=== PATIENT | male | born 1960 | race African-American/Black ===

== ENCOUNTER 2017-04-08 22:20 | Inpatient (IN) | payer OTHER ==
[~2017-04-08] VITALS: Ht 180.3 cm; Wt 100.0 kg
[~2017-04-08 22:20] MED LIST: ASPI325T PO; CAPT25TA2 PO; METO50TA PO; RANI150 PO
[2017-04-08 22:25] VITALS: BP 195/91; PULSE 90; RESP 16; TEMP 98.7; O2SAT 99
[2017-04-09] VITALS (10 sets, daily range): BP systolic 158–188; BP diastolic 78–86; PULSE 66–89; RESP 15–24; TEMP 97.4–97.9; O2SAT 80–99
[2017-04-09] MEDS ORDERED: ASPIRIN 81 MG CHEW TAB CHEW ONE (00:45)
[2017-04-09 01:04] LABS: AUTOMATED NEUTROPHIL # 3.7 TH/MM3 (1.8-7.7); BASOPHIL % 0.3 % (0.0-2.0); EOSINOPHIL # 0.1 TH/MM3 (0-0.4); EOSINOPHIL % 1.8 % (0.0-4.0); HEMATOCRIT 28.1 % (39.0-51.0); HEMO FLAGS DIFF FINAL; LYMPH % 29.6 % (9.0-44.0); LYMPHOCYTE # 1.8 TH/MM3 (1.0-4.8); MEAN CELL VOLUME 86.2 FL (80.0-100.0); MEAN CORPUSCULAR HEMOGLOBIN 28.7 PG (27.0-34.0); MEAN CORPUSCULAR HGB CONC 33.3 % (32.0-36.0); MONO % 8.8 % (0.0-8.0); NEUT % 59.5 % (16.0-70.0); PLATELET COUNT 285 TH/MM3 (150-450); RED BLOOD COUNT 3.25 MIL/MM3 (4.50-5.90); RED CELL DISTRIBUTION WIDTH 13.6 % (11.6-17.2); WHITE BLOOD COUNT 6.2 TH/MM3 (4.0-11.0)
[2017-04-09 01:16] LABS: APTT (PATIENT) 27.3 SEC (24.3-30.1); PROTHROMBIN TIME - PATIENT 10.7 SEC (9.8-11.6)
--- NOTE | 2017-04-09 01:18 | PD ---
HPI Chief Complaint: Chest Pain Time Seen by Provider: 00:11 Travel History International Travel<30 days: No Contact w/Intl Traveler<30days: No Traveled to known affect area: No History of Present Illness HPI The patient is a 56 year old male who presents to the [facility] emergency department with a history of back pain along the mid back worse on the right side that radiates down his back intermittently that began one month ago. He reports that the pain is constant and a dull aching sensation. He denies having any lower extremity edema associated with this. He denies having any numbness or tingling to his legs at this time, however he reports that intermittently he does have tingling in one leg alternating with the other. He denies having any urinary incontinence, however he has had difficulty urinating for the last 6 months with some dysuria. He went to see his primary care physician, Dr. Montero regarding this and had a urinalysis done that was reportedly unremarkable. He was told that he probably had prostate enlargement and difficulty urinating related to his high blood pressure. The patient reports that he had a new blood pressure medication added to his regimen was given something to help with prostate enlargement. The patient reports that 2 days ago he began to have left anterior upper chest wall pain. He reports that this is been coming and going. He reports the pain is sharp in character and worse with touching that area. He denies having any pain with taking a deep breath. He denies having any prior history of cardiac disease. The patient reports that he had an evaluation done yesterday for his back pain at [facility]. He did not mention the chest wall pain at that time. The patient was told that he had multiple areas of metastasis in his back and that he would need to follow-up with his primary care physician as soon as possible for referral to an oncologist. The patient reports that the pain medicine, Percocet has not been helping with the pain. Thus, he came to this emergency department for evaluation and treatment. He denies having any bowel incontinence. The patient denies any recent fevers, cough, congestion, neck pain, shortness of breath, abdominal pain, vomiting, diarrhea, or other neurologic symptoms. 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 Blood Disorders: No Heart Rhythm Problems: Yes (NEW ONSET AFIB WITH RVR) Cancer: No Cardiovascular Problems: Yes Diminished Hearing: Yes (DECREASE RIGHT EAR SINCE THIS AM) Endocrine: No GERD: Yes Genitourinary: No Hypertension: Yes Immune Disorder: No Musculoskeletal: Yes Neurologic: No Psychiatric: No Reproductive: No Respiratory: Yes Past Surgical History Narrative Surgical The patient's past surgical history is significant for none. Social History Alcohol Use: Yes (one beer occasionally) Tobacco Use: No Substance Use: No Allergies-Medications (Allergen,Severity, Reaction): Coded Allergies: Codeine (Verified Allergy, Severe, ITCHING, 04/09/17) Reported Meds & Prescriptions Reported Meds & Active Scripts Active Reported Aspirin 325 Mg Tab 325 Mg PO DAILY Captopril 25 Mg Tab 25 Mg PO TIDAC Take 1 hr before meals. Review of Systems Except as stated in HPI: all other systems reviewed are Neg General / Constitutional: No: Fever Eyes: No: Visual changes HENT: No: Headaches Cardiovascular: Positive: Chest Pain or Discomfort, No: Dyspnea on exertion Respiratory: No: Cough, Shortness of Breath Gastrointestinal: No: Nausea, Vomiting, Diarrhea, Abdominal Pain, Changes in Bowel Habits Genitourinary: Positive: Frequency, Dysuria, No: Urgency Musculoskeletal: Positive: Myalgias, Arthralgias, Pain Skin: No Rash Neurologic: No: Weakness, Focal Abnormalities, Change in Mentation, Slurred Speech, Sensory Disturbance Psychiatric: No: Depression Endocrine: No: Polydipsia Hematologic/Lymphatic: No: Easy Bruising Physical Exam Narrative General: The patient is a well-developed well-nourished male in no acute distress. Head and Neck exam: Head is normocephalic atraumatic. Eyes: EOMI, pupils are equal round and reactive to light. Nose: Midline septum with pink mucous membranes Mouth: Dentition unremarkable. Moist mucus membranes. Posterior oropharynx is not erythematous. No tonsillar hypertrophy. Uvula midline. Airway patent. Neck: No palpable lymphadenopathy. No nuchal rigidity. No thyromegaly. Cardiovascular: Regular rate and rhythm without murmurs, gallops, or rubs. Lungs: Clear to auscultation bilaterally. No wheezes, rhonchi, or rales. Abdomen: Soft, without tenderness to palpation in all 4 quadrants of the abdomen. No guarding, rebound, or rigidity. Normal bowel sounds are audible. No tenderness on palpation of McBurney's point. Negative Titus's sign. Extremities: No clubbing, cyanosis, or edema. 2+ pulses in all 4 extremities. No calf tenderness on palpation. Back: The patient reports having paraspinal muscle tenderness on palpation along the mid to lower thoracic spine. No costovertebral angle tenderness to palpation. Neurologic Exam: Cranial nerves 2-12 were intact on exam. Strength is 5/5 in all 4 extremities. No sensory deficits noted. Negative straight leg raise bilaterally. Skin Exam: No rash noted. Intact skin that is warm and dry. Data Data Last Documented VS Vital Signs Date Time Temp Pulse Resp B/P Pulse Ox O2 Delivery O2 Flow Rate FiO2 04/09/17 02:00 80 16 182/86 98 Room Air 04/08/17 22:25 98.7 Orders Complete Blood Count With Diff (04/09/17 00:32) Comprehensive Metabolic Panel (04/09/17 00:32) Creatine Kinase (Cpk) (04/09/17 00:32) Ckmb (Isoenzyme) Profile (04/09/17 00:32) Troponin I (04/09/17 00:32) B-Type Natriuretic Peptide (04/09/17 00:32) Prothrombin Time / Inr (Pt) (04/09/17 00:32) Act Partial Throm Time (Ptt) (04/09/17 00:32) Lipase (04/09/17 00:32) Urinalysis - C+S If Indicated (04/09/17 00:32) D-Dimer (04/09/17:32) Magnesium (Mg) (04/09/17 00:32) Chest, Single Ap (04/09/17 00:32) Iv Access Insert/Monitor (04/09/17 00:32) Ecg Monitoring (04/09/17 00:32) Oximetry (04/09/17 00:32) Aspirin Chew (Aspirin Chew) (04/09/17 00:45) CKMB (04/09/17 00:50) CKMB% (04/09/17 00:50) Ct Abd/Pel W/O Iv Contrast (04/09/17 01:45) Sodium Chlor 0.9% 1000 Ml Inj (Ns 1000 M (04/09/17 02:00) Morphine Inj (Morphine Inj) (04/09/17 02:00) Ondansetron Inj (Zofran Inj) (04/09/17 02:00) Ventilation & Perfusion Scan (04/09/17 02:05) Admit Order (Ed Use Only) (04/09/17 02:18) Labs Laboratory Tests Test 04/09/17 00:50 White Blood Count 6.2 TH/MM3 Red Blood Count 3.25 MIL/MM3 Hemoglobin 9.4 GM/DL Hematocrit 28.1 % Mean Corpuscular Volume 86.2 FL Mean Corpuscular Hemoglobin 28.7 PG Mean Corpuscular Hemoglobin 33.3 % Concent Red Cell Distribution Width 13.6 % Platelet Count 285 TH/MM3 Mean Platelet Volume 7.2 FL Neutrophils (%) (Auto) 59.5 % Lymphocytes (%) (Auto) 29.6 % Monocytes (%) (Auto) 8.8 % Eosinophils (%) (Auto) 1.8 % Basophils (%) (Auto) 0.3 % Neutrophils # (Auto) 3.7 TH/MM3 Lymphocytes # (Auto) 1.8 TH/MM3 Monocytes # (Auto) 0.5 TH/MM3 Eosinophils # (Auto) 0.1 TH/MM3 Basophils # (Auto) 0.0 TH/MM3 CBC Comment DIFF FINAL Differential Comment Prothrombin Time 10.7 SEC Prothromb Time International 1.0 RATIO Ratio Activated Partial 27.3 SEC Thromboplast Time D-Dimer Quantitative (PE/DVT) 4.06 MG/L FEU Urine Color LIGHT-YELLOW Urine Turbidity CLEAR Urine pH 5.0 Urine Specific Thornton 1.011 Urine Protein NEG mg/dL Urine Glucose (UA) NEG mg/dL Urine Ketones NEG mg/dL Urine Occult Blood MOD Urine Nitrite NEG Urine Bilirubin NEG Urine Urobilinogen LESS THAN 2.0 MG/DL Urine Leukocyte Esterase NEG Urine RBC 61 /hpf Urine WBC 3 /hpf Urine Squamous Epithelial <1 /hpf Cells Urine Mucus FEW /lpf Microscopic Urinalysis Comment CULT NOT INDICATED Sodium Level 140 MEQ/L Potassium Level 4.2 MEQ/L Chloride Level 106 MEQ/L Carbon Dioxide Level 22.6 MEQ/L Anion Gap 11 MEQ/L Blood Urea Nitrogen 50 MG/DL Creatinine 3.60 MG/DL Estimat Glomerular Filtration 21 ML/MIN Rate Random Glucose 110 MG/DL Calcium Level 9.4 MG/DL Magnesium Level 2.6 MG/DL Total Bilirubin 0.2 MG/DL Aspartate Amino Transf 16 U/L (AST/SGOT) Alanine Aminotransferase 19 U/L (ALT/SGPT) Alkaline Phosphatase 462 U/L Total Creatine Kinase 160 U/L Creatine Kinase MB 1.4 NG/ML Troponin I LESS THAN 0.02 NG/ML B-Type Natriuretic Peptide 28 PG/ML Total Protein 8.2 GM/DL Albumin 3.2 GM/DL Lipase 129 U/L [facility] Medical Decision Making Medical Screen Exam Complete: Yes Emergency Medical Condition: Yes Medical Record Reviewed: Yes Interpretation(s) Last Impressions Lung Scan-VQ Nuclear Medicine 04/09/17 0205 Signed Impressions: Service Date/Time: Sunday, April 09, 2017 09:21 - CONCLUSION: Normal examination with no ventilation/perfusion mismatch. Examination is low probability for PE. Agustín Augustin MD Abdomen/Pelvis CT 04/09/17 0145 Signed Impressions: Service Date/Time: Sunday, April 09, 2017 02:07 - CONCLUSION: Bilateral hydronephrosis which is felt likely related to neoplasm involving the distal ureters. Retroperitoneal adenopathy. Widespread bony metastatic disease. Agustín Boykin MD Chest X-Ray 04/09/17 0032 Signed Impressions: Service Date/Time: Sunday, April 09, 2017 01:09 - CONCLUSION: No acute disease. Agustín Boykin MD Differential Diagnosis Multiple myeloma, versus metastatic cancer from other source, versus Paget's disease, versus acute coronary syndrome, versus pulmonary embolism, versus musculoskeletal strain Narrative Course During the course of the patients emergency department visit, the patients history, examination, and differential diagnosis were reviewed with the patient. The patient had IV access obtained and blood work sent for analysis. The patient was placed on a pvc monitor with oximetry and blood pressure monitoring. An EKG was done on arrival. The EKG showed no acute ST segment changes. The patient was initially provided aspirin 162 mg by mouth 1 due to his reports of chest pain. The patient was given morphine for formal grams IV for pain, Zofran 4 mg IV for nausea, normal saline 1 L IV fluid bolus. The patients laboratory studies were reviewed and remarkable for a 6.2, hemoglobin 9.4, platelets 285 with 8.8 monocytes, CMP is remarkable for BUN of 50, creatinine 3.60, glucose 110, magnesium 2.6, alkaline phosphatase 462, CPK and troponin I within normal limits, BNP is 28, lipase 129, d-dimer is 4.06, given the patient's elevated BUN and creatinine of VQ scan will be ordered to be done as an inpatient, PT 10.7, PTT 27.3. Urinalysis shows moderate occult blood [address] scan of the abdomen and pelvis to evaluate for possible kidney stones versus urologic mass was ordered. Radiology studies were reviewed and remarkable for a chest x-ray that showed no acute abnormality. A CT scan showed bilateral hydronephrosis which is felt likely to be related to neoplasm involving the distal ureters, retroperitoneal adenopathy, widespread bony metastatic disease is noted. The patient's results were discussed with the patient, including the plan of care. I explained that further testing and/ or monitoring is indicated based on the patients history, examination, and/ or laboratory findings. Therefore, I recommended admission for additional evaluation. The patient expressed understanding and was agreeable with this plan. The patient was admitted to the hospital in stable condition and [facility]. Physician Communication Physician Communication The patient's case was discussed with Dr. Mishra who did agree to admit the patient for further evaluation and treatment at this time. Diagnosis Primary Impression: Metastatic disease Additional Impressions: Elevated d-dimer Chest pain Qualified Code: R07.9 - Chest pain, unspecified type Admitting Information Admitting Physician Requests: Admit Marlyn Alvarez MD April 09, 2017 01:18
--- NOTE | 2017-04-09 01:23 | RADRPT ---
EXAM DATE/TIME: 04/09/2017 01:09 [facility] COMPARISON: No previous studies available for comparison. INDICATIONS : Chest pain. MEDICAL HISTORY : None. SURGICAL HISTORY : None. ENCOUNTER: Initial ACUITY: 1 day PAIN SCORE: 7/10 LOCATION: Bilateral chest FINDINGS: A single view of the chest demonstrates the lungs to be symmetrically aerated without evidence of mas s, infiltrate or effusion. The cardiomediastinal contours are unremarkable. Osseous structures are intact. CONCLUSION: No acute disease. Agustín Boykin MD on April 09, 2017 at 1:20 Board Certified Radiologist. This report was verified electronically.
[2017-04-09 01:28] LABS: ALT (GPT) 19 U/L (12-78); ANION GAP 11 MEQ/L (5-15); AST (GOT) 16 U/L (15-37); BICARBONATE 22.6 MEQ/L (21.0-32.0); BLOOD UREA NITROGEN 50 MG/DL (7-18); CHLORIDE 106 MEQ/L (98-107); GLOMERULAR FILTRATION RATE 21 ML/MIN (>89); MAGNESIUM 2.6 MG/DL (1.5-2.5); POTASSIUM 4.2 MEQ/L (3.5-5.1); SODIUM (NA) 140 MEQ/L (136-145)
[2017-04-09 01:32] LABS: ALKALINE PHOSPHATASE 462 U/L (45-117); CREATINE KINASE 160 U/L (39-308); TOTAL BILIRUBIN ADULT 0.2 MG/DL (0.2-1.0)
[2017-04-09 01:35] LABS: BLOOD, URINE MOD (NEG); GLUCOSE,URINE NEG (NEG); KETONE, URINE NEG (NEG); MUCUS URINE FEW /lpf (OCC); NITRITE,URINE NEG (NEG); SQUAMOUS EPITHELIAL CELL URINE <1 /hpf (0-5); URINE COLOR LIGHT-YELLOW (YELLW/STRAW)
[2017-04-09 01:36] LABS: COMMENT (UR) CULT NOT INDICATED; CULTURE IF INDICATED CULT NOT INDICATED
[2017-04-09 01:44] LABS: CKMB 1.4 NG/ML (0.5-3.6)
[2017-04-09] MEDS ORDERED: ONDANSETRON HCL 4 MG/2 ML VIAL IV PUSH ONE (02:00)
[2017-04-09] MEDS ORDERED: MORPHINE SULFATE 4 MG/ML INJ IV PUSH ONE (02:00)
[2017-04-09] MEDS ORDERED: SODIUM CHLOR 0.9% 1000 ML INJ 1,000 ML IV ONE (02:00)
[2017-04-09] MEDS ORDERED: LACTULOSE SYRUP 20 GM/30 ML CUP PO PRN (02:45)
[2017-04-09] MEDS ORDERED: MAGNESIUM HYDROXIDE SUSP 30 ML CUP PO PRN (02:45)
[2017-04-09] MEDS ORDERED: ONDANSETRON HCL 4 MG/2 ML VIAL IVP PRN (02:45)
[2017-04-09] MEDS ORDERED: SENNOSIDES 8.6 MG TAB PO PRN (02:45)
[2017-04-09] MEDS ORDERED: DIAZEPAM 5 MG TAB PO PRN (02:45)
[2017-04-09] MEDS ORDERED: ACETAMINOPHEN 325 MG TAB PO PRN (02:45)
[2017-04-09] MEDS ORDERED: SODIUM CHLORIDE 0.9% FLUSH 10 ML FLUSH IV FLUSH PRN (02:45)
[2017-04-09] MEDS ORDERED: BISACODYL 10 MG SUPP RECTAL PRN (02:45)
--- NOTE | 2017-04-09 02:58 | RADRPT ---
EXAM DATE/TIME: 04/09/2017 02:07 [facility] COMPARISON: No previous studies available for comparison. INDICATIONS : Back pain; rule out renal calculi. ORAL CONTRAST: No oral contrast ingested. RADIATION DOSE: 8.51 CTDIvol (mGy) MEDICAL HISTORY : Hypertension. SURGICAL HISTORY : None. ENCOUNTER: Initial ACUITY: 1 day PAIN SCALE: 8/10 LOCATION: abdomen/pelvis TECHNIQUE: Volumetric scanning of the abdomen and pelvis was performed. Using automated exposure control and ad justment of the mA and/or kV according to patient size, radiation dose was kept as low as reasonably achievable to obtain optimal diagnostic quality images. FINDINGS: LOWER LUNGS: There are small bilateral pleural effusions and minimal adjacent parenchymal lung atelectasis LIVER: Homogeneous density without lesion. There is no dilation of the biliary tree. No calcified gallston es. SPLEEN: Normal size without lesion. PANCREAS: Within normal limits. KIDNEYS: Bilateral moderate hydronephrosis and hydroureter with the ureter is dilated throughout. There is inc reased density and wall thickening involving the distal right ureter in particular which is worrisome for neoplastic involvement. No stones are seen. ADRENAL GLANDS: Within normal limits. VASCULAR: There is no aortic aneurysm. BOWEL/MESENTERY: The stomach, small bowel, and colon demonstrate no acute abnormality. There is no free intraperitone al air or fluid. ABDOMINAL WALL: Within normal limits. RETROPERITONEUM: There are enlarged para-aortic lymph nodes, particularly in the lower abdomen and are enlarged retrop eritoneal pelvic lymph nodes, largest on the right measuring about 2.6 cm. BLADDER: Mild posterior bladder base wall thickening adjacent to prostatic impression. REPRODUCTIVE: Prostate is enlarged impressing the bladder base. Prominence of the incompletely visualized right scr otal soft tissues which may reflect mass or hydrocele. INGUINAL: There is no lymphadenopathy or hernia. MUSCULOSKELETAL: Innumerable heterogeneous mixed lytic and sclerotic bone lesions consistent with widespread metastati c disease CONCLUSION: Bilateral hydronephrosis which is felt likely related to neoplasm involving the distal ureters. Retroperitoneal adenopathy. Widespread bony metastatic disease. Agustín Boykin MD on April 09, 2017 at 2:46 Board Certified Radiologist. This report was verified electronically.
[2017-04-09] MEDS ORDERED: ASPI325T PO (03:16)
[2017-04-09] MEDS ORDERED: CAPT25TA2 PO (03:16)
[2017-04-09] MEDS: HEPARIN SODIUM - SQ 10,000 UNITS/ML VIAL SQ SCH ×2 (03:22→13:48)
[2017-04-09] MEDS ORDERED: HYDROmorphone HCL PF 1 MG/ML VIAL IV PUSH PRN (03:30)
[2017-04-09] MEDS: SODIUM CHLOR 0.9% 1000 ML INJ 1,000 ML IV SCH ×3 (03:42→21:52)
--- NOTE | 2017-04-09 03:47 | HHI.HP ---
HPI Service [facility] Hospitalists Primary Care Physician Agustín Montero MD Admission Diagnosis Renal failure, micro hematuria, back pain with metastasis Diagnoses: (1) Intractable back pain Diagnosis: Principal (2) Metastatic disease Diagnosis: Principal (3) Chest pain Diagnosis: Principal (4) Elevated d-dimer Diagnosis: Principal (5) JENELLE (acute kidney injury) Diagnosis: Principal (6) Hydronephrosis Diagnosis: Principal (7) Anemia Diagnosis: Principal (8) HTN (hypertension) Diagnosis: Principal Travel History International Travel<30 Days: No Contact w/Intl Traveler <30 Da: No Traveled to Known Affected Are: No History of Present Illness This is a 56-year-old male with a PMH of HTN and h/o A-fib on ASA who presented to the ER w/ complaints of severe back pain x1 month. Was seen at [facility] for similar symptoms yesterday. records in chart. CT T-Spine w/o contrast w/ mild bilateral hydronephrosis and proximal hydroureter, very extensive diffuse metastatic disease involving the entire visualized vertebral column, possible paraspinal extraosseous spread of neoplasm at T9. Pt was informed of results and discharged from w/ prescription for Percocet and instructions to follow up w/ PCP for Oncology referral. Today, pt w/ ongoing severe back pain and acute onset of chest pain at which time he presented to [place]. Also reports difficulty urinating for approx 6 months, seen by PCP Dr. Montero, outpatint U/a normal per patient and started on "medication for prostate", notes some improvement in symptoms. Denies fever, chills, nausea, vomiting or diarrhea. On arrival, BP 195/91, HR 90, O2 sat 99% on RA, Afebrile. WBC normal. Hgb 9.4, previously 13.9 on 12/12/09. Creatinine 3.60, previously 1.35 on 12/12/09. GFR 21. ALP 462. Troponin negative. INR 1.0. D-dimer 4.06. V/ Q pending. UA with hematuria. CXR with no acute findings. CT Abdomen/Pelvis w / bilateral hydronephrosis likely related to neoplasm involving the distal ureters, retroperitoneal adenopathy, widespread bony metastatic disease. Review of Systems Except as stated in HPI: all other systems reviewed are Neg ROS: 14 point review of systems otherwise negative. Past Family Social History Past Medical History PMH: HTN and h/o A-fib on ASA Past Surgical History PAST SURGICAL HISTORY: None Allergies: Coded Allergies: Codeine (Verified Allergy, Severe, ITCHING, 04/09/17) Family History PAST FAMILY HISTORY: Reviewed. No h/o DM or CAD Social History PAST SOCIAL HISTORY: Occasional alcohol. Negative for tobacco or drugs. Physical Exam Vital Signs Vital Signs Date Time Temp Pulse Resp B/P Pulse Ox O2 Delivery O2 Flow Rate FiO2 04/08/17 22:25 98.7 90 16 195/91 99 Room Air Physical Exam PE: GENERAL: Very pleasant middle-aged black male in no acute distress. HEENT: PERRLA, EOMI. No scleral icterus or conjunctival pallor. No lid lag or facial droop. CARDIOVASCULAR: Regular rate and rhythm. No obvious murmurs to auscultation. No chest tenderness to palpation. RESPIRATORY: No obvious rhonchi or wheezing. Clear to auscultation. Breath sounds equal bilaterally. GASTROINTESTINAL: Abdomen soft, non-tender, nondistended. BS normal. MUSCULOSKELETAL: Extremities without clubbing, cyanosis, or edema. No obvious deformities. NEUROLOGICAL: Awake, alert and oriented x4. No focal neurologic deficits. Moving both upper and lower extremities spontaneously. Laboratory Laboratory Tests Test 04/09/17 00:50 White Blood Count 6.2 Red Blood Count 3.25 Hemoglobin 9.4 Hematocrit 28.1 Mean Corpuscular Volume 86.2 Mean Corpuscular Hemoglobin 28.7 Mean Corpuscular Hemoglobin 33.3 Concent Red Cell Distribution Width 13.6 Platelet Count 285 Mean Platelet Volume 7.2 Neutrophils (%) (Auto) 59.5 Lymphocytes (%) (Auto) 29.6 Monocytes (%) (Auto) 8.8 Eosinophils (%) (Auto) 1.8 Basophils (%) (Auto) 0.3 Neutrophils # (Auto) 3.7 Lymphocytes # (Auto) 1.8 Monocytes # (Auto) 0.5 Eosinophils # (Auto) 0.1 Basophils # (Auto) 0.0 CBC Comment DIFF FINAL Differential Comment Prothrombin Time 10.7 Prothromb Time International 1.0 Ratio Activated Partial 27.3 Thromboplast Time D-Dimer Quantitative (PE/DVT) 4.06 Urine Color LIGHT-YELLOW Urine Turbidity CLEAR Urine pH 5.0 Urine Specific Mccoll 1.011 Urine Protein NEG Urine Glucose (UA) NEG Urine Ketones NEG Urine Occult Blood MOD Urine Nitrite NEG Urine Bilirubin NEG Urine Urobilinogen LESS THAN 2.0 Urine Leukocyte Esterase NEG Urine RBC 61 Urine WBC 3 Urine Squamous Epithelial <1 Cells Urine Mucus FEW Microscopic Urinalysis Comment CULT NOT INDICATED Sodium Level 140 Potassium Level 4.2 Chloride Level 106 Carbon Dioxide Level 22.6 Anion Gap 11 Blood Urea Nitrogen 50 Creatinine 3.60 Estimat Glomerular Filtration 21 Rate Random Glucose 110 Calcium Level 9.4 Magnesium Level 2.6 Total Bilirubin 0.2 Aspartate Amino Transf 16 (AST/SGOT) Alanine Aminotransferase 19 (ALT/SGPT) Alkaline Phosphatase 462 Total Creatine Kinase 160 Creatine Kinase MB 1.4 Troponin I LESS THAN 0.02 B-Type Natriuretic Peptide 28 Total Protein 8.2 Albumin 3.2 Lipase 129 Result Diagram: 04/09/174904/09/1749 Assessment and Plan Problem List: (1) Intractable back pain ICD Code: M54.9 Status: Acute (2) Metastatic disease ICD Code: C79.9 Status: Acute (3) Chest pain ICD Code: R07.9 Status: Acute (4) Elevated d-dimer ICD Code: R79.89 Status: Acute (5) Hydronephrosis ICD Code: N13.30 Status: Acute (6) JENELLE (acute kidney injury) ICD Code: N17.9 Status: Acute (7) Anemia ICD Code: D64.9 Status: Acute (8) HTN (hypertension) ICD Code: I10 Status: Acute Assessment and Plan A/P: 1. Intractable Back Pain: secondary to findings of extensive metastatic disease on imaging. Analgesics as needed for pain control. 2. Metastatic Disease: Unknown Primary. Presented to [facility] 04/08/17 w/ c /o severe back pain, CT T-Spine from w/ mild bilateral hydronephrosis and extensive metastatic disease (copy in chart), was d/c'd w/ Percocet and instructed to follow up w/ PCP for referral to Oncology. CT Abd/Pelvis today w / moderate bilateral hydronephrosis related to neoplasm involving distal ureters widespread bony metastatic disease, images reviewed by me. Will consult Urology and Oncology for further evaluation. ALP elevated as expected with these findings. Will check PSA. 3. Chest Pain: acute onset of chest pain w/ episode of back pain. Initial trop negative, EKG w/ no acute changes. Unlikely cardiac in origin. Check serial cardiac enzymes. Resume home ASA, start B-negin, Statin. 4. Elevated D-dimer: D-dimer 4.06, unable to undergo CTA Pulm in light of JENELLE. V/Q ordered, currently pending. 5. JENELLE: secondary to Obstructive Uropathy. Creatinine 3.60, previously 1.35 on 12/12/09. U/a +hematuria. CT Abd/Pelvis w/ neoplasm thought to be causing hydronephrosis. Monitor I/O. Consult Urology as above. IVF for hydration. 6. Hydronephrosis: CT from [facility] 04/08/17 w/ mild bilateral hydronephrosis, CT Abd/Pelvis now w/ worsening hydronephrosis likely from underlying neoplasm. +urinary output. Will monitor, treatment/plan as above. 7. Anemia: Hgb 9.4, previously 13.9 on 12/12/09. No active bleeding. Will monitor. 8. HTN: Uncontrolled. BP 190's on arrival. Hold Captopril in light of JENELLE. Start Metoprolol. Monitor BP. 9. DVT Prophylaxis: Heparin sq 10. Social work for d/c planning as needed. 11. Case discussed w/ ER physician at length. Physician Certification 2 Midnight Certification Type: Admission for Inpatient Services Order for Inpatient Services The services are ordered in accordance with Medicare regulations or non- Medicare payer requirements, as applicable. In the case of services not specified as inpatient-only, they are appropriately provided as inpatient services in accordance with the 2-midnight benchmark. Estimated LOS (days): 2 days is the estimated time the patient will need to remain in the hospital, assuming treatment plan goals are met and no additional complications. Post-Hospital Plan: Not yet determined Anel Mishra MD April 09, 2017 03:47
--- NOTE | 2017-04-09 08:16 | EKG ---
Date Performed: 04/09/2017 Time Performed: 00:01:44 PTAGE: 56 years EKG: Baseline artifact is present. Probable Sinus rhythm WITH SHORT NM INTERVAL NONSPECIFIC T-WAVE ABNORMALITY ABNORMAL ECG Compared to prior electrocardiogr am,Both EKGs have artifact but it appears that nonspecific T-wave changes are present. PREVIOUS TRACING : 12/12/2009 19.28 DOCTOR: Harsh Perez Interpretating Date/Time 04/09/2017 08:15:46
[2017-04-09] MEDS ORDERED: METOPROLOL TARTRATE 25 MG TAB PO SCH (09:00)
[2017-04-09] MEDS ORDERED: METOPROLOL TARTRATE 50 MG TAB PO SCH (09:00)
[2017-04-09] MEDS: ASPIRIN 325 MG TAB PO SCH (09:11)
[2017-04-09] MEDS: DOCUSATE SODIUM 50 MG/SENNA 8.6 MG TAB PO SCH ×2 (09:11→20:02)
[2017-04-09] MEDS: FAMOTIDINE 20 MG TAB PO SCH (09:11)
[2017-04-09] MEDS: PRAVASTATIN SOD 40 MG TAB PO SCH (09:11)
[2017-04-09] MEDS: SODIUM CHLORIDE 0.9% FLUSH 10 ML FLUSH IV FLUSH SCH ×2 (09:12→20:00)
--- NOTE | 2017-04-09 10:13 | RADRPT ---
EXAM DATE/TIME: 04/09/2017 09:21 [place] COMPARISON: CHEST SINGLE AP, April 09, 2017, 1:09. INDICATIONS : Short of breath and right sided chest pain. DOSE: 8.1 mCi Tc99m MAA IV 1.1 mCi Tc99m DTPA aerosol MEDICAL HISTORY : Hypertension. Carcinoma, prostate. Smoker and atrial fibrillation. SURGICAL HISTORY : None. ENCOUNTER: Initial ACUITY: 1 day PAIN SCALE: 3/10 LOCATION: Right chest TECHNIQUE: Following five minutes of tidal breathing of DTPA aerosol, planar images of the lungs were performed in eight projections. The patient was then injected with MAA, and eight-view perfusion scan was perf ormed. FINDINGS: There is a homogeneous pattern of aerosol delivery to the periphery of both lungs. No focal ventilat ory defects are seen. The perfusion lung scan demonstrates a homogenous pattern of uptake in both lungs. No segmental or s ubsegmental defects are seen. CONCLUSION: Normal examination with no ventilation/perfusion mismatch. Examination is low probability for PE. Agustín Augustin MD on April 09, 2017 at 10:09 Board Certified Radiologist. This report was verified electronically.
[2017-04-09] MEDS: HYDROmorphone HCL PF 1 MG/ML VIAL IV PRN ×2 (10:52→15:27)
--- NOTE | 2017-04-09 11:08 | HHI.PR ---
Subjective Remarks Patient seen in follow up for widespread bony metastasis, hydronephrosis, renal failure, and intractable back pain. He reports the pain medication is helping. No shortness of breath. Tolerating food. Objective Vitals Vital Signs Date Time Temp Pulse Resp B/P Pulse Ox O2 Delivery O2 Flow Rate FiO2 04/09/17 09:19 77 04/09/17 08:00 97.9 89 22 174/81 99 04/09/17 04:17 80 04/09/17 04:05 97.7 84 18 186/84 98 04/09/17 03:31 16 04/09/17 03:00 80 16 183/85 80 Room Air 04/09/17 02:00 80 16 182/86 98 Room Air 04/08/17 22:25 98.7 90 16 195/91 99 Room Air I/O 04/08/17 04/08/17 04/08/17 04/09/17 04/09/17 04/09/17 07:00 15:00 23:00 07:00 15:00 23:00 Intake Total 1540 ml Balance 1540 ml Intake Oral 240 ml IV Total 1300 ml # Voids 1 Result Diagram: 04/09/17 0050 04/09/17 0050 Imaging Last Impressions Lung Scan-VQ Nuclear Medicine 04/09/17 0205 Signed Impressions: Service Date/Time: Sunday, April 09, 2017 09:21 - CONCLUSION: Normal examination with no ventilation/perfusion mismatch. Examination is low probability for PE. Agustín Augustin MD Abdomen/Pelvis CT 04/09/17 0145 Signed Impressions: Service Date/Time: Sunday, April 09, 2017 02:07 - CONCLUSION: Bilateral hydronephrosis which is felt likely related to neoplasm involving the distal ureters. Retroperitoneal adenopathy. Widespread bony metastatic disease. Agustín Boykin MD Chest X-Ray 04/09/17 0032 Signed Impressions: Service Date/Time: Sunday, April 09, 2017 01:09 - CONCLUSION: No acute disease. Agustín Boykin MD Objective Remarks GENERAL: This is a well-nourished, well-developed patient, in no apparent distress. CARDIOVASCULAR: Normal rate and regular rhythm without murmurs, gallops, or rubs. RESPIRATORY: Good respiratory efforts. Breath sounds equal and clear to auscultation bilaterally. GASTROINTESTINAL: Abdomen soft, non-tender, non-distended. Normal active bowel sounds MUSCULOSKELETAL: Tender to palpation in the mid thoracic spine. Extremities without edema or cyanosis. NEURO: Alert & Oriented x4 to person, place, time, situation. Moves all ext x4 PSYCH: Appropriate mood and affect. A/P Problem List: (1) Intractable back pain ICD Code: M54.9 Status: Acute (2) Metastatic disease ICD Code: C79.9 Status: Acute (3) Chest pain ICD Code: R07.9 Status: Acute (4) Elevated d-dimer ICD Code: R79.89 Status: Acute (5) Hydronephrosis ICD Code: N13.30 Status: Acute (6) JENELLE (acute kidney injury) ICD Code: N17.9 Status: Acute (7) Anemia ICD Code: D64.9 Status: Acute (8) HTN (hypertension) ICD Code: I10 Status: Acute Assessment and Plan 56-year-old male admitted with widespread bony metastatic disease, unknown primary. Patient also presented with acute renal failure secondary to bilateral hydronephrosis related to neoplasm. He presented with intractable back pain: Widespread bony metastatic disease to the spine and intractable back pain: Pain control Oncology consulted. CT T-Spine from w/ mild bilateral hydronephrosis and extensive metastatic disease (copy in chart), CT Abd/Pelvis today w/ moderate bilateral hydronephrosis related to neoplasm involving distal ureters widespread bony metastatic disease. Acute renal failure, likely secondary to obstructive uropathy: CT of the abdomen and pelvis showed hydronephrosis start to be due to neoplasm. Urology consulted Follow renal indices. Hydronephrosis: CT from [facility] 04/08/17 w/ mild bilateral hydronephrosis, CT Abd/Pelvis now w/ worsening hydronephrosis likely from underlying neoplasm. +urinary output. Will monitor, treatment/plan as above. Anemia: Hgb 9.4, previously 13.9 on 12/12/09. No active bleeding. Will monitor. HTN: Uncontrolled. BP 190's on arrival. Hold Captopril in light of JENELLE. Change metoprolol to Amlodipine for better pressure control. Monitor BP. Clonidine as needed DVT Prophylaxis: Heparin sq Natalie Burt MD April 09, 2017 11:08 Natalie Burt MD April 09, 2017 11:08
[2017-04-09 12:59] LABS: AUTOMATED NEUTROPHIL # 2.6 TH/MM3 (1.8-7.7); BASOPHIL % 0.5 % (0.0-2.0); EOSINOPHIL # 0.1 TH/MM3 (0-0.4); HEMO FLAGS DIFF FINAL; LYMPH % 30.5 % (9.0-44.0); LYMPHOCYTE # 1.4 TH/MM3 (1.0-4.8); MEAN CELL VOLUME 87.6 FL (80.0-100.0); MEAN CORPUSCULAR HEMOGLOBIN 29.1 PG (27.0-34.0); MEAN CORPUSCULAR HGB CONC 33.2 % (32.0-36.0); MONO % 8.7 % (0.0-8.0); NEUT % 58.3 % (16.0-70.0); PLATELET COUNT 296 TH/MM3 (150-450); RED BLOOD COUNT 2.85 MIL/MM3 (4.50-5.90); RED CELL DISTRIBUTION WIDTH 13.7 % (11.6-17.2); WHITE BLOOD COUNT 4.4 TH/MM3 (4.0-11.0)
[2017-04-09 13:19] LABS: ALT (GPT) 16 U/L (12-78); ANION GAP 12 MEQ/L (5-15); AST (GOT) 16 U/L (15-37); BICARBONATE 21.4 MEQ/L (21.0-32.0); BLOOD UREA NITROGEN 43 MG/DL (7-18); CHLORIDE 111 MEQ/L (98-107); GLOMERULAR FILTRATION RATE 24 ML/MIN (>89); POTASSIUM 4.2 MEQ/L (3.5-5.1); SODIUM (NA) 144 MEQ/L (136-145)
[2017-04-09 13:23] LABS: ALKALINE PHOSPHATASE 405 U/L (45-117); TOTAL BILIRUBIN ADULT 0.2 MG/DL (0.2-1.0)
[2017-04-09] MEDS: amLODIPine BESYLATE 5 MG TAB PO SCH (13:47)
--- NOTE | 2017-04-09 14:29 | PD.CONS ---
HPI Service Urology Consult Requested By Reason for Consult Bilateral hydroureteronephrosis Primary Care Physician Agustín Montero MD Diagnosis: (1) Intractable back pain ICD Code: M54.9 (2) Metastatic disease ICD Code: C79.9 (3) Chest pain ICD Code: R07.9 (4) Elevated d-dimer ICD Code: R79.89 (5) Hydronephrosis ICD Code: N13.30 (6) JENELLE (acute kidney injury) ICD Code: N17.9 (7) Anemia ICD Code: D64.9 (8) HTN (hypertension) ICD Code: I10 History of Present Illness 56-year-old gentleman with symptoms of back pain for approximately one month who presented to [facility] yesterday with worsening symptoms. Imaging studies demonstrated mild bilateral hydronephrosis, changes consistent with diffuse metastatic disease involving the vertebral column with possible paraspinal extraosseous spread at T9. Patient was informed of these findings, discharged and advised to follow up with his primary care physician. Patient we presented to [place] with worsening back pain as well as acute onset of chest pain. Present workup included a CT scan of the abdomen and pelvis that once again demonstrated bilateral hydroureteronephrosis which appeared related to involvement of both distal ureters with neoplasia. It was markedly retroperitoneal adenopathy and changes consistent with widespread bony metastatic disease. Serum PSA level was markedly elevated at 937.83. At the time of consultation the patient reports that he has been having some difficulty voiding for quite some time with a slow sluggish urinary stream. He also reports weight loss. Review of Systems Constitutional: COMPLAINS OF: Weight loss, DENIES: Fever, Night Sweats Cardiovascular: COMPLAINS OF: Chest pain Genitourinary: DENIES: Hematuria Musculoskeletal: COMPLAINS OF: Back pain Except as stated in HPI: all other systems reviewed are Neg Past Family Social History Past Medical History Hypertension Atrial fibrillation Past Surgical History Denies Reported Medications Refer to EMR Allergies: Coded Allergies: Codeine (Verified Allergy, Severe, ITCHING, 04/09/17) Active Ordered Medications Refer to EMR Family History Reviewed and noncontributory Social History Occasional alcohol use, denies tobacco or intravenous drug abuse history Physical Exam Vital Signs Date Time Temp Pulse Resp B/P Pulse Ox O2 Delivery O2 Flow Rate FiO2 04/09/17 12:00 97.6 66 15 188/83 98 158/78 04/09/17 09:19 77 04/09/17 08:00 97.9 89 22 174/81 99 04/09/17 04:17 80 04/09/17 04:05 97.7 84 18 186/84 98 04/09/17 03:31 16 04/09/17 03:00 80 16 183/85 80 Room Air 04/09/17 02:00 80 16 182/86 98 Room Air 04/08/17 22:25 98.7 90 16 195/91 99 Room Air Physical Exam GENERAL: This is a well-nourished, well-developed patient, in no apparent distress. SKIN: No rashes, ecchymoses or lesions. Cool and dry. HEAD: Atraumatic. Normocephalic. No temporal or scalp tenderness. EYES: Pupils equal round and reactive. Extraocular motions intact. No scleral icterus. No injection or drainage. ENT: Nose without bleeding, purulent drainage or septal hematoma. Throat without erythema, tonsillar hypertrophy or exudate. Uvula midline. Airway patent. NECK: Trachea midline. No JVD or lymphadenopathy. Supple, nontender, no meningeal signs. CARDIOVASCULAR: Regular rate and rhythm without murmurs, gallops, or rubs. RESPIRATORY: Clear to auscultation. Breath sounds equal bilaterally. No wheezes , rales, or rhonchi. GASTROINTESTINAL: Abdomen soft, non-tender, nondistended. No hepato-splenomegaly , or palpable masses. No guarding. GENITOURINARY: Prostate irregular, greater than 50 g and indurated. MUSCULOSKELETAL: Extremities without clubbing, cyanosis, or edema. No joint tenderness, effusion, or edema noted. No calf tenderness. Negative Homans sign bilaterally. NEUROLOGICAL: Awake and alert. Cranial nerves II through XII intact. Motor and sensory grossly within normal limits. Five out of 5 muscle strength in all muscle groups. Normal speech. Laboratory Tests Test 04/09/17 04/09/17 04/09/17 00:50 05:39 12:20 White Blood Count 6.2 4.4 Red Blood Count 3.25 2.85 Hemoglobin 9.4 8.3 Hematocrit 28.1 25.0 Mean Corpuscular Volume 86.2 87.6 Mean Corpuscular Hemoglobin 28.7 29.1 Mean Corpuscular Hemoglobin 33.3 33.2 Concent Red Cell Distribution Width 13.6 13.7 Platelet Count 285 296 Mean Platelet Volume 7.2 7.6 Neutrophils (%) (Auto) 59.5 58.3 Lymphocytes (%) (Auto) 29.6 30.5 Monocytes (%) (Auto) 8.8 8.7 Eosinophils (%) (Auto) 1.8 2.0 Basophils (%) (Auto) 0.3 0.5 Neutrophils # (Auto) 3.7 2.6 Lymphocytes # (Auto) 1.8 1.4 Monocytes # (Auto) 0.5 0.4 Eosinophils # (Auto) 0.1 0.1 Basophils # (Auto) 0.0 0.0 CBC Comment DIFF FINAL DIFF FINAL Differential Comment Prothrombin Time 10.7 Prothromb Time International 1.0 Ratio Activated Partial 27.3 Thromboplast Time D-Dimer Quantitative (PE/DVT) 4.06 Urine Color LIGHT-YELLOW Urine Turbidity CLEAR Urine pH 5.0 Urine Specific [place] 1.011 Urine Protein NEG Urine Glucose (UA) NEG Urine Ketones NEG Urine Occult Blood MOD Urine Nitrite NEG Urine Bilirubin NEG Urine Urobilinogen LESS THAN 2.0 Urine Leukocyte Esterase NEG Urine RBC 61 Urine WBC 3 Urine Squamous Epithelial <1 Cells Urine Mucus FEW Microscopic Urinalysis Comment CULT NOT INDICATED Sodium Level 140 144 Potassium Level 4.2 4.2 Chloride Level 106 111 Carbon Dioxide Level 22.6 21.4 Anion Gap 11 12 Blood Urea Nitrogen 50 43 Creatinine 3.60 3.29 Estimat Glomerular Filtration 21 24 Rate Random Glucose 110 112 Calcium Level 9.4 8.9 Magnesium Level 2.6 Total Bilirubin 0.2 0.2 Aspartate Amino Transf 16 16 (AST/SGOT) Alanine Aminotransferase 19 16 (ALT/SGPT) Alkaline Phosphatase 462 405 Total Creatine Kinase 160 Creatine Kinase MB 1.4 Troponin I LESS THAN 0.02 LESS THAN 0.02 LESS THAN 0.02 B-Type Natriuretic Peptide 28 Total Protein 8.2 7.0 Albumin 3.2 2.8 Lipase 129 Result Diagram: 04/09/17 1220 04/09/17 1220 Imaging Last Impressions Lung Scan-VQ Nuclear Medicine 04/09/17 1554 Signed Impressions: Service Date/Time: Sunday, April 09, 2017 09:21 - CONCLUSION: Normal examination with no ventilation/perfusion mismatch. Examination is low probability for PE. Agustín Augustin MD Abdomen/Pelvis CT 04/09/17 7873 Signed Impressions: Service Date/Time: Sunday, April 09, 2017 02:07 - CONCLUSION: Bilateral hydronephrosis which is felt likely related to neoplasm involving the distal ureters. Retroperitoneal adenopathy. Widespread bony metastatic disease. Agustín Boykin MD Chest X-Ray 04/09/17 0032 Signed Impressions: Service Date/Time: Sunday, April 09, 2017 01:09 - CONCLUSION: No acute disease. Agustín Boykin MD Assessment and Plan Assessment and Plan Urologic impression: Metastatic prostate cancer Recommendations: #1 agree with oncology consultation #2 we'll make arrangements for transrectal ultrasound-guided prostate biopsy sometime this week to confirm diagnosis and determine grade of disease Willie Garcia MD April 09, 2017 14:29
[2017-04-09] MEDS: MORPHINE SULFATE 15 MG CONTROLLED RELEASE TAB PO SCH ×2 (16:58→21:52)
[2017-04-09] MEDS: cloNIDine HCL 0.1 MG TAB PO PRN (22:04)
[2017-04-10] VITALS: BP 158/62; PULSE 76; RESP 17; TEMP 98; O2SAT 99
[2017-04-10] MEDS: HEPARIN SODIUM - SQ 10,000 UNITS/ML VIAL SQ SCH ×2 (02:46→14:06)
[2017-04-10 04:00] VITALS: BP 156/74; PULSE 73; RESP 17; TEMP 97.8; O2SAT 100
[2017-04-10] MEDS: MORPHINE SULFATE 15 MG CONTROLLED RELEASE TAB PO SCH ×3 (05:18→22:06)
[2017-04-10 05:50] LABS: HEMATOCRIT 23.9 % (39.0-51.0); MEAN CELL VOLUME 85.4 FL (80.0-100.0); MEAN CORPUSCULAR HEMOGLOBIN 29.6 PG (27.0-34.0); MEAN CORPUSCULAR HGB CONC 34.6 % (32.0-36.0); PLATELET COUNT 284 TH/MM3 (150-450); RED CELL DISTRIBUTION WIDTH 13.5 % (11.6-17.2); REVIEW FLAG FINAL; WHITE BLOOD COUNT 4.9 TH/MM3 (4.0-11.0)
[2017-04-10 05:52] LABS: BICARBONATE 21.4 MEQ/L (21.0-32.0); POTASSIUM 4.5 MEQ/L (3.5-5.1)
[2017-04-10] MEDS: PRAVASTATIN SOD 40 MG TAB PO SCH (07:59)
[2017-04-10] MEDS: DOCUSATE SODIUM 50 MG/SENNA 8.6 MG TAB PO SCH ×2 (07:59→20:03)
[2017-04-10] MEDS: ASPIRIN 325 MG TAB PO SCH (07:59)
[2017-04-10] MEDS: FAMOTIDINE 20 MG TAB PO SCH (07:59)
[2017-04-10 08:00] VITALS: BP 170/79; PULSE 79; RESP 18; TEMP 97.7; O2SAT 97
[2017-04-10] MEDS: amLODIPine BESYLATE 5 MG TAB PO SCH (08:00)
[2017-04-10] MEDS: SODIUM CHLOR 0.9% 1000 ML INJ 1,000 ML IV SCH ×2 (08:03→17:51)
[2017-04-10] MEDS: SODIUM CHLORIDE 0.9% FLUSH 10 ML FLUSH IV FLUSH SCH ×2 (08:03→20:03)
--- NOTE | 2017-04-10 10:01 | HHI.PR ---
Subjective Remarks Patient reports he is feeling better. Back pain is better controlled with scheduled Oramorph. Objective Vitals Vital Signs Date Time Temp Pulse Resp B/P Pulse Ox O2 Delivery O2 Flow Rate FiO2 04/10/17 08:00 97.7 79 18 170/79 97 04/10/17 06:18 18 04/10/17 04:00 97.8 73 17 156/74 100 04/10/17 00:00 98.0 76 17 158/62 99 04/09/17 20:02 72 04/09/17 20:00 97.7 76 17 182/82 99 04/09/17 16:00 97.4 75 24 99 170/78 04/09/17 12:00 97.6 66 15 188/83 98 158/78 I/O 04/09/17 04/09/17 04/09/17 04/10/17 04/10/17 04/10/17 07:00 15:00 23:00 07:00 15:00 23:00 Intake Total 1540 ml 1104 ml 863 ml 1072 ml 0 ml Output Total 300 ml Balance 1540 ml 1104 ml 863 ml 772 ml 0 ml Intake Oral 240 ml 200 ml 240 ml 240 ml 0 ml IV Total 1300 ml 904 ml 623 ml 832 ml Output Urine Total 300 ml # Voids 1 5 2 # Bowel Movements 0 Result Diagram: 04/10/17 0509 04/10/17 0509 Objective Remarks GENERAL: This is a well-nourished, well-developed patient, in no apparent distress. CARDIOVASCULAR: Normal rate and regular rhythm without murmurs, gallops, or rubs. RESPIRATORY: Good respiratory efforts. Breath sounds equal and clear to auscultation bilaterally. GASTROINTESTINAL: Abdomen soft, non-tender, non-distended. Normal active bowel sounds MUSCULOSKELETAL: Tender to palpation in the mid thoracic spine. Extremities without edema or cyanosis. NEURO: Alert & Oriented x4 to person, place, time, situation. Moves all ext x4 PSYCH: Appropriate mood and affect. A/P Problem List: (1) Intractable back pain ICD Code: M54.9 Status: Acute (2) Metastatic disease ICD Code: C79.9 Status: Acute (3) Chest pain ICD Code: R07.9 Status: Acute (4) Elevated d-dimer ICD Code: R79.89 Status: Acute (5) Hydronephrosis ICD Code: N13.30 Status: Acute (6) JENELLE (acute kidney injury) ICD Code: N17.9 Status: Acute (7) Anemia ICD Code: D64.9 Status: Acute (8) HTN (hypertension) ICD Code: I10 Status: Acute Assessment and Plan 56-year-old male admitted with widespread bony metastatic disease, unknown primary. Patient also presented with acute renal failure secondary to bilateral hydronephrosis related to neoplasm. He presented with intractable back pain: Widespread bony metastatic disease to the spine and intractable back pain: Pain control Oncology consulted. CT T-Spine from w/ mild bilateral hydronephrosis and extensive metastatic disease (copy in chart), CT Abd/Pelvis today w/ moderate bilateral hydronephrosis related to neoplasm involving distal ureters widespread bony metastatic disease. - PSA 937 Acute renal failure, likely secondary to obstructive uropathy: CT of the abdomen and pelvis showed hydronephrosis likely due to neoplasm. Urology following an planning to do ultrasound-guided prostate biopsy sometime this week Follow renal indices. Hydronephrosis: CT from [facility] [place] 04/08/17 w/ mild bilateral hydronephrosis, CT Abd/Pelvis now w/ worsening hydronephrosis likely from underlying neoplasm. +urinary output. Will monitor, treatment/plan as above. Urology following an planning to do ultrasound-guided prostate biopsy sometime this week Anemia: Stable. No active bleeding. Will monitor. HTN: Uncontrolled. BP 190's on arrival. Hold Captopril in light of JENELLE. Better controlled with amlodipine. Increased to 10 mg daily. Monitor BP. Clonidine as needed DVT Prophylaxis: Heparin sq Problem Qualifiers (1) Chest pain: Qualified Code: R07.9 - Chest pain, unspecified type Natalie Burt MD April 10, 2017 10:01
--- NOTE | 2017-04-10 10:51 | PD.ONC.PN ---
Objective Data Date Time Temp Pulse Resp B/P Pulse Ox O2 Delivery O2 Flow Rate FiO2 04/10/17 08:00 97.7 79 18 170/79 97 04/10/17 06:18 18 04/10/17 04:00 97.8 73 17 156/74 100 04/10/17 00:00 98.0 76 17 158/62 99 04/09/17 20:02 72 04/09/17 20:00 97.7 76 17 182/82 99 04/09/17 16:00 97.4 75 24 99 170/78 04/09/17 12:00 97.6 66 15 188/83 98 158/78 04/10/17 04/10/17 04/10/17 07:00 15:00 23:00 Intake Total 1072 ml 0 ml Output Total 300 ml Balance 772 ml 0 ml Result Diagram: 04/10/17 0509 04/10/17 0509 Laboratory Results Laboratory Tests Test 04/09/17 04/10/17 12:20 05:09 White Blood Count 4.4 TH/MM3 4.9 TH/MM3 Red Blood Count 2.85 MIL/MM3 2.80 MIL/MM3 Hemoglobin 8.3 GM/DL 8.3 GM/DL Hematocrit 25.0 % 23.9 % Mean Corpuscular Volume 87.6 FL 85.4 FL Mean Corpuscular Hemoglobin 29.1 PG 29.6 PG Mean Corpuscular Hemoglobin 33.2 % 34.6 % Concent Red Cell Distribution Width 13.7 % 13.5 % Platelet Count 296 TH/MM3 284 TH/MM3 Mean Platelet Volume 7.6 FL 7.5 FL Neutrophils (%) (Auto) 58.3 % Lymphocytes (%) (Auto) 30.5 % Monocytes (%) (Auto) 8.7 % Eosinophils (%) (Auto) 2.0 % Basophils (%) (Auto) 0.5 % Neutrophils # (Auto) 2.6 TH/MM3 Lymphocytes # (Auto) 1.4 TH/MM3 Monocytes # (Auto) 0.4 TH/MM3 Eosinophils # (Auto) 0.1 TH/MM3 Basophils # (Auto) 0.0 TH/MM3 CBC Comment DIFF FINAL Differential Comment Sodium Level 144 MEQ/L 143 MEQ/L Potassium Level 4.2 MEQ/L 4.5 MEQ/L Chloride Level 111 MEQ/L 113 MEQ/L Carbon Dioxide Level 21.4 MEQ/L 21.4 MEQ/L Anion Gap 12 MEQ/L 9 MEQ/L Blood Urea Nitrogen 43 MG/DL 44 MG/DL Creatinine 3.29 MG/DL 3.00 MG/DL Estimat Glomerular Filtration 24 ML/MIN 26 ML/MIN Rate Random Glucose 112 MG/DL 100 MG/DL Calcium Level 8.9 MG/DL 9.0 MG/DL Total Bilirubin 0.2 MG/DL Aspartate Amino Transf 16 U/L (AST/SGOT) Alanine Aminotransferase 16 U/L (ALT/SGPT) Alkaline Phosphatase 405 U/L Troponin I LESS THAN 0.02 NG/ML Total Protein 7.0 GM/DL Albumin 2.8 GM/DL Prostate Specific Antigen 937.83 NG/ML Administered Medications Medications (Trade) Dose Ordered Sig/Deepti Route PRN Reason Start Time Stop Time Status Last Admin Dose Admin Sodium Chloride (NS 1000 ml Inj) 1,000 ml @ 100 mls/hr Q10H IV 04/09/17 02:32 04/10/17 08:03 Sodium Chloride (NS Flush) 2 ml BID IV FLUSH 04/09/17 09:00 04/10/17 08:03 Heparin Sodium (Porcine) (Heparin Inj) 5,000 units Q12H SQ 04/09/17 02:45 04/10/17 02:46 Hydromorphone HCl (Dilaudid Pf Inj) 1 mg Q3H PRN IV Pain 6-10 04/09/17 02:45 04/09/17 15:27 Senna/Docusate Sodium (Kassidy-Colace) 1 tab BID PO 04/09/17 09:00 04/10/17 07:59 Aspirin (Aspirin) 325 mg DAILY PO 04/09/17 09:00 04/10/17 07:59 Famotidine (Pepcid) 20 mg DAILY PO 04/09/17 09:00 04/10/17 07:59 Pravastatin Sodium (Pravachol) 40 mg DAILY PO 04/09/17 09:00 04/10/17 07:59 Amlodipine Besylate (Norvasc) 5 mg DAILY PO 04/09/17 13:28 04/10/17 08:00 Clonidine (Catapres) 0.1 mg Q6H PRN PO SBP> OR = 180, DBP> OR = 100 04/09/17 13:30 04/09/17 22:04 Morphine Sulfate (Oramorph Sr) 15 mg Q8HR PO 04/09/17 16:00 04/10/17 05:18 Objective Remarks GENERAL: acutely ill, nAD SKIN: Warm and dry. HEAD: Normocephalic. EYES: No scleral icterus. No injection or drainage. NECK: Supple, trachea midline. No JVD or lymphadenopathy. LYMPHATIC: No adenopathy. CARDIOVASCULAR: Regular rate and rhythm without murmurs. RESPIRATORY: Breath sounds equal bilaterally. No accessory muscle use. GASTROINTESTINAL: Abdomen soft, non-tender, nondistended. EXTREMITIES: No cyanosis, or edema. Assessment/Plan Problem List: (1) Metastatic disease Status: Acute Plan: -s/p surgical decompression of cord compression at T3 , 04/13, pathology remains pending. 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 --PSA is elevated in the 900s. is highly suspicious for metastatic prostate cancer. We need to establish a tissue diagnosis. --MRI T/L spine: shows widespread osseous disease + cord compression at T3 (2) Elevated d-dimer Status: Acute (3) Normocytic anemia Status: Chronic (4) Cord compression Status: Resolved (5) Prostate cancer metastatic to bone Status: Acute (6) Hydronephrosis Status: Acute (7) Anemia Status: Acute (8) Chest pain Status: Resolved (9) JENELLE (acute kidney injury) Status: Resolved (10) Intractable back pain Status: Resolved Problem Qualifiers (1) Hydronephrosis: Qualified Code: N13.39 - Other hydronephrosis (2) Anemia: Qualified Code: D64.9 - Anemia, unspecified type (3) Chest pain: Qualified Code: R07.9 - Chest pain, unspecified type Tim Le MD April 10, 2017 10:51
[2017-04-10 12:00] VITALS: BP 159/77; PULSE 80; RESP 18; TEMP 98; O2SAT 96
[2017-04-10 16:00] VITALS: BP 173/77; PULSE 78; RESP 18; TEMP 97.7; O2SAT 96
[2017-04-10] MEDS: HYDROmorphone HCL PF 1 MG/ML VIAL IV PRN (20:04)
[2017-04-10 21:00] VITALS: BP 136/74; PULSE 79; RESP 17; TEMP 96.4; O2SAT 97
--- NOTE | 2017-04-10 21:46 | MB ---
cc: SULEMAN STANLEY DATE OF [birth year] DATE OF CONSULTATION REASON FOR CONSULTATION Patient with metastatic disease to the spine as well as widespread metastatic disease to the bones. HISTORY OF PRESENT ILLNESS This is a 56-year-old male who has a history of hypertension and atrial fibrillation who is on aspirin. He presented to the emergency department with complaints of worsening back pain. He was seen at [facility] initially and a CT scan of the T-spine without contrast was completed. It showed bilateral hydronephrosis and proximal hydroureter and excessive diffuse metastatic disease involving the entire visualized vertebral column. He also had paraspinal extraosseous spread of neoplasm at T9. The patient was discharged from the hospital with Percocet and was referred to oncology. He has now presented to [facility] with acute worsening of pain. In the emergency department, a CT of the abdomen and pelvis was performed which showed bilateral hydronephrosis which was felt secondary to a neoplasm involving the distal ureter. There was retroperitoneal adenopathy and widespread bony metastatic disease. His PSA was elevated to 937. The patient was found to be anemic on admission with a hemoglobin of 9.4. The patient was found to be in acute renal failure with a serum creatinine of three. Oncology has been consulted to make further recommendations in this patient who appears to have metastatic prostate cancer based on his elevated PSA levels and multiple bony metastatic lesions. REVIEW OF SYSTEMS A comprehensive 14-point review of systems was completed which was negative except as described in the HPI. PAST MEDICAL HISTORY 1. Hypertension 2. Atrial fibrillation PAST SURGICAL HISTORY Noncontributory to this admission FAMILY HISTORY Reviewed and is noncontributory to this admission. SOCIAL HISTORY He does not smoke cigarettes. He does not engage in illicit drugs. He drinks alcohol occasionally. MEDICATIONS 1. Norvasc 10 mg one tablet p.o. daily. 2. Morphine sulfate 15 mg p.o. q.8 h. 3. Catapres 0.1 mg p.o. q.6 h p.r.n. 4. Kassidy-Colace 1 tablet p.o. b.i.d. 5. Aspirin 325 mg p.o. daily. 6. 20 mg p.o. daily. 7. Pravastatin 40 mg p.o. daily. 8. Hydromorphone 0.5 mg IV q.4 h p.r.n. 9. Zofran 4 mg IV q.6 h p.r.n. 10. Heparin 4000 units subcu q.12 h. 11. Dilaudid 1 mg IV daily 3 h p.r.n. 12. Milk of magnesia 30 mL q.12 h p.r.n. 13. Senokot 17.2 mg p.o. q.12 h p.r.n. 14. Lactulose 30 mL 1 tablet p.o. p.r.n. 15. Valium 5 mg p.o. q.8 h p.r.n. ALLERGIES CODEINE PHYSICAL EXAMINATION VITAL SIGNS: Blood pressure is 159/77, pulse is in the 80s, temperature 98, O2 sats are 96% on room air. GENERAL: Well-developed, well-nourished male in no apparent distress. HEENT: Pupils are equal, round to light. Extraocular movements are intact. NECK: Supple with no bruits. No lymphadenopathy. CHEST: Clear to auscultation CARDIAC: Regular rate ABDOMEN: bowel sounds. EXTREMITIES: Edema SKIN: Without any petechiae, lesion or bruises. NEUROLOGIC: No focal deficits. PSYCHIATRIC: Appropriate. LABORATORY DATA WBCs 4.9, hemoglobin is 8.3, MCV is 85.4, platelet count is 284. Serum chemistries shows sodium of 143, potassium 4.5, chloride 113, CO2 21.4, BUN 44, creatinine three, GFR is 26, calcium is nine, total bilirubin is 0.2, AST 16, ALT 16, alk phos is 405, total protein 7, albumin is 2.8, PSA 937.83. IMAGING STUDIES CT of the abdomen and pelvis - There is bilateral moderate hydronephrosis and hydroureter with the ureter being dilated throughout. There is increased density and wall thickening involving the distal right ureter which is worrisome for neoplastic involvement. There are enlarged periaortic lymph nodes, particularly in the lower abdomen, which are enlarged and there are enlarged retroperitoneal pelvic lymph nodes. The largest one on the right measuring 2.6 cm. VQ scan showed a normal exam with no ventilation/perfusion mismatch, low probability of PE. ASSESSMENT/PLAN This is a 56-year-old male with a history of hypertension and atrial fibrillation who presents with acute back pain. 1. Metastatic disease involving the spine, retroperitoneum, also has bilateral hydronephrosis related to neoplasm involving the distal ureters. His PSA is elevated in the 900s. This is highly suspicious for metastatic prostate cancer. We need to establish a tissue diagnosis. The quickest way will be to biopsy one of the bone lesions. We will obtain an MRI of the spine without contrast. We will also obtain a CT of the chest to complete staging. This would also help us in establishing a site of biopsy. The patient has hydronephrosis with acute renal failure. We will discuss with IR versus urology for stent placement. 2. Normocytic anemia with a hemoglobin of 8.3, MCV 85.4. We will obtain anemia studies. Check stool hemoccult. His total bilirubin is normal at 0.2. It is less likely there is underlying hemolysis. Check LDH and haptoglobin. 3. Acute renal failure secondary to hydronephrosis and tumor compression. We will strongly consider placing urinary stents. We will discuss this case with urology as well as interventional radiology. Thank you for allowing me to participate in the care of this patient. I will continue to follow this patient along. MD ADAMA Felix/ /8:50 PM /9:25 PM ABBEY
[2017-04-10] MEDS: cloNIDine HCL 0.1 MG TAB PO PRN (22:06)
[2017-04-11] MEDS: HEPARIN SODIUM - SQ 10,000 UNITS/ML VIAL SQ SCH (02:35)
[2017-04-11] MEDS: SODIUM CHLOR 0.9% 1000 ML INJ 1,000 ML IV SCH ×3 (02:37→23:39)
[2017-04-11 04:00] VITALS: BP 167/78; PULSE 79; RESP 17; TEMP 98.7; O2SAT 96
[2017-04-11] MEDS: MORPHINE SULFATE 15 MG CONTROLLED RELEASE TAB PO SCH ×3 (05:09→21:03)
[2017-04-11 05:47] LABS: HEMATOCRIT 24.6 % (39.0-51.0); MEAN CELL VOLUME 85.6 FL (80.0-100.0); MEAN CORPUSCULAR HEMOGLOBIN 29.5 PG (27.0-34.0); MEAN CORPUSCULAR HGB CONC 34.5 % (32.0-36.0); PLATELET COUNT 318 TH/MM3 (150-450); RED BLOOD COUNT 2.87 MIL/MM3 (4.50-5.90); RED CELL DISTRIBUTION WIDTH 13.6 % (11.6-17.2); REVIEW FLAG FINAL; WHITE BLOOD COUNT 5.8 TH/MM3 (4.0-11.0)
[2017-04-11 06:23] LABS: ANION GAP 8 MEQ/L (5-15); BICARBONATE 22.3 MEQ/L (21.0-32.0); BLOOD UREA NITROGEN 37 MG/DL (7-18); CHLORIDE 113 MEQ/L (98-107); GLOMERULAR FILTRATION RATE 30 ML/MIN (>89); LDH SERUM 146 U/L (87-241); POTASSIUM 4.5 MEQ/L (3.5-5.1); SODIUM (NA) 143 MEQ/L (136-145)
[2017-04-11 06:48] LABS: TRANSFERRIN IRON PROFILE 185 MG/DL (200-360)
[2017-04-11 08:00] VITALS: BP 157/71; PULSE 76; RESP 18; TEMP 98.3; O2SAT 97
[2017-04-11] MEDS: SODIUM CHLORIDE 0.9% FLUSH 10 ML FLUSH IV FLUSH SCH ×2 (08:42→21:00)
[2017-04-11] MEDS: DOCUSATE SODIUM 50 MG/SENNA 8.6 MG TAB PO SCH ×2 (08:42→21:02)
[2017-04-11] MEDS: PRAVASTATIN SOD 40 MG TAB PO SCH (08:42)
[2017-04-11] MEDS: FAMOTIDINE 20 MG TAB PO SCH (08:42)
--- NOTE | 2017-04-11 09:58 | HHI.PR ---
Subjective Remarks Patient reports he is feeling okay today. Pain is mostly controlled with the controlled release morphine. He does need occasional breakthrough pain medications. Objective Vitals Vital Signs Date Time Temp Pulse Resp B/P Pulse Ox O2 Delivery O2 Flow Rate FiO2 04/11/17 08:00 98.3 76 18 157/71 97 04/11/17 08:00 98.3 76 18 157/71 97 04/11/17 04:00 98.7 79 17 167/78 96 04/10/17 21:00 96.4 79 17 136/74 97 04/10/17 16:00 97.7 78 18 173/77 96 04/10/17 12:00 98.0 80 18 159/77 96 I/O 04/10/17 04/10/17 04/10/17 04/11/17 04/11/17 04/11/17 07:00 15:00 23:00 07:00 15:00 23:00 Intake Total 1072 ml 0 ml 940 ml 913 ml 120 ml Output Total 300 ml 300 ml 300 ml Balance 772 ml 0 ml 640 ml 613 ml 120 ml Intake Oral 240 ml 0 ml 240 ml 240 ml 120 ml IV Total 832 ml 700 ml 673 ml Output Urine Total 300 ml 300 ml 300 ml Result Diagram: 04/11/1751904/11/17519 Objective Remarks GENERAL: This is a well-nourished, well-developed patient, in no apparent distress. CARDIOVASCULAR: Normal rate and regular rhythm without murmurs, gallops, or rubs. RESPIRATORY: Good respiratory efforts. Breath sounds equal and clear to auscultation bilaterally. GASTROINTESTINAL: Abdomen soft, non-tender, non-distended. Normal active bowel sounds MUSCULOSKELETAL: Tender to palpation in the mid thoracic spine. Extremities without edema or cyanosis. NEURO: Alert & Oriented x4 to person, place, time, situation. Moves all ext x4 PSYCH: Appropriate mood and affect. A/P Problem List: (1) Intractable back pain ICD Code: M54.9 Status: Acute (2) Metastatic disease ICD Code: C79.9 Status: Acute (3) Chest pain ICD Code: R07.9 Status: Acute (4) Elevated d-dimer ICD Code: R79.89 Status: Acute (5) Hydronephrosis ICD Code: N13.30 Status: Acute (6) JENELLE (acute kidney injury) ICD Code: N17.9 Status: Acute (7) Anemia ICD Code: D64.9 Status: Acute (8) HTN (hypertension) ICD Code: I10 Status: Acute Assessment and Plan 56-year-old male admitted with widespread bony metastatic disease, unknown primary. Patient also presented with acute renal failure secondary to bilateral hydronephrosis related to neoplasm. He presented with intractable back pain: Widespread bony metastatic disease to the spine and intractable back pain: Pain control Oncology consulted. CT T-Spine from w/ mild bilateral hydronephrosis and extensive metastatic disease (copy in chart), CT Abd/Pelvis today w/ moderate bilateral hydronephrosis related to neoplasm involving distal ureters widespread bony metastatic disease. - PSA 937 - IR for biopsy per Oncology. - MRI of lumbar and thoracic spine today. Acute renal failure, likely secondary to obstructive uropathy: CT of the abdomen and pelvis showed hydronephrosis likely due to neoplasm. Slight improvement Urology following. To decide on stent placement to help with hydronephrosis and renal failure. Follow renal indices. Hydronephrosis: CT from [facility] 04/08/17 w/ mild bilateral hydronephrosis, CT Abd/Pelvis now w/ worsening hydronephrosis likely from underlying neoplasm. +urinary output. Will monitor, treatment/plan as above. See above. Urology following. Anemia: Stable. No active bleeding. Will monitor. HTN: Uncontrolled. BP 190's on arrival. Hold Captopril in light of JENELLE. Better controlled with amlodipine. Monitor BP. Clonidine as needed DVT Prophylaxis: Heparin sq Discharge Planning Pending further tests and procedures per specialist recs. Problem Qualifiers (1) Chest pain: Qualified Code: R07.9 - Chest pain, unspecified type Natalie Burt MD April 11, 2017 09:58
[2017-04-11] MEDS: HYDROmorphone HCL PF 1 MG/ML VIAL IV PRN (10:42)
--- NOTE | 2017-04-11 11:42 | HHI.PR ---
Subjective Patient symptoms today Patient reports feeling better today Pain well managed Objective Vital Signs Vital Signs Date Time Temp Pulse Resp B/P Pulse Ox O2 Delivery O2 Flow Rate FiO2 04/11/17 08:00 98.3 76 18 157/71 97 04/11/17 08:00 98.3 76 18 157/71 97 04/11/17 04:00 98.7 79 17 167/78 96 04/10/17 21:00 96.4 79 17 136/74 97 04/10/17 16:00 97.7 78 18 173/77 96 04/10/17 12:00 98.0 80 18 159/77 96 Intake & Output 04/11/17 04/11/17 07:00 19:00 Intake Total 1853 ml 120 ml Output Total 600 ml Balance 1253 ml 120 ml Intake Oral 480 ml 120 ml IV Total 1373 ml Output Urine Total 600 ml Result Diagram: 04/11/1751904/11/17519 Other Results Abdomen soft, nondistended, nontender Extremities well-perfused Objective Remarks Adequate urine output with improving creatinine Medications and IVs Current Medications Medications (Trade) Dose Ordered Sig/Deepti Route Start Time Stop Time Status Last Admin (NS 1000 ml Inj) 1,000 ml @ 100 mls/hr Q10H IV 04/09/17 02:32 04/11/17 02:37 (NS Flush) 2 ml UNSCH PRN IV FLUSH 04/09/17 02:45 (NS Flush) 2 ml BID IV FLUSH 04/09/17 09:00 04/10/17 08:03 (Zofran Inj) 4 mg Q6H PRN IVP 04/09/17 02:45 (Heparin Inj) 5,000 units Q12H SQ 04/09/17 02:45 04/11/17 02:35 (Tylenol) 650 mg Q6H PRN PO 04/09/17 02:45 (Dilaudid Pf Inj) 1 mg Q3H PRN IV 04/09/17 02:45 04/11/17 10:42 (Kassidy-Colace) 1 tab BID PO 04/09/17 09:00 04/11/17 08:42 (Milk Of Magnesia Liq) 30 ml Q12H PRN PO 04/09/17 02:45 (Senokot) 17.2 mg Q12H PRN PO 04/09/17 02:45 (Dulcolax Supp) 10 mg DAILY PRN RECTAL 04/09/17 02:45 (Lactulose Liq) 30 ml DAILY PRN PO 04/09/17 02:45 (Valium) 5 mg Q8H PRN PO 04/09/17 02:45 (Pepcid) 20 mg DAILY PO 04/09/17 09:00 04/11/17 08:42 (Dilaudid Pf Inj) 0.5 mg Q4H PRN IV PUSH 04/09/17 03:30 (Pravachol) 40 mg DAILY PO 04/09/17 09:00 04/11/17 08:42 (Catapres) 0.1 mg Q6H PRN PO 04/09/17 13:30 04/10/17 22:06 (Oramorph Sr) 15 mg Q8HR PO 04/09/17 16:00 04/11/17 05:09 (Norvasc) 10 mg DAILY PO 04/11/17 09:00 04/11/17 08:42 Assessment and Plan Assessment and Plan Urologic impression: #1 metastatic prostate cancer #2 bilateral hydroureteronephrosis related to the prostate cancer Recommendations: #1 agree with oncology consultation to have a bone lesion biopsy #2 Will hold off on scheduling a prostate biopsy as this would be redundant #3 will hold off on cystoscopy with stent placement as urine output is adequate and serum creatinine is improving, hopefully this will continue to resolve completely once management for the metastatic prostate cancer is implemented. Willie Garcia MD April 11, 2017 11:42
[2017-04-11 12:00] VITALS: BP 173/81; PULSE 75; RESP 16; TEMP 97.4; O2SAT 96
--- NOTE | 2017-04-11 12:09 | RADRPT ---
EXAM DATE/TIME: 04/11/2017 09:58 [facility] COMPARISON: No previous studies available for comparison. INDICATIONS : Metastatic disease. MEDICAL HISTORY : Hypertension. Renal failure, acute. Metastatic, bone. SURGICAL HISTORY : None. ENCOUNTER: Subsequent ACUITY: 1 day PAIN SCORE: 5/10 LOCATION: Back. TECHNIQUE: Multiplanar multisequence MRI of the thoracic spine was performed. FINDINGS: Patient has a history of widespread bony metastatic disease. Moderate marrow alteration is present throughout the thoracic spine. There is extra osseous spread of tumor at the T3 level causing significant compression on the cord at this level. There is minimal extra osseous spread at T6 that is not as significant. Hydronephrosis is noted. Small bilateral pleural effusions are evident. CONCLUSION: Widespread metastatic disease with extra osseous spread of tumor at the T3 level causing significant cord compression. Charlie Juarez MD FACR on April 11, 2017 at 12:02 Board Certified Radiologist. This report was verified electronically.
--- NOTE | 2017-04-11 12:10 | PD.ONC.PN ---
Subjective Subjective Remarks Afebrile overnight. Patient resting in bed in nad with at bedside. He had MRI T and L spine earlier today and had some back pain shortly thereafter due to lying on the hard table. He feels better now after receiving IV dilaudid. He denies any difficulty with bowel or bladder function. No loss of feeling or weakness in the legs. Objective Data Date Time Temp Pulse Resp B/P Pulse Ox O2 Delivery O2 Flow Rate FiO2 04/11/17 08:00 98.3 76 18 157/71 97 04/11/17 08:00 98.3 76 18 157/71 97 04/11/17 04:00 98.7 79 17 167/78 96 04/10/17 21:00 96.4 79 17 136/74 97 04/10/17 16:00 97.7 78 18 173/77 96 04/10/17 12:00 98.0 80 18 159/77 96 04/11/17 04/11/17 04/11/17 07:00 15:00 23:00 Intake Total 913 ml 120 ml Output Total 300 ml Balance 613 ml 120 ml Result Diagram: 04/11/1720 04/11/17 0520 Laboratory Results Laboratory Tests Test 04/11/17 05:20 White Blood Count 5.8 TH/MM3 Red Blood Count 2.87 MIL/MM3 Hemoglobin 8.5 GM/DL Hematocrit 24.6 % Mean Corpuscular Volume 85.6 FL Mean Corpuscular Hemoglobin 29.5 PG Mean Corpuscular Hemoglobin 34.5 % Concent Red Cell Distribution Width 13.6 % Platelet Count 318 TH/MM3 Mean Platelet Volume 7.2 FL Haptoglobin 366 MG/DL Sodium Level 143 MEQ/L Potassium Level 4.5 MEQ/L Chloride Level 113 MEQ/L Carbon Dioxide Level 22.3 MEQ/L Anion Gap 8 MEQ/L Blood Urea Nitrogen 37 MG/DL Creatinine 2.69 MG/DL Estimat Glomerular Filtration 30 ML/MIN Rate Random Glucose 104 MG/DL Calcium Level 9.4 MG/DL Iron Level 57 MCG/DL Total Iron Binding Capacity 259 MCG/DL Percent Iron Saturation 22.0 % Transferrin 185 MG/DL Lactate Dehydrogenase 146 U/L Vitamin B12 Level 691 PG/ML Administered Medications Medications (Trade) Dose Ordered Sig/Deepti Route PRN Reason Start Time Stop Time Status Last Admin Dose Admin Sodium Chloride (NS 1000 ml Inj) 1,000 ml @ 100 mls/hr Q10H IV 04/09/17 02:32 04/11/17 02:37 Sodium Chloride (NS Flush) 2 ml BID IV FLUSH 04/09/17 09:00 04/10/17 08:03 Heparin Sodium (Porcine) (Heparin Inj) 5,000 units Q12H SQ 04/09/17 02:45 04/11/17 02:35 Hydromorphone HCl (Dilaudid Pf Inj) 1 mg Q3H PRN IV Pain 6-10 04/09/17 02:45 04/11/17 10:42 Senna/Docusate Sodium (Kassidy-Colace) 1 tab BID PO 04/09/17 09:00 04/11/17 08:42 Famotidine (Pepcid) 20 mg DAILY PO 04/09/17 09:00 04/11/17 08:42 Pravastatin Sodium (Pravachol) 40 mg DAILY PO 04/09/17 09:00 04/11/17 08:42 Clonidine (Catapres) 0.1 mg Q6H PRN PO SBP> OR = 180, DBP> OR = 100 04/09/17 13:30 04/10/17 22:06 Morphine Sulfate (Oramorph Sr) 15 mg Q8HR PO 04/09/17 16:00 04/11/17 05:09 Amlodipine Besylate (Norvasc) 10 mg DAILY PO 04/11/17 09:00 04/11/17 08:42 Objective Remarks GENERAL: Middle aged male, sitting up in bed in [facility]. SKIN: Warm and dry. HEAD: Normocephalic. EYES: No injection or drainage. NECK: Supple, trachea midline. CARDIOVASCULAR: Regular rate and rhythm RESPIRATORY: Breath sounds equal bilaterally. No accessory muscle use. GASTROINTESTINAL: Abdomen soft, non-tender, nondistended. EXTREMITIES: No cyanosis NEUROLOGICAL: No obvious focal deficit. Awake, alert, and oriented x3. Assessment/Plan Problem List: (1) Metastatic disease Status: Acute Plan: --Dr. Garcia (urology) ok with proceeding with Ct guided bone lesion biopsy for diagnosis instead of prostate biopsy. 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 --PSA is elevated in the 900s. is highly suspicious for metastatic prostate cancer. We need to establish a tissue diagnosis. --MRI T/L spine: shows widespread osseous disease + cord compression at T3 (2) Normocytic anemia Status: Acute Plan: --stool Hemoccult pending --iron studies show low-normal iron, may benefit from IV iron --B12 WNL (3) Hydronephrosis Status: Acute Plan: --d/w Dr. Burt who d/w Dr. Garcia--patient does not yet need stent placement as creatinine is improving. (4) Cord compression Status: Acute Plan: --Neurosurgery consulted --patient started on Decadron 4mg IV q6 Assessment 56y/o male with metastatic disease to the spine as well as widespread metastatic disease to the bones, prostate cancer suspected history of hypertension and atrial fibrillation, on ASA (last dose 04/10, on hold for biopsy) History from initial consult--presented to the emergency department with complaints of worsening back pain. He was seen at [facility] initially and a CT scan of the T-spine without contrast was completed. It showed bilateral hydronephrosis and proximal hydroureter and excessive diffuse metastatic disease involving the entire visualized vertebral column. He also had paraspinal extraosseous spread of neoplasm at T9. The patient was discharged from the hospital with Percocet and was referred to oncology. CT of the abdomen and pelvis was performed which showed bilateral hydronephrosis which was felt secondary to a neoplasm involving the distal ureter. There was retroperitoneal adenopathy and widespread bony metastatic disease. His PSA was elevated to 937. The patient was found to be anemic on admission with a hemoglobin of 9.4. The patient was found to be in acute renal failure with a serum creatinine of three. Oncology has been consulted to make further recommendations in this patient who appears to have metastatic prostate cancer based on his elevated PSA levels and multiple bony metastatic lesions. Plan 1. UPDATE: thoracic spine MRI shows significant cord compression at T3, will consult Neurosurgery and start Decadron. I asked the nurse to call the neurosurgeon so the patient would be seen today. Also updated Dr. Burt, the patient's hospitalist. 2. Dr. Burt d/w urology--as creatinine is improving ok to hold off on stent placement. Attending Statement The exam, history, and the medical decision-making described in the above note were completed with the assistance of the mid-level provider. I reviewed and agree with the findings presented. I attest that I had a [id number] encounter with the patient on the same day, and personally performed and documented my assessment and findings in the medical record Patient with T3 cord compression case discussed with Dr. Tovar Patient would like to think about whether to undergo spinal surgery Decadron started d/w patient d/w nursing Will need CT of the chest once stable hold of ureteral stents since Cr improving and has good urine flow. Problem Qualifiers (1) Hydronephrosis: Qualified Code: N13.39 - Other hydronephrosis Liliam French April 11, 2017 12:10 Tim Le MD April 11, 2017 23:17
--- NOTE | 2017-04-11 12:14 | RADRPT ---
EXAM DATE/TIME: 04/11/2017 09:58 [facility] COMPARISON: MRI THORACIC SPINE W/O CONTRAST, April 11, 2017, 9:58. INDICATIONS : Metastatic disease. MEDICAL HISTORY : Hypertension. Renal failure, acute. Metastatic, bone. SURGICAL HISTORY : None. ENCOUNTER: Subsequent ACUITY: 2 day PAIN SCORE: 5/10 LOCATION: Back. TECHNIQUE: Multiplanar multisequence MRI of the lumbar spine was performed without contrast. FINDINGS: There is widespread metastatic disease in the lumbar spine. There is no significant extra osseous sp read of tumor. L1-L2: The thecal sac has a normal diameter. No evidence of disc bulge or protrusion. The neural foramina are patent bilaterally. L2-L3: There is mild interspace ridging present without significant spinal stenosis. L3-L4: There is generalized disc bugling with moderate facet disease. There is no significant spinal stenos is. L4-L5: There is mild bulging at L4-5 with moderate facet disease. L5-S1: Moderate facet disease is present. Widespread metastatic disease is present in the ilium and sacrum and scattered to the lumbar spine. There is no evidence of cord compression. CONCLUSION: 1. There is no evidence for cord compression. 2. Widespread bony metastatic disease. Charlie Juarez MD FACR on April 11, 2017 at 12:05 Board Certified Radiologist. This report was verified electronically.
--- NOTE | 2017-04-11 13:02 | PD.CONS ---
(Manoj Tovar MD) HPI Consult Requested By Primary Care Physician Agustín Montero MD (Manoj Tovar MD) Service Neurosurgery Consult Requested By Dr. Le Reason for Consult Cord Compression T3 History of Present Illness Mr. Alford is a 56-year-old male who presented to the ER with complaints of severe back pain for a month. Apparently he was evaluated at [facility] for back pain recently. A CT Thoracic spine had showed diffuse metastatic disease of the spine. He was told the results and discharged with instructions to follow up with PCP for an Oncology referral. His back pain worsened with acute chest pain and thus presented to [facility]. He reports some numbness and tingling in his feet, he denies significant leg weakness, bowel or bladder incontinence, fevers or chills. An MRI of the thoracic spine showed widespread metastatic disease with cord compression at T3. His PSA is elevated. A neurosurgical evaluation was requested. (Linda Sampson) Review of Systems Constitutional: DENIES: Fever, Chills Respiratory: DENIES: Shortness of breath Cardiovascular: DENIES: Chest pain Genitourinary: DENIES: Urinary incontinence Musculoskeletal: COMPLAINS OF: Back pain Neurologic: COMPLAINS OF: Paresthesias Psychiatric: DENIES: Hallucinations (Linda Sampson) Past Family Social History Allergies: Coded Allergies: Codeine (Verified Allergy, Severe, ITCHING, 04/09/17) Past Medical History Hypertension Atrial Fibrillation on aspirin Past Surgical History None Reported Medications reviewed in EMR Active Ordered Medications Current Medications Medications (Trade) Dose Ordered Sig/Deepti Route PRN Reason Start Time Stop Time Status Last Admin Dose Admin Sodium Chloride (NS 1000 ml Inj) 1,000 ml @ 100 mls/hr Q10H IV 04/09/17 02:32 04/11/17 13:08 Sodium Chloride (NS Flush) 2 ml UNSCH PRN IV FLUSH FLUSH AFTER USING IV ACCESS 04/09/17 02:45 Sodium Chloride (NS Flush) 2 ml BID IV FLUSH 04/09/17 09:00 04/10/17 08:03 Ondansetron HCl (Zofran Inj) 4 mg Q6H PRN IVP NAUSEA OR VOMITING 04/09/17 02:45 Acetaminophen (Tylenol) 650 mg Q6H PRN PO FEVER/PAIN SCALE 1 TO 2 04/09/17 02:45 Hydromorphone HCl (Dilaudid Pf Inj) 1 mg Q3H PRN IV Pain 6-10 04/09/17 02:45 04/11/17 10:42 Senna/Docusate Sodium (Kassidy-Colace) 1 tab BID PO 04/09/17 09:00 04/11/17 08:42 Magnesium Hydroxide (Milk Of Magnesia Liq) 30 ml Q12H PRN PO MILD - MODERATE CONSTIPATION 04/09/17 02:45 Sennosides (Senokot) 17.2 mg Q12H PRN PO MODERATE - SEVERE CONSTIPATION 04/09/17 02:45 Bisacodyl (Dulcolax Supp) 10 mg DAILY PRN RECTAL SEVERE CONSITIPATION 04/09/17 02:45 Lactulose (Lactulose Liq) 30 ml DAILY PRN PO SEVERE CONSITIPATION 04/09/17 02:45 Diazepam (Valium) 5 mg Q8H PRN PO MUSCLE SPASM 04/09/17 02:45 Famotidine (Pepcid) 20 mg DAILY PO 04/09/17 09:00 04/11/17 08:42 Hydromorphone HCl (Dilaudid Pf Inj) 0.5 mg Q4H PRN IV PUSH PAIN 3-5 04/09/17 03:30 Pravastatin Sodium (Pravachol) 40 mg DAILY PO 04/09/17 09:00 04/11/17 08:42 Clonidine (Catapres) 0.1 mg Q6H PRN PO SBP> OR = 180, DBP> OR = 100 04/09/17 13:30 04/10/17 22:06 Morphine Sulfate (Oramorph Sr) 15 mg Q8HR PO 04/09/17 16:00 04/11/17 13:09 Amlodipine Besylate (Norvasc) 10 mg DAILY PO 04/11/17 09:00 04/11/17 08:42 Dexamethasone Sodium Phosphate (Decadron Inj) 4 mg Q6HR IV PUSH 04/11/17 12:30 04/11/17 13:08 Family History Noncontributory Social History Denies tobacco or illicit drug use, drinks etoh occasionally (Linda Sampson) Physical Exam Vital Signs Vital Signs Date Time Temp Pulse Resp B/P Pulse Ox O2 Delivery O2 Flow Rate FiO2 04/11/17 12:00 97.4 75 16 173/81 96 04/11/17 08:00 98.3 76 18 157/71 97 04/11/17 08:00 98.3 76 18 157/71 97 04/11/17 04:00 98.7 79 17 167/78 96 04/10/17 21:00 96.4 79 17 136/74 97 04/10/17 16:00 97.7 78 18 173/77 96 Physical Exam Mr. Alford is alert, awake and oriented to time, place and person. Speech is fluent. Higher cognitive functions are normal. Cranial nerve examination demonstrates the pupils to be equal, round, and reactive to light. Extra-ocular movements are intact. Facial motor and sensory function are normal and symmetrical. Gross hearing is intact, bilaterally. The uvula is midline and elevates symmetrically with the soft palate. Sternocleidomastoid and trapezius muscles have normal and symmetrical strength. Other cranial nerves are intact. Neck is soft and supple. Muscle strength is 5/5 in all muscle groups of both upper extremities including deltoid, biceps, triceps, brachioradialis, wrist extension and tree trimmer helper. In the lower extremities, strength is 5/5 in both iliopsoas, quadriceps, hamstrings, plantar flexion, dorsiflexion, and extensor hallicus longus. Sensory examination is intact to light touch in both the upper and lower extremities, symmetrically. Deep tendon reflexes are 2+ and symmetrical in the biceps, triceps, and brachioradialis, bilaterally, in the upper extremities. In the lower extremities , the patellar and Achilles are 2+, bilaterally. There is a bilateral plantar flexion response. Hoffmanns sign is negative. There is no clonus. Cerebellar examination is intact. Laboratory Laboratory Tests Test 04/11/17 05:20 White Blood Count 5.8 Red Blood Count 2.87 Hemoglobin 8.5 Hematocrit 24.6 Mean Corpuscular Volume 85.6 Mean Corpuscular Hemoglobin 29.5 Mean Corpuscular Hemoglobin 34.5 Concent Red Cell Distribution Width 13.6 Platelet Count 318 Mean Platelet Volume 7.2 Haptoglobin 366 Sodium Level 143 Potassium Level 4.5 Chloride Level 113 Carbon Dioxide Level 22.3 Anion Gap 8 Blood Urea Nitrogen 37 Creatinine 2.69 Estimat Glomerular Filtration 30 Rate Random Glucose 104 Calcium Level 9.4 Iron Level 57 Total Iron Binding Capacity 259 Percent Iron Saturation 22.0 Transferrin 185 Lactate Dehydrogenase 146 Vitamin B12 Level 691 (Manoj Tovar MD) Physical Exam Mr. Alford is alert, awake and oriented to time, place and person. Speech is fluent. Higher cognitive functions are normal. Cranial nerve examination demonstrates the pupils to be equal, round, and reactive to light. Extra-ocular movements are intact. Facial motor and sensory function are normal and symmetrical. Gross hearing is intact, bilaterally. The uvula is midline and elevates symmetrically with the soft palate. Sternocleidomastoid and trapezius muscles have normal and symmetrical strength. Other cranial nerves are intact. Neck is soft and supple. Muscle strength is 5/5 in all muscle groups of both upper extremities including deltoid, biceps, triceps, brachioradialis, wrist extension and tree trimmer helper. In the lower extremities, strength is 5/5 in both iliopsoas, quadriceps, hamstrings, plantar flexion, dorsiflexion, and extensor hallicus longus. Sensory examination is intact to light touch in both the upper and lower extremities, symmetrically. Deep tendon reflexes are 2+ and symmetrical in the biceps, triceps, and brachioradialis, bilaterally, in the upper extremities. In the lower extremities , the patellar and Achilles are 2+, bilaterally. There is a bilateral plantar flexion response. Hoffmanns sign is negative. There is no clonus. Cerebellar examination is intact to [id number] test. (Linda Sampson) Result Diagram: 04/11/1751904/11/17519 Imaging Last Impressions Lung Scan-VQ Nuclear Medicine 04/09/17 0205 Signed Impressions: Service Date/Time: Sunday, April 09, 2017 09:21 - CONCLUSION: Normal examination with no ventilation/perfusion mismatch. Examination is low probability for PE. Agustín Augustin MD Abdomen/Pelvis CT 04/09/17 0145 Signed Impressions: Service Date/Time: Sunday, April 09, 2017 02:07 - CONCLUSION: Bilateral hydronephrosis which is felt likely related to neoplasm involving the distal ureters. Retroperitoneal adenopathy. Widespread bony metastatic disease. Agustín Boykin MD Chest X-Ray 04/09/17 0032 Signed Impressions: Service Date/Time: Sunday, April 09, 2017 01:09 - CONCLUSION: No acute disease. Agustín Boykin MD (Linda Sampson) Attending Statement Neuro. I have reviewed his clinical and radiological findings. Start neuro checks in a serial fashion. Recommend CT of thoracic s[pine spine. There is retropulsion with compression of the spinal cord. Recommend a surgical decompression and internal fixation with . We have discussed the details including the [id number] details of the surgical procedure, its indications, alternatives, risks, and potential complications. Risks and potential complications include, but are not limited to, infection, blood loss, CSF leak, partial or complete loss of sight in one or both eyes, paresis, paralysis, permanent pain or difficulty swallowing, loss of bowel or bladder function, complications from anesthesia, blood clot, stroke, myocardial infarction, or even . Decadron 4mg q 6 hr PT and OT evaluation Nutrition. NPO Renal. monitor closely urine output, BUN and creatinine Endocrine. Monitor serial Acu checks and SSI as needed in detail ID monitor for signs of infection Protonix for stress ulcer prophylaxis Luis Miguel hose and SCD's for DVT prophylaxis The exam, history, and the medical decision-making described in the above note were completed with the assistance of the mid-level provider. I reviewed and agree with the findings presented. I attest that I had a [id number] encounter with the patient on the same day, and personally performed and documented my assessment and findings in the medical record. (Manoj Tovar MD) Manoj Tovar MD April 11, 2017 13:02 Linda Sampson April 11, 2017 14:59
[2017-04-11] MEDS: DEXAMETHASONE SOD PHOS 4 MG/ML VIAL IV PUSH SCH ×3 (13:08→23:39)
[2017-04-11 16:00] VITALS: BP 189/87; PULSE 82; RESP 20; TEMP 97.4; O2SAT 95
[2017-04-11 20:00] VITALS: BP_SYST 186; BP_SYST 190; BP_DIAS 86; BP_DIAS 88; PULSE 82; RESP 18; TEMP 96.7; O2SAT 98
[2017-04-11] MEDS: cloNIDine HCL 0.1 MG TAB PO PRN (21:03)
[2017-04-12] VITALS (9 sets, daily range): BP systolic 160–190; BP diastolic 75–84; PULSE 80–97; RESP 16–18; TEMP 96.4–97.8; O2SAT 96–100
[2017-04-12 04:56] LABS: HEMATOCRIT 24.2 % (39.0-51.0); MEAN CELL VOLUME 84.5 FL (80.0-100.0); MEAN CORPUSCULAR HEMOGLOBIN 29.5 PG (27.0-34.0); MEAN CORPUSCULAR HGB CONC 34.9 % (32.0-36.0); PLATELET COUNT 332 TH/MM3 (150-450); RED BLOOD COUNT 2.87 MIL/MM3 (4.50-5.90); RED CELL DISTRIBUTION WIDTH 13.7 % (11.6-17.2); REVIEW FLAG FINAL
[2017-04-12] MEDS: MORPHINE SULFATE 15 MG CONTROLLED RELEASE TAB PO SCH ×3 (05:03→21:49)
[2017-04-12] MEDS: DEXAMETHASONE SOD PHOS 4 MG/ML VIAL IV PUSH SCH ×4 (05:03→21:50)
[2017-04-12 05:26] LABS: BICARBONATE 22.5 MEQ/L (21.0-32.0); POTASSIUM 4.7 MEQ/L (3.5-5.1)
[2017-04-12] MEDS: FAMOTIDINE 20 MG TAB PO SCH (08:16)
[2017-04-12] MEDS: DOCUSATE SODIUM 50 MG/SENNA 8.6 MG TAB PO SCH ×2 (08:16→21:49)
[2017-04-12] MEDS: PRAVASTATIN SOD 40 MG TAB PO SCH (08:16)
[2017-04-12] MEDS: SODIUM CHLORIDE 0.9% FLUSH 10 ML FLUSH IV FLUSH SCH ×2 (08:16→21:00)
[2017-04-12] MEDS: SODIUM CHLOR 0.9% 1000 ML INJ 1,000 ML IV SCH ×3 (08:16→21:46)
--- NOTE | 2017-04-12 10:16 | HHI.PR ---
Subjective Remarks Follow-up for prostate cancer Pain is pretty much controlled, moderate, no nausea or vomiting. Denies any chest pain or shortness of breath. Afebrile. Good urine output. Discussed with patient, he has discussed with and they agreed to doing surgery tomorrow. Objective Vitals Vital Signs Date Time Temp Pulse Resp B/P Pulse Ox O2 Delivery O2 Flow Rate FiO2 04/12/17 08:00 97.5 87 17 162/78 100 04/12/17 04:05 97.2 87 17 161/79 98 04/12/17 00:07 97.2 84 18 162/75 96 04/11/17 20:00 96.7 82 18 186/86 98 190/88 04/11/17 16:00 97.4 82 20 189/87 95 04/11/17 12:00 97.4 75 16 173/81 96 I/O 04/11/17 04/11/17 04/11/17 04/12/17 04/12/17 04/12/17 07:00 15:00 23:00 07:00 15:00 23:00 Intake Total 913 ml 828 ml 1246 ml 773 ml Output Total 300 ml Balance 613 ml 828 ml 1246 ml 773 ml Intake Oral 240 ml 120 ml 480 ml IV Total 673 ml 708 ml 766 ml 773 ml Output Urine Total 300 ml # Voids 2 2 Result Diagram: 04/12/17 0428 04/12/17 0428 Objective Remarks GENERAL: Not in distress. CARDIOVASCULAR: Normal rate and regular rhythm without murmurs, gallops, or rubs. RESPIRATORY: Good respiratory efforts. Breath sounds equal and clear to auscultation bilaterally. GASTROINTESTINAL: Abdomen soft, non-tender, non-distended. Normal active bowel sounds MUSCULOSKELETAL: Tender to palpation in the mid thoracic spine. Extremities without edema or cyanosis. NEURO: Alert & Oriented x4 to person, place, time, situation. Moves all ext x4 PSYCH: Appropriate mood and affect. A/P Problem List: (1) Intractable back pain ICD Code: M54.9 Status: Acute (2) Metastatic disease ICD Code: C79.9 Status: Acute (3) Chest pain ICD Code: R07.9 Status: Acute (4) Elevated d-dimer ICD Code: R79.89 Status: Acute (5) Hydronephrosis ICD Code: N13.30 Status: Acute (6) JENELLE (acute kidney injury) ICD Code: N17.9 Status: Acute (7) Anemia ICD Code: D64.9 Status: Acute (8) HTN (hypertension) ICD Code: I10 Status: Acute Assessment and Plan 56-year-old male admitted with widespread bony metastatic disease, unknown primary. Patient also presented with acute renal failure secondary to bilateral hydronephrosis related to neoplasm. He presented with intractable back pain: Prostate cancer with Widespread bony metastatic disease to the spine and intractable back pain: Pain control with oral and intravenous , Dilaudid as needed. Oncology following..CT T-Spine from w/ mild bilateral hydronephrosis and extensive metastatic disease (copy in chart), CT Abd/Pelvis today w/ moderate bilateral hydronephrosis related to neoplasm involving distal ureters widespread bony metastatic disease. MRI of the spine showed spread of tumor the T3 level causing significant cord compression. Neurosurgery following. Discussed with oncology and neurosurgery, no need for IR guided biopsy of the spine or prostate biopsy, patient agreed for decompression surgery tomorrow. Acute renal failure, likely secondary to obstructive uropathy with hydronephrosis: CT of the abdomen and pelvis showed hydronephrosis likely due to neoplasm. Slight improvement, urology following, no need for stent placement with good urine output. Follow creatinine. Anemia: Stable. No active bleeding. Will monitor. HTN: Uncontrolled. BP 190's on arrival. Hold Captopril in light of JENELLE. Better controlled with amlodipine. Monitor BP. Clonidine as needed DVT Prophylaxis: Heparin sq-on hold Discharge Planning Discharged once cleared by oncology and neurosurgery. Problem Qualifiers (1) Chest pain: Qualified Code: R07.9 - Chest pain, unspecified type (2) Hydronephrosis: Qualified Code: N13.39 - Other hydronephrosis Kat Ureña MD Apr 12, 2017 10:16
--- NOTE | 2017-04-12 10:40 | PD.ONC.PN ---
Subjective Subjective Remarks Afebrile overnight. Patient resting comfortably in bed in nad. at bedside. He has decided to proceed with neurosurgery tomorrow. Objective Data Date Time Temp Pulse Resp B/P Pulse Ox O2 Delivery O2 Flow Rate FiO2 04/12/17 08:00 97.5 87 17 162/78 100 04/12/17 04:05 97.2 87 17 161/79 98 04/12/17 00:07 97.2 84 18 162/75 96 04/11/17 20:00 96.7 82 18 186/86 98 190/88 04/11/17 16:00 97.4 82 20 189/87 95 04/11/17 12:00 97.4 75 16 173/81 96 04/12/17 04/12/17 04/12/17 07:00 15:00 23:00 Intake Total 773 ml Balance 773 ml Result Diagram: 04/12/17 0428 04/12/17 0428 Laboratory Results Laboratory Tests Test 04/12/17 04:28 White Blood Count 5.0 TH/MM3 Red Blood Count 2.87 MIL/MM3 Hemoglobin 8.5 GM/DL Hematocrit 24.2 % Mean Corpuscular Volume 84.5 FL Mean Corpuscular Hemoglobin 29.5 PG Mean Corpuscular Hemoglobin 34.9 % Concent Red Cell Distribution Width 13.7 % Platelet Count 332 TH/MM3 Mean Platelet Volume 7.3 FL Sodium Level 144 MEQ/L Potassium Level 4.7 MEQ/L Chloride Level 113 MEQ/L Carbon Dioxide Level 22.5 MEQ/L Anion Gap 9 MEQ/L Blood Urea Nitrogen 38 MG/DL Creatinine 2.45 MG/DL Estimat Glomerular Filtration 33 ML/MIN Rate Random Glucose 141 MG/DL Calcium Level 9.1 MG/DL Administered Medications Medications (Trade) Dose Ordered Sig/Deepti Route PRN Reason Start Time Stop Time Status Last Admin Dose Admin Sodium Chloride (NS 1000 ml Inj) 1,000 ml @ 100 mls/hr Q10H IV 04/09/17 02:32 04/12/17 08:16 Sodium Chloride (NS Flush) 2 ml BID IV FLUSH 04/09/17 09:00 04/10/17 08:03 Hydromorphone HCl (Dilaudid Pf Inj) 1 mg Q3H PRN IV Pain 6-10 04/09/17 02:45 04/11/17 10:42 Senna/Docusate Sodium (Kassidy-Colace) 1 tab BID PO 04/09/17 09:00 04/12/17 08:16 Magnesium Hydroxide (Milk Of Tonya Mazariegos) 30 ml Q12H PRN PO MILD - MODERATE CONSTIPATION 04/09/17 02:45 04/11/17 23:40 Famotidine (Pepcid) 20 mg DAILY PO 04/09/17 09:00 04/12/17 08:16 Pravastatin Sodium (Pravachol) 40 mg DAILY PO 04/09/17 09:00 04/12/17 08:16 Clonidine (Catapres) 0.1 mg Q6H PRN PO SBP> OR = 180, DBP> OR = 100 04/09/17 13:30 04/11/17 21:03 Morphine Sulfate (Oramorph Sr) 15 mg Q8HR PO 04/09/17 16:00 04/12/17 05:03 Amlodipine Besylate (Norvasc) 10 mg DAILY PO 04/11/17 09:00 04/12/17 08:16 Dexamethasone Sodium Phosphate (Decadron Inj) 4 mg Q6HR IV PUSH 04/11/17 12:30 04/12/17 05:03 Objective Remarks GENERAL: Middle aged male, sitting up in bed in [facility]. SKIN: Warm and dry. HEAD: Normocephalic. EYES: No injection or drainage. NECK: Supple, trachea midline. CARDIOVASCULAR: Regular rate and rhythm RESPIRATORY: Breath sounds equal bilaterally. No accessory muscle use. GASTROINTESTINAL: Abdomen soft, non-tender, nondistended. EXTREMITIES: No cyanosis NEUROLOGICAL: awake and alert, normal speech. moving all extremities. facial movements symmetric. 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 --PSA is elevated in the 900s. is highly suspicious for metastatic prostate cancer. We need to establish a tissue diagnosis. --MRI T/L spine: shows widespread osseous disease + cord compression at T3 (2) Hydronephrosis Status: Acute Plan: --d/w Dr. Burt who d/w Dr. Garcia--patient does not yet need stent placement as creatinine is improving. (3) Cord compression Status: Acute Plan: --Neurosurgery consulted --patient started on Decadron 4mg IV q6 (4) Normocytic anemia Status: Acute Plan: --iron studies show low-normal iron, may benefit from IV iron --B12 WNL Assessment 56y/o male with metastatic disease to the spine as well as widespread metastatic disease to the bones, prostate cancer suspected history of hypertension and atrial fibrillation, on ASA (last dose 04/10, on hold for biopsy) History from initial consult--presented to the emergency department with complaints of worsening back pain. He was seen at [facility] initially and a CT scan of the T-spine without contrast was completed. It showed bilateral hydronephrosis and proximal hydroureter and excessive diffuse metastatic disease involving the entire visualized vertebral column. He also had paraspinal extraosseous spread of neoplasm at T9. The patient was discharged from the hospital with Percocet and was referred to oncology. CT of the abdomen and pelvis was performed which showed bilateral hydronephrosis which was felt secondary to a neoplasm involving the distal ureter. There was retroperitoneal adenopathy and widespread bony metastatic disease. His PSA was elevated to 937. The patient was found to be anemic on admission with a hemoglobin of 9.4. The patient was found to be in acute renal failure with a serum creatinine of three. Oncology has been consulted to make further recommendations in this patient who appears to have metastatic prostate cancer based on his elevated PSA levels and multiple bony metastatic lesions. Plan 1. proceed with surgical decompression with Dr. Tovar tomorrow. await pathology from biopsy 2. continue decadron, supportive care. Attending Statement The exam, history, and the medical decision-making described in the above note were completed with the assistance of the mid-level provider. I reviewed and agree with the findings presented. I attest that I had a [id number] encounter with the patient on the same day, and personally performed and documented my assessment and findings in the medical record Problem Qualifiers (1) Hydronephrosis: Qualified Code: N13.39 - Other hydronephrosis Liliam French Apr 12, 2017 10:40 Tim Le MD Apr 12, 2017 22:36
[2017-04-12] MEDS: CAPTOPRIL 25 MG TAB PO SCH ×2 (11:42→17:34)
[2017-04-12] MEDS: cloNIDine HCL 0.1 MG TAB PO PRN (15:48)
--- NOTE | 2017-04-12 16:11 | HHI.NSPN ---
(Linda Sampson) Note Status Status: Progress Note (Linda Sampson) Interval History Interval History Mr. Alford is a 56-year-old male who presented to the ER with complaints of severe back pain for a month. Apparently he was evaluated at [facility] ([place], [place]) for back pain recently. A CT Thoracic spine had showed diffuse metastatic disease of the spine. He was told the results and discharged with instructions to follow up with PCP for an Oncology referral. His back pain worsened with acute chest pain and thus presented to [place]. He reports some numbness and tingling in his feet, he denies significant leg weakness, bowel or bladder incontinence, fevers or chills. An MRI of the thoracic spine showed widespread metastatic disease with cord compression at T3. His PSA is elevated. A neurosurgical evaluation was requested. 04/12: no back pain during rest, increases with movement, would like to proceed with spinal decompression tomorrow (Linda Sampson) Labs, Micro, & Vital Signs Results Date Time Temp Pulse Resp B/P Pulse Ox O2 Delivery O2 Flow Rate FiO2 04/12/17 12:00 97.4 95 16 175/81 99 04/12/17 08:00 97.5 87 17 162/78 100 04/12/17 04:05 97.2 87 17 161/79 98 04/12/17 00:07 97.2 84 18 162/75 96 04/11/17 20:00 96.7 82 18 186/86 98 190/88 04/12/17 07:00 Intake Total 2847 ml Balance 2847 ml Constitutional Vital Signs Date Time Temp Pulse Resp B/P Pulse Ox O2 Delivery O2 Flow Rate FiO2 04/12/17 12:00 97.4 95 16 175/81 99 04/12/17 08:00 97.5 87 17 162/78 100 04/12/17 04:05 97.2 87 17 161/79 98 04/12/17 00:07 97.2 84 18 162/75 96 04/11/17 20:00 96.7 82 18 186/86 98 190/88 04/12/17 07:00 Intake Total 2847 ml Balance 2847 ml (Linda Sampson) Review of Systems/Exam Exam Mr. Alford is alert, awake and oriented to time, place and person. Speech is fluent. Higher cognitive functions are normal. Cranial nerve examination demonstrates the pupils to be equal, round, and reactive to light. Extra-ocular movements are intact. Facial motor and sensory function are normal and symmetrical. Gross hearing is intact, bilaterally. The uvula is midline and elevates symmetrically with the soft palate. Sternocleidomastoid and trapezius muscles have normal and symmetrical strength. Other cranial nerves are intact. Neck is soft and supple. Muscle strength is 5/5 in all muscle groups of both upper extremities including deltoid, biceps, triceps, brachioradialis, wrist extension and computer technical specialist. In the lower extremities, strength is 5/5 in both iliopsoas, quadriceps, hamstrings, plantar flexion, dorsiflexion, and extensor hallicus longus. Sensory examination is intact to light touch in both the upper and lower extremities, symmetrically. Deep tendon reflexes are 2+ and symmetrical in the biceps, triceps, and brachioradialis, bilaterally, in the upper extremities. In the lower extremities , the patellar and Achilles are 2+, bilaterally. There is a bilateral plantar flexion response. Hoffmanns sign is negative. There is no clonus. Cerebellar examination is intact to [id number] test. (Linda Sampson) Medications Current Medications Current Medications Medications (Trade) Dose Ordered Sig/Deepti Route PRN Reason Start Time Stop Time Status Last Admin Dose Admin Sodium Chloride (NS 1000 ml Inj) 1,000 ml @ 100 mls/hr Q10H IV 04/09/17 02:32 04/12/17 08:16 Sodium Chloride (NS Flush) 2 ml UNSCH PRN IV FLUSH FLUSH AFTER USING IV ACCESS 04/09/17 02:45 Sodium Chloride (NS Flush) 2 ml BID IV FLUSH 04/09/17 09:00 04/10/17 08:03 Ondansetron HCl (Zofran Inj) 4 mg Q6H PRN IVP NAUSEA OR VOMITING 04/09/17 02:45 Acetaminophen (Tylenol) 650 mg Q6H PRN PO FEVER/PAIN SCALE 1 TO 2 04/09/17 02:45 Hydromorphone HCl (Dilaudid Pf Inj) 1 mg Q3H PRN IV Pain 6-10 04/09/17 02:45 04/11/17 10:42 Senna/Docusate Sodium (Kassidy-Colace) 1 tab BID PO 04/09/17 09:00 04/12/17 08:16 Magnesium Hydroxide (Milk Of Magnesia Liq) 30 ml Q12H PRN PO MILD - MODERATE CONSTIPATION 04/09/17 02:45 04/11/17 23:40 Sennosides (Senokot) 17.2 mg Q12H PRN PO MODERATE - SEVERE CONSTIPATION 04/09/17 02:45 Bisacodyl (Dulcolax Supp) 10 mg DAILY PRN RECTAL SEVERE CONSITIPATION 04/09/17 02:45 Lactulose (Lactulose Liq) 30 ml DAILY PRN PO SEVERE CONSITIPATION 04/09/17 02:45 Diazepam (Valium) 5 mg Q8H PRN PO MUSCLE SPASM 04/09/17 02:45 Famotidine (Pepcid) 20 mg DAILY PO 04/09/17 09:00 04/12/17 08:16 Hydromorphone HCl (Dilaudid Pf Inj) 0.5 mg Q4H PRN IV PUSH PAIN 3-5 04/09/17 03:30 Pravastatin Sodium (Pravachol) 40 mg DAILY PO 04/09/17 09:00 04/12/17 08:16 Clonidine (Catapres) 0.1 mg Q6H PRN PO SBP> OR = 180, DBP> OR = 100 04/09/17 13:30 04/12/17 15:48 Morphine Sulfate (Oramorph Sr) 15 mg Q8HR PO 04/09/17 16:00 04/12/17 13:41 Amlodipine Besylate (Norvasc) 10 mg DAILY PO 04/11/17 09:00 04/12/17 08:16 Dexamethasone Sodium Phosphate (Decadron Inj) 4 mg Q6HR IV PUSH 04/11/17 12:30 04/12/17 11:42 Captopril (Capoten) 25 mg TIDAC PO 04/12/17 12:00 04/12/17 11:42 (Linda Sampson) Medical Decision Making MDM Remarks 56 y/o male with spine metastases with cord compression at T3 (Linda Sampson) Plan Plan Remarks recommend surgical decompression and resection of spine mass OR tomorrow NPO tonight consents in chart Dr. Tovar have discussed in detail including the [id number] details of the surgical procedure, its indications, alternatives, risks, and potential complications. Risks and potential complications include, but are not limited to, infection, blood loss, CSF leak, partial or complete loss of sight in one or both eyes, paresis, paralysis, permanent pain or difficulty swallowing, loss of bowel or bladder function, complications from anesthesia, blood clot, stroke , myocardial infarction, or even . (Linda Sampson) Attending Statement The exam, history, and the medical decision-making described in the above note were completed with the assistance of the mid-level provider. I reviewed and agree with the findings presented. I attest that I had a [id number] encounter with the patient on the same day, and personally performed and documented my assessment and findings in the medical record. (Manoj Tovar MD) Linda Sampson Apr 12, 2017 16:11 Manoj Tovar MD Apr 14, 2017 20:15
[2017-04-12] MEDS ORDERED: METOPROLOL TARTRATE 25 MG TAB PO PRN (19:15)
[2017-04-12] MEDS ORDERED: POVIDONE IODINE 5% (ANTISEPSIS KIT) 4 APPLICATIONS EACH NARE PRN (19:15)
[2017-04-12] MEDS ORDERED: CHLORHEXIDINE GLUCONATE 2 % 1 PACK (2 CLOTHS) TOPICAL PRN (19:15)
[2017-04-12] MEDS ORDERED: INSULIN HUMAN REGULAR 1,000 UNITS/10 ML VIAL SQ PRN (19:15)
[2017-04-12] MEDS ORDERED: SODIUM CHLORID 0.9% 500 ML IV PRN (19:15)
[2017-04-12] MEDS ORDERED: LACTATED RINGER'S 1000 ML IV PRN (19:15)
[2017-04-12] MEDS ORDERED: CHLORHEXIDINE GLUCONATE 4% SOLN 120 ML BTL TOP SCH (21:00)
[2017-04-13] VITALS (9 sets, daily range): BP systolic 160–194; BP diastolic 75–114; PULSE 85–163; RESP 15–24; TEMP 96.8–99.1; O2SAT 95–100
[2017-04-13] MEDS: SODIUM CHLOR 0.9% 1000 ML INJ 1,000 ML IV SCH ×3 (02:04→20:40)
[2017-04-13] MEDS ORDERED: CHLORHEXIDINE GLUCONATE 2 % 1 PACK (2 CLOTHS) TOPICAL PRN (03:15)
[2017-04-13] MEDS ORDERED: LACTATED RINGER'S 1000 ML IV PRN (03:15)
--- NOTE | 2017-04-13 06:00 | RADRPT ---
EXAM DATE/TIME: 04/13/2017 05:42 [facility] COMPARISON: No previous studies available for comparison. INDICATIONS : Stroke alert. Left sided weakness. RADIATION DOSE: 56.35 CTDIvol (mGy) This report was called by Dr. Anabelle Carcamo. Dr. Haque at 0555 hours MEDICAL HISTORY : Non-responsive. SURGICAL HISTORY : Non-responsive. ENCOUNTER: Initial ACUITY: 1 day PAIN SCALE: Non-responsive LOCATION: cranial TECHNIQUE: Multiple contiguous axial images were obtained of the head. Using automated exposure control and adj ustment of the mA and/or kV according to patient size, radiation dose was kept as low as reasonably a chievable to obtain optimal diagnostic quality images. FINDINGS: CEREBRUM: The ventricles are normal for age. No evidence of midline shift, mass lesion, hemorrhage or acute in farction. No extra-axial fluid collections are seen. POSTERIOR FOSSA: The cerebellum and brainstem are intact. The 4th ventricle is midline. The cerebellopontine angle i s unremarkable. EXTRACRANIAL: The visualized portion of the orbits is intact. SKULL: The calvaria is intact. No evidence of skull fracture. CONCLUSION: 1. No evidence of acute intracranial pathology. No masses are identified. Dony Ahn MD on April 13, 2017 at 5:50 Board Certified Radiologist. This report was verified electronically.
[2017-04-13] MEDS ORDERED: LORazepam 2 MG/ML VIAL IV STA (06:09)
[2017-04-13] MEDS ORDERED: levETIRAcetam 500 MG/NS 100 ML IV STA ×2 (06:10)
[2017-04-13 06:14] LABS: AUTOMATED NEUTROPHIL # 5.6 TH/MM3 (1.8-7.7); BASOPHIL % 0.3 % (0.0-2.0); HEMATOCRIT 28.4 % (39.0-51.0); HEMO FLAGS DIFF FINAL; LYMPH % 18.7 % (9.0-44.0); LYMPHOCYTE # 1.4 TH/MM3 (1.0-4.8); MEAN CELL VOLUME 87.5 FL (80.0-100.0); MEAN CORPUSCULAR HEMOGLOBIN 29.6 PG (27.0-34.0); MEAN CORPUSCULAR HGB CONC 33.9 % (32.0-36.0); MONO % 5.7 % (0.0-8.0); NEUT % 75.3 % (16.0-70.0); PLATELET COUNT 304 TH/MM3 (150-450); RED BLOOD COUNT 3.25 MIL/MM3 (4.50-5.90); RED CELL DISTRIBUTION WIDTH 13.6 % (11.6-17.2); WHITE BLOOD COUNT 7.4 TH/MM3 (4.0-11.0)
[2017-04-13 06:16] LABS: I-STAT POTASSIUM 4.6 MMOL/L (3.5-4.9); I-STAT SODIUM 143 MMOL/L (138-146)
[2017-04-13 06:34] LABS: APTT (PATIENT) 22.7 SEC (24.3-30.1); PROTHROMBIN TIME - PATIENT 10.8 SEC (9.8-11.6)
[2017-04-13 06:54] LABS: CREATINE KINASE 76 U/L (39-308)
[2017-04-13] MEDS ORDERED: DILTIAZEM HCL 25 MG/5 ML VIAL IV ONE (07:00)
[2017-04-13] MEDS: DEXAMETHASONE SOD PHOS 4 MG/ML VIAL IV PUSH SCH ×3 (07:04→18:45)
[2017-04-13] MEDS: MORPHINE SULFATE 15 MG CONTROLLED RELEASE TAB PO SCH ×3 (07:05→22:00)
[2017-04-13] MEDS ORDERED: THROMBIN (TOPICAL) 5,000 UNIT VIAL ONE (08:00)
[2017-04-13] MEDS: CAPTOPRIL 25 MG TAB PO SCH ×3 (08:00→17:00)
[2017-04-13] MEDS ORDERED: ceFAZolin 2 GM PREMIX 50 ML ONE ×2 (08:00→12:50)
[2017-04-13] MEDS ORDERED: GENTAMICIN SULFATE 80 MG/2 ML VIAL ONE (08:01)
[2017-04-13] MEDS ORDERED: GELFOAM SIZE 100 ONE (08:01)
[2017-04-13] MEDS ORDERED: GELATIN POWDER 1 GM PACKET ONE (08:01)
[2017-04-13] MEDS ORDERED: GADOBENATE DIM PF 529 MG/ML 20ML VIAL (for RAD MRI) IV ONE (08:33)
[2017-04-13] MEDS: HYDROmorphone HCL PF 1 MG/ML VIAL IV PRN (08:48)
--- NOTE | 2017-04-13 08:57 | RADRPT ---
EXAM DATE/TIME: 04/13/2017 07:51 [facility] COMPARISON: No previous studies available for comparison. INDICATIONS : Stroke alert. MEDICAL HISTORY : Hypertension. Carcinoma, prostate. Metastatic, bone. SURGICAL HISTORY : None. ENCOUNTER: Initial ACUITY: 1 day PAIN SCORE: 0/10 LOCATION: cranial Please note a normal MRA of the brain does not entirely exclude the possibility of a small aneurysm, nor the possibility of distal intracranial vessel disease. TECHNIQUE: 3D time of flight MRA was performed. Source images, multiplanar STS MIP, and 3D volume MIP reconstru ctions were reviewed. FINDINGS: There is excellent visualization of the major intracranial arteries out to the second-order branch ve ssels. There is an incomplete capitan grande of [place]. Both posterior cerebral arteries arise from the basi lar artery and no posterior communicating arteries are demonstrated. The left A1 segment is minimally hypoplastic and better visualized on the axial source images. Flow extends into the middle and anter ior cerebral arteries through patent intracranial internal carotid arteries. Flow extends through the genu of the middle cerebral arteries with symmetrical opacification of M2 branches. No definite vess el truncation or stenosis. There are codominant vertebral arteries with flow extending to a patent ba silar artery and bilateral patent posterior cerebral arteries. There is no evidence for aneurysm and no evidence for vascular malformation. CONCLUSION: 1. Mildly hypoplastic left A1 segment, likely congenital. 2. Unremarkable MRA examination without evidence for significant stenosis, occlusion, or aneurysm. Stef Patel MD on April 13, 2017 at 8:43 Board Certified Radiologist. This report was verified electronically.
[2017-04-13] MEDS: DOCUSATE SODIUM 50 MG/SENNA 8.6 MG TAB PO SCH ×2 (09:00→21:00)
[2017-04-13] MEDS: SODIUM CHLORIDE 0.9% FLUSH 10 ML FLUSH IV FLUSH SCH (09:00)
[2017-04-13] MEDS: PRAVASTATIN SOD 40 MG TAB PO SCH (09:00)
[2017-04-13] MEDS: FAMOTIDINE 20 MG TAB PO SCH (09:00)
--- NOTE | 2017-04-13 09:24 | RADRPT ---
EXAM DATE/TIME: 04/13/2017 07:51 [facility] COMPARISON: No previous studies available for comparison. INDICATIONS : Stroke Alert. CONTRAST: 20 cc Multihance (gadobenate) IV MEDICAL HISTORY : Hypertension. Carcinoma, prostate. Metastatic, bone. SURGICAL HISTORY : None. ENCOUNTER: Initial ACUITY: 1 day PAIN SCORE: 0/10 LOCATION: Cranial TECHNIQUE: Multiplanar, multisequence MRI of the brain was performed both prior to and following the administrat ion of paramagnetic contrast. FINDINGS: There is no restricted diffusion. There are no extraaxial fluid collections appreciated. Ventricular size is appropriate. Minimal nonspecific white matter changes are noted. On the post contrast study there is no abnormal contrast enhancement to suggest metastatic disease. CONCLUSION: 1. There is no restricted diffusion evident. 2. There is no abnormal contrast enhancement to suggest metastatic disease. Charlie Juarez MD FACR on April 13, 2017 at 8:54 Board Certified Radiologist. This report was verified electronically.
--- NOTE | 2017-04-13 09:34 | RADRPT ---
EXAM DATE/TIME: 04/13/2017 07:51 [facility] COMPARISON: No previous studies available for comparison. INDICATIONS : Stroke alert. CONTRAST: 20 cc Multihance (gadobenate) IV MEDICAL HISTORY : Hypertension. Carcinoma, prostate. Metastatic, bone. SURGICAL HISTORY : None. ENCOUNTER: Initial ACUITY: 1 day PAIN SCORE: 0/10 LOCATION: cranial Percent stenosis is calculated using the diameter of the stenotic region over the diameter of the nor mal distal internal carotid artery. TECHNIQUE: Bolus infused MRA of the extracranial circulation was performed using a neurovascular coil. Post pro cessing was performed including rotating subvolume maximum intensity projections of each carotid swati ry, rotating full volume maximum intensity projections of both carotid arteries, sagittal and coronal sliding thin slab reformations of each carotid artery, and left oblique sliding thin slab reformatio n through the aortic arch to include the origin of the arch branch vessels. FINDINGS: AORTIC ARCH: There is variant arch anatomy. There is an aberrant right subclavian artery. Origin of the left verte bral artery is tortuous but appears grossly patent. Arch vessels are patent at their origin. RIGHT CAROTID: The common carotid artery is intact. The carotid bulb has a normal configuration without ulceration or narrowing. The internal carotid artery lumen is smooth without stenosis. The external carotid ar emanuel is intact. LEFT CAROTID: The common carotid artery is intact. The carotid bulb has a normal configuration without ulceration or narrowing. The internal carotid artery lumen is smooth without stenosis. The external carotid ar emanuel is intact. VERTEBRALS: The vertebral arteries have a symmetric diameter. No stenotic lesions are seen. CONCLUSION: 1. 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 2. Otherwise, unremarkable MRA examination. Specifically, no significant carotid artery stenosis. Stef Patel MD on April 13, 2017 at 8:56 Board Certified Radiologist. This report was verified electronically.
[2017-04-13] MEDS ORDERED: FAMOTIDINE 20 MG/2 ML VIAL ONE (11:34)
[2017-04-13] MEDS ORDERED: SODIUM CHLOR 0.9% 250 ML INJ 250 ML ONE (11:35)
[2017-04-13] MEDS ORDERED: VANCOMYCIN HCL 1000 MG VIAL ONE (11:35)
--- NOTE | 2017-04-13 12:21 | EKG ---
Date Performed: 04/12/2017 Time Performed: 19:38:45 PTAGE: 56 years EKG: Sinus rhythm NONSPECIFIC T-WAVE ABNORMALITY BORDERLINE ECG Compared to prior tracing no significant change PREVIOUS TRACING : 04/09/2017 00.01 DOCTOR: Erik Nation Interpretating Date/Time 04/13/2017 12:19:20
[2017-04-13] MEDS ORDERED: MIDAZOLAM HCL 2 MG/2 ML VIAL ONE ×3 (12:22→16:44)
[2017-04-13] MEDS ORDERED: fentaNYL CITRATE 250 MCG/5 ML AMP ONE ×3 (12:34→12:37)
[2017-04-13] MEDS ORDERED: ACETAMINOPHEN 1000 MG/100 ML VIAL IV ONE (12:38)
[2017-04-13] MEDS ORDERED: ONDANSETRON HCL 4 MG/2 ML VIAL IV PUSH ONE (14:47)
[2017-04-13] MEDS ORDERED: NORMOSOL R INJ 1,000 ML IV ONE (14:47)
[2017-04-13] MEDS ORDERED: LACTATED RINGER'S 1000 ML INJ 3,000 ML IV ONE (14:47)
[2017-04-13] MEDS ORDERED: PHENYLEPH/NS 1000 MCG/10 ML SYR IV ONE (14:47)
[2017-04-13] MEDS ORDERED: PROPOFOL 200 MG/20 ML AMP IV ONE (14:47)
[2017-04-13] MEDS ORDERED: SODIUM CHLORID 0.9% 500 ML INJ 500 ML IV ONE (14:47)
[2017-04-13] MEDS ORDERED: PHENYLEPHRINE HCL 10 MG/ML VIAL IV ONE (14:47)
--- NOTE | 2017-04-13 15:03 | MG ---
cc: LORENA TEMPLETON MD Lab No: Date: 04/13/17 Age: 56 Sex: M Race: DATE OF 1960 REFERRING PHYSICIAN DAYSI Sampson READING PHYSICIAN Dr. Templeton MEDICAL HISTORY Episodes of unresponsiveness, diffuse metastatic disease of the spine, chest pain and tingling in the feet. MEDICATIONS 1. Cardizem. 2. Levetiracetam. 3. Ativan. 4. Decadron. 5. Dilaudid. 6. Pravachol. 7. Pepcid. 8. Norvasc. At the beginning of the EEG recording the background activity was 8-9 Hz alpha located posteriorly, bilateral and symmetrical. Superimposed by excess beta activity. During the recording the patient transitioned to stage II sleep with slowing and drop out of the posterior background rhythm an appearance of vertex wave K-complexes and sleep spindles. There was an electrode pop artifact at S7 during the entire recording. The recording was contaminated by excessive movement artifact. Photic stimulation did not elicit driving response. Hyperventilation was not done. There were no electrographic seizures or epileptiform discharges noted during the recording. INTERPRETATION This is a normal awake and asleep EEG recording. Excess beta activity is not a specific finding and this may be related to medication adverse effects such as benzos and barbiturates. The absence of electrographic seizures or epileptiform discharges does not exclude diagnosis of epilepsy. Clinical correlation is recommended. Lorena Templeton MD RGO/NATHALY /2:03 PM /2:48 PM MTDKelsey
[2017-04-13] MEDS ORDERED: VANCOMYCIN INJ 1,000 MG in SODIUM CHLOR 0.9% 250 ML INJ 250 ML IV SCH (16:09)
[2017-04-13 16:34] LABS: BLOOD GAS BASE EXCESS -6.3 mmol/L (-2-2); BLOOD GAS CARBOXYHEMOGLOBIN 0.9 % (0-4); BLOOD GAS HCO3 19 mmol/L (22-26); BLOOD GAS METHEMOGLOBIN 1.8 % (0-2); BLOOD GAS O2 HGB SATURATION 96 % (90-100); BLOOD GAS PCO2 37 mmHg (38-42); BLOOD GAS PO2 221 mmHg (61-120); TEMP CORR TO 98.6
[2017-04-13 16:35] LABS: CRITICAL VALUE YES; FIO2 50 %; STAT NO
--- NOTE | 2017-04-13 16:39 | HHI.PR ---
Subjective Remarks Patient not seen, patient was in the OR the whole afternoon. Objective Vitals Vital Signs Date Time Temp Pulse Resp B/P Pulse Ox O2 Delivery O2 Flow Rate FiO2 04/13/17 08:44 96 21 04/13/17 08:00 98.5 116 24 172/99 95 04/13/17 06:00 99.1 163 18 160/75 97 Manual Cuff/Auscultation 04/13/17 05:25 100 Nasal Cannula 3.00 04/13/17 05:25 100 3.00 04/13/17 05:25 100 3.00 04/13/17 04:04 97.4 85 18 162/80 95 04/12/17 23:59 97.8 88 18 168/84 98 04/12/17 21:50 85 04/12/17 20:16 96.4 80 18 160/80 96 04/12/17 17:32 178/81 I/O 04/12/17 04/12/17 04/12/17 04/13/17 04/13/17 04/13/17 07:00 15:00 23:00 07:00 15:00 23:00 Intake Total 773 ml 1475 ml 1127 ml Output Total 200 ml Balance 773 ml 1475 ml 1127 ml -200 ml Intake Oral 680 ml 480 ml IV Total 773 ml 795 ml 647 ml Output Urine Total 200 ml # Voids 2 7 2 2 # Bowel Movements 1 Result Diagram: 04/13/17 0553 04/12/17 0428 A/P Problem List: (1) Intractable back pain ICD Code: M54.9 Status: Acute (2) Metastatic disease ICD Code: C79.9 Status: Acute (3) Chest pain ICD Code: R07.9 Status: Acute (4) Elevated d-dimer ICD Code: R79.89 Status: Acute (5) Hydronephrosis ICD Code: N13.30 Status: Acute (6) JENELLE (acute kidney injury) ICD Code: N17.9 Status: Acute (7) Anemia ICD Code: D64.9 Status: Acute (8) HTN (hypertension) ICD Code: I10 Status: Acute Assessment and Plan 56-year-old male admitted with widespread bony metastatic disease, unknown primary. Patient also presented with acute renal failure secondary to bilateral hydronephrosis related to neoplasm. He presented with intractable back pain: Prostate cancer with Widespread bony metastatic disease to the spine and intractable back pain: Pain control with oral and intravenous , Dilaudid as needed. Oncology following..CT T-Spine from w/ mild bilateral hydronephrosis and extensive metastatic disease (copy in chart), CT Abd/Pelvis today w/ moderate bilateral hydronephrosis related to neoplasm involving distal ureters widespread bony metastatic disease. MRI of the spine showed spread of tumor the T3 level causing significant cord compression. Neurosurgery following. Discussed with oncology and neurosurgery, no need for IR guided biopsy of the spine or prostate biopsy, for decompressive surgery today. Acute renal failure, likely secondary to obstructive uropathy with hydronephrosis: CT of the abdomen and pelvis showed hydronephrosis likely due to neoplasm. Slight improvement, urology following, no need for stent placement with good urine output. Creatinine continues to improve. Anemia: Stable. No active bleeding. Will monitor. HTN: Uncontrolled. BP 190's on arrival. Hold Captopril in light of JENELLE. Better controlled with amlodipine. Monitor BP. Clonidine as needed DVT Prophylaxis: Heparin sq-on hold Discharge Planning Discharged once cleared by oncology and neurosurgery. Problem Qualifiers (1) Chest pain: Qualified Code: R07.9 - Chest pain, unspecified type (2) Hydronephrosis: Qualified Code: N13.39 - Other hydronephrosis Kat Ureña MD Apr 13, 2017 16:39 Problem Qualifiers (1) Chest pain: Qualified Code: R07.9 - Chest pain, unspecified type (2) Hydronephrosis: Qualified Code: N13.39 - Other hydronephrosis Kat Ureña MD Apr 13, 2017 16:39
[2017-04-13 16:58] LABS: REVIEW FLAG FINAL
[2017-04-13 16:59] LABS: HEMATOCRIT 20.3 % (39.0-51.0)
--- NOTE | 2017-04-13 17:48 | PD.OP ---
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 Alford 56 year-old male with history of a thoracolumbar fusion who presented with severe mechanical back pain and myelopathy. He was found to have a large epidural mass with spinal cord compression at T3. A surgical decompression with arthrodhesis were indicated as the most appropriate treatment. The [id number] details of the procedure, indications, alternatives , risks and potential complications were fully discussed with the patient and his . The patient fully understood. All questions were answered. No guarantees were given. The patient voiced requesting the procedure and provided informed consents. The patient had been offered the alternative of delaying the procedure and continuing with nonsurgical management. DETAILS OF THE SURGICAL PROCEDURE Prior to the procedure,the surgical incision was marked in the preoperative surgical holding room, and the procedure, risks, and potential complications revisited with the patient. Placement of electrodes for intraoperative neurophysiological monitoring was completed. The patient was taken to the operative room, and following induction of general anesthesia, endotracheal intubation was performed. A Browning catheter bilateral Luis Miguel and sequential compression devices were placed and kept throughout the procedure. The patient was carefully rolled into the prone position over a Omar table with a gell rolls. All pressure points were carefully padded with eggcrate mattress. The eyes were tapped shut after ointment was applied by the anesthesiologist to prevent corneal abrasion. A Padmaja hugger was placed over the expossed lower body to maintain control of the core body temperature. The electrophysiological team placed the needles and electrodes in their proper location and baseline SSEP's and motor evoked potentials were registered. The thoracic lumbar region was prepped and draped in the usual sterile fashion. A localizing X-ray was performed with the C-arm and the fracture was localized. A midline incision outlined from T2 down to T4. Surgical Approach The skin incisions were made with a #10 blade. Dissection was carried out through the thoracolumbar fascia with a Bovie. The facets of T2 down to T4 were exposed and a subperiosteal dissection was performed decorticating the facets and lateral gutters of the spine. Instrumental fixation At this point in the procedure, placement of bilateral transpedicular screws was necessary for stabilization of the spine. The levels were carefully marked with a TPS and bilateral transpedicular screws were placed using a standard fashion. Initially, the entry point for the screw was selected anatomically at the junction of the facet, with the transverse process, and the pars interarticularis using symultaneous AP and lateral xrays. This was started with a Giamshetti needle followed by the use of akey wire. A tap was used to create the threads for the screws. Finally bilateral transpedicular screws were carefully placed bilaterally at T2, T3, and T4. The position of each screw was assessed anatomically with an AP, lateral, oblique Xrays. An intraoperative scan view of the spine was then performed using the iso-centric c-arm. Surgical decompression Once all screws were in position, the operative microscope was draped in the usual sterile fashion and brought to the field. The rest of the surgical procedure was performed using microdissection technique with the exception of the closure. Under the operative microscope, a laminectomy was performed at T3. It was necessary to drill the facet and entrance to the left pedicle in order to allow access to the anterior surface of the thecal sac without retraction on the spinal cord. E pidural veins were coagulated with the bipolar and incised with the microscissors. A transpedicular decompression was carried out on the standard fashion. Tissue sample was sent for frozen section which was reported as consistent with a known small cell carcinoma. The transpedicular decompression was carried out. The retropulsed bones were assessed with an nerve hook. A shoe impactor was placed on the anterior epidural space and the bone fragments were impacted back into the vertebral body under fluoroscopic guidance. An excellent decompression was achieved using this technique. Posterolateral fusion Then, the lateral gutters of the spine, facets and transverse processes were carefully decorticated with a TPS drill in preparation for the posterior lateral fusion. The incision was thoroughly irrigated with antibiotic solution. The posterolateral fusion was performed by carefully packing the gutters of the spine at T2 to T4 with a autologous bone graft combined with demineralized bone matrix. Completion of the Procedure The rods were brought to the field. Sequential application of the cap was achieved. Final tightening of all screws was achieved with a torque wrench. The incision was thoroughly irrigated with several liters of antibiotic solution. The decompression was reassessed with an nerve hook and found to be appropriate. Seven mm Omar-Heart drain was left on the epidural space and was then externalized through a separate stab incision. The incision was then closed in layers. 0 Vicryl with interrupted sutures were used to close the thoracolumbar fascia. The superficial fascia was closed with 0 Vicryl sutures. Three-0 Vicryl was used to close the subcutaneous tissue. The skin was closed with melida. At the end of the procedure the sponges, needles, and instrument counts were all correct. Estimated blood loss was 600 cc's. No complications occurred. The patient received prophylactic antibiotics. The patient was then extubated and transferred to the recovery room in stable condition. The entire procedure was performed using electrophysiological monitor of the electromyogram, evoked potential and sphincters. Manoj Tovar MD Apr 13, 2017 17:48
[2017-04-13] MEDS ORDERED: DO NOT ADM ANY ANTICOAGULANT DRUGS PRN (17:52)
[2017-04-13] MEDS ORDERED: diphenhydrAMINE HCL 50 MG/ML VIAL IV PRN (18:00)
[2017-04-13] MEDS ORDERED: MORPHINE SULFATE 4 MG/ML INJ IV PUSH PRN ×2 (18:00)
[2017-04-13] MEDS ORDERED: NALOXONE HCL 0.4 MG/ML AMP IV PRN (18:00)
[2017-04-13] MEDS ORDERED: ACETAMINOPHEN 325 MG TAB PO PRN (18:00)
[2017-04-13] MEDS ORDERED: SODIUM CHLORIDE 0.9% FLUSH 5 ML FLUSH IVF PRN (18:00)
[2017-04-13] MEDS: NS + KCL 20 MEQ INJ 1,000 ML IV SCH (18:21)
[2017-04-13] MEDS: HYDROmorphone HCL PCA 6 MG/30 ML IV SCH (18:40)
--- NOTE | 2017-04-13 18:46 | RADRPT ---
EXAM DATE/TIME: 04/13/2017 18:19 [facility] COMPARISON: CHEST SINGLE AP, April 09, 2017, 1:09. INDICATIONS : Central line placement MEDICAL HISTORY : Hypertension. Carcinoma, prostate. Metastatic, bone SURGICAL HISTORY : Harware placement T-spine ENCOUNTER: Initial ACUITY: 3 days PAIN SCORE: Non-responsive. LOCATION: Bilateral chest FINDINGS: A single portable frontal view of the chest shows interval placement of a right-sided central line. T he tip is at the mid right atrial level. No pneumothorax. Bilateral pulmonary infiltrates. Heart is m ildly enlarged. Orthopedic hardware involving the upper thoracic spine. CONCLUSION: 1. No pneumothorax following central line placement. 2. Bilateral pulmonary infiltrates and cardiomegaly. This would suggest pulmonary edema. Pilo Garber Jr., MD on April 13, 2017 at 18:43 Board Certified Radiologist. This report was verified electronically.
--- NOTE | 2017-04-13 19:51 | RADRPT ---
EXAM DATE/TIME: 04/13/2017 13:54 [facility] COMPARISON: No previous studies available for comparison. INDICATIONS : T3 laminectomy screw and jodi placement T2 and T4., MEDICAL HISTORY : Hypertension. Renal failure, acute. Metastatic, bone.Spread of tumor at the T3 level SURGICAL HISTORY : None. ENCOUNTER: Initial ACUITY: 4 - 6 days PAIN SCORE: Non-responsive. LOCATION: Thoracic spine. FINDINGS: 3 magnified C-arm spot views are centered over the thoracic spine. Numbering of the levels cannot be performed. Bilateral transpedicular posterior fixation with vertical stabilizing bars and surgical dr alba. CONCLUSION: Limited images as detailed above. Pilo Garber Jr., MD on April 13, 2017 at 19:49 Board Certified Radiologist. This report was verified electronically.
--- NOTE | 2017-04-13 20:00 | PD.ONC.PN ---
Subjective Subjective Remarks ongoing supportive care answered patient's and his 's questions regarding diagnosis/prognosis and future treatment options d/w rn Objective Data Date Time Temp Pulse Resp B/P Pulse Ox O2 Delivery O2 Flow Rate FiO2 04/13/17 19:00 97.3 118 19 99 Nasal Cannula 3 177/90 04/13/17 18:45 113 21 99 Nasal Cannula 3 175/87 04/13/17 18:40 22 04/13/17 18:30 118 22 96 Nasal Cannula 3 175/86 04/13/17 18:29 97.3 118 22 175/86 99 04/13/17 18:15 116 22 98 Nasal Cannula 3 167/85 04/13/17 18:00 106 17 148/82 99 Nasal Cannula 3 159/82 04/13/17 17:54 97.4 108 13 137/93 97 Nasal Cannula 3 147/73 04/13/17 08:44 96 21 04/13/17 08:00 98.5 116 24 172/99 95 04/13/17 06:00 99.1 163 18 160/75 97 Manual Cuff/Auscultation 04/13/17 05:25 100 Nasal Cannula 3.00 04/13/17 05:25 100 3.00 04/13/17 05:25 100 3.00 04/13/17 04:04 97.4 85 18 162/80 95 04/12/17 23:59 97.8 88 18 168/84 98 04/12/17 21:50 85 04/12/17 20:16 96.4 80 18 160/80 96 04/13/17 04/13/17 04/13/17 07:00 15:00 23:00 Intake Total 3150 ml Output Total 200 ml 1675 ml Balance -200 ml 1475 ml Result Diagram: 04/13/17 1606 04/12/17 0428 Laboratory Results Laboratory Tests Test 04/12/17 04/13/17 04/13/17 04/13/17 20:07 05:53 13:21 16:06 Blood Type O POSITIVE O POSITIVE Antibody Screen NEGATIVE White Blood Count 7.4 TH/MM3 Red Blood Count 3.25 MIL/MM3 Hemoglobin 9.6 GM/DL 7.2 GM/DL Bedside Hemoglobin 8.2 G/DL Hematocrit 28.4 % 20.3 % Bedside Hematocrit 24.0 % Mean Corpuscular Volume 87.5 FL Mean Corpuscular Hemoglobin 29.6 PG Mean Corpuscular Hemoglobin 33.9 % Concent Red Cell Distribution Width 13.6 % Platelet Count 304 TH/MM3 Mean Platelet Volume 7.6 FL Neutrophils (%) (Auto) 75.3 % Lymphocytes (%) (Auto) 18.7 % Monocytes (%) (Auto) 5.7 % Eosinophils (%) (Auto) 0.0 % Basophils (%) (Auto) 0.3 % Neutrophils # (Auto) 5.6 TH/MM3 Lymphocytes # (Auto) 1.4 TH/MM3 Monocytes # (Auto) 0.4 TH/MM3 Eosinophils # (Auto) 0.0 TH/MM3 Basophils # (Auto) 0.0 TH/MM3 CBC Comment DIFF FINAL Differential Comment Prothrombin Time 10.8 SEC Prothromb Time International 1.0 RATIO Ratio Activated Partial 22.7 SEC Thromboplast Time Fibrinogen 549 mg/dL Bedside Sodium 143 MMOL/L Bedside Potassium 4.6 MMOL/L Bedside Chloride 114 MMOL/L Bedside Blood Urea Nitrogen 39 MG/DL Bedside Creatinine 1.9 MG/DL Bedside Glucose 157 MG/DL Total Creatine Kinase 76 U/L Troponin I LESS THAN 0.02 NG/ML Crossmatch Leukocyte-Reduced Red Blood Cells Blood Bank Comment Blood Gas Puncture Site DRAWN IN OR Blood Gas Patient Temperature 98.6 Blood Gas HCO3 19 mmol/L Blood Gas Base Excess -6.3 mmol/L Blood Gas Oxygen Saturation 96 % Arterial Blood pH 7.32 Arterial Blood Partial 37 mmHg Pressure CO2 Arterial Blood Partial 221 mmHg Pressure O2 Arterial Blood Oxygen Content 18.0 Vol % Arterial Blood 0.9 % Carboxyhemoglobin Arterial Blood Methemoglobin 1.8 % Blood Gas Hemoglobin 13.0 G/DL Blood Gas Inspired Oxygen 50 % Imaging Studies Last 24 hours Impressions Neck Magnetic Resonance Angiography 04/13/17 0000 Signed Impressions: Service Date/Time: Thursday, April 13, 2017 07:51 - CONCLUSION: 1. 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 2. Otherwise, unremarkable MRA examination. Specifically, no significant carotid artery stenosis. Stef Patel MD Head Magnetic Resonance Angiography 04/13/17 0000 Signed Impressions: Service Date/Time: Thursday, April 13, 2017 07:51 - CONCLUSION: 1. Mildly hypoplastic left A1 segment, likely congenital. 2. Unremarkable MRA examination without evidence for significant stenosis, occlusion, or aneurysm. Stef Patel MD Head CT 04/13/17 0000 Signed Impressions: Service Date/Time: Thursday, April 13, 2017 05:42 - CONCLUSION: 1. No evidence of acute intracranial pathology. No masses are identified. Dony Ahn MD Chest X-Ray 04/13/17 0000 Signed Impressions: Service Date/Time: Thursday, April 13, 2017 18:19 - CONCLUSION: 1. No pneumothorax following central line placement. 2. Bilateral pulmonary infiltrates and cardiomegaly. This would suggest pulmonary edema. Pilo Garber Jr., MD Brain MRI 04/13/17 0000 Signed Impressions: Service Date/Time: Thursday, April 13, 2017 07:51 - CONCLUSION: 1. There is no restricted diffusion evident. 2. There is no abnormal contrast enhancement to suggest metastatic disease. Charlie Juarez MD FACR Administered Medications Medications (Trade) Dose Ordered Sig/Deepti Route PRN Reason Start Time Stop Time Status Last Admin Dose Admin Senna/Docusate Sodium (Kassidy-Colace) 1 tab BID PO 04/09/17 09:00 04/12/17 21:49 Magnesium Hydroxide (Milk Of Magnesia Liq) 30 ml Q12H PRN PO MILD - MODERATE CONSTIPATION 04/09/17 02:45 04/11/17 23:40 Pravastatin Sodium (Pravachol) 40 mg DAILY PO 04/09/17 09:00 04/12/17 08:16 Clonidine (Catapres) 0.1 mg Q6H PRN PO SBP> OR = 180, DBP> OR = 100 04/09/17 13:30 04/12/17 15:48 Morphine Sulfate (Oramorph Sr) 15 mg Q8HR PO 04/09/17 16:00 04/13/17 07:05 Amlodipine Besylate (Norvasc) 10 mg DAILY PO 04/11/17 09:00 04/12/17 08:16 Dexamethasone Sodium Phosphate (Decadron Inj) 4 mg Q6HR IV PUSH 04/11/17 12:30 04/13/17 18:45 Captopril 25 mg 25 mg TIDAC PO 04/12/17 12:00 04/12/17 17:34 Sodium Chloride 1,000 ml @ 70 mls/hr [id number] IV 04/12/17 16:04 04/13/17 06:46 Potassium Chloride/Sodium Chloride (NS + KCl 20 Meq Inj) 1,000 ml @ 100 mls/hr Q10H IV 04/13/17 18:00 04/13/17 18:21 Hydromorphone HCl (Dilaudid FINAL ASSEMBLER Inj) 6 mg UNSCH IV 04/13/17 18:00 04/13/17 18:40 Objective Remarks GENERAL: Well-nourished, well-developed patient. SKIN: Warm and dry. HEAD: Normocephalic. EYES: No scleral icterus. No injection or drainage. NECK: Supple, trachea midline. No JVD or lymphadenopathy. LYMPHATIC: No adenopathy. CARDIOVASCULAR: Regular rate and rhythm without murmurs. RESPIRATORY: Breath sounds equal bilaterally. No accessory muscle use. GASTROINTESTINAL: Abdomen soft, non-tender, nondistended. EXTREMITIES: No cyanosis, or edema. MUSCULOSKELETAL: Adequate muscle tone. NEUROLOGICAL: No obvious focal deficit. Awake, alert, and oriented x3. PSYCHIATRIC: Appropriate mood and affect; insight and judgment normal. 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 --PSA is elevated in the 900s. is highly suspicious for metastatic prostate cancer. We need to establish a tissue diagnosis. --MRI T/L spine: shows widespread osseous disease + cord compression at T3 (2) Hydronephrosis Status: Acute Plan: --d/w Dr. Burt who d/w Dr. Garcia--patient does not yet need stent placement as creatinine is improving. (3) Cord compression Status: Resolved Plan: --Neurosurgery consulted --patient started on Decadron 4mg IV q6 (4) Normocytic anemia Status: Chronic Plan: --iron studies show low-normal iron, may benefit from IV iron --B12 WNL Assessment 56y/o male with metastatic disease to the spine as well as widespread metastatic disease to the bones, prostate cancer suspected history of hypertension and atrial fibrillation, on ASA (last dose 04/10, on hold for biopsy) History from initial consult--presented to the emergency department with complaints of worsening back pain. He was seen at [facility] initially and a CT scan of the T-spine without contrast was completed. It showed bilateral hydronephrosis and proximal hydroureter and excessive diffuse metastatic disease involving the entire visualized vertebral column. He also had paraspinal extraosseous spread of neoplasm at T9. The patient was discharged from the hospital with Percocet and was referred to oncology. CT of the abdomen and pelvis was performed which showed bilateral hydronephrosis which was felt secondary to a neoplasm involving the distal ureter. There was retroperitoneal adenopathy and widespread bony metastatic disease. His PSA was elevated to 937. The patient was found to be anemic on admission with a hemoglobin of 9.4. The patient was found to be in acute renal failure with a serum creatinine of three. Oncology has been consulted to make further recommendations in this patient who appears to have metastatic prostate cancer based on his elevated PSA levels and multiple bony metastatic lesions. Plan 1. proceed with surgical decompression with Dr. Tovar tomorrow. await pathology from biopsy 2. continue decadron, supportive care. Problem Qualifiers (1) Hydronephrosis: Qualified Code: N13.39 - Other hydronephrosis Tim Le MD Apr 13, 2017 20:00
--- NOTE | 2017-04-13 20:34 | PD.CONS ---
[facility] Service Critical Care Medicine Consult Requested By Primary Care Physician Agustín Montero MD History of Present Illness 56-year-old male with a hypertension atrial fibrillation on aspirin presents to emergency department complaining of severe back pain lasting for about 1 months. He was seen for the similar problems at the [facility] the day prior to admission. CT T-Spine w/o contrast 04/08/17 w/ mild bilateral hydronephrosis and proximal hydroureter, very extensive diffuse metastatic disease involving the entire visualized vertebral column, possible paraspinal extraosseous spread of neoplasm at T9. Pt was informed of results and discharged from w/ prescription for Percocet and instructions to follow up w / PCP for Oncology referral. Here the patient presented with ongoing severe back pain and acute onset of chest pain at which time he presented to [place]. CT Abdomen/Pelvis finding of bilateral hydronephrosis likely related to neoplasm involving the distal ureters, retroperitoneal adenopathy, widespread bony metastatic disease. Patient underwent emergent decompression cough T3 epidural mass with spinal cord compression. Critical-care medicine was consulted for postoperative medical management patient is ICU. Review of Systems ROS Unable to obtain patient's to lethargic posteriorly anesthesia Past Family Social History Allergies: Coded Allergies: Codeine (Verified Allergy, Severe, ITCHING, 04/09/17) Past Medical History Hypertension Atrial fibrillation Past Surgical History None Reported Medications Reported Meds & Active Scripts Active Reported Aspirin 325 Mg Tab 325 Mg PO DAILY Captopril 25 Mg Tab 25 Mg PO TIDAC Take 1 hr before meals. Active Ordered Medications Current Medications Medications (Trade) Dose Ordered Sig/Deepti Route PRN Reason Start Time Stop Time Status Last Admin Dose Admin Ondansetron HCl (Zofran Inj) 4 mg Q6H PRN IVP NAUSEA OR VOMITING 04/09/17 02:45 Acetaminophen (Tylenol) 650 mg Q6H PRN PO PAIN SCALE 1 TO 2 04/09/17 02:45 Senna/Docusate Sodium (Kassidy-Colace) 1 tab BID PO 04/09/17 09:00 04/12/17 21:49 Magnesium Hydroxide (Milk Of Magnesia Liq) 30 ml Q12H PRN PO MILD - MODERATE CONSTIPATION 04/09/17 02:45 04/11/17 23:40 Sennosides (Senokot) 17.2 mg Q12H PRN PO MODERATE - SEVERE CONSTIPATION 04/09/17 02:45 Bisacodyl (Dulcolax Supp) 10 mg DAILY PRN RECTAL SEVERE CONSITIPATION 04/09/17 02:45 Lactulose (Lactulose Liq) 30 ml DAILY PRN PO SEVERE CONSITIPATION 04/09/17 02:45 Diazepam (Valium) 5 mg Q8H PRN PO MUSCLE SPASM 04/09/17 02:45 Pravastatin Sodium (Pravachol) 40 mg DAILY PO 04/09/17 09:00 04/12/17 08:16 Clonidine (Catapres) 0.1 mg Q6H PRN PO SBP> OR = 180, DBP> OR = 100 04/09/17 13:30 04/12/17 15:48 Morphine Sulfate (Oramorph Sr) 15 mg Q8HR PO 04/09/17 16:00 04/13/17 07:05 Amlodipine Besylate (Norvasc) 10 mg DAILY PO 04/11/17 09:00 04/12/17 08:16 Dexamethasone Sodium Phosphate (Decadron Inj) 4 mg Q6HR IV PUSH 04/11/17 12:30 04/13/17 18:45 Captopril 25 mg 25 mg TIDAC PO 04/12/17 12:00 04/12/17 17:34 Sodium Chloride (NS 1000 ml Inj) 1,000 ml @ 70 mls/hr [id number] IV 04/12/17 16:04 04/13/17 06:46 Chlorhexidine Gluconate 1 applic 1 applic HS TOP 04/12/17 21:00 04/13/17 21:01 Sodium Chloride 500 ml @ 30 mls/hr [id number] PRN IV SEE LABEL COMMENTS 04/12/17 19:15 04/15/17 19:14 Lactated Ringer's 1,000 ml @ 30 mls/hr Q24H PRN IV SEE LABEL COMMENTS 04/13/17 03:15 04/16/17 03:14 Potassium Chloride/Sodium Chloride (NS + KCl 20 Meq Inj) 1,000 ml @ 100 mls/hr Q10H IV 04/13/17 18:00 04/13/17 18:21 IV Flush (NS Flush) 2 ml UNSCH PRN IVF FLUSH AFTER USING IV ACCESS 04/13/17 18:00 IV Flush 2 ml 2 ml BID IVF 04/13/17 21:00 Cefazolin Sodium/ Dextrose (Ancef 2 Gm Premix) 50 ml @ 100 mls/hr Q8H IV 04/13/17 22:00 04/14/17 14:29 Pantoprazole Sodium (Protonix Inj) 40 mg DAILY IVP 04/14/17 09:00 Morphine Sulfate (Morphine Inj) 2 mg Q2H PRN IV PUSH PAIN SCALE 1 TO 6 04/13/17 18:00 Morphine Sulfate (Morphine Inj) 4 mg Q2H PRN IV PUSH PAIN SCALE 7 TO 10 04/13/17 18:00 Acetaminophen (Tylenol) 650 mg Q4H PRN PO TEMPERATURE > 101.5 F 04/13/17 18:00 Naloxone HCl (Narcan Inj) 0.4 mg UNSCH PRN IV RESPIRATORY RATE LESS THAN 10 04/13/17 18:00 Diphenhydramine HCl (Benadryl Inj) 25 mg Q6H PRN IV ITCHING 04/13/17 18:00 Hydromorphone HCl (Dilaudid CHILD STUDY TEAM DIRECTOR Inj) 6 mg UNSCH IV 04/13/17 18:00 04/13/17 18:40 CHILD STUDY TEAM DIRECTOR Dosage Infused (Pha) 1 Q8HR .XX 04/13/17 22:00 Miscellaneous Information ALL NURSING DEPARTME... UNSCH PRN .XX SEE LABEL COMMENTS 04/13/17 17:52 04/14/17 17:51 Family History Noncontributory Social History Negative for smoking, alcohol or illicit drug abuse Physical Exam Vital Signs Vital Signs Date Time Temp Pulse Resp B/P Pulse Ox O2 Delivery O2 Flow Rate FiO2 04/13/17 19:00 97.3 118 19 99 Nasal Cannula 3 177/90 04/13/17 18:45 113 21 99 Nasal Cannula 3 175/87 04/13/17 18:40 22 04/13/17 18:30 118 22 96 Nasal Cannula 3 175/86 04/13/17 18:29 97.3 118 22 175/86 99 04/13/17 18:15 116 22 98 Nasal Cannula 3 167/85 04/13/17 18:00 106 17 148/82 99 Nasal Cannula 3 159/82 04/13/17 17:54 97.4 108 13 137/93 97 Nasal Cannula 3 147/73 04/13/17 08:44 96 21 04/13/17 08:00 98.5 116 24 172/99 95 6/2/17 06:00 99.1 163 18 160/75 97 Manual Cuff/Auscultation 04/13/17 05:25 100 Nasal Cannula 3.00 04/13/17 05:25 100 3.00 04/13/17 05:25 100 3.00 04/13/17 04:04 97.4 85 18 162/80 95 04/12/17 23:59 97.8 88 18 168/84 98 04/12/17 21:50 85 Physical Exam GENERAL: Well-nourished, well-developed lethargic post general anesthesia patient. SKIN: Warm and dry. HEAD: Normocephalic. EYES: No scleral icterus. No injection or drainage. NECK: Supple, trachea midline. No JVD or lymphadenopathy. CARDIOVASCULAR: Regular rate and rhythm without murmurs, gallops, or rubs. RESPIRATORY: Breath sounds equal bilaterally. No accessory muscle use. GASTROINTESTINAL: Abdomen soft, non-tender, nondistended. MUSCULOSKELETAL: No cyanosis, or edema. BACK: Nontender without obvious deformity. No CVA tenderness. EXTREMITIES: Moves all 4 without a focal deficit Laboratory Laboratory Tests Test 04/13/17 04/13/17 04/13/17 05:53 13:21 16:06 White Blood Count 7.4 Red Blood Count 3.25 Hemoglobin 9.6 7.2 Bedside Hemoglobin 8.2 Hematocrit 28.4 20.3 Bedside Hematocrit 24.0 Mean Corpuscular Volume 87.5 Mean Corpuscular Hemoglobin 29.6 Mean Corpuscular Hemoglobin 33.9 Concent Red Cell Distribution Width 13.6 Platelet Count 304 Mean Platelet Volume 7.6 Neutrophils (%) (Auto) 75.3 Lymphocytes (%) (Auto) 18.7 Monocytes (%) (Auto) 5.7 Eosinophils (%) (Auto) 0.0 Basophils (%) (Auto) 0.3 Neutrophils # (Auto) 5.6 Lymphocytes # (Auto) 1.4 Monocytes # (Auto) 0.4 Eosinophils # (Auto) 0.0 Basophils # (Auto) 0.0 CBC Comment DIFF FINAL Differential Comment Prothrombin Time 10.8 Prothromb Time International 1.0 Ratio Activated Partial 22.7 Thromboplast Time Fibrinogen 549 Bedside Sodium 143 Bedside Potassium 4.6 Bedside Chloride 114 Bedside Blood Urea Nitrogen 39 Bedside Creatinine 1.9 Bedside Glucose 157 Total Creatine Kinase 76 Troponin I LESS THAN 0.02 Blood Type O POSITIVE Crossmatch Leukocyte-Reduced Red Blood Cells Blood Bank Comment Blood Gas Puncture Site DRAWN IN OR Blood Gas Patient Temperature 98.6 Blood Gas HCO3 19 Blood Gas Base Excess -6.3 Blood Gas Oxygen Saturation 96 Arterial Blood pH 7.32 Arterial Blood Partial 37 Pressure CO2 Arterial Blood Partial 221 Pressure O2 Arterial Blood Oxygen Content 18.0 Arterial Blood 0.9 Carboxyhemoglobin Arterial Blood Methemoglobin 1.8 Blood Gas Hemoglobin 13.0 Blood Gas Inspired Oxygen 50 Result Diagram: 04/13/17 1606 04/12/17 0428 Imaging Last 24 hours Impressions Thoracic Spine X-Ray 04/13/17 0000 Signed Impressions: Service Date/Time: Thursday, April 13, 2017 13:54 - CONCLUSION: Limited images as detailed above. Pilo Garber Jr., MD Neck Magnetic Resonance Angiography 04/13/17 0000 Signed Impressions: Service Date/Time: Thursday, April 13, 2017 07:51 - CONCLUSION: 1. 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 2. Otherwise, unremarkable MRA examination. Specifically, no significant carotid artery stenosis. Stef Patel MD Head Magnetic Resonance Angiography 04/13/17 0000 Signed Impressions: Service Date/Time: Thursday, April 13, 2017 07:51 - CONCLUSION: 1. Mildly hypoplastic left A1 segment, likely congenital. 2. Unremarkable MRA examination without evidence for significant stenosis, occlusion, or aneurysm. Stef Patel MD Head CT 04/13/17 0000 Signed Impressions: Service Date/Time: Thursday, April 13, 2017 05:42 - CONCLUSION: 1. No evidence of acute intracranial pathology. No masses are identified. Dony Ahn MD Chest X-Ray 04/13/17 0000 Signed Impressions: Service Date/Time: Thursday, April 13, 2017 18:19 - CONCLUSION: 1. No pneumothorax following central line placement. 2. Bilateral pulmonary infiltrates and cardiomegaly. This would suggest pulmonary edema. Pilo Garber Jr., MD Brain MRI 04/13/17 0000 Signed Impressions: Service Date/Time: Thursday, April 13, 2017 07:51 - CONCLUSION: 1. There is no restricted diffusion evident. 2. There is no abnormal contrast enhancement to suggest metastatic disease. Charlie Juarez MD FACR Assessment and Plan Assessment and Plan T3 epidural mass with spinal cord compression - Decompressive surgery - Dexamethasone every 6 hours - Management per neurosurgeon Hypertension - Norvasc - Lisinopril - Clonidine - Metoprolol Atrial fibrillation - Rate controlled with metoprolol Dyslipidemia - Atorvastatin Hyperglycemia - Insulin sliding scale DVT GI prophylaxis - Teds SCDs - Pharmacological DVT prophylaxis per neurosurgeon - Omeprazole Critical Care: The total critical care time was 35 minutes. Time to perform other separately billable procedures was not included in the critical care time. Cristobal Ha MD Apr 13, 2017 20:34
[2017-04-13 20:50] LABS: HEMATOCRIT 27.8 % (39.0-51.0); REVIEW FLAG FINAL
[2017-04-13] MEDS: SODIUM CHLORIDE 0.9% FLUSH 5 ML FLUSH IVF SCH (21:00)
[2017-04-13] MEDS: METOPROLOL TARTRATE 5 MG/5 ML VIAL IV PUSH SCH ×3 (21:25→22:13)
[2017-04-13] MEDS: PCA - TOTAL MG DILAUDID DELIVERED PER SHIFT SCH (21:26)
[2017-04-13] MEDS: ceFAZolin 2 GM PREMIX 50 ML IV SCH (21:26)
--- NOTE | 2017-04-13 23:28 | MB ---
cc: SHAGUFTA CARCAMO MD DATE OF CONSULTATION 04/12/17 REASON FOR CONSULTATION Seizures. HISTORY OF PRESENT ILLNESS Mr. Alford is a 56-year-old -[place] male with a past medical history of hypertension and atrial fibrillation on aspirin who presented to the emergency room of [facility] complaining of one-month duration of severe back pain. CT thoracic spine without contrast on 04/08/2017 revealed mild bilateral hydronephrosis of proximal ureters, extensive diffuse metastatic disease involving the entire visualized vertebral column possible paraspinal extraosseous spread of neoplasm at T9. This was done at [facility] and the patient was informed about the results at discharge with a prescription of Percocet and instruction to follow up with PCP for oncology referral. The patient was witnessed early this morning by his mother who was at the bedside to have convulsions. The mother describes these episodes as whole body jerking, foaming, tongue-biting followed by mild postictal state. No reported loss of sphincter control. There is no history of epilepsy or seizure and no family history of epilepsy or seizure. REVIEW OF SYSTEMS Next a 12-point review of systems is negative except for what is stated in HPI. PAST MEDICAL HISTORY 1. Hypertension, 2. Atrial fibrillation. PAST SURGICAL HISTORY Noncontributory ALLERGIES CODEINE MEDICATIONS 1. Aspirin 325 2. Captopril 25 mg FAMILY HISTORY Noncontributory SOCIAL HISTORY Negative for smoking, alcohol or illicit drug abuse. PHYSICAL EXAMINATION GENERAL: Patient was asleep, arousable, was given opiate medication for pain. HEENT: Atraumatic, normocephalic. Intact hearing. Intact vision. NECK: Supple. No signs of meningeal irritation. CARDIOVASCULAR: Regular rate and rhythm. RESPIRATORY: Clear to auscultation with, no wheezes GASTROINTESTINAL: Soft. Abdomen nontender. MUSCULOSKELETAL: No cyanosis, edema. Moves all extremities NEUROLOGIC: The patient is lethargic, sleepy, arousable, moves all extremities. No gaze deviation. Pupils 2 mm bilateral reacting to light. LABORATORY DATA White blood cells 7.4, hemoglobin 9.6, hematocrit 28.4, platelet count 304. INR 1, sodium 143, potassium 4.6, BUN 39, creatinine 1.9. IMAGING STUDIES Brain MRI - there is no restricted diffusion evident. There is no abnormal contrast enhancement to suggest metastatic disease. CT scan - no evidence of acute intracranial pathology and no masses are identified. Head MRA was reported with mildly hypoplastic left A1 segment, likely congenital. Unremarkable examination. No evidence of stenosis, effusion or aneurysm. Neck MRA revealed variant arch anatomy with aberrant right subclavian artery. Otherwise, unremarkable examination. No carotid artery stenosis. Thoracic spine x-ray limited images. Lumbar spine MRI revealed no evidence of cord compression, widespread bony metastatic disease. Thoracic spine MRI revealed widespread metastatic disease with extraosseous spread of tumor at the T3 level causing significant cord compression. DIAGNOSTIC IMPRESSION 1. New onset seizures. 2. Prostatic cancer status post metastatic spinal cord vertebral column disease 3. Hypertension. 4. Atrial fibrillation 5. Hyperlipidemia PLAN 1. Neuro checks q. four hourly. 2. Amiodarone 4 mg q. six hourly 3. Keppra 500 mg twice. 4. EEG 5. seizure precautions. 6. DVT prophylaxis. 7. Pain management as per attending team 8. Continue therapy and management per neurosurgery Thank you for the opportunity to participate in the care of your patient. MD TOM Harvey/ /10:52 PM /11:11 PM ABBEY
[2017-04-14] VITALS (13 sets, daily range): BP systolic 148–163; BP diastolic 74–88; PULSE 99–144; RESP 15–22; TEMP 97.2–99; O2SAT 94–99
[2017-04-14] MEDS: DEXAMETHASONE SOD PHOS 4 MG/ML VIAL IV PUSH SCH ×5 (00:07→23:23)
[2017-04-14] MEDS: ceFAZolin 2 GM PREMIX 50 ML IV SCH ×2 (05:05→13:35)
[2017-04-14] MEDS: PCA - TOTAL MG DILAUDID DELIVERED PER SHIFT SCH ×3 (05:06→21:34)
[2017-04-14] MEDS: NS + KCL 20 MEQ INJ 1,000 ML IV SCH ×2 (05:07→13:35)
[2017-04-14] MEDS: cloNIDine HCL 0.1 MG TAB PO PRN (05:12)
[2017-04-14 06:17] LABS: BASOPHIL % 0.3 % (0.0-2.0); HEMATOCRIT 28.6 % (39.0-51.0); HEMO FLAGS DIFF FINAL; LYMPH % 9.5 % (9.0-44.0); LYMPHOCYTE # 0.8 TH/MM3 (1.0-4.8); MEAN CELL VOLUME 84.1 FL (80.0-100.0); MEAN CORPUSCULAR HEMOGLOBIN 29.7 PG (27.0-34.0); MEAN CORPUSCULAR HGB CONC 35.4 % (32.0-36.0); MONO % 6.6 % (0.0-8.0); NEUT % 83.6 % (16.0-70.0); PLATELET COUNT 348 TH/MM3 (150-450); RED CELL DISTRIBUTION WIDTH 13.8 % (11.6-17.2); WHITE BLOOD COUNT 8.4 TH/MM3 (4.0-11.0)
[2017-04-14 06:38] LABS: BICARBONATE 21.8 MEQ/L (21.0-32.0)
[2017-04-14] MEDS: MORPHINE SULFATE 15 MG CONTROLLED RELEASE TAB PO SCH ×4 (06:38→23:39)
--- NOTE | 2017-04-14 07:56 | HHI.CCPN ---
Subjective Remarks/Hospital Course 56-year-old male with a hypertension atrial fibrillation on aspirin presents to emergency department complaining of severe back pain lasting for about 1 months. He was seen for the similar problems at the [facility] the day prior to admission. CT T-Spine w/o contrast 04/08/17 w/ mild bilateral hydronephrosis and proximal hydroureter, very extensive diffuse metastatic disease involving the entire visualized vertebral column, possible paraspinal extraosseous spread of neoplasm at T9. Pt was informed of results and discharged from w/ prescription for Percocet and instructions to follow up w / PCP for Oncology referral. Here the patient presented with ongoing severe back pain and acute onset of chest pain at which time he presented to [place]. CT Abdomen/Pelvis finding of bilateral hydronephrosis likely related to neoplasm involving the distal ureters, retroperitoneal adenopathy, widespread bony metastatic disease. Patient underwent emergent decompression cough T3 epidural mass with spinal cord compression. Critical-care medicine was consulted for postoperative medical management patient is ICU. 04/14: Awake, alert. Maintaining elevated BP for spinal cord perfusion. Adjust per Dr. Tovar. Objective Vital Signs Date Time Temp Pulse Resp B/P Pulse Ox O2 Delivery O2 Flow Rate FiO2 04/14/17 07:46 16 04/14/17 06:00 136 04/14/17 00:00 97.2 95 156/88 04/13/17 21:41 Nasal Cannula 3.00 04/13/17 08:44 21 Intake and Output 04/13/17 04/13/17 04/14/17 08:00 16:00 00:00 Intake Total 3421 ml Output Total 200 ml 2385 ml Balance -200 ml 1036 ml Result Diagram: 04/14/17 0555 04/14/17 0555 Other Results Laboratory Tests Test 04/13/17 16:06 Blood Gas Puncture Site DRAWN IN OR Blood Gas Patient Temperature 98.6 Blood Gas HCO3 19 mmol/L (22-26) Blood Gas Base Excess -6.3 mmol/L (-2-2) Blood Gas Oxygen Saturation 96 % (90-100) Arterial Blood pH 7.32 (7.380-7.420) Arterial Blood Partial 37 mmHg (38-42) Pressure CO2 Arterial Blood Partial 221 mmHg Pressure O2 (61-120) Arterial Blood Oxygen Content 18.0 Vol % (12.0-20.0) Arterial Blood 0.9 % (0-4) Carboxyhemoglobin Arterial Blood Methemoglobin 1.8 % (0-2) Blood Gas Hemoglobin 13.0 G/DL (12.0-16.0) Blood Gas Inspired Oxygen 50 % Imaging Last 24 hours Impressions Thoracic Spine X-Ray 04/13/17 Signed Impressions: Service Date/Time: Thursday, April 13, 2017 13:54 - CONCLUSION: Limited images as detailed above. Pilo Garber Jr., MD Neck Magnetic Resonance Angiography 04/13/17 Signed Impressions: Service Date/Time: Thursday, April 13, 2017 07:51 - CONCLUSION: 1. 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 2. Otherwise, unremarkable MRA examination. Specifically, no significant carotid artery stenosis. Stef Patel MD Head Magnetic Resonance Angiography 04/13/17 Signed Impressions: Service Date/Time: Thursday, April 13, 2017 07:51 - CONCLUSION: 1. Mildly hypoplastic left A1 segment, likely congenital. 2. Unremarkable MRA examination without evidence for significant stenosis, occlusion, or aneurysm. Stef Patel MD Head CT 04/13/17 Signed Impressions: Service Date/Time: Thursday, April 13, 2017 05:42 - CONCLUSION: 1. No evidence of acute intracranial pathology. No masses are identified. Dony Ahn MD Chest X-Ray 04/13/17 Signed Impressions: Service Date/Time: Thursday, April 13, 2017 18:19 - CONCLUSION: 1. No pneumothorax following central line placement. 2. Bilateral pulmonary infiltrates and cardiomegaly. This would suggest pulmonary edema. Pilo Garber Jr., MD Brain MRI 04/13/17 Signed Impressions: Service Date/Time: Thursday, April 13, 2017 07:51 - CONCLUSION: 1. There is no restricted diffusion evident. 2. There is no abnormal contrast enhancement to suggest metastatic disease. Charlie Juarez MD FACR Objective Remarks GENERAL: Well-nourished, well-developed lethargic post general anesthesia patient. SKIN: Warm and dry. HEAD: Normocephalic. EYES: No scleral icterus. No injection or drainage. NECK: Supple, trachea midline. No JVD or lymphadenopathy. CARDIOVASCULAR: Regular rate and rhythm without murmurs, gallops, or rubs. RESPIRATORY: Breath sounds equal bilaterally. No accessory muscle use. GASTROINTESTINAL: Abdomen soft, non-tender, nondistended. MUSCULOSKELETAL: No cyanosis, or edema. BACK: Nontender without obvious deformity. No CVA tenderness. EXTREMITIES: Moves all 4 without a focal deficit NEURO:O X 3, alert, cooperative. Good pain control. A/P Assessment and Plan T3 epidural mass with spinal cord compression - Decompressive surgery - Dexamethasone every 6 hours - Management per neurosurgeon - BP level per NS Hypertension - Norvasc - Lisinopril - Clonidine - Metoprolol Atrial fibrillation - Rate controlled with metoprolol Dyslipidemia - Atorvastatin Hyperglycemia - Insulin sliding scale DVT GI prophylaxis - Teds SCDs - Pharmacological DVT prophylaxis per neurosurgeon - Omeprazole Overall impression: S/P decompressive spine surgery. Stable hemodynamic and respiratory function. Mahamed Braden MD Apr 14, 2017 07:56
[2017-04-14] MEDS: PANTOPRAZOLE SODIUM 40 MG VIAL IVP SCH (08:23)
[2017-04-14] MEDS: SODIUM CHLORIDE 0.9% FLUSH 5 ML FLUSH IVF SCH ×2 (08:24→21:00)
[2017-04-14] MEDS: DOCUSATE SODIUM 50 MG/SENNA 8.6 MG TAB PO SCH ×2 (08:24→20:24)
[2017-04-14] MEDS: DILTIAZEM HCL 60 MG TAB PO SCH ×2 (08:24→12:01)
[2017-04-14] MEDS: PRAVASTATIN SOD 40 MG TAB PO SCH (09:00)
[2017-04-14] MEDS: CAPTOPRIL 25 MG TAB PO SCH ×3 (09:32→17:00)
[2017-04-14] MEDS ORDERED: TERBUTALINE INJ 1 MG/ML AMP SQ PRN (10:15)
[2017-04-14] MEDS ORDERED: SODIUM CHLORID 0.9% IV SCH ×2 (10:15→17:00)
[2017-04-14] MEDS ORDERED: PHENYLEPHRINE IV SCH ×2 (10:15→17:00)
[2017-04-14] MEDS: SODIUM CHLOR 0.9% 1000 ML INJ 1,000 ML IV SCH ×2 (10:58→17:15)
[2017-04-14] MEDS: HYDROmorphone HCL PCA 6 MG/30 ML IV SCH ×2 (10:58→23:25)
--- NOTE | 2017-04-14 11:53 | HHI.NSPN ---
(Linda Sampson) Note Status Status: Progress Note (Linda Sampson) Interval History Interval History Mr. Alford is a 56-year-old male who presented to the ER with complaints of severe back pain for a month. Apparently he was evaluated at [facility] for back pain recently. A CT Thoracic spine had showed diffuse metastatic disease of the spine. He was told the results and discharged with instructions to follow up with PCP for an Oncology referral. His back pain worsened with acute chest pain and thus presented to [place]. He reports some numbness and tingling in his feet, he denies significant leg weakness, bowel or bladder incontinence, fevers or chills. An MRI of the thoracic spine showed widespread metastatic disease with cord compression at T3. His PSA is elevated. A neurosurgical evaluation was requested. 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 denies paresthesias in LEs. Pain controlled if not moving. (Linda Sampson) Labs, Micro, & Vital Signs Results Date Time Temp Pulse Resp B/P Pulse Ox O2 Delivery O2 Flow Rate FiO2 04/14/17 10:58 18 04/14/17 10:00 121 04/14/17 08:35 99 Nasal Cannula 3.00 04/14/17 08:00 98.5 129 19 163/85 96 Automatic Cuff 04/14/17 08:00 129 04/14/17 08:00 96 Simple Mask 04/14/17 07:46 16 04/14/17 06:00 136 04/14/17 06:00 98 Nasal Cannula 3.00 04/14/17 05:06 19 04/14/17 04:00 117 04/14/17 04:00 97.2 124 15 99 152/88 04/14/17 02:00 99 04/14/17 00:00 97.2 120 15 95 156/88 04/14/17 00:00 117 04/13/17 22:00 114 04/13/17 21:41 99 Nasal Cannula 3.00 04/13/17 21:26 16 04/13/17 20:00 96.8 120 15 194/114 95 180/82 04/13/17 20:00 120 04/13/17 19:00 97.3 118 19 99 Nasal Cannula 3 177/90 04/13/17 18:45 113 21 99 Nasal Cannula 3 175/87 04/13/17 18:40 22 04/13/17 18:30 118 22 96 Nasal Cannula 3 175/86 04/13/17 18:29 97.3 118 22 175/86 99 04/13/17 18:15 116 22 98 Nasal Cannula 3 167/85 04/13/17 18:00 106 17 148/82 99 Nasal Cannula 3 159/82 04/13/17 17:54 97.4 108 13 137/93 97 Nasal Cannula 3 147/73 04/14/17 07:00 Intake Total 4263 ml Output Total 3965 ml Balance 298 ml Constitutional Vital Signs Date Time Temp Pulse Resp B/P Pulse Ox O2 Delivery O2 Flow Rate FiO2 04/14/17 10:58 18 04/14/17 10:00 121 04/14/17 08:35 99 Nasal Cannula 3.00 04/14/17 08:00 98.5 129 19 163/85 96 Automatic Cuff 04/14/17 08:00 129 04/14/17 08:00 96 Simple Mask 04/14/17 07:46 16 04/14/17 06:00 136 04/14/17 06:00 98 Nasal Cannula 3.00 04/14/17 05:06 19 04/14/17 04:00 117 04/14/17 04:00 97.2 124 15 99 152/88 04/14/17 02:00 99 04/14/17 00:00 97.2 120 15 95 156/88 04/14/17 00:00 117 04/13/17 22:00 114 04/13/17 21:41 99 Nasal Cannula 3.00 04/13/17 21:26 16 04/13/17 20:00 96.8 120 15 194/114 95 180/82 04/13/17 20:00 120 04/13/17 19:00 97.3 118 19 99 Nasal Cannula 3 177/90 04/13/17 18:45 113 21 99 Nasal Cannula 3 175/87 04/13/17 18:40 22 04/13/17 18:30 118 22 96 Nasal Cannula 3 175/86 04/13/17 18:29 97.3 118 22 175/86 99 04/13/17 18:15 116 22 98 Nasal Cannula 3 167/85 04/13/17 18:00 106 17 148/82 99 Nasal Cannula 3 159/82 04/13/17 17:54 97.4 108 13 137/93 97 Nasal Cannula 3 147/73 04/14/17 07:00 Intake Total 4263 ml Output Total 3965 ml Balance 298 ml (Linda Sampson) Review of Systems/Exam Exam Mr. Alford is alert, awake and oriented to time, place and person. Speech is fluent. Higher cognitive functions are normal. Sitting up in chair with TLSO. JOSE drain with moderate drainage. Cranial nerve examination demonstrates the pupils to be equal, round, and reactive to light. Extra-ocular movements are intact. Facial motor and sensory function are normal and symmetrical. Neck is soft and supple. Motor: exam limited with c/o surgical pain but moves lower extremities grossly 5 /5 Sensory examination is intact to light touch in in lower extremities bilateral plantar flexion response Cerebellar examination is intact to [id number] test. (Linda Sampson) Medications Current Medications Current Medications Medications (Trade) Dose Ordered Sig/Deepti Route PRN Reason Start Time Stop Time Status Last Admin Dose Admin Ondansetron HCl (Zofran Inj) 4 mg Q6H PRN IVP NAUSEA OR VOMITING 04/09/17 02:45 Acetaminophen (Tylenol) 650 mg Q6H PRN PO PAIN SCALE 1 TO 2 04/09/17 02:45 Senna/Docusate Sodium (Kassidy-Colace) 1 tab BID PO 04/09/17 09:00 04/14/17 08:24 Magnesium Hydroxide (Milk Of Magnesia Liq) 30 ml Q12H PRN PO MILD - MODERATE CONSTIPATION 04/09/17 02:45 04/11/17 23:40 Sennosides (Senokot) 17.2 mg Q12H PRN PO MODERATE - SEVERE CONSTIPATION 04/09/17 02:45 Bisacodyl (Dulcolax Supp) 10 mg DAILY PRN RECTAL SEVERE CONSITIPATION 04/09/17 02:45 Lactulose (Lactulose Liq) 30 ml DAILY PRN PO SEVERE CONSITIPATION 04/09/17 02:45 Diazepam (Valium) 5 mg Q8H PRN PO MUSCLE SPASM 04/09/17 02:45 Pravastatin Sodium (Pravachol) 40 mg DAILY PO 04/09/17 09:00 04/14/17 09:00 Clonidine (Catapres) 0.1 mg Q6H PRN PO SBP> OR = 180, DBP> OR = 100 04/09/17 13:30 04/14/17 05:12 Morphine Sulfate (Oramorph Sr) 15 mg Q8HR PO 04/09/17 16:00 04/14/17 06:38 Amlodipine Besylate (Norvasc) 10 mg DAILY PO 04/11/17 09:00 04/14/17 09:32 Dexamethasone Sodium Phosphate (Decadron Inj) 4 mg Q6HR IV PUSH 04/11/17 12:30 04/14/17 05:05 Captopril 25 mg 25 mg TIDAC PO 04/12/17 12:00 04/14/17 09:32 Sodium Chloride 1,000 ml @ 70 mls/hr [id number] IV 04/12/17 16:04 04/13/17 06:46 Sodium Chloride 500 ml @ 30 mls/hr [id number] PRN IV SEE LABEL COMMENTS 04/12/17 19:15 04/15/17 19:14 Lactated Ringer's 1,000 ml @ 30 mls/hr Q24H PRN IV SEE LABEL COMMENTS 04/13/17 03:15 04/16/17 03:14 Potassium Chloride/Sodium Chloride (NS + KCl 20 Meq Inj) 1,000 ml @ 100 mls/hr Q10H IV 04/13/17 18:00 04/14/17 05:07 IV Flush (NS Flush) 2 ml UNSCH PRN IVF FLUSH AFTER USING IV ACCESS 04/13/17 18:00 IV Flush 2 ml 2 ml BID IVF 04/13/17 21:00 04/14/17 08:24 Cefazolin Sodium/ Dextrose (Ancef 2 Gm Premix) 50 ml @ 100 mls/hr Q8H IV 04/13/17 22:00 04/14/17 14:29 04/14/17 05:05 Pantoprazole Sodium (Protonix Inj) 40 mg DAILY IVP 04/14/17 09:00 04/14/17 08:23 Morphine Sulfate (Morphine Inj) 2 mg Q2H PRN IV PUSH PAIN SCALE 1 TO 6 04/13/17 18:00 Morphine Sulfate (Morphine Inj) 4 mg Q2H PRN IV PUSH PAIN SCALE 7 TO 10 04/13/17 18:00 Acetaminophen (Tylenol) 650 mg Q4H PRN PO TEMPERATURE > 101.5 F 04/13/17 18:00 Naloxone HCl (Narcan Inj) 0.4 mg UNSCH PRN IV RESPIRATORY RATE LESS THAN 10 04/13/17 18:00 Diphenhydramine HCl (Benadryl Inj) 25 mg Q6H PRN IV ITCHING 04/13/17 18:00 Hydromorphone HCl (Dilaudid CROSS ROLLER Inj) 6 mg UNSCH IV 04/13/17 18:00 04/14/17 10:58 CROSS ROLLER Dosage Infused (Pha) 1 Q8HR .XX 04/13/17 22:00 04/14/17 05:06 Miscellaneous Information ALL NURSING DEPARTME... UNSCH PRN .XX SEE LABEL COMMENTS 04/13/17 17:52 04/14/17 17:51 Diltiazem HCl (Cardizem) 60 mg Q6HR PO 04/14/17 08:00 04/14/17 08:24 Terbutaline Sulfate 1 mg 1 mg UNSCH PRN SQ For Extravasation 04/14/17 10:15 Phenylephrine HCl/ Sodium Chloride (Neosynephrine Inj/NS 500 ml Inj) 508 ml @ 0 mls/hr TITRATE IV 04/14/17 10:15 04/14/17 10:41 (Linda Sampson) Medical Decision Making MDM Remarks 56 y/o male with spine metastases with cord compression at T3, s/p decompressive laminectomy with resection of spine mass and T1-T4 posterior fusion 04/13/17 (Linda Sampson) Plan Plan Remarks cont neuro checks in [facility] critical care - cont keep MAP elevated above 100 PT, OOB with TLSO SCDs and TEDs for dvt prophylaxis (Linda Sampson) Attending Statement The exam, history, and the medical decision-making described in the above note were completed with the assistance of the mid-level provider. I reviewed and agree with the findings presented. I attest that I had a [id number] encounter with the patient on the same day, and personally performed and documented my assessment and findings in the medical record. (Manoj Tovar MD) Linda Sampson Apr 14, 2017 11:53 Manoj Tovar MD Apr 14, 2017 20:21
--- NOTE | 2017-04-14 14:34 | EKG ---
Date Performed: 04/13/2017 Time Performed: 06:32:42 PTAGE: 56 years EKG: Atrial fibrillation with rapid ventricular response. Inferior/lateral ST-T changes are nons pecific Compared to previous tracing, there is a rhythm chaneg from Sinus rhythm to atrial fibrillation. The ST-T changes are more prominent Abnormal ECG PREVIOUS TRACING : 04/12/2017 19.38 DOCTOR: Tanmay Rangel Interpretating Date/Time 04/14/2017 14:33:34
--- NOTE | 2017-04-14 16:09 | MB ---
cc: RAUL CHANEY M.D., AWAIS VINAS, FEDERICO C. M.D. DATE OF CONSULTATION: 04/14/2017. REASON FOR CONSULTATION: 56-year-old gentleman who has had a recent T3 epidural mass with decompressive laminectomy, transpedicular approach with resection of the epidural tumor T2-T4 posterolateral fusion, T2-T4 segmental instrumentation, fixation using transpedicular screws and rods and microsurgical dissection; this was performed on April 13. BRIEF HISTORY: This gentleman came into the hospital through the emergency room complaining of significant pain. This had been progressive over several months. He was seen at an outside facility which had suggested that he had a malignancy and he needed an oncologic referral. Unfortunately he had progressive pain and before that could occur, was seen in the [place] [facility] where he was subsequently admitted to the hospital. He has had a series of diagnostic imaging procedures performed including CT scan of the abdomen and pelvis. This revealed bilateral hydronephrosis which was thought to be likely due to neoplasm involving the distal ureters, retroperitoneal adenopathy and widespread bony metastatic disease. He also underwent a thoracic and lumbar spine MRI. This showed diffuse metastatic disease with extraosseous spread of tumor at the T3 level causing a significant cord compression. There was minimal extraosseous spread at T6 but this was not thought to be significant. Additionally, the lumbar spine MRI revealed no cord compression at that level; however, again extensive bony metastatic disease. He went on to undergo the surgical procedure with decompression as noted above and we have been asked to see this gentleman in consultation. This morning. he appears to have had a witnessed seizure. He has gone on to have an MRI of his brain, which is considered negative. He has had blood work performed while in the hospital and it is noted that he has had a PSA that is elevated at over 900 very suggestive of prostate cancer. His final pathology from his resection however is pending. This gentleman has been otherwise healthy. He has a history of high blood pressure and atrial fibrillation. He has had no previous surgery. He denies diabetes or other cardiac-related symptoms. FAMILY HISTORY AND SOCIAL HISTORY: This gentleman is . He has had four daughters. He has ten grandchildren. He works locally at a local car dealership. There is no family history of malignancy. He denies tobacco use and only occasional alcohol use. REVIEW OF SYSTEMS: This is well-documented in his hospital chart. CONSTITUTIONAL: He denies constitutional complaints of fever, sweats or weight loss. HEAD, EYES, EARS, NOSE, THROAT: No visual complaints. No difficulty swallowing. No difficulty hearing. No tinnitus. NECK: No pain or masses. CARDIOVASCULAR: He has atrial fibrillation. There is no ankle swelling. RESPIRATORY: Denies cough, sputum or hemoptysis. GI: Denies diarrhea, melena or bloody stool. GENITOURINARY: Has urinary frequency with slow stream. MUSCULOSKELETAL: Bony pain with metastases as noted in the history. NEUROLOGIC: Prior to surgery, he had no neurologic decompensation no loss of bowel or bladder control no loss. No numbness in his lower limbs or weakness. Since surgery, he has had some difficulty with ambulation but this is only day one. DERMATOLOGIC: He denies skin complaints. ENDOCRINE: Denies endocrine complaints. PSYCHIATRIC: Denies psychiatric complaints. PHYSICAL EXAMINATION: GENERAL: Today on exam this gentleman is alert and oriented, resting comfortably in bed in no immediate distress. VITAL SIGNS: His vital signs as previously documented and include a pulse of 133, respiratory rate of 18, a blood pressure 158/88 and an O2 sat on room air of 96%. SKIN, HEAD, EYES, EARS, NOSE, THROAT: There was no jaundice. His conjunctive and eyelids are normal. He had full EOMs. Inspection of his oral cavity was normal without mucosal surface lesions. Palpation of his head and neck was also normal with no adenopathy in any region. LUNGS: His lung torres were clear without effusion. HEART: His heart sounds were normal without murmurs, rubs or bruits. ABDOMEN: There are no abdominal masses, tenderness or hepatomegaly. EXTREMITIES: There is no ankle edema. He was moving his lower limbs. DATA REVIEW: On review of data today, I have reviewed this gentleman's extensive notes including notes from Dr. Tim Le, from Dr. Garcia and from Dr. Tovar. I have also reviewed his radiology including his MR thoracic and lumbar spine, CT abdomen and pelvis and MRI of the brain. I have shared all of this information with this patient. DISCUSSION: It seems to be very clear that this gentleman will have a diagnosis of metastatic prostate cancer, although that final pathology, of course, is pending. I would anticipate that he will be started on hormonal therapy as soon as that diagnosis is confirmed. It will be a very important part of his overall treatment regimen. With respect to his bony metastatic disease, I believe he should undergo postoperative radiation treatment to the surgical bed and as well as T6 area as outlined on the MRI scan report. I believe this can be accomplished in a series of 10 fractions to help consolidate the surgical approach to, sterilize the bed and accelerate and prolong his recovery. His long-term response, however, will depend on how well he responds to hormonal therapy. It may be with the extensive disease in his bones that he will need areas of palliative radiation but we will approach that on a day-by-day basis as symptoms occur. At this point, he is only one day postop. I believe we should wait at least two weeks for reasonable healing, and then if okay with Dr. Tovar, we would proceed with simulation and treatment as outlined above. MD RUBEN Peraza/NANY /2:37 PM /3:51 PM
[2017-04-14] MEDS: DILTIAZEM HCL 90 MG TAB PO SCH (17:26)
--- NOTE | 2017-04-14 18:20 | HHI.PR ---
Review/Management Diagnosis 1. New onset seizures. 2. Prostatic cancer status post metastatic spinal cord vertebral column disease 3. Hypertension. 4. Atrial fibrillation 5. Hyperlipidemia Plan 1. Neuro checks q. four hourly. 2. Dexamethasone 4 mg q. six hourly 3. Keppra 500 mg twice. 4. seizure precautions. 5. DVT prophylaxis. 7. Pain management as per attending team 8. Continue therapy and management per neurosurgery Diagnosis/Plan: Subjective Subjective Comments No acute events reported awake, complains of less pain at bed side no reported seizures EEG encephalopathic pattern, no ictal activity MRI brain unremarkable Active Medications Current Medications Medications (Trade) Dose Ordered Sig/Deepti Route Start Time Stop Time Status Last Admin (Zofran Inj) 4 mg Q6H PRN IVP 04/09/17 02:45 (Tylenol) 650 mg Q6H PRN PO 04/09/17 02:45 (Kassidy-Colace) 1 tab BID PO 04/09/17 09:00 04/14/17 08:24 (Milk Of Magnesia Liq) 30 ml Q12H PRN PO 04/09/17 02:45 04/11/17 23:40 (Senokot) 17.2 mg Q12H PRN PO 04/09/17 02:45 (Dulcolax Supp) 10 mg DAILY PRN RECTAL 04/09/17 02:45 (Lactulose Liq) 30 ml DAILY PRN PO 04/09/17 02:45 (Valium) 5 mg Q8H PRN PO 04/09/17 02:45 (Pravachol) 40 mg DAILY PO 04/09/17 09:00 04/14/17 09:00 (Catapres) 0.1 mg Q6H PRN PO 04/09/17 13:30 04/14/17 05:12 (Oramorph Sr) 15 mg Q8HR PO 04/09/17 16:00 04/14/17 13:34 (Norvasc) 10 mg DAILY PO 04/11/17 09:00 04/14/17 09:32 (Decadron Inj) 4 mg Q6HR IV PUSH 04/11/17 12:30 04/14/17 17:17 Captopril 25 mg 25 mg TIDAC PO 04/12/17 12:00 04/14/17 09:32 Sodium Chloride 1,000 ml @ 70 mls/hr [id number] IV 04/12/17 16:04 04/13/17 06:46 Sodium Chloride 500 ml @ 30 mls/hr [id number] PRN IV 04/12/17 19:15 04/15/17 19:14 (Lr 1000 ml Inj) 1,000 ml @ 30 mls/hr Q24H PRN IV 04/13/17 03:15 04/16/17 03:14 (NS Flush) 2 ml UNSCH PRN IVF 04/13/17 18:00 (NS Flush) 2 ml BID IVF 04/13/17 21:00 04/14/17 08:24 (Protonix Inj) 40 mg DAILY IVP 04/14/17 09:00 04/14/17 08:23 (Morphine Inj) 2 mg Q2H PRN IV PUSH 04/13/17 18:00 (Morphine Inj) 4 mg Q2H PRN IV PUSH 04/13/17 18:00 (Tylenol) 650 mg Q4H PRN PO 04/13/17 18:00 (Narcan Inj) 0.4 mg UNSCH PRN IV 04/13/17 18:00 (Benadryl Inj) 25 mg Q6H PRN IV 04/13/17 18:00 (Dilaudid OPERATIONS ARCHITECT Inj) 6 mg UNSCH IV 04/13/17 18:00 04/14/17 10:58 OPERATIONS ARCHITECT Dosage Infused (Pha) 1 Q8HR .XX 04/13/17 22:00 04/14/17 13:38 Terbutaline Sulfate 1 mg 1 mg UNSCH PRN SQ 04/14/17 10:15 (Neosynephrine Inj/NS 500 ml Inj) 508 ml @ 0 mls/hr TITRATE IV 04/14/17 17:00 Diltiazem HCl 90 mg 90 mg Q6HR PO 04/14/17 18:00 04/14/17 17:26 (NS 1000 ml Inj) 1,000 ml @ 100 mls/hr Q10H IV 04/14/17 17:15 04/14/17 17:15 Allergies Allergies Coded Allergies Codeine (Verified Allergy, Severe, ITCHING, 04/09/17) Exam I&O / VS 04/13/17 04/13/17 04/14/17 15:00 23:00 07:00 Intake Total 3421 ml 842 ml Output Total 2385 ml 1580 ml Balance 1036 ml -738 ml Intake Oral 100 ml IV Total 421 ml 742 ml Packed Cells 500 ml Other 2500 ml Output Urine Total 1700 ml 1450 ml Drainage Total 85 ml 130 ml Estimated Blood Loss 600 ml # Bowel Movements 0 0 Vital Signs Date Time Temp Pulse Resp B/P Pulse Ox O2 Delivery O2 Flow Rate FiO2 04/14/17 16:00 98.5 133 22 157/86 95 04/14/17 16:00 133 04/14/17 14:43 18 04/14/17 13:38 20 04/14/17 12:00 133 04/14/17 12:00 98.5 134 18 158/88 96 04/14/17 11:50 19 04/14/17 10:58 18 04/14/17 10:00 121 04/14/17 08:35 99 Nasal Cannula 3.00 04/14/17 08:00 98.5 129 19 163/85 96 Automatic Cuff 04/14/17 08:00 129 04/14/17 08:00 96 Simple Mask 04/14/17 06:00 136 04/14/17 06:00 98 Nasal Cannula 3.00 04/14/17 05:06 19 04/14/17 04:00 117 04/14/17 04:00 97.2 124 15 99 152/88 04/14/17 02:00 99 04/14/17 00:00 97.2 120 15 95 156/88 04/14/17 00:00 117 04/13/17 22:00 114 04/13/17 21:41 99 Nasal Cannula 3.00 04/13/17 21:26 16 04/13/17 20:00 96.8 120 15 194/114 95 180/82 04/13/17 20:00 120 04/13/17 19:00 97.3 118 19 99 Nasal Cannula 3 177/90 04/13/17 18:45 113 21 99 Nasal Cannula 3 175/87 04/13/17 18:40 22 04/13/17 18:30 118 22 96 Nasal Cannula 3 175/86 04/13/17 18:29 97.3 118 22 175/86 99 Exam Comments GENERAL: Patient was awake, in mild distress due to pain HEENT: Atraumatic, normocephalic. Intact hearing. Intact vision. NECK: Supple. No signs of meningeal irritation. CARDIOVASCULAR: Regular rate and rhythm. RESPIRATORY: Clear to auscultation with, no wheezes GASTROINTESTINAL: Soft. Abdomen nontender. MUSCULOSKELETAL: No cyanosis, edema. Moves all extremities NEUROLOGIC: The patient is awake, alert, oriented x3, cranial nerve exam is grossly intact, b/l LE weakness 4+/5, reflexes 1+, Objective Radiology Results Last 72 hours Impressions Thoracic Spine X-Ray 04/13/17 0000 Signed Impressions: Service Date/Time: Thursday, April 13, 2017 13:54 - CONCLUSION: Limited images as detailed above. Pilo Garber Jr., MD Neck Magnetic Resonance Angiography 04/13/17 0000 Signed Impressions: Service Date/Time: Thursday, April 13, 2017 07:51 - CONCLUSION: 1. 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 2. Otherwise, unremarkable MRA examination. Specifically, no significant carotid artery stenosis. Stef Patel MD Head Magnetic Resonance Angiography 04/13/17 0000 Signed Impressions: Service Date/Time: Thursday, April 13, 2017 07:51 - CONCLUSION: 1. Mildly hypoplastic left A1 segment, likely congenital. 2. Unremarkable MRA examination without evidence for significant stenosis, occlusion, or aneurysm. Stef Patel MD Head CT 04/13/17 0000 Signed Impressions: Service Date/Time: Thursday, April 13, 2017 05:42 - CONCLUSION: 1. No evidence of acute intracranial pathology. No masses are identified. Dony Ahn MD Chest X-Ray 04/13/17 0000 Signed Impressions: Service Date/Time: Thursday, April 13, 2017 18:19 - CONCLUSION: 1. No pneumothorax following central line placement. 2. Bilateral pulmonary infiltrates and cardiomegaly. This would suggest pulmonary edema. Pilo Garber Jr., MD Brain MRI 04/13/17 0000 Signed Impressions: Service Date/Time: Thursday, April 13, 2017 07:51 - CONCLUSION: 1. There is no restricted diffusion evident. 2. There is no abnormal contrast enhancement to suggest metastatic disease. Charlie Juarez MD FACR Micro and Labs Laboratory Tests Test 04/13/17 04/14/17 04/14/17 20:24 05:55 14:00 Hemoglobin 9.9 10.1 Hematocrit 27.8 28.6 White Blood Count 8.4 Red Blood Count 3.40 Mean Corpuscular Volume 84.1 Mean Corpuscular Hemoglobin 29.7 Mean Corpuscular Hemoglobin 35.4 Concent Red Cell Distribution Width 13.8 Platelet Count 348 Mean Platelet Volume 7.9 Neutrophils (%) (Auto) 83.6 Lymphocytes (%) (Auto) 9.5 Monocytes (%) (Auto) 6.6 Eosinophils (%) (Auto) 0.0 Basophils (%) (Auto) 0.3 Neutrophils # (Auto) 7.0 Lymphocytes # (Auto) 0.8 Monocytes # (Auto) 0.6 Eosinophils # (Auto) 0.0 Basophils # (Auto) 0.0 CBC Comment DIFF FINAL Differential Comment Sodium Level 141 Potassium Level 5.0 5.0 Chloride Level 111 Carbon Dioxide Level 21.8 Anion Gap 8 Blood Urea Nitrogen 31 Creatinine 1.72 Estimat Glomerular Filtration 50 Rate Random Glucose 123 Calcium Level 8.4 Lorena Templeton MD Apr 14, 2017 18:20
[2017-04-14] MEDS ORDERED: AMIODARONE INJ 150 MG in DEXTROSE 5% IN WATER 100ML INJ 97 ML IV ONE ×2 (20:45)
[2017-04-14] MEDS: AMIODARONE INJ 450 MG in DEXTROSE 5% IN WATE(EXCEL) INJ 250 ML IV SCH ×2 (21:32)
[2017-04-15] VITALS (13 sets, daily range): BP systolic 150–179; BP diastolic 59–80; PULSE 55–101; RESP 17–21; TEMP 97.6–98.8; O2SAT 92–99
[2017-04-15] MEDS: SODIUM CHLOR 0.9% 1000 ML INJ 1,000 ML IV SCH ×4 (01:16→23:40)
[2017-04-15 05:14] LABS: BICARBONATE 24.8 MEQ/L (21.0-32.0)
[2017-04-15] MEDS: PCA - TOTAL MG DILAUDID DELIVERED PER SHIFT SCH ×3 (06:00→20:48)
[2017-04-15] MEDS: MORPHINE SULFATE 15 MG CONTROLLED RELEASE TAB PO SCH ×3 (06:51→20:48)
[2017-04-15] MEDS: DILTIAZEM HCL 90 MG TAB PO SCH ×2 (06:51)
[2017-04-15] MEDS: DEXAMETHASONE SOD PHOS 4 MG/ML VIAL IV PUSH SCH ×3 (06:52→18:00)
[2017-04-15] MEDS: CAPTOPRIL 25 MG TAB PO SCH (08:00)
[2017-04-15] MEDS: AMIODARONE INJ 450 MG in DEXTROSE 5% IN WATE(EXCEL) INJ 250 ML IV SCH ×4 (09:09→23:01)
[2017-04-15] MEDS: DOCUSATE SODIUM 50 MG/SENNA 8.6 MG TAB PO SCH ×2 (09:09→20:37)
[2017-04-15] MEDS: SODIUM CHLORIDE 0.9% FLUSH 5 ML FLUSH IVF SCH ×2 (09:10→20:48)
[2017-04-15] MEDS: PANTOPRAZOLE SODIUM 40 MG VIAL IVP SCH (09:10)
[2017-04-15] MEDS: PRAVASTATIN SOD 40 MG TAB PO SCH (09:10)
--- NOTE | 2017-04-15 09:53 | HHI.CCPN ---
Subjective Remarks/Hospital Course 56-year-old male with a hypertension atrial fibrillation on aspirin presents to emergency department complaining of severe back pain lasting for about 1 months. He was seen for the similar problems at the [facility] the day prior to admission. CT T-Spine w/o contrast 04/08/17 w/ mild bilateral hydronephrosis and proximal hydroureter, very extensive diffuse metastatic disease involving the entire visualized vertebral column, possible paraspinal extraosseous spread of neoplasm at T9. Pt was informed of results and discharged from w/ prescription for Percocet and instructions to follow up w / PCP for Oncology referral. Here the patient presented with ongoing severe back pain and acute onset of chest pain at which time he presented to [place]. CT Abdomen/Pelvis finding of bilateral hydronephrosis likely related to neoplasm involving the distal ureters, retroperitoneal adenopathy, widespread bony metastatic disease. Patient underwent emergent decompression cough T3 epidural mass with spinal cord compression. Critical-care medicine was consulted for postoperative medical management patient is ICU. 04/14: Awake, alert. Maintaining elevated BP for spinal cord perfusion. Adjust per Dr. Tovar. 04/15: MAP > 100 to augment spinal perfusion. Lower extremities mildly weak. Objective Vital Signs Date Time Temp Pulse Resp B/P Pulse Ox O2 Delivery O2 Flow Rate FiO2 04/15/17 07:38 99 21 04/15/17 06:00 75 04/15/17 06:00 18 04/15/17 04:00 98.1 169/79 04/14/17 20:10 Nasal Cannula 04/14/17 08:35 3.00 Intake and Output 04/14/17 04/14/17 04/15/17 08:00 16:00 00:00 Intake Total 842 ml 2144 ml 1302 ml Output Total 1580 ml 1080 ml 1560 ml Balance -738 ml 1064 ml -258 ml Result Diagram: 04/14/17 0555 04/15/17 0445 Imaging Last 24 hours Impressions Thoracic Spine X-Ray 04/13/17 0000 Signed Impressions: Service Date/Time: Thursday, April 13, 2017 13:54 - CONCLUSION: Limited images as detailed above. Pilo Garber Jr., MD Neck Magnetic Resonance Angiography 04/13/17 0000 Signed Impressions: Service Date/Time: Thursday, April 13, 2017 07:51 - CONCLUSION: 1. 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 2. Otherwise, unremarkable MRA examination. Specifically, no significant carotid artery stenosis. Stef Patel MD Head Magnetic Resonance Angiography 04/13/17 Signed Impressions: Service Date/Time: Thursday, April 13, 2017 07:51 - CONCLUSION: 1. Mildly hypoplastic left A1 segment, likely congenital. 2. Unremarkable MRA examination without evidence for significant stenosis, occlusion, or aneurysm. Stef Patel MD Head CT 04/13/17 Signed Impressions: Service Date/Time: Thursday, April 13, 2017 05:42 - CONCLUSION: 1. No evidence of acute intracranial pathology. No masses are identified. Dony Ahn MD Chest X-Ray 04/13/17 Signed Impressions: Service Date/Time: Thursday, April 13, 2017 18:19 - CONCLUSION: 1. No pneumothorax following central line placement. 2. Bilateral pulmonary infiltrates and cardiomegaly. This would suggest pulmonary edema. Pilo Garber Jr., MD Brain MRI 04/13/17 Signed Impressions: Service Date/Time: Thursday, April 13, 2017 07:51 - CONCLUSION: 1. There is no restricted diffusion evident. 2. There is no abnormal contrast enhancement to suggest metastatic disease. Charlie Juarez MD FACR Objective Remarks GENERAL: Well-nourished, well-developed lethargic post general anesthesia patient. SKIN: Warm and dry. HEAD: Normocephalic. EYES: No scleral icterus. No injection or drainage. NECK: Supple, trachea midline. No JVD or lymphadenopathy. CARDIOVASCULAR: Regular rate and rhythm without murmurs, gallops, or rubs. RESPIRATORY: Breath sounds equal bilaterally. No accessory muscle use. GASTROINTESTINAL: Abdomen soft, non-tender, nondistended. MUSCULOSKELETAL: No cyanosis, or edema. BACK: Nontender without obvious deformity. No CVA tenderness. EXTREMITIES: Moves all 4 without a focal deficit NEURO:O X 3, alert, cooperative. Good pain control. Legs 3-4/5 strength. A/P Assessment and Plan T3 epidural mass with spinal cord compression - Decompressive surgery - Dexamethasone every 6 hours - Management per neurosurgeon - BP level per NS Hypertension - Norvasc - Lisinopril - Clonidine - Metoprolol Atrial fibrillation - Rate controlled with metoprolol - Back in NSR 04/15. Stop cardizem. Continue amiodarone and convert to PO in a.m. Dyslipidemia - Atorvastatin Hyperglycemia - Insulin sliding scale DVT GI prophylaxis - Teds SCDs - Pharmacological DVT prophylaxis per neurosurgeon - Omeprazole Overall impression: S/P decompressive spine surgery. Stable hemodynamic and respiratory function. Allowing MAP to remain elevated > 100. Mahamed Braden MD Apr 15, 2017 09:53
--- NOTE | 2017-04-15 11:28 | HHI.NSPN ---
(Linda Sampson) Note Status Status: Progress Note (Linda Sampson) Interval History Interval History Mr. Alford is a 56-year-old male who presented to the ER with complaints of severe back pain for a month. Apparently he was evaluated at [facility] for back pain recently. A CT Thoracic spine had showed diffuse metastatic disease of the spine. He was told the results and discharged with instructions to follow up with PCP for an Oncology referral. His back pain worsened with acute chest pain and thus presented to [place]. He reports some numbness and tingling in his feet, he denies significant leg weakness, bowel or bladder incontinence, fevers or chills. An MRI of the thoracic spine showed widespread metastatic disease with cord compression at T3. His PSA is elevated. A neurosurgical evaluation was requested. 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 denies paresthesias in LEs. Pain controlled if not moving. 04/15: POD 2 feeling a bit better today, pain controlled, reports moving his legs well, denies paresthesias in LE's. (Linda Sampson) Labs, Micro, & Vital Signs Results Date Time Temp Pulse Resp B/P Pulse Ox O2 Delivery O2 Flow Rate FiO2 04/15/17 07:38 99 21 04/15/17 07:00 98 Room Air 04/15/17 06:00 75 04/15/17 06:00 18 04/15/17 04:00 55 04/15/17 04:00 98.1 55 20 169/79 95 04/15/17 02:00 60 04/15/17 00:00 97.6 101 20 151/80 94 04/14/17 23:25 18 04/14/17 22:00 137 04/14/17 21:34 18 04/14/17 20:10 94 Nasal Cannula 04/14/17 20:00 144 04/14/17 20:00 99.0 137 22 148/74 95 04/14/17 19:00 94 Room Air 04/14/17 18:00 133 04/14/17 16:00 98.5 133 22 157/86 95 04/14/17 16:00 133 04/14/17 14:43 18 04/14/17 13:38 20 04/14/17 12:00 133 04/14/17 12:00 98.5 134 18 158/88 96 04/14/17 11:50 19 04/15/17 07:00 Intake Total 4517 ml Output Total 4265 ml Balance 252 ml Constitutional Vital Signs Date Time Temp Pulse Resp B/P Pulse Ox O2 Delivery O2 Flow Rate FiO2 04/15/17 07:38 99 21 04/15/17 07:00 98 Room Air 04/15/17 06:00 75 04/15/17 06:00 18 04/15/17 04:00 55 04/15/17 04:00 98.1 55 20 169/79 95 04/15/17 02:00 60 04/15/17 00:00 97.6 101 20 151/80 94 04/14/17 23:25 18 04/14/17 22:00 137 04/14/17 21:34 18 04/14/17 20:10 94 Nasal Cannula 04/14/17 20:00 144 04/14/17 20:00 99.0 137 22 148/74 95 04/14/17 19:00 94 Room Air 04/14/17 18:00 133 04/14/17 16:00 98.5 133 22 157/86 95 04/14/17 16:00 133 04/14/17 14:43 18 04/14/17 13:38 20 04/14/17 12:00 133 04/14/17 12:00 98.5 134 18 158/88 96 04/14/17 11:50 19 04/15/17 07:00 Intake Total 4517 ml Output Total 4265 ml Balance 252 ml (Linda Sampson) Review of Systems/Exam Exam Mr. Alford is alert, awake and oriented to time, place and person. Speech is appropriate. Sitting up in chair with TLSO. JOSE drain with moderate drainage. Wound clean and dry, Prineo dressing in place. Cranial nerve examination: pupils equal, round, and reactive to light. EOMs are intact. Facial motor are normal and symmetrical. Motor: 5/5 bilateral iliopsoas, quads, hamstring, plantarflexion, dorsiflexion Sensory examination is intact to light touch in in lower extremities bilateral plantar flexion response, no ankle clonus (Linda Sampson) Medications Current Medications Current Medications Medications (Trade) Dose Ordered Sig/Deepti Route PRN Reason Start Time Stop Time Status Last Admin Dose Admin Ondansetron HCl (Zofran Inj) 4 mg Q6H PRN IVP NAUSEA OR VOMITING 04/09/17 02:45 Acetaminophen (Tylenol) 650 mg Q6H PRN PO PAIN SCALE 1 TO 2 04/09/17 02:45 Senna/Docusate Sodium (Kassidy-Colace) 1 tab BID PO 04/09/17 09:00 04/15/17 09:09 Magnesium Hydroxide (Milk Of Magnesia Liq) 30 ml Q12H PRN PO MILD - MODERATE CONSTIPATION 04/09/17 02:45 04/11/17 23:40 Sennosides (Senokot) 17.2 mg Q12H PRN PO MODERATE - SEVERE CONSTIPATION 04/09/17 02:45 Bisacodyl (Dulcolax Supp) 10 mg DAILY PRN RECTAL SEVERE CONSITIPATION 04/09/17 02:45 Lactulose (Lactulose Liq) 30 ml DAILY PRN PO SEVERE CONSITIPATION 04/09/17 02:45 Diazepam (Valium) 5 mg Q8H PRN PO MUSCLE SPASM 04/09/17 02:45 Pravastatin Sodium (Pravachol) 40 mg DAILY PO 04/09/17 09:00 04/15/17 09:10 Clonidine (Catapres) 0.1 mg Q6H PRN PO SBP> OR = 180, DBP> OR = 100 04/09/17 13:30 04/14/17 05:12 Morphine Sulfate (Oramorph Sr) 15 mg Q8HR PO 04/09/17 16:00 04/15/17 06:51 Amlodipine Besylate (Norvasc) 10 mg DAILY PO 04/11/17 09:00 04/14/17 09:32 Dexamethasone Sodium Phosphate 4 mg 4 mg Q6HR IV PUSH 04/11/17 12:30 04/15/17 06:52 Lactated Ringer's (Lr 1000 ml Inj) 1,000 ml @ 30 mls/hr Q24H PRN IV SEE LABEL COMMENTS 04/13/17 03:15 04/16/17 03:14 IV Flush (NS Flush) 2 ml UNSCH PRN IVF FLUSH AFTER USING IV ACCESS 04/13/17 18:00 IV Flush (NS Flush) 2 ml BID IVF 04/13/17 21:00 04/15/17 09:10 Pantoprazole Sodium (Protonix Inj) 40 mg DAILY IVP 04/14/17 09:00 04/15/17 09:10 Morphine Sulfate (Morphine Inj) 2 mg Q2H PRN IV PUSH PAIN SCALE 1 TO 6 04/13/17 18:00 Morphine Sulfate (Morphine Inj) 4 mg Q2H PRN IV PUSH PAIN SCALE 7 TO 10 04/13/17 18:00 Acetaminophen (Tylenol) 650 mg Q4H PRN PO TEMPERATURE > 101.5 F 04/13/17 18:00 Naloxone HCl (Narcan Inj) 0.4 mg UNSCH PRN IV RESPIRATORY RATE LESS THAN 10 04/13/17 18:00 Diphenhydramine HCl (Benadryl Inj) 25 mg Q6H PRN IV ITCHING 04/13/17 18:00 Hydromorphone HCl (Dilaudid WANT AD RECEIVER Inj) 6 mg UNSCH IV 04/13/17 18:00 04/14/17 23:25 WANT AD RECEIVER Dosage Infused (Pha) 1 Q8HR .XX 04/13/17 22:00 04/15/17 06:00 Terbutaline Sulfate 1 mg 1 mg UNSCH PRN SQ For Extravasation 04/14/17 10:15 Phenylephrine HCl 80 mg/Sodium Chloride 508 ml @ 0 mls/hr TITRATE IV 04/14/17 17:00 04/15/17 06:55 Sodium Chloride 1,000 ml @ 100 mls/hr Q10H IV 04/14/17 17:15 04/15/17 03:15 Amiodarone HCl/ Dextrose (Cordarone Inj/ D5W ([place]) Inj) 259 ml @ 0 mls/hr CONTINUOUS IV 04/14/17 20:45 04/15/17 09:09 (Linda Sampson) Medical Decision Making MDM Remarks 56 y/o male with spine metastases with cord compression at T3, s/p decompressive laminectomy with resection of spine mass and T1-T4 posterior fusion 04/13/17, neuro stable, pain controlled (Linda Sampson) Plan Plan Remarks cont neuro checks in [facility] cont critical care, clear to slowly start decreasing MAP cont PT, OOB with TLSO SCDs and TEDs for dvt prophylaxis cont WANT AD RECEIVER for pain control cont JOSE draining keep albarran in, will defer to Urology due to hydronephrosis (Linda Sampson) Attending Statement The exam, history, and the medical decision-making described in the above note were completed with the assistance of the mid-level provider. I reviewed and agree with the findings presented. I attest that I had a [id number] encounter with the patient on the same day, and personally performed and documented my assessment and findings in the medical record. (Manoj Tovar MD) Linda Sampson Apr 15, 2017 11:28 Manoj Tovar MD Apr 15, 2017 21:46
[2017-04-16] VITALS (12 sets, daily range): BP systolic 136–181; BP diastolic 51–93; PULSE 62–81; RESP 16–24; TEMP 97.7–98.9; O2SAT 94–100
[2017-04-16] MEDS: HYDROmorphone HCL PCA 6 MG/30 ML IV SCH (00:53)
[2017-04-16] MEDS: DEXAMETHASONE SOD PHOS 4 MG/ML VIAL IV PUSH SCH ×4 (00:55→17:39)
[2017-04-16] MEDS: PCA - TOTAL MG DILAUDID DELIVERED PER SHIFT SCH ×3 (05:32→21:50)
[2017-04-16] MEDS: MORPHINE SULFATE 15 MG CONTROLLED RELEASE TAB PO SCH ×3 (05:48→20:56)
[2017-04-16 06:17] LABS: BICARBONATE 23.1 MEQ/L (21.0-32.0); POTASSIUM 4.9 MEQ/L (3.5-5.1)
[2017-04-16] MEDS: DOCUSATE SODIUM 50 MG/SENNA 8.6 MG TAB PO SCH ×2 (09:00→20:37)
[2017-04-16] MEDS: SODIUM CHLOR 0.9% 1000 ML INJ 1,000 ML IV SCH ×2 (09:43→20:37)
[2017-04-16] MEDS: PANTOPRAZOLE SODIUM 40 MG VIAL IVP SCH (09:43)
[2017-04-16] MEDS: PRAVASTATIN SOD 40 MG TAB PO SCH (09:44)
[2017-04-16] MEDS: SODIUM CHLORIDE 0.9% FLUSH 5 ML FLUSH IVF SCH ×2 (09:44→20:37)
--- NOTE | 2017-04-16 10:59 | PD.ONC.PN ---
Subjective Subjective Remarks Afebrile overnight. Patient reports pain from surgery well controlled. Some numbness in left leg since surgery. Bowel and bladder function without disturbance. Objective Data Date Time Temp Pulse Resp B/P Pulse Ox O2 Delivery O2 Flow Rate FiO2 04/16/17 10:00 77 04/16/17 08:00 98.6 73 16 181/93 100 04/16/17 08:00 73 04/16/17 07:00 100 Room Air 04/16/17 06:52 23 04/16/17 06:00 70 04/16/17 05:32 14 04/16/17 04:00 63 04/16/17 04:00 97.9 63 20 145/60 95 04/16/17 02:00 62 04/16/17 01:29 18 04/16/17 00:53 16 04/16/17 00:00 62 04/16/17 00:00 98.9 62 24 136/51 94 04/15/17 22:00 69 04/15/17 20:48 20 04/15/17 20:00 98.8 75 17 167/69 97 04/15/17 20:00 77 04/15/17 19:00 97 Room Air 04/15/17 18:00 74 04/15/17 16:00 98.3 62 18 162/61 96 04/15/17 16:00 62 04/15/17 14:00 73 04/15/17 14:00 18 04/15/17 12:00 64 04/15/17 12:00 98.5 64 21 150/59 92 04/16/17 04/16/17 04/16/17 07:00 15:00 23:00 Intake Total 1261 ml Output Total 1230 ml Balance 31 ml Result Diagram: 04/14/17 0555 04/16/17 0534 Laboratory Results Laboratory Tests Test 04/16/17 05:34 Sodium Level 142 MEQ/L Potassium Level 4.9 MEQ/L Chloride Level 111 MEQ/L Carbon Dioxide Level 23.1 MEQ/L Anion Gap 8 MEQ/L Blood Urea Nitrogen 35 MG/DL Creatinine 1.52 MG/DL Estimat Glomerular Filtration 58 ML/MIN Rate Random Glucose 140 MG/DL Calcium Level 8.2 MG/DL Administered Medications Medications (Trade) Dose Ordered Sig/Deepti Route PRN Reason Start Time Stop Time Status Last Admin Dose Admin Senna/Docusate Sodium (Kassidy-Colace) 1 tab BID PO 04/09/17 09:00 04/15/17 20:37 Magnesium Hydroxide (Milk Of Magncarlitos Liq) 30 ml Q12H PRN PO MILD - MODERATE CONSTIPATION 04/09/17 02:45 04/11/17 23:40 Pravastatin Sodium (Pravachol) 40 mg DAILY PO 04/09/17 09:00 04/16/17 09:44 Clonidine (Catapres) 0.1 mg Q6H PRN PO SBP> OR = 180, DBP> OR = 100 04/09/17 13:30 04/14/17 05:12 Morphine Sulfate (Oramorph Sr) 15 mg Q8HR PO 04/09/17 16:00 04/16/17 05:48 Amlodipine Besylate (Norvasc) 10 mg DAILY PO 04/11/17 09:00 04/16/17 09:44 Dexamethasone Sodium Phosphate (Decadron Inj) 4 mg Q6HR IV PUSH 04/11/17 12:30 04/16/17 05:48 IV Flush (NS Flush) 2 ml BID IVF 04/13/17 21:00 04/16/17 09:44 Pantoprazole Sodium (Protonix Inj) 40 mg DAILY IVP 04/14/17 09:00 04/16/17 09:43 Hydromorphone HCl (Dilaudid RN OTOLARYNGOLOGY Inj) 6 mg UNSCH IV 04/13/17 18:00 04/16/17 00:53 RN OTOLARYNGOLOGY Dosage Infused (Pha) 1 1 Q8HR .XX 04/13/17 22:00 04/16/17 05:32 Phenylephrine HCl 80 mg/Sodium Chloride 508 ml @ 0 mls/hr TITRATE IV 04/14/17 17:00 04/15/17 06:55 Sodium Chloride 1,000 ml @ 100 mls/hr Q10H IV 04/14/17 17:15 04/16/17 09:43 Amiodarone HCl/ Dextrose (Cordarone Inj/ D5W ([place]) Inj) 259 ml @ 0 mls/hr CONTINUOUS IV 04/14/17 20:45 04/15/17 23:01 Objective Remarks GENERAL: Pleasant middle aged male, sitting up in chair in room in TLSO SKIN: Warm and dry. HEAD: Normocephalic. EYES: No injection or drainage. NECK: Supple, trachea midline. CARDIOVASCULAR: Regular rate and rhythm RESPIRATORY: Breath sounds equal bilaterally. No accessory muscle use. GASTROINTESTINAL: Abdomen soft, non-tender, nondistended. EXTREMITIES: No cyanosis NEUROLOGICAL: awake and alert, normal speech. moving all extremities. Assessment/Plan Problem List: (1) Metastatic disease Status: Acute Plan: -s/p surgical decompression of cord compression at T3 , 04/13, pathology from biopsy pending. 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 --PSA is elevated in the 900s. is highly suspicious for metastatic prostate cancer. We need to establish a tissue diagnosis. --MRI T/L spine: shows widespread osseous disease + cord compression at T3 (2) Cord compression Status: Acute Plan: --Neurosurgery following, s/p decompression on 04/13 --patient started on Decadron 4mg IV q6 (3) Normocytic anemia Status: Acute Plan: --iron studies show low-normal iron, may benefit from IV iron --B12 WNL Assessment 56y/o male with metastatic disease to the spine as well as widespread metastatic disease to the bones, prostate cancer suspected history of hypertension and atrial fibrillation, on ASA (last dose 04/10, on hold for biopsy) History from initial consult--presented to the emergency department with complaints of worsening back pain. He was seen at [facility] initially and a CT scan of the T-spine without contrast was completed. It showed bilateral hydronephrosis and proximal hydroureter and excessive diffuse metastatic disease involving the entire visualized vertebral column. He also had paraspinal extraosseous spread of neoplasm at T9. The patient was discharged from the hospital with Percocet and was referred to oncology. CT of the abdomen and pelvis was performed which showed bilateral hydronephrosis which was felt secondary to a neoplasm involving the distal ureter. There was retroperitoneal adenopathy and widespread bony metastatic disease. His PSA was elevated to 937. The patient was found to be anemic on admission with a hemoglobin of 9.4. The patient was found to be in acute renal failure with a serum creatinine of three. Oncology has been consulted to make further recommendations in this patient who appears to have metastatic prostate cancer based on his elevated PSA levels and multiple bony metastatic lesions. Plan 1. await pathology 2. continue supportive care Attending Statement The exam, history, and the medical decision-making described in the above note were completed with the assistance of the mid-level provider. I reviewed and agree with the findings presented. I attest that I had a [id number] encounter with the patient on the same day, and personally performed and documented my assessment and findings in the medical record Liliam French Apr 16, 2017 10:59 Tim Le MD Apr 17, 2017 00:37
--- NOTE | 2017-04-16 11:34 | HHI.NSPN ---
(Linda Sampson) Note Status Status: Progress Note (Linda Sampson) Interval History Interval History Mr. Alford is a 56-year-old male who presented to the ER with complaints of severe back pain for a month. Apparently he was evaluated at [facility] for back pain recently. A CT Thoracic spine had showed diffuse metastatic disease of the spine. He was told the results and discharged with instructions to follow up with PCP for an Oncology referral. His back pain worsened with acute chest pain and thus presented to [place]. He reports some numbness and tingling in his feet, he denies significant leg weakness, bowel or bladder incontinence, fevers or chills. An MRI of the thoracic spine showed widespread metastatic disease with cord compression at T3. His PSA is elevated. A neurosurgical evaluation was requested. 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 denies paresthesias in LEs. Pain controlled if not moving. /4: POD 2 feeling a bit better today, pain controlled, reports moving his legs well, denies paresthesias in LE's. /5: POD 3 back pain better, doing well, no new complaints (Linda Sampson) Labs, Micro, & Vital Signs Results Date Time Temp Pulse Resp B/P Pulse Ox O2 Delivery O2 Flow Rate FiO2 04/16/17 10:00 77 04/16/17 08:00 98.6 73 16 181/93 100 04/16/17 08:00 73 04/16/17 07:00 100 Room Air 04/16/17 06:52 23 04/16/17 06:00 70 04/16/17 05:32 14 04/16/17 04:00 63 04/16/17 04:00 97.9 63 20 145/60 95 04/16/17 02:00 62 04/16/17 01:29 18 04/16/17 00:53 16 04/16/17 00:00 62 04/16/17 00:00 98.9 62 24 136/51 94 04/15/17 22:00 69 04/15/17 20:48 20 04/15/17 20:00 98.8 75 17 167/69 97 04/15/17 20:00 77 04/15/17 19:00 97 Room Air 04/15/17 18:00 74 04/15/17 16:00 98.3 62 18 162/61 96 04/15/17 16:00 62 04/15/17 14:00 73 04/15/17 14:00 18 04/15/17 12:00 64 04/15/17 12:00 98.5 64 21 150/59 92 04/16/17 07:00 Intake Total 4714 ml Output Total 3178 ml Balance 1536 ml Constitutional Vital Signs Date Time Temp Pulse Resp B/P Pulse Ox O2 Delivery O2 Flow Rate FiO2 04/16/17 10:00 77 04/16/17 08:00 98.6 73 16 181/93 100 04/16/17 08:00 73 04/16/17 07:00 100 Room Air 04/16/17 06:52 23 04/16/17 06:00 70 04/16/17 05:32 14 04/16/17 04:00 63 04/16/17 04:00 97.9 63 20 145/60 95 04/16/17 02:00 62 04/16/17 01:29 18 04/16/17 00:53 16 04/16/17 00:00 62 04/16/17 00:00 98.9 62 24 136/51 94 04/15/17 22:00 69 04/15/17 20:48 20 04/15/17 20:00 98.8 75 17 167/69 97 04/15/17 20:00 77 04/15/17 19:00 97 Room Air 04/15/17 18:00 74 04/15/17 16:00 98.3 62 18 162/61 96 04/15/17 16:00 62 04/15/17 14:00 73 04/15/17 14:00 18 04/15/17 12:00 64 04/15/17 12:00 98.5 64 21 150/59 92 04/16/17 07:00 Intake Total 4714 ml Output Total 3178 ml Balance 1536 ml (Linda Sampson) Review of Systems/Exam Exam Mr. Alford is alert and oriented to time, place and person. Speech is fluent. Follows commands well. Sitting up in chair with TLSO. Wound clean and dry, Prineo dressing in place. Cranial nerve examination: pupils equal. Facial motor are normal and symmetrical. Motor: 5/5 bilateral iliopsoas, quads, hamstring, plantarflexion, dorsiflexion. Moves upper extremities well. (Linda Sampson) Medications Current Medications Current Medications Medications (Trade) Dose Ordered Sig/Deepti Route PRN Reason Start Time Stop Time Status Last Admin Dose Admin Ondansetron HCl (Zofran Inj) 4 mg Q6H PRN IVP NAUSEA OR VOMITING 04/09/17 02:45 Acetaminophen (Tylenol) 650 mg Q6H PRN PO PAIN SCALE 1 TO 2 04/09/17 02:45 Senna/Docusate Sodium (Kassidy-Colace) 1 tab BID PO 04/09/17 09:00 04/15/17 20:37 Magnesium Hydroxide (Milk Of Magnesia Liq) 30 ml Q12H PRN PO MILD - MODERATE CONSTIPATION 04/09/17 02:45 04/11/17 23:40 Sennosides (Senokot) 17.2 mg Q12H PRN PO MODERATE - SEVERE CONSTIPATION 04/09/17 02:45 Bisacodyl (Dulcolax Supp) 10 mg DAILY PRN RECTAL SEVERE CONSITIPATION 04/09/17 02:45 Lactulose (Lactulose Liq) 30 ml DAILY PRN PO SEVERE CONSITIPATION 04/09/17 02:45 Diazepam (Valium) 5 mg Q8H PRN PO MUSCLE SPASM 04/09/17 02:45 Pravastatin Sodium (Pravachol) 40 mg DAILY PO 04/09/17 09:00 04/16/17 09:44 Clonidine (Catapres) 0.1 mg Q6H PRN PO SBP> OR = 180, DBP> OR = 100 04/09/17 13:30 04/14/17 05:12 Morphine Sulfate (Oramorph Sr) 15 mg Q8HR PO 04/09/17 16:00 04/16/17 05:48 Amlodipine Besylate (Norvasc) 10 mg DAILY PO 04/11/17 09:00 04/16/17 09:44 Dexamethasone Sodium Phosphate (Decadron Inj) 4 mg Q6HR IV PUSH 04/11/17 12:30 04/16/17 05:48 IV Flush (NS Flush) 2 ml UNSCH PRN IVF FLUSH AFTER USING IV ACCESS 04/13/17 18:00 IV Flush (NS Flush) 2 ml BID IVF 04/13/17 21:00 04/16/17 09:44 Pantoprazole Sodium (Protonix Inj) 40 mg DAILY IVP 04/14/17 09:00 04/16/17 09:43 Morphine Sulfate (Morphine Inj) 2 mg Q2H PRN IV PUSH PAIN SCALE 1 TO 6 04/13/17 18:00 Morphine Sulfate (Morphine Inj) 4 mg Q2H PRN IV PUSH PAIN SCALE 7 TO 10 04/13/17 18:00 Acetaminophen (Tylenol) 650 mg Q4H PRN PO TEMPERATURE > 101.5 F 04/13/17 18:00 Naloxone HCl (Narcan Inj) 0.4 mg UNSCH PRN IV RESPIRATORY RATE LESS THAN 10 04/13/17 18:00 Diphenhydramine HCl (Benadryl Inj) 25 mg Q6H PRN IV ITCHING 04/13/17 18:00 Hydromorphone HCl (Dilaudid CANCELLATION CLERK Inj) 6 mg UNSCH IV 04/13/17 18:00 04/16/17 00:53 CANCELLATION CLERK Dosage Infused (Pha) 1 Q8HR .XX 04/13/17 22:00 04/16/17 05:32 Terbutaline Sulfate 1 mg 1 mg UNSCH PRN SQ For Extravasation 04/14/17 10:15 Phenylephrine HCl 80 mg/Sodium Chloride 508 ml @ 0 mls/hr TITRATE IV 04/14/17 17:00 04/15/17 06:55 Sodium Chloride 1,000 ml @ 100 mls/hr Q10H IV 04/14/17 17:15 04/16/17 09:43 Amiodarone HCl/ Dextrose (Cordarone Inj/ D5W ([place]) Inj) 259 ml @ 0 mls/hr CONTINUOUS IV 04/14/17 20:45 04/15/17 23:01 (Linda Sampson) Medical Decision Making MDM Remarks 56 y/o male with spine metastases with cord compression at T3, s/p decompressive laminectomy with resection of spine mass and T1-T4 posterior fusion 04/13/17, neuro stable, pain controlled (Linda Sampson) Plan Plan Remarks discontinue JOSE drain cont current care cont therapy and rehab efforts f/u final pathology oncology and rad onc following for poss radiation tx clear to transfer to 6N from NRS standpoint (Linda Sampson) Attending Statement The exam, history, and the medical decision-making described in the above note were completed with the assistance of the mid-level provider. I reviewed and agree with the findings presented. I attest that I had a [id number] encounter with the patient on the same day, and personally performed and documented my assessment and findings in the medical record. (Manoj Tovar MD) Linda Sampson Apr 16, 2017 11:34 Manoj Tovar MD Apr 22, 2017 19:12
--- NOTE | 2017-04-16 17:31 | HHI.PR ---
Subjective Remarks Case discussed with RN Jenin denies cp/sob denies fevers/chills as per RN patient had a fall earlier today, did not hit his head or loss consciousness sinus rythm on telemetry Objective Vitals Vital Signs Date Time Temp Pulse Resp B/P Pulse Ox O2 Delivery O2 Flow Rate FiO2 04/16/17 16:00 97.7 79 24 138/65 99 04/16/17 16:00 79 04/16/17 14:00 74 04/16/17 14:00 24 04/16/17 12:00 98.6 73 24 141/67 96 04/16/17 12:00 73 04/16/17 10:00 77 04/16/17 08:00 98.6 73 16 181/93 100 04/16/17 08:00 73 04/16/17 07:00 100 Room Air 04/16/17 06:52 23 04/16/17 06:00 70 04/16/17 05:32 14 04/16/17 04:00 63 04/16/17 04:00 97.9 63 20 145/60 95 04/16/17 02:00 62 04/16/17 01:29 18 04/16/17 00:53 16 04/16/17 00:00 62 04/16/17 00:00 98.9 62 24 136/51 94 04/15/17 22:00 69 04/15/17 20:48 20 04/15/17 20:00 98.8 75 17 167/69 97 04/15/17 20:00 77 04/15/17 19:00 97 Room Air 04/15/17 18:00 74 I/O 04/15/17 04/15/17 04/15/17 04/16/17 04/16/17 04/16/17 07:00 15:00 23:00 07:00 15:00 23:00 Intake Total 1071 ml 1475 ml 1978 ml 1261 ml 1674 ml Output Total 1625 ml 1008 ml 940 ml 1230 ml 950 ml Balance -554 ml 467 ml 1038 ml 31 ml 724 ml Intake Oral 60 ml 600 ml 680 ml 240 ml 750 ml IV Total 1011 ml 875 ml 1298 ml 1021 ml 924 ml Output Urine Total 1575 ml 960 ml 900 ml 1200 ml 950 ml Drainage Total 50 ml 48 ml 40 ml 30 ml # Bowel Movements 0 0 1 0 1 Result Diagram: 04/14/17 0555 04/16/17 0534 Imaging Last Impressions Thoracic Spine X-Ray 04/13/17 Signed Impressions: Service Date/Time: Thursday, April 13, 2017 13:54 - CONCLUSION: Limited images as detailed above. Pilo Garber Jr., MD Neck Magnetic Resonance Angiography 04/13/17 Signed Impressions: Service Date/Time: Thursday, April 13, 2017 07:51 - CONCLUSION: 1. 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 2. Otherwise, unremarkable MRA examination. Specifically, no significant carotid artery stenosis. Stef Patel MD Head Magnetic Resonance Angiography 04/13/17 Signed Impressions: Service Date/Time: Thursday, April 13, 2017 07:51 - CONCLUSION: 1. Mildly hypoplastic left A1 segment, likely congenital. 2. Unremarkable MRA examination without evidence for significant stenosis, occlusion, or aneurysm. Stef Patel MD Head CT 04/13/17 Signed Impressions: Service Date/Time: Thursday, April 13, 2017 05:42 - CONCLUSION: 1. No evidence of acute intracranial pathology. No masses are identified. Dony Ahn MD Chest X-Ray 04/13/17 Signed Impressions: Service Date/Time: Thursday, April 13, 2017 18:19 - CONCLUSION: 1. No pneumothorax following central line placement. 2. Bilateral pulmonary infiltrates and cardiomegaly. This would suggest pulmonary edema. Pilo Garber Jr., MD Brain MRI 04/13/17 0000 Signed Impressions: Service Date/Time: Thursday, April 13, 2017 07:51 - CONCLUSION: 1. There is no restricted diffusion evident. 2. There is no abnormal contrast enhancement to suggest metastatic disease. Charlie Juarez MD FACR Thoracic Spine MRI 04/11/17 0000 Signed Impressions: Service Date/Time: Tuesday, April 11, 2017 09:58 - CONCLUSION: Widespread metastatic disease with extra osseous spread of tumor at the T3 level causing significant cord compression. Charlie Juarez MD FACR Lumbar Spine MRI 04/11/17 0000 Signed Impressions: Service Date/Time: Tuesday, April 11, 2017 09:58 - CONCLUSION: 1. There is no evidence for cord compression. 2. Widespread bony metastatic disease. Charlie Juarez MD FACR Lung Scan-VQ Nuclear Medicine 04/09/17 0209 Signed Impressions: Service Date/Time: Sunday, April 09, 2017 09:21 - CONCLUSION: Normal examination with no ventilation/perfusion mismatch. Examination is low probability for PE. Agustín Augustin MD Abdomen/Pelvis CT 04/09/17 0145 Signed Impressions: Service Date/Time: Sunday, April 09, 2017 02:07 - CONCLUSION: Bilateral hydronephrosis which is felt likely related to neoplasm involving the distal ureters. Retroperitoneal adenopathy. Widespread bony metastatic disease. Agustín Boykin MD Objective Remarks GENERAL: Well-nourished, NAD. SKIN: Warm and dry. HEAD: Normocephalic. EYES: No scleral icterus. No injection or drainage. NECK: Supple, trachea midline. No JVD or lymphadenopathy. CARDIOVASCULAR: Regular rate and rhythm without murmurs, gallops, or rubs. RESPIRATORY: Breath sounds equal bilaterally. No accessory muscle use. GASTROINTESTINAL: Abdomen soft, non-tender, nondistended. MUSCULOSKELETAL: No cyanosis, or edema. BACK: Nontender without obvious deformity. No CVA tenderness. EXTREMITIES: Moves all 4 without a focal deficit NEURO:O X 3, alert, cooperative. Good pain control. Legs 3-4/5 strength. Procedures sp T3 laminectomy, resection of mass, T1 - T4 posterior fusion. transpedicular rods screws, allograft bone graft. Medications and IVs Current Medications Medications (Trade) Dose Ordered Sig/Deepti Route Start Time Stop Time Status Last Admin (Zofran Inj) 4 mg Q6H PRN IVP 04/09/17 02:45 (Tylenol) 650 mg Q6H PRN PO 04/09/17 02:45 (Kassidy-Colace) 1 tab BID PO 04/09/17 09:00 04/16/17 20:37 (Milk Of Magnesia Liq) 30 ml Q12H PRN PO 04/09/17 02:45 04/11/17 23:40 (Senokot) 17.2 mg Q12H PRN PO 04/09/17 02:45 (Dulcolax Supp) 10 mg DAILY PRN RECTAL 04/09/17 02:45 (Lactulose Liq) 30 ml DAILY PRN PO 04/09/17 02:45 (Valium) 5 mg Q8H PRN PO 04/09/17 02:45 (Pravachol) 40 mg DAILY PO 04/09/17 09:00 04/16/17 09:44 (Catapres) 0.1 mg Q6H PRN PO 04/09/17 13:30 04/14/17 05:12 (Oramorph Sr) 15 mg Q8HR PO 04/09/17 16:00 04/16/17 20:56 (Norvasc) 10 mg DAILY PO 04/11/17 09:00 04/16/17 09:44 (Decadron Inj) 4 mg Q6HR IV PUSH 04/11/17 12:30 04/16/17 17:39 (NS Flush) 2 ml UNSCH PRN IVF 04/13/17 18:00 (NS Flush) 2 ml BID IVF 04/13/17 21:00 04/16/17 20:37 (Protonix Inj) 40 mg DAILY IVP 04/14/17 09:00 04/16/17 09:43 (Morphine Inj) 2 mg Q2H PRN IV PUSH 04/13/17 18:00 (Morphine Inj) 4 mg Q2H PRN IV PUSH 04/13/17 18:00 (Tylenol) 650 mg Q4H PRN PO 04/13/17 18:00 (Narcan Inj) 0.4 mg UNSCH PRN IV 04/13/17 18:00 (Benadryl Inj) 25 mg Q6H PRN IV 04/13/17 18:00 (Dilaudid GARAGE [employer]OR OPENER INSTALLER Inj) 6 mg UNSCH IV 04/13/17 18:00 04/16/17 00:53 GARAGE DOOR OPENER INSTALLER Dosage Infused (Pha) 1 Q8HR .XX 04/13/17 22:00 04/16/17 14:00 Terbutaline Sulfate 1 mg 1 mg UNSCH PRN SQ 04/14/17 10:15 Phenylephrine HCl 80 mg/Sodium Chloride 508 ml @ 0 mls/hr TITRATE IV 04/14/17 17:00 04/15/17 06:55 (NS 1000 ml Inj) 1,000 ml @ 100 mls/hr Q10H IV 04/14/17 17:15 04/16/17 20:37 (Cordarone) 200 mg DAILY PO 04/16/17 18:00 04/16/17 18:23 Urinary Catheter: No Vascular Central Line Catheter: No A/P Problem List: (1) Intractable back pain ICD Code: M54.9 Status: Acute (2) Metastatic disease ICD Code: C79.9 Status: Acute (3) Chest pain ICD Code: R07.9 Status: Acute (4) Elevated d-dimer ICD Code: R79.89 Status: Acute (5) Hydronephrosis ICD Code: N13.30 Status: Acute (6) JENELLE (acute kidney injury) ICD Code: N17.9 Status: Acute (7) Anemia ICD Code: D64.9 Status: Acute (8) HTN (hypertension) ICD Code: I10 Status: Acute Assessment and Plan T3 epidural mass with spinal cord compression - Decompressive surgery - Dexamethasone every 6 hours - Management per neurosurgeon - BP level per NS Hypertension - On norvasc and clonidine prn. Atrial fibrillation - Rate controlled with metoprolol - Back in NSR 04/15. Stop Cardizem. - DC amiodarone IV drip and start oral amiodarone. Dyslipidemia - Atorvastatin Hyperglycemia - Insulin sliding scale DVT GI prophylaxis - Teds SCDs - Pharmacological DVT prophylaxis per neurosurgeon - Omeprazole Problem Qualifiers (1) Chest pain: Qualified Code: R07.9 - Chest pain, unspecified type (2) Hydronephrosis: Qualified Code: N13.39 - Other hydronephrosis (3) Anemia: Qualified Code: D64.9 - Anemia, unspecified type Antelmo Ocampo MD Apr 16, 2017 17:31 Qualified Code: D64.9 - Anemia, unspecified type Antelmo Ocampo MD Apr 16, 2017 17:31
[2017-04-16] MEDS: AMIODARONE INJ 450 MG in DEXTROSE 5% IN WATE(EXCEL) INJ 250 ML IV SCH ×2 (17:39)
[2017-04-16] MEDS: AMIODARONE 200 MG TAB PO SCH (18:23)
[2017-04-16 20:08] LABS: HEMOGLOBIN A1a 2.1 %; HEMOGLOBIN A1b 0.8 %; HEMOGLOBIN Ao 82.1 %; HEMOGLOBIN F 0.9 %; HEMOGLOBIN LA1C 2.5 %; HEMOGLOBIN P3 6.1 %
[2017-04-17] VITALS (12 sets, daily range): BP systolic 126–165; BP diastolic 63–77; PULSE 60–82; RESP 16–27; TEMP 98.1–98.7; O2SAT 94–98
[2017-04-17] MEDS: DEXAMETHASONE SOD PHOS 4 MG/ML VIAL IV PUSH SCH ×4 (01:00→18:16)
[2017-04-17 04:23] LABS: AUTOMATED NEUTROPHIL # 7.1 TH/MM3 (1.8-7.7); BASOPHIL % 0.1 % (0.0-2.0); HEMATOCRIT 25.3 % (39.0-51.0); HEMO FLAGS DIFF FINAL; LYMPH % 7.8 % (9.0-44.0); LYMPHOCYTE # 0.6 TH/MM3 (1.0-4.8); MEAN CELL VOLUME 86.2 FL (80.0-100.0); MEAN CORPUSCULAR HEMOGLOBIN 29.3 PG (27.0-34.0); MONO % 6.4 % (0.0-8.0); NEUT % 85.7 % (16.0-70.0); PLATELET COUNT 290 TH/MM3 (150-450); RED BLOOD COUNT 2.94 MIL/MM3 (4.50-5.90); WHITE BLOOD COUNT 8.3 TH/MM3 (4.0-11.0)
[2017-04-17] MEDS: MORPHINE SULFATE 15 MG CONTROLLED RELEASE TAB PO SCH ×3 (04:51→21:06)
[2017-04-17 04:58] LABS: ANION GAP 8 MEQ/L (5-15); BICARBONATE 22.6 MEQ/L (21.0-32.0); BLOOD UREA NITROGEN 36 MG/DL (7-18); CHLORIDE 112 MEQ/L (98-107); GLOMERULAR FILTRATION RATE 54 ML/MIN (>89); MAGNESIUM 1.9 MG/DL (1.5-2.5); POTASSIUM 4.8 MEQ/L (3.5-5.1); SODIUM (NA) 143 MEQ/L (136-145)
[2017-04-17 05:03] LABS: ALKALINE PHOSPHATASE 266 U/L (45-117); ALT (GPT) 65 U/L (12-78); AST (GOT) 31 U/L (15-37); TOTAL BILIRUBIN ADULT 0.1 MG/DL (0.2-1.0)
[2017-04-17] MEDS: SODIUM CHLOR 0.9% 1000 ML INJ 1,000 ML IV SCH (05:15)
[2017-04-17] MEDS: PCA - TOTAL MG DILAUDID DELIVERED PER SHIFT SCH ×3 (06:00→22:00)
[2017-04-17] MEDS: SODIUM CHLORIDE 0.9% FLUSH 5 ML FLUSH IVF SCH ×2 (09:00→21:00)
[2017-04-17] MEDS: PANTOPRAZOLE SODIUM 40 MG VIAL IVP SCH (09:30)
[2017-04-17] MEDS: DOCUSATE SODIUM 50 MG/SENNA 8.6 MG TAB PO SCH ×2 (09:31→21:06)
[2017-04-17] MEDS: PRAVASTATIN SOD 40 MG TAB PO SCH (09:31)
[2017-04-17] MEDS: AMIODARONE 200 MG TAB PO SCH (09:31)
[2017-04-17] MEDS: DOXAZOSIN MESYLATE 2 MG TAB PO SCH (12:09)
--- NOTE | 2017-04-17 12:22 | PD.ONC.PN ---
Subjective Subjective Remarks Afebrile overnight. Patient resting comfortably without complaint. Still has some numbness in left leg. Ambulating with PT. Eating well. Objective Data Date Time Temp Pulse Resp B/P Pulse Ox O2 Delivery O2 Flow Rate FiO2 04/17/17 10:00 81 04/17/17 08:00 96 Room Air 04/17/17 08:00 98.1 61 22 165/76 96 04/17/17 06:00 60 04/17/17 06:00 22 04/17/17 04:00 61 04/17/17 04:00 98.2 61 20 161/77 98 04/17/17 02:00 63 04/17/17 00:00 67 04/17/17 00:00 98.3 68 21 152/68 94 04/16/17 22:00 79 04/16/17 21:56 22 04/16/17 21:50 20 04/16/17 20:00 81 04/16/17 20:00 98.0 76 22 164/76 95 Arterial Line 04/16/17 19:00 96 Room Air 04/16/17 18:00 74 04/16/17 16:00 97.7 79 24 138/65 99 04/16/17 16:00 79 04/16/17 14:00 74 04/16/17 14:00 24 04/17/17 04/17/17 04/17/17 07:00 15:00 23:00 Intake Total 1071 ml Output Total 1200 ml Balance -129 ml Result Diagram: 04/17/17 0355 04/17/17 0355 Laboratory Results Laboratory Tests Test 04/16/17 04/17/17 17:45 03:55 Hemoglobin A1c 6.3 % White Blood Count 8.3 TH/MM3 Red Blood Count 2.94 MIL/MM3 Hemoglobin 8.6 GM/DL Hematocrit 25.3 % Mean Corpuscular Volume 86.2 FL Mean Corpuscular Hemoglobin 29.3 PG Mean Corpuscular Hemoglobin 34.0 % Concent Red Cell Distribution Width 14.0 % Platelet Count 290 TH/MM3 Mean Platelet Volume 7.6 FL Neutrophils (%) (Auto) 85.7 % Lymphocytes (%) (Auto) 7.8 % Monocytes (%) (Auto) 6.4 % Eosinophils (%) (Auto) 0.0 % Basophils (%) (Auto) 0.1 % Neutrophils # (Auto) 7.1 TH/MM3 Lymphocytes # (Auto) 0.6 TH/MM3 Monocytes # (Auto) 0.5 TH/MM3 Eosinophils # (Auto) 0.0 TH/MM3 Basophils # (Auto) 0.0 TH/MM3 CBC Comment DIFF FINAL Differential Comment Sodium Level 143 MEQ/L Potassium Level 4.8 MEQ/L Chloride Level 112 MEQ/L Carbon Dioxide Level 22.6 MEQ/L Anion Gap 8 MEQ/L Blood Urea Nitrogen 36 MG/DL Creatinine 1.60 MG/DL Estimat Glomerular Filtration 54 ML/MIN Rate Random Glucose 140 MG/DL Calcium Level 8.2 MG/DL Phosphorus Level 2.8 MG/DL Magnesium Level 1.9 MG/DL Total Bilirubin 0.1 MG/DL Aspartate Amino Transf 31 U/L (AST/SGOT) Alanine Aminotransferase 65 U/L (ALT/SGPT) Alkaline Phosphatase 266 U/L Total Protein 5.8 GM/DL Albumin 2.0 GM/DL Administered Medications Medications (Trade) Dose Ordered Sig/Deepti Route PRN Reason Start Time Stop Time Status Last Admin Dose Admin Senna/Docusate Sodium (Kassidy-Colace) 1 tab BID PO 04/09/17 09:00 04/17/17 09:31 Magnesium Hydroxide (Milk Of Magncarlitos Liq) 30 ml Q12H PRN PO MILD - MODERATE CONSTIPATION 04/09/17 02:45 04/11/17 23:40 Pravastatin Sodium (Pravachol) 40 mg DAILY PO 04/09/17 09:00 04/17/17 09:31 Clonidine (Catapres) 0.1 mg Q6H PRN PO SBP> OR = 180, DBP> OR = 100 04/09/17 13:30 04/14/17 05:12 Morphine Sulfate (Oramorph Sr) 15 mg Q8HR PO 04/09/17 16:00 04/17/17 04:51 Amlodipine Besylate (Norvasc) 10 mg DAILY PO 04/11/17 09:00 04/17/17 09:31 Dexamethasone Sodium Phosphate (Decadron Inj) 4 mg Q6HR IV PUSH 04/11/17 12:30 04/17/17 12:09 IV Flush (NS Flush) 2 ml BID IVF 04/13/17 21:00 04/16/17 20:37 Pantoprazole Sodium (Protonix Inj) 40 mg DAILY IVP 04/14/17 09:00 04/17/17 09:30 Hydromorphone HCl (Dilaudid REDYE HAND Inj) 6 mg UNSCH IV 04/13/17 18:00 04/16/17 00:53 REDYE HAND Dosage Infused (Pha) 1 1 Q8HR .XX 04/13/17 22:00 04/17/17 06:00 Phenylephrine HCl/ Sodium Chloride (Neosynephrine Inj/NS 500 ml Inj) 508 ml @ 0 mls/hr TITRATE IV 04/14/17 17:00 04/15/17 06:55 Amiodarone HCl (Cordarone) 200 mg DAILY PO 04/16/17 18:00 04/17/17 09:31 Doxazosin Mesylate (Cardura) 2 mg DAILY PO 04/17/17 10:15 04/17/17 12:09 Objective Remarks GENERAL: Middle aged male, sitting up in chair in room, has TLSO in place. SKIN: Warm and dry. HEAD: Normocephalic. EYES: No injection or drainage. NECK: Supple, trachea midline. CARDIOVASCULAR: Regular rate and rhythm RESPIRATORY: Breath sounds equal bilaterally. No accessory muscle use. GASTROINTESTINAL: Abdomen soft, non-tender, nondistended. EXTREMITIES: No cyanosis NEUROLOGICAL: aox3. normal speech. moving all extremities. Assessment/Plan Problem List: (1) Metastatic disease Status: Acute Plan: -s/p surgical decompression of cord compression at T3 , 04/13, pathology remains pending. 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 --PSA is elevated in the 900s. is highly suspicious for metastatic prostate cancer. We need to establish a tissue diagnosis. --MRI T/L spine: shows widespread osseous disease + cord compression at T3 (2) Cord compression Status: Acute Plan: --Neurosurgery following, s/p decompression on 04/13 --patient remains on Decadron 4mg IV q6 (3) Normocytic anemia Status: Acute Plan: --iron studies show low-normal iron, may benefit from IV iron --B12 WNL Assessment 56y/o male with metastatic disease to the spine as well as widespread metastatic disease to the bones, prostate cancer suspected history of hypertension and atrial fibrillation, on ASA (last dose 04/10, on hold for biopsy) History from initial consult--presented to the emergency department with complaints of worsening back pain. He was seen at [facility] initially and a CT scan of the T-spine without contrast was completed. It showed bilateral hydronephrosis and proximal hydroureter and excessive diffuse metastatic disease involving the entire visualized vertebral column. He also had paraspinal extraosseous spread of neoplasm at T9. The patient was discharged from the hospital with Percocet and was referred to oncology. CT of the abdomen and pelvis was performed which showed bilateral hydronephrosis which was felt secondary to a neoplasm involving the distal ureter. There was retroperitoneal adenopathy and widespread bony metastatic disease. His PSA was elevated to 937. The patient was found to be anemic on admission with a hemoglobin of 9.4. The patient was found to be in acute renal failure with a serum creatinine of three. Oncology has been consulted to make further recommendations in this patient who appears to have metastatic prostate cancer based on his elevated PSA levels and multiple bony metastatic lesions. Plan 1. await pathology 2. monitor CBC Attending Statement The exam, history, and the medical decision-making described in the above note were completed with the assistance of the mid-level provider. I reviewed and agree with the findings presented. I attest that I had a [id number] encounter with the patient on the same day, and personally performed and documented my assessment and findings in the medical record Liliam French Apr 17, 2017 12:22 Tim Le MD Apr 18, 2017 00:24
[2017-04-17] MEDS: HYDROmorphone HCL PCA 6 MG/30 ML IV SCH (13:31)
--- NOTE | 2017-04-17 15:48 | HHI.NSPN ---
(Linda Sampson) Note Status Status: Progress Note (Linda Sampson) Interval History Interval History Mr. Alford is a 56-year-old male who presented to the ER with complaints of severe back pain for a month. Apparently he was evaluated at [facility] for back pain recently. A CT Thoracic spine had showed diffuse metastatic disease of the spine. He was told the results and discharged with instructions to follow up with PCP for an Oncology referral. His back pain worsened with acute chest pain and thus presented to [place]. He reports some numbness and tingling in his feet, he denies significant leg weakness, bowel or bladder incontinence, fevers or chills. An MRI of the thoracic spine showed widespread metastatic disease with cord compression at T3. His PSA is elevated. A neurosurgical evaluation was requested. 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 denies paresthesias in LEs. Pain controlled if not moving. 6/4: POD 2 feeling a bit better today, pain controlled, reports moving his legs well, denies paresthesias in LE's. /5: POD 3 back pain better, doing well, no new complaints 04/17: POD 4, pathology pending (Linda Sampson) Labs, Micro, & Vital Signs Results Date Time Temp Pulse Resp B/P Pulse Ox O2 Delivery O2 Flow Rate FiO2 04/17/17 13:31 25 04/17/17 12:00 98.3 75 16 126/64 97 04/17/17 12:00 75 04/17/17 10:00 81 04/17/17 08:00 96 Room Air 04/17/17 08:00 98.1 61 22 165/76 96 04/17/17 06:00 60 04/17/17 06:00 22 04/17/17 04:00 61 04/17/17 04:00 98.2 61 20 161/77 98 04/17/17 02:00 63 04/17/17 00:00 67 04/17/17 00:00 98.3 68 21 152/68 94 04/16/17 22:00 79 04/16/17 21:56 22 04/16/17 21:50 20 04/16/17 20:00 81 04/16/17 20:00 98.0 76 22 164/76 95 Arterial Line 04/16/17 19:00 96 Room Air 04/16/17 18:00 74 04/16/17 16:00 97.7 79 24 138/65 99 04/16/17 16:00 79 04/17/17 07:00 Intake Total 4073 ml Output Total 2800 ml Balance 1273 ml Constitutional Vital Signs Date Time Temp Pulse Resp B/P Pulse Ox O2 Delivery O2 Flow Rate FiO2 04/17/17 13:31 25 04/17/17 12:00 98.3 75 16 126/64 97 04/17/17 12:00 75 04/17/17 10:00 81 04/17/17 08:00 96 Room Air 04/17/17 08:00 98.1 61 22 165/76 96 04/17/17 06:00 60 04/17/17 06:00 22 04/17/17 04:00 61 04/17/17 04:00 98.2 61 20 161/77 98 04/17/17 02:00 63 04/17/17 00:00 67 04/17/17 00:00 98.3 68 21 152/68 94 04/16/17 22:00 79 04/16/17 21:56 22 04/16/17 21:50 20 04/16/17 20:00 81 04/16/17 20:00 98.0 76 22 164/76 95 Arterial Line 04/16/17 19:00 96 Room Air 04/16/17 18:00 74 04/16/17 16:00 97.7 79 24 138/65 99 04/16/17 16:00 79 04/17/17 07:00 Intake Total 4073 ml Output Total 2800 ml Balance 1273 ml (Linda Sampson) Review of Systems/Exam Exam Mr. Alford is alert and oriented to time, place and person. Speech is fluent. Follows commands well. Wound clean and dry, healing well. Cranial nerve examination: pupils equal. Facial motor are normal and symmetrical. Motor: moving all major muscle groups of upper and lower extremities (Linda Sampson) Medications Current Medications Current Medications Medications (Trade) Dose Ordered Sig/Deepti Route PRN Reason Start Time Stop Time Status Last Admin Dose Admin Ondansetron HCl (Zofran Inj) 4 mg Q6H PRN IVP NAUSEA OR VOMITING 04/09/17 02:45 Acetaminophen (Tylenol) 650 mg Q6H PRN PO PAIN SCALE 1 TO 2 04/09/17 02:45 Senna/Docusate Sodium (Kassidy-Colace) 1 tab BID PO 04/09/17 09:00 04/17/17 09:31 Magnesium Hydroxide (Milk Of Magnesia Liq) 30 ml Q12H PRN PO MILD - MODERATE CONSTIPATION 04/09/17 02:45 04/11/17 23:40 Sennosides (Senokot) 17.2 mg Q12H PRN PO MODERATE - SEVERE CONSTIPATION 04/09/17 02:45 Bisacodyl (Dulcolax Supp) 10 mg DAILY PRN RECTAL SEVERE CONSITIPATION 04/09/17 02:45 Lactulose (Lactulose Liq) 30 ml DAILY PRN PO SEVERE CONSITIPATION 04/09/17 02:45 Diazepam (Valium) 5 mg Q8H PRN PO MUSCLE SPASM 04/09/17 02:45 Pravastatin Sodium (Pravachol) 40 mg DAILY PO 04/09/17 09:00 04/17/17 09:31 Clonidine (Catapres) 0.1 mg Q6H PRN PO SBP> OR = 180, DBP> OR = 100 04/09/17 13:30 04/14/17 05:12 Morphine Sulfate (Oramorph Sr) 15 mg Q8HR PO 04/09/17 16:00 04/17/17 15:43 Amlodipine Besylate (Norvasc) 10 mg DAILY PO 04/11/17 09:00 04/17/17 09:31 Dexamethasone Sodium Phosphate (Decadron Inj) 4 mg Q6HR IV PUSH 04/11/17 12:30 04/17/17 12:09 IV Flush (NS Flush) 2 ml UNSCH PRN IVF FLUSH AFTER USING IV ACCESS 04/13/17 18:00 IV Flush (NS Flush) 2 ml BID IVF 04/13/17 21:00 04/16/17 20:37 Pantoprazole Sodium (Protonix Inj) 40 mg DAILY IVP 04/14/17 09:00 04/17/17 09:30 Morphine Sulfate (Morphine Inj) 2 mg Q2H PRN IV PUSH PAIN SCALE 1 TO 6 04/13/17 18:00 Morphine Sulfate (Morphine Inj) 4 mg Q2H PRN IV PUSH PAIN SCALE 7 TO 10 04/13/17 18:00 Acetaminophen (Tylenol) 650 mg Q4H PRN PO TEMPERATURE > 101.5 F 04/13/17 18:00 Naloxone HCl (Narcan Inj) 0.4 mg UNSCH PRN IV RESPIRATORY RATE LESS THAN 10 04/13/17 18:00 Diphenhydramine HCl (Benadryl Inj) 25 mg Q6H PRN IV ITCHING 04/13/17 18:00 Hydromorphone HCl (Dilaudid SOCK BOARDER Inj) 6 mg UNSCH IV 04/13/17 18:00 04/17/17 13:31 SOCK BOARDER Dosage Infused (Pha) 1 Q8HR .XX 04/13/17 22:00 04/17/17 06:00 Terbutaline Sulfate 1 mg 1 mg UNSCH PRN SQ For Extravasation 04/14/17 10:15 Phenylephrine HCl/ Sodium Chloride (Neosynephrine Inj/NS 500 ml Inj) 508 ml @ 0 mls/hr TITRATE IV 04/14/17 17:00 04/15/17 06:55 Amiodarone HCl (Cordarone) 200 mg DAILY PO 04/16/17 18:00 04/17/17 09:31 Doxazosin Mesylate (Cardura) 2 mg DAILY PO 04/17/17 10:15 04/17/17 12:09 (Linda Sampson) Medical Decision Making MDM Remarks 56 y/o male with spine metastases with cord compression at T3, s/p decompressive laminectomy with resection of spine mass and T1-T4 posterior fusion 04/13/17, neuro stable, pain controlled (Linda Sampson) Plan Plan Remarks cont current care cont therapy and rehab efforts f/u final pathology oncology and rad onc following for poss radiation tx clear to transfer to from [facility] standpoint (Linda Sampson) Attending Statement The exam, history, and the medical decision-making described in the above note were completed with the assistance of the mid-level provider. I reviewed and agree with the findings presented. I attest that I had a [id number] encounter with the patient on the same day, and personally performed and documented my assessment and findings in the medical record. (Manoj Tovar MD) Linda Sampson Apr 17, 2017 15:48 Manoj Tovar MD Apr 22, 2017 19:17
--- NOTE | 2017-04-17 17:20 | HHI.PR ---
Subjective Remarks Deferred entry patient seen at 12:50 AM. Patient denies chest pain or short of breath. BP noted to be controlled. Hemoglobin dropped from 10.1-8.6. Pain control. Vital signs stable. Objective Vitals Vital Signs Date Time Temp Pulse Resp B/P Pulse Ox O2 Delivery O2 Flow Rate FiO2 04/17/17 16:00 98.2 78 22 145/67 95 04/17/17 16:00 78 04/17/17 15:53 26 04/17/17 14:00 82 04/17/17 14:00 27 04/17/17 13:31 25 04/17/17 12:00 98.3 75 16 126/64 97 04/17/17 12:00 75 04/17/17 10:00 81 04/17/17 08:00 96 Room Air 04/17/17 08:00 98.1 61 22 165/76 96 04/17/17 06:00 60 04/17/17 06:00 22 04/17/17 04:00 61 04/17/17 04:00 98.2 61 20 161/77 98 04/17/17 02:00 63 04/17/17 00:00 67 04/17/17 00:00 98.3 68 21 152/68 94 04/16/17 22:00 79 04/16/17 21:56 22 04/16/17 21:50 20 04/16/17 20:00 81 04/16/17 20:00 98.0 76 22 164/76 95 Arterial Line 04/16/17 19:00 96 Room Air 04/16/17 18:00 74 I/O 04/16/17 04/16/17 04/16/17 04/17/17 04/17/17 04/17/17 07:00 15:00 23:00 07:00 15:00 23:00 Intake Total 1261 ml 1674 ml 1328 ml 1071 ml 1692 ml Output Total 1230 ml 950 ml 650 ml 1200 ml 1400 ml Balance 31 ml 724 ml 678 ml -129 ml 292 ml Intake Oral 240 ml 750 ml 720 ml 200 ml 720 ml IV Total 1021 ml 924 ml 608 ml 871 ml 972 ml Output Urine Total 1200 ml 950 ml 650 ml 1200 ml 1400 ml Drainage Total 30 ml # Bowel Movements 0 1 0 Result Diagram: 04/17/17 0355 04/17/17 0355 Imaging Last Impressions Thoracic Spine X-Ray 04/13/17 0000 Signed Impressions: Service Date/Time: Thursday, April 13, 2017 13:54 - CONCLUSION: Limited images as detailed above. Pilo Garber Jr., MD Neck Magnetic Resonance Angiography 04/13/17 Signed Impressions: Service Date/Time: Thursday, April 13, 2017 07:51 - CONCLUSION: 1. 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 2. Otherwise, unremarkable MRA examination. Specifically, no significant carotid artery stenosis. Stef Patel MD Head Magnetic Resonance Angiography 04/13/17 0000 Signed Impressions: Service Date/Time: Thursday, April 13, 2017 07:51 - CONCLUSION: 1. Mildly hypoplastic left A1 segment, likely congenital. 2. Unremarkable MRA examination without evidence for significant stenosis, occlusion, or aneurysm. Stef Patel MD Head CT 04/13/17 Signed Impressions: Service Date/Time: Thursday, April 13, 2017 05:42 - CONCLUSION: 1. No evidence of acute intracranial pathology. No masses are identified. Dony Ahn MD Chest X-Ray 04/13/17 0000 Signed Impressions: Service Date/Time: Thursday, April 13, 2017 18:19 - CONCLUSION: 1. No pneumothorax following central line placement. 2. Bilateral pulmonary infiltrates and cardiomegaly. This would suggest pulmonary edema. Pilo Garber Jr., MD Brain MRI 04/13/17 0000 Signed Impressions: Service Date/Time: Thursday, April 13, 2017 07:51 - CONCLUSION: 1. There is no restricted diffusion evident. 2. There is no abnormal contrast enhancement to suggest metastatic disease. Charlie Juarez MD FACR Thoracic Spine MRI 04/11/17 0000 Signed Impressions: Service Date/Time: Tuesday, April 11, 2017 09:58 - CONCLUSION: Widespread metastatic disease with extra osseous spread of tumor at the T3 level causing significant cord compression. Charlie Juarez MD FACRylan Lumbar Spine MRI 04/11/17 0000 Signed Impressions: Service Date/Time: Tuesday, April 11, 2017 09:58 - CONCLUSION: 1. There is no evidence for cord compression. 2. Widespread bony metastatic disease. Charlie Juarez MD FACRylan Lung Scan-VQ Nuclear Medicine 04/09/17 0205 Signed Impressions: Service Date/Time: Sunday, April 09, 2017 09:21 - CONCLUSION: Normal examination with no ventilation/perfusion mismatch. Examination is low probability for PE. Agustín Augustin MD Abdomen/Pelvis CT 04/09/17 0145 Signed Impressions: Service Date/Time: Sunday, April 09, 2017 02:07 - CONCLUSION: Bilateral hydronephrosis which is felt likely related to neoplasm involving the distal ureters. Retroperitoneal adenopathy. Widespread bony metastatic disease. Agustín Boykin MD Objective Remarks GENERAL: Well-nourished, NAD. SKIN: Warm and dry. HEAD: Normocephalic. EYES: No scleral icterus. No injection or drainage. NECK: Supple, trachea midline. No JVD or lymphadenopathy. CARDIOVASCULAR: Regular rate and rhythm without murmurs, gallops, or rubs. RESPIRATORY: Breath sounds equal bilaterally. No accessory muscle use. GASTROINTESTINAL: Abdomen soft, non-tender, nondistended. MUSCULOSKELETAL: No cyanosis, or edema. BACK: Nontender without obvious deformity. No CVA tenderness. EXTREMITIES: Moves all 4 without a focal deficit NEURO:O X 3, alert, cooperative. Good pain control. Legs 3-4/5 strength. Procedures sp T3 laminectomy, resection of mass, T1 - T4 posterior fusion. transpedicular rods screws, allograft bone graft. Medications and IVs Current Medications Medications (Trade) Dose Ordered Sig/Deepti Route Start Time Stop Time Status Last Admin (Zofran Inj) 4 mg Q6H PRN IVP 04/09/17 02:45 (Tylenol) 650 mg Q6H PRN PO 04/09/17 02:45 (Kassidy-Colace) 1 tab BID PO 04/09/17 09:00 04/17/17 09:31 (Milk Of Magnesia Liq) 30 ml Q12H PRN PO 04/09/17 02:45 04/11/17 23:40 (Senokot) 17.2 mg Q12H PRN PO 04/09/17 02:45 (Dulcolax Supp) 10 mg DAILY PRN RECTAL 04/09/17 02:45 (Lactulose Liq) 30 ml DAILY PRN PO 04/09/17 02:45 (Valium) 5 mg Q8H PRN PO 04/09/17 02:45 (Pravachol) 40 mg DAILY PO 04/09/17 09:00 04/17/17 09:31 (Catapres) 0.1 mg Q6H PRN PO 04/09/17 13:30 04/14/17 05:12 (Oramorph Sr) 15 mg Q8HR PO 04/09/17 16:00 04/17/17 15:43 (Norvasc) 10 mg DAILY PO 04/11/17 09:00 04/17/17 09:31 (Decadron Inj) 4 mg Q6HR IV PUSH 04/11/17 12:30 04/17/17 12:09 (NS Flush) 2 ml UNSCH PRN IVF 04/13/17 18:00 (NS Flush) 2 ml BID IVF 04/13/17 21:00 04/16/17 20:37 (Protonix Inj) 40 mg DAILY IVP 04/14/17 09:00 04/17/17 09:30 (Morphine Inj) 2 mg Q2H PRN IV PUSH 04/13/17 18:00 (Morphine Inj) 4 mg Q2H PRN IV PUSH 04/13/17 18:00 (Tylenol) 650 mg Q4H PRN PO 04/13/17 18:00 (Narcan Inj) 0.4 mg UNSCH PRN IV 04/13/17 18:00 (Benadryl Inj) 25 mg Q6H PRN IV 04/13/17 18:00 (Dilaudid GLOVE CLEANER Inj) 6 mg UNSCH IV 04/13/17 18:00 04/17/17 13:31 GLOVE CLEANER Dosage Infused (Pha) 1 Q8HR .XX 04/13/17 22:00 04/17/17 14:00 Terbutaline Sulfate 1 mg 1 mg UNSCH PRN SQ 04/14/17 10:15 (Neosynephrine Inj/NS 500 ml Inj) 508 ml @ 0 mls/hr TITRATE IV 04/14/17 17:00 04/15/17 06:55 (Cordarone) 200 mg DAILY PO 04/16/17 18:00 04/17/17 09:31 (Cardura) 2 mg DAILY PO 04/17/17 10:15 04/17/17 12:09 Urinary Catheter: No Vascular Central Line Catheter: No A/P Problem List: (1) Intractable back pain ICD Code: M54.9 Status: Acute (2) Metastatic disease ICD Code: C79.9 Status: Acute (3) Chest pain ICD Code: R07.9 Status: Acute (4) Elevated d-dimer ICD Code: R79.89 Status: Acute (5) Hydronephrosis ICD Code: N13.30 Status: Acute (6) JENELLE (acute kidney injury) ICD Code: N17.9 Status: Acute (7) Anemia ICD Code: D64.9 Status: Acute (8) HTN (hypertension) ICD Code: I10 Status: Acute Assessment and Plan T3 epidural mass with spinal cord compression - Decompressive surgery - Dexamethasone every 6 hours - Management per neurosurgeon - BP level per NS Hypertension - On norvasc and clonidine prn. - BP still uncontrolled. I will start the patient on doxazosin 200 mg by mouth daily. Atrial fibrillation - Right controlled. Continue by mouth amiodarone. Continue to monitor on telemetry. Dyslipidemia - Atorvastatin Hyperglycemia - Insulin sliding scale DVT GI prophylaxis - Teds SCDs - Pharmacological DVT prophylaxis per neurosurgeon - Omeprazole Discharge Planning Okay to transfer to medical floor. Problem Qualifiers (1) Chest pain: Qualified Code: R07.9 - Chest pain, unspecified type (2) Hydronephrosis: Qualified Code: N13.39 - Other hydronephrosis (3) Anemia: Qualified Code: D64.9 - Anemia, unspecified type Antelmo Ocampo MD Apr 17, 2017 17:20
[2017-04-18] VITALS (11 sets, daily range): BP systolic 107–159; BP diastolic 55–78; PULSE 60–92; RESP 14–31; TEMP 97.6–98.6; O2SAT 94–100
[2017-04-18] MEDS: DEXAMETHASONE SOD PHOS 4 MG/ML VIAL IV PUSH SCH ×4 (00:04→17:35)
[2017-04-18] MEDS: MORPHINE SULFATE 15 MG CONTROLLED RELEASE TAB PO SCH ×3 (05:17→23:37)
[2017-04-18] MEDS: PCA - TOTAL MG DILAUDID DELIVERED PER SHIFT SCH ×3 (06:00→20:34)
[2017-04-18] MEDS: PRAVASTATIN SOD 40 MG TAB PO SCH (08:20)
[2017-04-18] MEDS: PANTOPRAZOLE SODIUM 40 MG VIAL IVP SCH (08:20)
[2017-04-18] MEDS: DOCUSATE SODIUM 50 MG/SENNA 8.6 MG TAB PO SCH ×2 (08:20→20:34)
[2017-04-18] MEDS: DOXAZOSIN MESYLATE 2 MG TAB PO SCH (08:20)
[2017-04-18] MEDS: SODIUM CHLORIDE 0.9% FLUSH 5 ML FLUSH IVF SCH ×2 (08:20→20:34)
[2017-04-18] MEDS: AMIODARONE 200 MG TAB PO SCH (08:20)
[2017-04-18 11:25] LABS: AUTOMATED NEUTROPHIL # 8.1 TH/MM3 (1.8-7.7); BASOPHIL % 0.1 % (0.0-2.0); HEMATOCRIT 30.8 % (39.0-51.0); HEMO FLAGS AUTO DIFF; LYMPH % 7.9 % (9.0-44.0); LYMPHOCYTE # 0.7 TH/MM3 (1.0-4.8); MEAN CELL VOLUME 85.5 FL (80.0-100.0); MEAN CORPUSCULAR HEMOGLOBIN 29.4 PG (27.0-34.0); MEAN CORPUSCULAR HGB CONC 34.4 % (32.0-36.0); MONO % 3.6 % (0.0-8.0); NEUT % 88.4 % (16.0-70.0); PLATELET COUNT 352 TH/MM3 (150-450); WHITE BLOOD COUNT 9.2 TH/MM3 (4.0-11.0)
[2017-04-18 11:43] LABS: ANION GAP 10 MEQ/L (5-15); AST (GOT) 22 U/L (15-37); BICARBONATE 23.4 MEQ/L (21.0-32.0); BLOOD UREA NITROGEN 39 MG/DL (7-18); CHLORIDE 109 MEQ/L (98-107); GLOMERULAR FILTRATION RATE 58 ML/MIN (>89); POTASSIUM 4.6 MEQ/L (3.5-5.1); SODIUM (NA) 142 MEQ/L (136-145)
[2017-04-18 11:47] LABS: ALKALINE PHOSPHATASE 284 U/L (45-117); ALT (GPT) 73 U/L (12-78); TOTAL BILIRUBIN ADULT 0.3 MG/DL (0.2-1.0)
[2017-04-18 12:14] LABS: BANDS 2 % (0-6); CORRECTED NUCLEATED RBC 1 /100 WBC (0-0); MYELOCYTES 2 % (0-0); NEUTROPHIL # MANUAL DIFF 8.5 TH/MM3 (1.8-7.7); PLATELET ESTIMATE SMEAR NORMAL (NORMAL); POLYS (SEG NEUTROPHILS) 88 % (16-70); WBC DIFF SAMPLE 100
[2017-04-18 12:15] LABS: PLATELET MORPHOLOGY NORMAL (NORMAL)
[2017-04-18 12:16] LABS: SCAN/DIFF FINAL DIFF MANUAL
--- NOTE | 2017-04-18 15:11 | HHI.NSPN ---
(Linda Sampson) Note Status Status: Progress Note (Linda Sampson) Interval History Interval History Mr. Alford is a 56-year-old male who presented to the ER with complaints of severe back pain for a month. Apparently he was evaluated at [facility] for back pain recently. A CT Thoracic spine had showed diffuse metastatic disease of the spine. He was told the results and discharged with instructions to follow up with PCP for an Oncology referral. His back pain worsened with acute chest pain and thus presented to [facility]. He reports some numbness and tingling in his feet, he denies significant leg weakness, bowel or bladder incontinence, fevers or chills. An MRI of the thoracic spine showed widespread metastatic disease with cord compression at T3. His PSA is elevated. A neurosurgical evaluation was requested. 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 denies paresthesias in LEs. Pain controlled if not moving. 6/4: POD 2 feeling a bit better today, pain controlled, reports moving his legs well, denies paresthesias in LE's. /5: POD 3 back pain better, doing well, no new complaints 04/17: POD 4, pathology pending 04/18: POD 5, ambulating with rolling walker, reports mild paresthesias in the left leg which is manageable. (Linda Sampson) Labs, Micro, & Vital Signs Results Date Time Temp Pulse Resp B/P Pulse Ox O2 Delivery O2 Flow Rate FiO2 04/18/17 14:00 87 04/18/17 14:00 31 04/18/17 13:49 98.3 91 31 148/55 97 04/18/17 12:00 91 04/18/17 10:00 92 04/18/17 08:00 60 04/18/17 08:00 98.3 60 21 152/78 100 04/18/17 07:00 100 Room Air 04/18/17 06:00 67 04/18/17 04:00 62 04/18/17 04:00 97.6 62 14 141/69 96 04/18/17 02:00 66 04/18/17 00:00 67 04/18/17 00:00 98.6 67 20 147/68 96 04/17/17 22:00 71 04/17/17 22:00 20 04/17/17 20:00 96 Room Air 04/17/17 20:00 78 04/17/17 20:00 98.7 78 27 140/63 96 04/17/17 18:17 18 04/17/17 18:00 76 04/17/17 16:00 98.2 78 22 145/67 95 04/17/17 16:00 78 04/17/17 15:53 26 04/18/17 06:59 Intake Total 2320 ml Output Total 3650 ml Balance -1330 ml Constitutional Vital Signs Date Time Temp Pulse Resp B/P Pulse Ox O2 Delivery O2 Flow Rate FiO2 04/18/17 14:00 87 04/18/17 14:00 31 04/18/17 13:49 98.3 91 31 148/55 97 04/18/17 12:00 91 04/18/17 10:00 92 04/18/17 08:00 60 04/18/17 08:00 98.3 60 21 152/78 100 04/18/17 07:00 100 Room Air 04/18/17 06:00 67 04/18/17 04:00 62 04/18/17 04:00 97.6 62 14 141/69 96 04/18/17 02:00 66 04/18/17 00:00 67 04/18/17 00:00 98.6 67 20 147/68 96 04/17/17 22:00 71 04/17/17 22:00 20 04/17/17 20:00 96 Room Air 04/17/17 20:00 78 04/17/17 20:00 98.7 78 27 140/63 96 04/17/17 18:17 18 04/17/17 18:00 76 04/17/17 16:00 98.2 78 22 145/67 95 04/17/17 16:00 78 04/17/17 15:53 26 04/18/17 06:59 Intake Total 2320 ml Output Total 3650 ml Balance -1330 ml (Linda Sampson) Review of Systems/Exam Exam Mr. Alford is alert. Speech is appropriate. Smiling and very pleasant. Wound healing well, Prineo dressing intact. Cranial nerve examination: pupils equal. Facial motor are normal and symmetrical. Motor: moving all major muscle groups of upper and lower extremities with good strength Reports mild paresthesias to distal left leg. (Linda Sampson) Medications Current Medications Current Medications Medications (Trade) Dose Ordered Sig/Deepti Route PRN Reason Start Time Stop Time Status Last Admin Dose Admin Ondansetron HCl (Zofran Inj) 4 mg Q6H PRN IVP NAUSEA OR VOMITING 04/09/17 02:45 Acetaminophen (Tylenol) 650 mg Q6H PRN PO PAIN SCALE 1 TO 2 04/09/17 02:45 Senna/Docusate Sodium (Kassidy-Colace) 1 tab BID PO 04/09/17 09:00 04/18/17 08:20 Magnesium Hydroxide (Milk Of Magnesia Liq) 30 ml Q12H PRN PO MILD - MODERATE CONSTIPATION 04/09/17 02:45 04/11/17 23:40 Sennosides (Senokot) 17.2 mg Q12H PRN PO MODERATE - SEVERE CONSTIPATION 04/09/17 02:45 Bisacodyl (Dulcolax Supp) 10 mg DAILY PRN RECTAL SEVERE CONSITIPATION 04/09/17 02:45 Lactulose (Lactulose Liq) 30 ml DAILY PRN PO SEVERE CONSITIPATION 04/09/17 02:45 Diazepam (Valium) 5 mg Q8H PRN PO MUSCLE SPASM 04/09/17 02:45 Pravastatin Sodium (Pravachol) 40 mg DAILY PO 04/09/17 09:00 04/18/17 08:20 Clonidine (Catapres) 0.1 mg Q6H PRN PO SBP> OR = 180, DBP> OR = 100 04/09/17 13:30 04/14/17 05:12 Morphine Sulfate (Oramorph Sr) 15 mg Q8HR PO 04/09/17 16:00 04/18/17 13:42 Amlodipine Besylate (Norvasc) 10 mg DAILY PO 04/11/17 09:00 04/18/17 08:20 Dexamethasone Sodium Phosphate (Decadron Inj) 4 mg Q6HR IV PUSH 04/11/17 12:30 04/18/17 13:21 IV Flush (NS Flush) 2 ml UNSCH PRN IVF FLUSH AFTER USING IV ACCESS 04/13/17 18:00 IV Flush (NS Flush) 2 ml BID IVF 04/13/17 21:00 04/17/17 21:00 Pantoprazole Sodium (Protonix Inj) 40 mg DAILY IVP 04/14/17 09:00 04/18/17 08:20 Morphine Sulfate (Morphine Inj) 2 mg Q2H PRN IV PUSH PAIN SCALE 1 TO 6 04/13/17 18:00 Morphine Sulfate (Morphine Inj) 4 mg Q2H PRN IV PUSH PAIN SCALE 7 TO 10 04/13/17 18:00 Acetaminophen (Tylenol) 650 mg Q4H PRN PO TEMPERATURE > 101.5 F 04/13/17 18:00 Naloxone HCl (Narcan Inj) 0.4 mg UNSCH PRN IV RESPIRATORY RATE LESS THAN 10 04/13/17 18:00 Diphenhydramine HCl (Benadryl Inj) 25 mg Q6H PRN IV ITCHING 04/13/17 18:00 Hydromorphone HCl (Dilaudid SEAMLESS TUBE MILL OPERATOR Inj) 6 mg UNSCH IV 04/13/17 18:00 04/17/17 13:31 SEAMLESS TUBE MILL OPERATOR Dosage Infused (Pha) 1 Q8HR .XX 04/13/17 22:00 04/18/17 14:00 Terbutaline Sulfate 1 mg 1 mg UNSCH PRN SQ For Extravasation 04/14/17 10:15 Phenylephrine HCl/ Sodium Chloride (Neosynephrine Inj/NS 500 ml Inj) 508 ml @ 0 mls/hr TITRATE IV 04/14/17 17:00 04/15/17 06:55 Amiodarone HCl (Cordarone) 200 mg DAILY PO 04/16/17 18:00 04/18/17 08:20 Doxazosin Mesylate (Cardura) 2 mg DAILY PO 04/17/17 10:15 04/18/17 08:20 (Linda Sampson) Medical Decision Making MDM Remarks 56 y/o male with spine metastases with cord compression at T3, s/p decompressive laminectomy with resection of spine mass and T1-T4 posterior fusion 04/13/17, neuro stable, pain controlled (Linda Sampson) Plan Plan Remarks cont current care cont therapy f/u final pathology oncology and rad onc following for poss radiation tx rehab efforts dw pt activity restrictions and avoiding falls, cont TLSO when out of bed (Linda Sampson) Attending Statement The exam, history, and the medical decision-making described in the above note were completed with the assistance of the mid-level provider. I reviewed and agree with the findings presented. I attest that I had a [id number] encounter with the patient on the same day, and personally performed and documented my assessment and findings in the medical record. (Manoj Tovar MD) Linda Sampson Apr 18, 2017 15:11 Manoj Tovar MD Apr 22, 2017 19:20
--- NOTE | 2017-04-18 16:32 | HHI.PR ---
Subjective Remarks Patient denies cp/sob bp much improved denies abdominal pain, nausea or vomiting Objective Vitals Vital Signs Date Time Temp Pulse Resp B/P Pulse Ox O2 Delivery O2 Flow Rate FiO2 04/18/17 14:00 87 04/18/17 14:00 31 04/18/17 13:49 98.3 91 31 148/55 97 04/18/17 12:00 91 04/18/17 10:00 92 04/18/17 08:00 60 04/18/17 08:00 98.3 60 21 152/78 100 04/18/17 07:00 100 Room Air 04/18/17 06:00 67 04/18/17 04:00 62 04/18/17 04:00 97.6 62 14 141/69 96 04/18/17 02:00 66 04/18/17 00:00 67 04/18/17 00:00 98.6 67 20 147/68 96 04/17/17 22:00 71 04/17/17 22:00 20 04/17/17 20:00 96 Room Air 04/17/17 20:00 78 04/17/17 20:00 98.7 78 27 140/63 96 04/17/17 18:17 18 04/17/17 18:00 76 I/O 04/17/17 04/17/17 04/17/17 04/18/17 04/18/17 04/18/17 07:00 15:00 23:00 07:00 15:00 23:00 Intake Total 1071 ml 1692 ml 363 ml 265 ml 2255 ml Output Total 1200 ml 1400 ml 1000 ml 1250 ml 1175 ml Balance -129 ml 292 ml -637 ml -985 ml 1080 ml Intake Oral 200 ml 720 ml 240 ml 120 ml 480 ml IV Total 871 ml 972 ml 123 ml 145 ml 1775 ml Output Urine Total 1200 ml 1400 ml 1000 ml 1250 ml 1175 ml # Bowel Movements 0 0 Result Diagram: 04/18/17 1110 04/18/17 1110 Imaging Last Impressions Thoracic Spine X-Ray 04/13/17 0000 Signed Impressions: Service Date/Time: Thursday, April 13, 2017 13:54 - CONCLUSION: Limited images as detailed above. Pilo Garber Jr., MD Neck Magnetic Resonance Angiography 04/13/17 0000 Signed Impressions: Service Date/Time: Thursday, April 13, 2017 07:51 - CONCLUSION: 1. 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 2. Otherwise, unremarkable MRA examination. Specifically, no significant carotid artery stenosis. Stef Patel MD Head Magnetic Resonance Angiography 04/13/17 Signed Impressions: Service Date/Time: Thursday, April 13, 2017 07:51 - CONCLUSION: 1. Mildly hypoplastic left A1 segment, likely congenital. 2. Unremarkable MRA examination without evidence for significant stenosis, occlusion, or aneurysm. Stef Patel MD Head CT 04/13/17 Signed Impressions: Service Date/Time: Thursday, April 13, 2017 05:42 - CONCLUSION: 1. No evidence of acute intracranial pathology. No masses are identified. Dony Ahn MD Chest X-Ray 04/13/17 Signed Impressions: Service Date/Time: Thursday, April 13, 2017 18:19 - CONCLUSION: 1. No pneumothorax following central line placement. 2. Bilateral pulmonary infiltrates and cardiomegaly. This would suggest pulmonary edema. Pilo Garber Jr., MD Brain MRI 04/13/17 Signed Impressions: Service Date/Time: Thursday, April 13, 2017 07:51 - CONCLUSION: 1. There is no restricted diffusion evident. 2. There is no abnormal contrast enhancement to suggest metastatic disease. Charlie Juarez MD FACR Thoracic Spine MRI 04/11/17 Signed Impressions: Service Date/Time: Tuesday, April 11, 2017 09:58 - CONCLUSION: Widespread metastatic disease with extra osseous spread of tumor at the T3 level causing significant cord compression. Charlie Juarez MD FACR Lumbar Spine MRI 04/11/17 0000 Signed Impressions: Service Date/Time: Tuesday, April 11, 2017 09:58 - CONCLUSION: 1. There is no evidence for cord compression. 2. Widespread bony metastatic disease. Charlie Juarez MD FACR Lung Scan-V Nuclear Medicine 04/09/17 0205 Signed Impressions: Service Date/Time: Sunday, April 09, 2017 09:21 - CONCLUSION: Normal examination with no ventilation/perfusion mismatch. Examination is low probability for PE. Agustín Augustin MD Abdomen/Pelvis CT 04/09/17 0145 Signed Impressions: Service Date/Time: Sunday, April 09, 2017 02:07 - CONCLUSION: Bilateral hydronephrosis which is felt likely related to neoplasm involving the distal ureters. Retroperitoneal adenopathy. Widespread bony metastatic disease. Agustín Boykin MD Objective Remarks GENERAL: Well-nourished, NAD. SKIN: Warm and dry. HEAD: Normocephalic. EYES: No scleral icterus. No injection or drainage. NECK: Supple, trachea midline. No JVD or lymphadenopathy. CARDIOVASCULAR: Regular rate and rhythm without murmurs, gallops, or rubs. RESPIRATORY: Breath sounds equal bilaterally. No accessory muscle use. GASTROINTESTINAL: Abdomen soft, non-tender, nondistended. MUSCULOSKELETAL: No cyanosis, or edema. BACK: Nontender without obvious deformity. No CVA tenderness. EXTREMITIES: Moves all 4 without a focal deficit NEURO:O X 3, alert, cooperative. Good pain control. Legs 3-4/5 strength. Procedures sp T3 laminectomy, resection of mass, T1 - T4 posterior fusion. transpedicular rods screws, allograft bone graft. Medications and IVs Current Medications Medications (Trade) Dose Ordered Sig/Deepti Route Start Time Stop Time Status Last Admin (Zofran Inj) 4 mg Q6H PRN IVP 04/09/17 02:45 (Tylenol) 650 mg Q6H PRN PO 04/09/17 02:45 (Kassidy-Colace) 1 tab BID PO 04/09/17 09:00 04/18/17 08:20 (Milk Of Magnesia Liq) 30 ml Q12H PRN PO 04/09/17 02:45 04/11/17 23:40 (Senokot) 17.2 mg Q12H PRN PO 04/09/17 02:45 (Dulcolax Supp) 10 mg DAILY PRN RECTAL 04/09/17 02:45 (Lactulose Liq) 30 ml DAILY PRN PO 04/09/17 02:45 (Valium) 5 mg Q8H PRN PO 04/09/17 02:45 (Pravachol) 40 mg DAILY PO 04/09/17 09:00 04/18/17 08:20 (Catapres) 0.1 mg Q6H PRN PO 04/09/17 13:30 04/14/17 05:12 (Oramorph Sr) 15 mg Q8HR PO 04/09/17 16:00 6/7/17 13:42 (Norvasc) 10 mg DAILY PO 04/11/17 09:00 04/18/17 08:20 (Decadron Inj) 4 mg Q6HR IV PUSH 04/11/17 12:30 04/18/17 13:21 (NS Flush) 2 ml UNSCH PRN IVF 04/13/17 18:00 (NS Flush) 2 ml BID IVF 04/13/17 21:00 04/17/17 21:00 (Protonix Inj) 40 mg DAILY IVP 04/14/17 09:00 04/18/17 08:20 (Morphine Inj) 2 mg Q2H PRN IV PUSH 04/13/17 18:00 (Morphine Inj) 4 mg Q2H PRN IV PUSH 04/13/17 18:00 (Tylenol) 650 mg Q4H PRN PO 04/13/17 18:00 (Narcan Inj) 0.4 mg UNSCH PRN IV 04/13/17 18:00 (Benadryl Inj) 25 mg Q6H PRN IV 04/13/17 18:00 (Dilaudid COMPUTER AIDED DESIGN DRAFTER Inj) 6 mg UNSCH IV 04/13/17 18:00 04/17/17 13:31 COMPUTER AIDED DESIGN DRAFTER Dosage Infused (Pha) 1 Q8HR .XX 04/13/17 22:00 04/18/17 14:00 Terbutaline Sulfate 1 mg 1 mg UNSCH PRN SQ 04/14/17 10:15 (Neosynephrine Inj/NS 500 ml Inj) 508 ml @ 0 mls/hr TITRATE IV 04/14/17 17:00 04/15/17 06:55 (Cordarone) 200 mg DAILY PO 04/16/17 18:00 04/18/17 08:20 (Cardura) 2 mg DAILY PO 04/17/17 10:15 04/18/17 08:20 A/P Problem List: (1) Intractable back pain ICD Code: M54.9 Status: Resolved (2) Metastatic disease ICD Code: C79.9 Status: Acute (3) Chest pain ICD Code: R07.9 Status: Resolved (4) Elevated d-dimer ICD Code: R79.89 Status: Acute (5) Hydronephrosis ICD Code: N13.30 Status: Acute (6) JENELLE (acute kidney injury) ICD Code: N17.9 Status: Resolved (7) Anemia ICD Code: D64.9 Status: Acute (8) HTN (hypertension) ICD Code: I10 Status: Chronic (9) Normocytic anemia ICD Code: D64.9 Status: Chronic (10) Cord compression ICD Code: G95.20 Status: Resolved (11) Postoperative anemia due to acute blood loss ICD Code: D62 Status: Acute Assessment and Plan T3 epidural mass with spinal cord compression - Decompressive surgery - Dexamethasone every 6 hours - Management per neurosurgeon - BP level per NS Hypertension - On norvasc and clonidine prn. - BP much improved after patient started on Cardura 2 mg po daily. Continue. Atrial fibrillation - Rate controlled. Continue by mouth amiodarone. Continue to monitor on telemetry. Dyslipidemia - Atorvastatin Hyperglycemia - Insulin sliding scale Anemia - iron studies show low-normal iron. - B12 WNL - Patient seems to have chronic. - Is sp transfusion of 2 units of packed blood cells for acute postop anemia. Metastatic disease -Patient status post surgical decompression. Metastatic disease involving spine, retroperitoneum, also has bilateral hydronephrosis related to neoplasm involving the distal ureters. PSA elevated in the 900s. Highly suspicious for metastatic prostate cancer. Tissue diagnosis needs to be established. Follow-up pathology MRI of the T/L-spine: Showed [place] proptosis disease is cord compression at T3. JENELLE - Likely postobstructive, patient on to have bilateral hydronephrosis on CT abdomen and pelvis likely related to neoplasm involving the distal ureters. Browning catheter placed and creatinine trending down. Continue to monitor BUN/ creatinine, strict I's and O's, avoid nephrotoxins. DVT GI prophylaxis - Teds SCDs - Pharmacological DVT prophylaxis per neurosurgeon - Omeprazole Discharge Planning Okay to transfer to medical floor. Problem Qualifiers (1) Chest pain: Qualified Code: R07.9 - Chest pain, unspecified type (2) Hydronephrosis: Qualified Code: N13.39 - Other hydronephrosis (3) Anemia: Qualified Code: D64.9 - Anemia, unspecified type (4) HTN (hypertension): Qualified Code: I10 - Essential hypertension Antelmo Ocampo MD Apr 18, 2017 16:32
[2017-04-18] MEDS: HYDROmorphone HCL PCA 6 MG/30 ML IV SCH (20:33)
[2017-04-19] VITALS: BP 161/69; PULSE 80; RESP 20; TEMP 97.8; O2SAT 98
[2017-04-19] MEDS: DEXAMETHASONE SOD PHOS 4 MG/ML VIAL IV PUSH SCH ×4 (01:27→17:41)
[2017-04-19 04:00] VITALS: BP 162/69; PULSE 71; RESP 22; TEMP 96.6; O2SAT 98
[2017-04-19] MEDS: PCA - TOTAL MG DILAUDID DELIVERED PER SHIFT SCH ×3 (06:00→22:00)
[2017-04-19] MEDS: MORPHINE SULFATE 15 MG CONTROLLED RELEASE TAB PO SCH ×3 (06:17→22:19)
[2017-04-19 08:00] VITALS: BP 153/74; PULSE 72; RESP 16; TEMP 98.1; O2SAT 96
[2017-04-19] MEDS: SODIUM CHLORIDE 0.9% FLUSH 5 ML FLUSH IVF SCH ×2 (09:00→21:00)
[2017-04-19] MEDS: AMIODARONE 200 MG TAB PO SCH (10:37)
[2017-04-19] MEDS: DOXAZOSIN MESYLATE 2 MG TAB PO SCH (10:37)
[2017-04-19] MEDS: PRAVASTATIN SOD 40 MG TAB PO SCH (10:37)
[2017-04-19] MEDS: DOCUSATE SODIUM 50 MG/SENNA 8.6 MG TAB PO SCH ×2 (10:37→21:00)
[2017-04-19] MEDS: PANTOPRAZOLE SODIUM 40 MG VIAL IVP SCH (10:37)
[2017-04-19] MEDS ORDERED: DOXAZOSIN MESYLATE 2 MG TAB PO ONE (11:15)
--- NOTE | 2017-04-19 11:16 | HHI.PR ---
Subjective Remarks No major overnight events patient states has some aches in his back but none currently. denies fevers/chills denies diarrhea denies cp/sob Objective Vitals Vital Signs Date Time Temp Pulse Resp B/P Pulse Ox O2 Delivery O2 Flow Rate FiO2 04/19/17 08:00 98.1 72 16 153/74 96 04/19/17 06:00 16 04/19/17 04:00 96.6 71 22 162/69 98 04/19/17 00:00 97.8 80 20 161/69 98 04/18/17 20:34 4 04/18/17 20:33 18 04/18/17 20:00 Room Air 04/18/17 20:00 97.7 83 18 159/75 94 04/18/17 16:00 97.6 78 18 144/65 99 04/18/17 14:45 Room Air 04/18/17 14:00 87 04/18/17 14:00 31 04/18/17 13:49 98.3 91 31 148/55 97 04/18/17 12:00 91 I/O 04/18/17 04/18/17 04/18/17 04/19/17 04/19/17 04/19/17 07:00 15:00 23:00 07:00 15:00 23:00 Intake Total 265 ml 2255 ml 780 ml 519 ml Output Total 1250 ml 1175 ml 700 ml 1100 ml Balance -985 ml 1080 ml 80 ml -581 ml Intake Oral 120 ml 480 ml 780 ml 240 ml IV Total 145 ml 1775 ml 279 ml Output Urine Total 1250 ml 1175 ml 700 ml 1100 ml # Bowel Movements 0 1 0 Result Diagram: 04/18/17 1110 04/18/17 1110 Imaging Last Impressions Thoracic Spine X-Ray 04/13/17 0000 Signed Impressions: Service Date/Time: Thursday, April 13, 2017 13:54 - CONCLUSION: Limited images as detailed above. Pilo Garber Jr., MD Neck Magnetic Resonance Angiography 04/13/17 0000 Signed Impressions: Service Date/Time: Thursday, April 13, 2017 07:51 - CONCLUSION: 1. 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 2. Otherwise, unremarkable MRA examination. Specifically, no significant carotid artery stenosis. Stef Patel MD Head Magnetic Resonance Angiography 6/2/17 0000 Signed Impressions: Service Date/Time: Thursday, April 13, 2017 07:51 - CONCLUSION: 1. Mildly hypoplastic left A1 segment, likely congenital. 2. Unremarkable MRA examination without evidence for significant stenosis, occlusion, or aneurysm. Stef Patel MD Head CT 04/13/17 Signed Impressions: Service Date/Time: Thursday, April 13, 2017 05:42 - CONCLUSION: 1. No evidence of acute intracranial pathology. No masses are identified. Dony Ahn MD Chest X-Ray 04/13/17 Signed Impressions: Service Date/Time: Thursday, April 13, 2017 18:19 - CONCLUSION: 1. No pneumothorax following central line placement. 2. Bilateral pulmonary infiltrates and cardiomegaly. This would suggest pulmonary edema. Pilo Garber Jr., MD Brain MRI 04/13/17 Signed Impressions: Service Date/Time: Thursday, April 13, 2017 07:51 - CONCLUSION: 1. There is no restricted diffusion evident. 2. There is no abnormal contrast enhancement to suggest metastatic disease. Charlie Juarez MD FACR Thoracic Spine MRI 04/11/17 Signed Impressions: Service Date/Time: Tuesday, April 11, 2017 09:58 - CONCLUSION: Widespread metastatic disease with extra osseous spread of tumor at the T3 level causing significant cord compression. Charlie Juarez MD FACR Lumbar Spine MRI 04/11/17 Signed Impressions: Service Date/Time: Tuesday, April 11, 2017 09:58 - CONCLUSION: 1. There is no evidence for cord compression. 2. Widespread bony metastatic disease. Charlie Juarez MD FACR Lung Scan-VQ Nuclear Medicine 04/09/17 0205 Signed Impressions: Service Date/Time: Sunday, April 09, 2017 09:21 - CONCLUSION: Normal examination with no ventilation/perfusion mismatch. Examination is low probability for PE. Agustín Augustin MD Abdomen/Pelvis CT 04/09/17 0145 Signed Impressions: Service Date/Time: Sunday, April 09, 2017 02:07 - CONCLUSION: Bilateral hydronephrosis which is felt likely related to neoplasm involving the distal ureters. Retroperitoneal adenopathy. Widespread bony metastatic disease. Agustín Boykin MD Objective Remarks GENERAL: Well-nourished, NAD. SKIN: Warm and dry. HEAD: Normocephalic. EYES: No scleral icterus. No injection or drainage. NECK: Supple, trachea midline. No JVD or lymphadenopathy. CARDIOVASCULAR: Regular rate and rhythm without murmurs, gallops, or rubs. RESPIRATORY: Breath sounds equal bilaterally. No accessory muscle use. GASTROINTESTINAL: Abdomen soft, non-tender, nondistended. MUSCULOSKELETAL: No cyanosis, or edema. BACK: Nontender without obvious deformity. No CVA tenderness. EXTREMITIES: Moves all 4 without a focal deficit NEURO:O X 3, alert, cooperative. Good pain control. Legs 3-4/5 strength. Procedures sp T3 laminectomy, resection of mass, T1 - T4 posterior fusion. transpedicular rods screws, allograft bone graft. Medications and IVs Current Medications Medications (Trade) Dose Ordered Sig/Deepti Route Start Time Stop Time Status Last Admin (Zofran Inj) 4 mg Q6H PRN IVP 04/09/17 02:45 (Tylenol) 650 mg Q6H PRN PO 04/09/17 02:45 (Kassidy-Colace) 1 tab BID PO 04/09/17 09:00 04/19/17 10:37 (Milk Of Magnesia Liq) 30 ml Q12H PRN PO 04/09/17 02:45 04/11/17 23:40 (Senokot) 17.2 mg Q12H PRN PO 04/09/17 02:45 (Dulcolax Supp) 10 mg DAILY PRN RECTAL 04/09/17 02:45 (Lactulose Liq) 30 ml DAILY PRN PO 04/09/17 02:45 (Valium) 5 mg Q8H PRN PO 04/09/17 02:45 (Pravachol) 40 mg DAILY PO 04/09/17 09:00 04/19/17 10:37 (Catapres) 0.1 mg Q6H PRN PO 04/09/17 13:30 04/14/17 05:12 (Oramorph Sr) 15 mg Q8HR PO 04/09/17 16:00 04/19/17 06:17 (Norvasc) 10 mg DAILY PO 04/11/17 09:00 04/19/17 10:37 (Decadron Inj) 4 mg Q6HR IV PUSH 04/11/17 12:30 04/19/17 06:18 (NS Flush) 2 ml UNSCH PRN IVF 04/13/17 18:00 04/18/17 17:35 (NS Flush) 2 ml BID IVF 04/13/17 21:00 04/19/17 09:00 (Protonix Inj) 40 mg DAILY IVP 04/14/17 09:00 04/19/17 10:37 (Morphine Inj) 2 mg Q2H PRN IV PUSH 04/13/17 18:00 (Morphine Inj) 4 mg Q2H PRN IV PUSH 04/13/17 18:00 (Tylenol) 650 mg Q4H PRN PO 04/13/17 18:00 (Narcan Inj) 0.4 mg UNSCH PRN IV 04/13/17 18:00 (Benadryl Inj) 25 mg Q6H PRN IV 04/13/17 18:00 SUPERVISOR COREMAKER Dosage Infused (Pha) 1 Q8HR .XX 04/13/17 22:00 04/19/17 06:00 Terbutaline Sulfate 1 mg 1 mg UNSCH PRN SQ 04/14/17 10:15 (Neosynephrine Inj/NS 500 ml Inj) 508 ml @ 0 mls/hr TITRATE IV 04/14/17 17:00 04/15/17 06:55 (Cordarone) 200 mg DAILY PO 04/16/17 18:00 04/19/17 10:37 (Cardura) 2 mg DAILY PO 04/17/17 10:15 04/19/17 10:37 Urinary Catheter: No Vascular Central Line Catheter: No A/P Problem List: (1) Intractable back pain ICD Code: M54.9 Status: Resolved (2) Metastatic disease ICD Code: C79.9 Status: Acute (3) Chest pain ICD Code: R07.9 Status: Resolved (4) Elevated d-dimer ICD Code: R79.89 Status: Acute (5) Hydronephrosis ICD Code: N13.30 Status: Acute (6) JENELLE (acute kidney injury) ICD Code: N17.9 Status: Resolved (7) Anemia ICD Code: D64.9 Status: Acute (8) HTN (hypertension) ICD Code: I10 Status: Chronic (9) Normocytic anemia ICD Code: D64.9 Status: Chronic (10) Cord compression ICD Code: G95.20 Status: Resolved (11) Postoperative anemia due to acute blood loss ICD Code: D62 Status: Acute Assessment and Plan T3 epidural mass with spinal cord compression - Decompressive surgery - Dexamethasone every 6 hours - Management per neurosurgeon - BP level per NS Hypertension - On norvasc and clonidine prn. - BP still elevated, will increase Doxazosin to 4 mg po daily. Atrial fibrillation - Rate controlled. Continue by mouth amiodarone. Continue to monitor on telemetry. Dyslipidemia - Atorvastatin Hyperglycemia - Insulin sliding scale - 04/19 Blood sugars stable. Check Hemoglobin A1C Anemia - iron studies show low-normal iron. - B12 WNL - Patient seems to have chronic. - Is sp transfusion of 2 units of packed blood cells for acute postop anemia. Metastatic disease -Patient status post surgical decompression. Metastatic disease involving spine, retroperitoneum, also has bilateral hydronephrosis related to neoplasm involving the distal ureters. PSA elevated in the 900s. Highly suspicious for metastatic prostate cancer. Tissue diagnosis needs to be established. Follow-up pathology MRI of the T/L-spine: Showed [place] proptosis disease is cord compression at T3. 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 Will discuss with oncology. JENELLE - Likely postobstructive, patient on to have bilateral hydronephrosis on CT abdomen and pelvis likely related to neoplasm involving the distal ureters. Browning catheter placed and creatinine trending down. Continue to monitor BUN/ creatinine, strict I's and O's, avoid nephrotoxins. DVT GI prophylaxis - Teds SCDs - Pharmacological DVT prophylaxis per neurosurgeon - Omeprazole Discharge Planning Continue to monitor in the medical floor for now. Dc pending neurosurgery and oncology clearance. Problem Qualifiers (1) Chest pain: Qualified Code: R07.9 - Chest pain, unspecified type (2) Hydronephrosis: Qualified Code: N13.39 - Other hydronephrosis (3) Anemia: Qualified Code: D64.9 - Anemia, unspecified type (4) HTN (hypertension): Qualified Code: I10 - Essential hypertension Antelmo Ocampo MD Apr 19, 2017 11:16
[2017-04-19 12:00] VITALS: BP 155/78; PULSE 83; RESP 18; TEMP 97.8; O2SAT 97
[2017-04-19 12:15] LABS: HEMATOCRIT 29.1 % (39.0-51.0); MEAN CELL VOLUME 87.2 FL (80.0-100.0); MEAN CORPUSCULAR HEMOGLOBIN 29.5 PG (27.0-34.0); MEAN CORPUSCULAR HGB CONC 33.8 % (32.0-36.0); PLATELET COUNT 296 TH/MM3 (150-450); RED BLOOD COUNT 3.33 MIL/MM3 (4.50-5.90); RED CELL DISTRIBUTION WIDTH 13.9 % (11.6-17.2); REVIEW FLAG FINAL; WHITE BLOOD COUNT 10.2 TH/MM3 (4.0-11.0)
[2017-04-19 12:46] LABS: BICARBONATE 22.1 MEQ/L (21.0-32.0); POTASSIUM 4.7 MEQ/L (3.5-5.1)
--- NOTE | 2017-04-19 14:23 | HHI.NSPN ---
(Linda Sampson) Note Status Status: Progress Note (Linda Sampson) Interval History Interval History Mr. Alford is a 56-year-old male who presented to the ER with complaints of severe back pain for a month. Apparently he was evaluated at [facility] for back pain recently. A CT Thoracic spine had showed diffuse metastatic disease of the spine. He was told the results and discharged with instructions to follow up with PCP for an Oncology referral. His back pain worsened with acute chest pain and thus presented to [facility]. He reports some numbness and tingling in his feet, he denies significant leg weakness, bowel or bladder incontinence, fevers or chills. An MRI of the thoracic spine showed widespread metastatic disease with cord compression at T3. His PSA is elevated. A neurosurgical evaluation was requested. 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 denies paresthesias in LEs. Pain controlled if not moving. 6/4: POD 2 feeling a bit better today, pain controlled, reports moving his legs well, denies paresthesias in LE's. /5: POD 3 back pain better, doing well, no new complaints 6: POD 4, pathology pending 7: POD 5, ambulating with rolling walker, reports mild paresthesias in the left leg which is manageable. 8: POD 6, doing well, no new complaints, radiation oncology in room, (Linda Sampson) Labs, Micro, & Vital Signs Results Date Time Temp Pulse Resp B/P Pulse Ox O2 Delivery O2 Flow Rate FiO2 04/19/17 13:54 16 04/19/17 12:00 97.8 83 18 155/78 97 04/19/17 08:00 98.1 72 16 153/74 96 04/19/17 06:00 16 04/19/17 04:00 96.6 71 22 162/69 98 04/19/17 00:00 97.8 80 20 161/69 98 04/18/17 20:34 4 04/18/17 20:33 18 04/18/17 20:00 Room Air 04/18/17 20:00 97.7 83 18 159/75 94 04/18/17 16:00 97.6 78 18 144/65 99 04/18/17 14:45 Room Air 04/19/17 07:00 Intake Total 3554 ml Output Total 2975 ml Balance 579 ml Constitutional Vital Signs Date Time Temp Pulse Resp B/P Pulse Ox O2 Delivery O2 Flow Rate FiO2 04/19/17 13:54 16 04/19/17 12:00 97.8 83 18 155/78 97 04/19/17 08:00 98.1 72 16 153/74 96 04/19/17 06:00 16 04/19/17 04:00 96.6 71 22 162/69 98 04/19/17 00:00 97.8 80 20 161/69 98 04/18/17 20:34 4 04/18/17 20:33 18 04/18/17 20:00 Room Air 04/18/17 20:00 97.7 83 18 159/75 94 04/18/17 16:00 97.6 78 18 144/65 99 04/18/17 14:45 Room Air 04/19/17 07:00 Intake Total 3554 ml Output Total 2975 ml Balance 579 ml (Linda Sampson) Review of Systems/Exam Exam Mr. Alford is alert. Speech is appropriate. Smiling and very pleasant. Wound healing well, Prineo dressing intact. Cranial nerve examination: pupils equal. Facial motor are normal and symmetrical. Motor: moving all major muscle groups of upper and lower extremities with good strength Reports mild paresthesias to distal left leg. No ankle clonus. Plantars downgoing b/l (Linda Sampson) Medical Decision Making MDM Remarks 56 y/o male with spine metastases with cord compression at T3, s/p decompressive laminectomy with resection of spine mass and T1-T4 posterior fusion 04/13/17, neuro stable, pain controlled (Linda Sampson) Plan Plan Remarks cont current care cont therapy f/u final pathology oncology and rad onc following for radiation tx planned next week rehab efforts dw pt activity restrictions and avoiding falls, cont TLSO when out of bed clear to dc to rehab from NRS standpoint (Linda Sampson) Attending Statement The exam, history, and the medical decision-making described in the above note were completed with the assistance of the mid-level provider. I reviewed and agree with the findings presented. I attest that I had a [id number] encounter with the patient on the same day, and personally performed and documented my assessment and findings in the medical record. (Manoj Tovar MD) Linda Sampson Apr 19, 2017 14:23 Manoj Tovar MD Apr 22, 2017 19:24
[2017-04-19 16:00] VITALS: BP 155/73; PULSE 79; RESP 16; TEMP 96.7; O2SAT 97
[2017-04-19 16:18] LABS: HEMOGLOBIN A1a 1.6 %; HEMOGLOBIN Ao 82.7 %; HEMOGLOBIN LA1C 2.4 %; HEMOGLOBIN P3 6.2 %
[2017-04-19 20:00] VITALS: BP 145/63; PULSE 70; RESP 20; TEMP 96.7; O2SAT 97
[2017-04-20] VITALS: BP 142/70; PULSE 82; RESP 20; TEMP 98.1; O2SAT 97
[2017-04-20] MEDS: DEXAMETHASONE SOD PHOS 4 MG/ML VIAL IV PUSH SCH ×3 (02:40→12:00)
[2017-04-20] MEDS: PCA - TOTAL MG DILAUDID DELIVERED PER SHIFT SCH (02:40)
[2017-04-20 04:00] VITALS: BP 152/73; PULSE 71; RESP 16; TEMP 97; O2SAT 98
[2017-04-20] MEDS: MORPHINE SULFATE 15 MG CONTROLLED RELEASE TAB PO SCH ×3 (07:01→22:30)
[2017-04-20 07:40] LABS: HEMATOCRIT 25.7 % (39.0-51.0); MEAN CELL VOLUME 86.9 FL (80.0-100.0); MEAN CORPUSCULAR HEMOGLOBIN 29.6 PG (27.0-34.0); MEAN CORPUSCULAR HGB CONC 34.1 % (32.0-36.0); PLATELET COUNT 243 TH/MM3 (150-450); RED BLOOD COUNT 2.96 MIL/MM3 (4.50-5.90); REVIEW FLAG FINAL; WHITE BLOOD COUNT 10.3 TH/MM3 (4.0-11.0)
[2017-04-20 07:52] LABS: BICARBONATE 25.5 MEQ/L (21.0-32.0); POTASSIUM 4.7 MEQ/L (3.5-5.1)
[2017-04-20 08:00] VITALS: BP 159/82; PULSE 79; RESP 16; TEMP 97; O2SAT 97
[2017-04-20] MEDS: PANTOPRAZOLE SODIUM 40 MG VIAL IVP SCH (08:02)
[2017-04-20] MEDS: PRAVASTATIN SOD 40 MG TAB PO SCH (08:02)
[2017-04-20] MEDS: DOCUSATE SODIUM 50 MG/SENNA 8.6 MG TAB PO SCH ×2 (08:02→21:00)
[2017-04-20] MEDS: DOXAZOSIN MESYLATE 4 MG TAB PO SCH (08:02)
[2017-04-20] MEDS: AMIODARONE 200 MG TAB PO SCH (08:02)
[2017-04-20] MEDS: SODIUM CHLORIDE 0.9% FLUSH 5 ML FLUSH IVF SCH ×2 (08:03→21:00)
[2017-04-20 12:00] VITALS: BP 110/68; PULSE 101; RESP 16; TEMP 97.7; O2SAT 97
--- NOTE | 2017-04-20 12:49 | PD.ONC.PN ---
Subjective Subjective Remarks Afebrile overnight. Patient seen at 9AM. Just finished eating breakfast. He is hoping to be discharged home soon. Objective Data Date Time Temp Pulse Resp B/P Pulse Ox O2 Delivery O2 Flow Rate FiO2 04/20/17 04:00 97.0 71 16 152/73 98 04/20/17 00:00 98.1 82 20 142/70 97 04/19/17 20:00 96.7 70 20 145/63 97 04/19/17 16:00 96.7 79 16 155/73 97 04/19/17 13:54 16 04/20/17 04/20/17 04/20/17 07:00 15:00 23:00 Intake Total 240 ml Output Total 650 ml Balance -410 ml Result Diagram: 04/20/17 0657 04/20/1757 Laboratory Results Laboratory Tests Test 04/20/17 06:57 White Blood Count 10.3 TH/MM3 Red Blood Count 2.96 MIL/MM3 Hemoglobin 8.8 GM/DL Hematocrit 25.7 % Mean Corpuscular Volume 86.9 FL Mean Corpuscular Hemoglobin 29.6 PG Mean Corpuscular Hemoglobin 34.1 % Concent Red Cell Distribution Width 14.0 % Platelet Count 243 TH/MM3 Mean Platelet Volume 7.8 FL Sodium Level 142 MEQ/L Potassium Level 4.7 MEQ/L Chloride Level 109 MEQ/L Carbon Dioxide Level 25.5 MEQ/L Anion Gap 8 MEQ/L Blood Urea Nitrogen 38 MG/DL Creatinine 1.51 MG/DL Estimat Glomerular Filtration 58 ML/MIN Rate Random Glucose 127 MG/DL Calcium Level 8.0 MG/DL Administered Medications Medications (Trade) Dose Ordered Sig/Deepti Route PRN Reason Start Time Stop Time Status Last Admin Dose Admin Senna/Docusate Sodium (Kassidy-Colace) 1 tab BID PO 04/09/17 09:00 04/20/17 08:02 Magnesium Hydroxide (Milk Of Magnesia Liq) 30 ml Q12H PRN PO MILD - MODERATE CONSTIPATION 04/09/17 02:45 04/11/17 23:40 Pravastatin Sodium (Pravachol) 40 mg DAILY PO 04/09/17 09:00 04/20/17 08:02 Clonidine (Catapres) 0.1 mg Q6H PRN PO SBP> OR = 180, DBP> OR = 100 04/09/17 13:30 04/14/17 05:12 Morphine Sulfate (Oramorph Sr) 15 mg Q8HR PO 04/09/17 16:00 04/20/17 07:01 Amlodipine Besylate (Norvasc) 10 mg DAILY PO 04/11/17 09:00 04/20/17 08:02 Dexamethasone Sodium Phosphate (Decadron Inj) 4 mg Q6HR IV PUSH 04/11/17 12:30 04/20/17 07:01 IV Flush (NS Flush) 2 ml UNSCH PRN IVF FLUSH AFTER USING IV ACCESS 04/13/17 18:00 04/18/17 17:35 IV Flush (NS Flush) 2 ml BID IVF 04/13/17 21:00 04/20/17 08:03 Pantoprazole Sodium (Protonix Inj) 40 mg DAILY IVP 04/14/17 09:00 04/20/17 08:02 ASSET MANAGER Dosage Infused (Pha) 1 1 Q8HR .XX 04/13/17 22:00 04/19/17 13:54 Phenylephrine HCl/ Sodium Chloride (Neosynephrine Inj/NS 500 ml Inj) 508 ml @ 0 mls/hr TITRATE IV 04/14/17 17:00 04/15/17 06:55 Amiodarone HCl (Cordarone) 200 mg DAILY PO 04/16/17 18:00 04/20/17 08:02 Doxazosin Mesylate (Cardura) 4 mg DAILY PO 04/20/17 09:00 04/20/17 08:02 Objective Remarks GENERAL: Middle aged male, sitting up in bed eating breakfast SKIN: Warm and dry. HEAD: Normocephalic. EYES: No injection or drainage. NECK: Supple, trachea midline. CARDIOVASCULAR: Regular rate and rhythm RESPIRATORY: Breath sounds equal bilaterally. No accessory muscle use. GASTROINTESTINAL: Abdomen soft, non-tender, nondistended. EXTREMITIES: No cyanosis NEUROLOGICAL: awake and alert, normal speech. moving all extremities. Assessment/Plan Problem List: (1) Cord compression Status: Resolved Plan: --Neurosurgery following, s/p decompression on 04/13 --on Decadron 4mg PO q 6 (2) Normocytic anemia Status: Chronic Plan: --iron studies show low-normal iron, may benefit from IV iron --B12 WNL (3) Prostate cancer metastatic to bone Status: Acute Plan: -s/p surgical decompression of cord compression at T3 , 6/2 --Metastatic disease involving the spine, retroperitoneum, also has bilateral hydronephrosis related to neoplasm involving the distal ureters. --PSA is elevated in the 900s. is highly suspicious for metastatic prostate cancer. We need to establish a tissue diagnosis. --MRI T/L spine: shows widespread osseous disease + cord compression at T3 Assessment 56y/o male with metastatic prostate cancer with disease to the spine as well as widespread metastatic disease to the bones history of hypertension and atrial fibrillation, on ASA History from initial consult--presented to the emergency department with complaints of worsening back pain. He was seen at [facility] initially and a CT scan of the T-spine without contrast was completed. It showed bilateral hydronephrosis and proximal hydroureter and excessive diffuse metastatic disease involving the entire visualized vertebral column. He also had paraspinal extraosseous spread of neoplasm at T9. The patient was discharged from the hospital with Percocet and was referred to oncology. CT of the abdomen and pelvis was performed which showed bilateral hydronephrosis which was felt secondary to a neoplasm involving the distal ureter. There was retroperitoneal adenopathy and widespread bony metastatic disease. His PSA was elevated to 937. The patient was found to be anemic on admission with a hemoglobin of 9.4. The patient was found to be in acute renal failure with a serum creatinine of three. Oncology has been consulted to make further recommendations in this patient who appears to have metastatic prostate cancer based on his elevated PSA levels and multiple bony metastatic lesions. Plan 1. XRT to start next week 2. plan for follow up in clinic once discharged--fs faxed to new patient referrals Attending Statement The exam, history, and the medical decision-making described in the above note were completed with the assistance of the mid-level provider. I reviewed and agree with the findings presented. I attest that I had a [id number] encounter with the patient on the same day, and personally performed and documented my assessment and findings in the medical recor Liliam French Apr 20, 2017 12:48 Tim Le MD Apr 20, 2017 22:00
--- NOTE | 2017-04-20 14:44 | HHI.NSPN ---
(Linda Sampson) Note Status Status: Progress Note (Linda Sampson) Interval History Interval History Mr. Alford is a 56-year-old male who presented to the ER with complaints of severe back pain for a month. Apparently he was evaluated at [facility] for back pain recently. A CT Thoracic spine had showed diffuse metastatic disease of the spine. He was told the results and discharged with instructions to follow up with PCP for an Oncology referral. His back pain worsened with acute chest pain and thus presented to [facility]. He reports some numbness and tingling in his feet, he denies significant leg weakness, bowel or bladder incontinence, fevers or chills. An MRI of the thoracic spine showed widespread metastatic disease with cord compression at T3. His PSA is elevated. A neurosurgical evaluation was requested. 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 denies paresthesias in LEs. Pain controlled if not moving. 6/4: POD 2 feeling a bit better today, pain controlled, reports moving his legs well, denies paresthesias in LE's. 5: POD 3 back pain better, doing well, no new complaints 04/17: POD 4, pathology pending 04/18: POD 5, ambulating with rolling walker, reports mild paresthesias in the left leg which is manageable. 04/19: POD 6, doing well, no new complaints, radiation oncology in room, 04/20: POD 7, minimal upper back pain, has no new complaints. Left leg paresthesias also improved. (Linda Sampson) Labs, Micro, & Vital Signs Results Date Time Temp Pulse Resp B/P Pulse Ox O2 Delivery O2 Flow Rate FiO2 04/20/17 12:00 97.7 101 16 110/68 97 04/20/17 08:00 97.0 79 16 159/82 97 04/20/17 04:00 97.0 71 16 152/73 98 04/20/17 00:00 98.1 82 20 142/70 97 04/19/17 20:00 96.7 70 20 145/63 97 04/19/17 16:00 96.7 79 16 155/73 97 04/20/17 07:00 Intake Total 1729 ml Output Total 3000 ml Balance -1271 ml Constitutional Vital Signs Date Time Temp Pulse Resp B/P Pulse Ox O2 Delivery O2 Flow Rate FiO2 04/20/17 12:00 97.7 101 16 110/68 97 04/20/17 08:00 97.0 79 16 159/82 97 04/20/17 04:00 97.0 71 16 152/73 98 04/20/17 00:00 98.1 82 20 142/70 97 04/19/17 20:00 96.7 70 20 145/63 97 04/19/17 16:00 96.7 79 16 155/73 97 04/20/17 07:00 Intake Total 1729 ml Output Total 3000 ml Balance -1271 ml (Linda Sampson) Review of Systems/Exam Exam Mr. Alford is alert, eating his breakfast. Speech is appropriate. Smiling and very pleasant. Wound healing well, Prineo dressing intact. previous JOSE drain site wound closed , no drainage seen. Cranial nerve examination: pupils equal. Facial motor are normal and symmetrical. Motor: moving all major muscle groups of upper and lower extremities with good strength Reports mild paresthesias to distal left leg. No ankle clonus. Plantars downgoing b/l (Linda Sampson) Medications Current Medications Current Medications Medications (Trade) Dose Ordered Sig/Deepti Route PRN Reason Start Time Stop Time Status Last Admin Dose Admin Ondansetron HCl (Zofran Inj) 4 mg Q6H PRN IVP NAUSEA OR VOMITING 04/09/17 02:45 Acetaminophen (Tylenol) 650 mg Q6H PRN PO PAIN SCALE 1 TO 2 04/09/17 02:45 Senna/Docusate Sodium (Kassidy-Colace) 1 tab BID PO 04/09/17 09:00 04/20/17 08:02 Magnesium Hydroxide (Milk Of Magnesia Liq) 30 ml Q12H PRN PO MILD - MODERATE CONSTIPATION 04/09/17 02:45 04/11/17 23:40 Sennosides (Senokot) 17.2 mg Q12H PRN PO MODERATE - SEVERE CONSTIPATION 04/09/17 02:45 Bisacodyl (Dulcolax Supp) 10 mg DAILY PRN RECTAL SEVERE CONSITIPATION 04/09/17 02:45 Lactulose (Lactulose Liq) 30 ml DAILY PRN PO SEVERE CONSITIPATION 04/09/17 02:45 Diazepam (Valium) 5 mg Q8H PRN PO MUSCLE SPASM 04/09/17 02:45 Pravastatin Sodium (Pravachol) 40 mg DAILY PO 04/09/17 09:00 04/20/17 08:02 Clonidine (Catapres) 0.1 mg Q6H PRN PO SBP> OR = 180, DBP> OR = 100 04/09/17 13:30 04/14/17 05:12 Morphine Sulfate (Oramorph Sr) 15 mg Q8HR PO 04/09/17 16:00 04/20/17 13:22 Amlodipine Besylate (Norvasc) 10 mg DAILY PO 04/11/17 09:00 04/20/17 08:02 IV Flush (NS Flush) 2 ml UNSCH PRN IVF FLUSH AFTER USING IV ACCESS 04/13/17 18:00 04/18/17 17:35 IV Flush (NS Flush) 2 ml BID IVF 04/13/17 21:00 04/20/17 08:03 Morphine Sulfate (Morphine Inj) 2 mg Q2H PRN IV PUSH PAIN SCALE 1 TO 6 04/13/17 18:00 Morphine Sulfate (Morphine Inj) 4 mg Q2H PRN IV PUSH PAIN SCALE 7 TO 10 04/13/17 18:00 Acetaminophen (Tylenol) 650 mg Q4H PRN PO TEMPERATURE > 101.5 F 04/13/17 18:00 Naloxone HCl (Narcan Inj) 0.4 mg UNSCH PRN IV RESPIRATORY RATE LESS THAN 10 04/13/17 18:00 Diphenhydramine HCl (Benadryl Inj) 25 mg Q6H PRN IV ITCHING 04/13/17 18:00 Terbutaline Sulfate (Brethine Inj) 1 mg UNSCH PRN SQ For Extravasation 04/14/17 10:15 Amiodarone HCl (Cordarone) 200 mg DAILY PO 04/16/17 18:00 04/20/17 08:02 Doxazosin Mesylate (Cardura) 4 mg DAILY PO 04/20/17 09:00 04/20/17 08:02 Dexamethasone (Decadron) 4 mg Q6HR PO 04/20/17 18:00 Pantoprazole Sodium (Protonix) 40 mg DAILY PO 04/21/17 09:00 (Linda Sampson) Medical Decision Making MDM Remarks 56 y/o male with spine metastases with cord compression at T3, s/p decompressive laminectomy with resection of spine mass and T1-T4 posterior fusion 04/13/17, neuro stable, thoracic pain improved (Linda Sampson) Plan Plan Remarks cont current care cont therapy follow up oncology and rad onc, plan for radiation tx next week rehab efforts dw pt activity restrictions and avoiding falls, cont TLSO when out of bed clear to dc to rehab from NRS standpoint (Linda Sampson) Attending Statement The exam, history, and the medical decision-making described in the above note were completed with the assistance of the mid-level provider. I reviewed and agree with the findings presented. I attest that I had a [id number] encounter with the patient on the same day, and personally performed and documented my assessment and findings in the medical record. (Manoj Tovar MD) Linda Sampson Apr 20, 2017 14:44 Manoj Tovar MD Apr 22, 2017 19:29
[2017-04-20 16:00] VITALS: BP 134/64; PULSE 83; RESP 16; TEMP 96.5; O2SAT 97
[2017-04-20] MEDS: DEXAMETHASONE 4 MG TAB PO SCH ×2 (17:26→22:30)
--- NOTE | 2017-04-20 19:19 | HHI.PR ---
Subjective Remarks patient states minimal pain in upper back denies cp/sob denies fevers/chills stable vital signs Objective Vitals Vital Signs Date Time Temp Pulse Resp B/P Pulse Ox O2 Delivery O2 Flow Rate FiO2 04/20/17 16:00 96.5 83 16 134/64 97 04/20/17 12:00 97.7 101 16 110/68 97 04/20/17 08:00 97.0 79 16 159/82 97 04/20/17 04:00 97.0 71 16 152/73 98 04/20/17 00:00 98.1 82 20 142/70 97 04/19/17 20:00 96.7 70 20 145/63 97 I/O 04/19/17 04/19/17 04/19/17 04/20/17 04/20/17 04/20/17 06:59 14:59 22:59 06:59 14:59 22:59 Intake Total 519 ml 709 ml 780 ml 240 ml Output Total 1100 ml 1350 ml 1000 ml 650 ml Balance -581 ml -641 ml -220 ml -410 ml Intake Oral 240 ml 600 ml 780 ml 240 ml IV Total 279 ml 109 ml Output Urine Total 1100 ml 1350 ml 1000 ml 650 ml # Bowel Movements 0 0 0 0 1 Result Diagram: 04/20/17 0657 04/20/17 0657 Imaging Last Impressions Thoracic Spine X-Ray 04/13/17 0000 Signed Impressions: Service Date/Time: Thursday, April 13, 2017 13:54 - CONCLUSION: Limited images as detailed above. Pilo Garber Jr., MD Neck Magnetic Resonance Angiography 04/13/17 0000 Signed Impressions: Service Date/Time: Thursday, April 13, 2017 07:51 - CONCLUSION: 1. 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 2. Otherwise, unremarkable MRA examination. Specifically, no significant carotid artery stenosis. Stef Patel MD Head Magnetic Resonance Angiography 04/13/17 0000 Signed Impressions: Service Date/Time: Thursday, April 13, 2017 07:51 - CONCLUSION: 1. Mildly hypoplastic left A1 segment, likely congenital. 2. Unremarkable MRA examination without evidence for significant stenosis, occlusion, or aneurysm. Stef Patel MD Head CT 04/13/17 0000 Signed Impressions: Service Date/Time: Thursday, April 13, 2017 05:42 - CONCLUSION: 1. No evidence of acute intracranial pathology. No masses are identified. Dony Ahn MD Chest X-Ray 04/13/17 0000 Signed Impressions: Service Date/Time: Thursday, April 13, 2017 18:19 - CONCLUSION: 1. No pneumothorax following central line placement. 2. Bilateral pulmonary infiltrates and cardiomegaly. This would suggest pulmonary edema. Pilo Garber Jr., MD Brain MRI 04/13/17 0000 Signed Impressions: Service Date/Time: Thursday, April 13, 2017 07:51 - CONCLUSION: 1. There is no restricted diffusion evident. 2. There is no abnormal contrast enhancement to suggest metastatic disease. Charlie Juarez MD FACR Thoracic Spine MRI 04/11/17 0000 Signed Impressions: Service Date/Time: Tuesday, April 11, 2017 09:58 - CONCLUSION: Widespread metastatic disease with extra osseous spread of tumor at the T3 level causing significant cord compression. Charlie Juarez MD FACR Lumbar Spine MRI 04/11/17 0000 Signed Impressions: Service Date/Time: Tuesday, April 11, 2017 09:58 - CONCLUSION: 1. There is no evidence for cord compression. 2. Widespread bony metastatic disease. Charlie Juarez MD FACR Lung Scan-V Nuclear Medicine 04/09/17 0205 Signed Impressions: Service Date/Time: Sunday, April 09, 2017 09:21 - CONCLUSION: Normal examination with no ventilation/perfusion mismatch. Examination is low probability for PE. Agustín Augustin MD Abdomen/Pelvis CT 04/09/17 0145 Signed Impressions: Service Date/Time: Sunday, April 09, 2017 02:07 - CONCLUSION: Bilateral hydronephrosis which is felt likely related to neoplasm involving the distal ureters. Retroperitoneal adenopathy. Widespread bony metastatic disease. Agustín Boykin MD Objective Remarks GENERAL: Well-nourished, NAD. SKIN: Warm and dry. HEAD: Normocephalic. EYES: No scleral icterus. No injection or drainage. NECK: Supple, trachea midline. No JVD or lymphadenopathy. CARDIOVASCULAR: Regular rate and rhythm without murmurs, gallops, or rubs. RESPIRATORY: Breath sounds equal bilaterally. No accessory muscle use. GASTROINTESTINAL: Abdomen soft, non-tender, nondistended. MUSCULOSKELETAL: No cyanosis, or edema. BACK: Nontender without obvious deformity. No CVA tenderness. EXTREMITIES: Moves all 4 without a focal deficit NEURO:O X 3, alert, cooperative. Good pain control. Legs 3-4/5 strength. Procedures sp T3 laminectomy, resection of mass, T1 - T4 posterior fusion. transpedicular rods screws, allograft bone graft. Medications and IVs Current Medications Medications (Trade) Dose Ordered Sig/Deepti Route Start Time Stop Time Status Last Admin (Zofran Inj) 4 mg Q6H PRN IVP 04/09/17 02:45 (Tylenol) 650 mg Q6H PRN PO 04/09/17 02:45 (Kassidy-Colace) 1 tab BID PO 04/09/17 09:00 04/20/17 08:02 (Milk Of Magnesia Liq) 30 ml Q12H PRN PO 04/09/17 02:45 04/11/17 23:40 (Senokot) 17.2 mg Q12H PRN PO 04/09/17 02:45 (Dulcolax Supp) 10 mg DAILY PRN RECTAL 04/09/17 02:45 (Lactulose Liq) 30 ml DAILY PRN PO 04/09/17 02:45 (Valium) 5 mg Q8H PRN PO 04/09/17 02:45 (Pravachol) 40 mg DAILY PO 04/09/17 09:00 04/20/17 08:02 (Catapres) 0.1 mg Q6H PRN PO 04/09/17 13:30 04/14/17 05:12 (Oramorph Sr) 15 mg Q8HR PO 04/09/17 16:00 04/20/17 13:22 (Norvasc) 10 mg DAILY PO 04/11/17 09:00 04/20/17 08:02 (NS Flush) 2 ml UNSCH PRN IVF 04/13/17 18:00 04/18/17 17:35 (NS Flush) 2 ml BID IVF 04/13/17 21:00 04/20/17 08:03 (Morphine Inj) 2 mg Q2H PRN IV PUSH 04/13/17 18:00 (Morphine Inj) 4 mg Q2H PRN IV PUSH 04/13/17 18:00 (Tylenol) 650 mg Q4H PRN PO 04/13/17 18:00 (Narcan Inj) 0.4 mg UNSCH PRN IV 04/13/17 18:00 (Benadryl Inj) 25 mg Q6H PRN IV 04/13/17 18:00 (Brethine Inj) 1 mg UNSCH PRN SQ 04/14/17 10:15 (Cordarone) 200 mg DAILY PO 04/16/17 18:00 04/20/17 08:02 (Cardura) 4 mg DAILY PO 04/20/17 09:00 04/20/17 08:02 (Decadron) 4 mg Q6HR PO 04/20/17 18:00 04/20/17 17:26 (Protonix) 40 mg DAILY PO 04/21/17 09:00 Urinary Catheter: No Vascular Central Line Catheter: No A/P Problem List: (1) Intractable back pain ICD Code: M54.9 Status: Resolved (2) Metastatic disease ICD Code: C79.9 Status: Acute (3) Chest pain ICD Code: R07.9 Status: Resolved (4) Elevated d-dimer ICD Code: R79.89 Status: Acute (5) Hydronephrosis ICD Code: N13.30 Status: Acute (6) JENELLE (acute kidney injury) ICD Code: N17.9 Status: Resolved (7) Anemia ICD Code: D64.9 Status: Acute (8) HTN (hypertension) ICD Code: I10 Status: Chronic (9) Normocytic anemia ICD Code: D64.9 Status: Chronic (10) Cord compression ICD Code: G95.20 Status: Resolved (11) Postoperative anemia due to acute blood loss ICD Code: D62 Status: Acute Assessment and Plan T3 epidural mass with spinal cord compression - Decompressive surgery - Dexamethasone every 6 hours - Management per neurosurgeon - BP level per NS Hypertension - On norvasc and clonidine prn. - BP initially elevated - Started on Doxazosyn which was increased from 2mg to 4 mg on 04/19. BP stable Atrial fibrillation - Rate controlled. Continue by mouth amiodarone. Continue to monitor on telemetry. Dyslipidemia - Atorvastatin Hyperglycemia - Insulin sliding scale - 04/20 Blood sugars stable. Hemoglobin A1c is 6.2. Will discuss with patient about starting metformin. Anemia - iron studies show low-normal iron. - B12 WNL - Patient seems to have chronic. - Is sp transfusion of 2 units of packed blood cells for acute postop anemia. Metastatic disease -Patient status post surgical decompression. Metastatic disease involving spine, retroperitoneum, also has bilateral hydronephrosis related to neoplasm involving the distal ureters. PSA elevated in the 900s. Highly suspicious for metastatic prostate cancer. Tissue diagnosis needs to be established. Follow-up pathology MRI of the T/L-spine: Showed [place] proptosis disease is cord compression at T3. -Pathology report confirmed prostatic adenocarcinoma. The case was discussed with Clary French the oncology PA. Patient Can start XRT next week. JENELLE - Likely postobstructive, patient on to have bilateral hydronephrosis on CT abdomen and pelvis likely related to neoplasm involving the distal ureters. Browning catheter placed and creatinine trending down. Continue to monitor BUN/ creatinine, strict I's and O's, avoid nephrotoxins. DVT GI prophylaxis - Teds SCDs - Pharmacological DVT prophylaxis per neurosurgeon - Omeprazole Discharge Planning Dc in am. Will DC to Home w Home PT. Problem Qualifiers (1) Chest pain: Qualified Code: R07.9 - Chest pain, unspecified type (2) Hydronephrosis: Qualified Code: N13.39 - Other hydronephrosis (3) Anemia: Qualified Code: D64.9 - Anemia, unspecified type (4) HTN (hypertension): Qualified Code: I10 - Essential hypertension Antelmo Ocampo MD Apr 20, 2017 19:19
[2017-04-20 20:00] VITALS: BP 152/74; PULSE 83; RESP 20; TEMP 98.1; O2SAT 98
[2017-04-21] VITALS: BP 162/69; PULSE 87; RESP 20; TEMP 97.2; O2SAT 96
[2017-04-21 04:00] VITALS: BP 151/69; PULSE 79; RESP 16; TEMP 97.6; O2SAT 98
[2017-04-21] MEDS: MORPHINE SULFATE 15 MG CONTROLLED RELEASE TAB PO SCH ×2 (07:59→13:16)
[2017-04-21 08:00] VITALS: BP 158/78; PULSE 75; RESP 18; TEMP 98.1; O2SAT 97
[2017-04-21] MEDS: DEXAMETHASONE 4 MG TAB PO SCH ×2 (08:00→13:16)
[2017-04-21] MEDS: DOCUSATE SODIUM 50 MG/SENNA 8.6 MG TAB PO SCH (08:57)
[2017-04-21] MEDS: AMIODARONE 200 MG TAB PO SCH (08:58)
[2017-04-21] MEDS: PRAVASTATIN SOD 40 MG TAB PO SCH (08:58)
[2017-04-21] MEDS: DOXAZOSIN MESYLATE 4 MG TAB PO SCH (08:58)
[2017-04-21] MEDS: SODIUM CHLORIDE 0.9% FLUSH 5 ML FLUSH IVF SCH (09:00)
[2017-04-21] MEDS ORDERED: PANTOPRAZOLE SOD 40 MG DELAYED RELEASE TAB PO SCH (09:00)
[2017-04-21] MEDS ORDERED: DEXA4TAB PO (09:15)
[2017-04-21] MEDS ORDERED: PANT40TA3 PO (09:15)
[2017-04-21] MEDS ORDERED: CARD4TAB2 PO (09:15)
[2017-04-21] MEDS ORDERED: PRAV40TA PO (09:15)
[2017-04-21] MEDS ORDERED: AMIO200T PO (09:15)
[2017-04-21] MEDS ORDERED: AMLO10 PO (09:15)
--- NOTE | 2017-04-21 09:24 | HHI.DCPOC ---
Discharge Care Plan Diagnosis: (1) Prostate cancer metastatic to bone (2) Cord compression (3) JENELLE (acute kidney injury) (4) Postoperative anemia due to acute blood loss (5) HTN (hypertension) (6) Chest pain (7) Normocytic anemia (8) Metastatic disease (9) Hydronephrosis Goals to Promote Your Health * To prevent worsening of your condition and complications * To maintain your health at the optimal level Directions to Meet Your Goals Take your medications as prescribed Follow your dietary instruction Follow activity as directed Keep your appointments as scheduled Take your immunizations and boosters as scheduled If your symptoms worsen call your PCP, if no PCP go to Urgent Care Center or Emergency Room Smoking is Dangerous to Your Health. Avoid second hand smoke Call the 24-hour hour crisis hotline for domestic abuse at Antelmo Ocampo MD Apr 21, 2017 09:24
--- NOTE | 2017-04-21 11:49 | HHI.DS ---
Discharge Summary Admission Date April 09, 2017 at 02:20 Discharge Date: Apr 21, 2017 Admitting Diagnosis Renal failure, micro hematuria, back pain with metastasis (1) Intractable back pain ICD Code: M54.9 Diagnosis: Principal (2) Metastatic disease ICD Code: C79.9 Diagnosis: Principal (3) Chest pain ICD Code: R07.9 Diagnosis: Principal (4) Elevated d-dimer ICD Code: R79.89 Diagnosis: Principal (5) Hydronephrosis ICD Code: N13.30 Diagnosis: Principal (6) JENELLE (acute kidney injury) ICD Code: N17.9 Diagnosis: Principal (7) Anemia ICD Code: D64.9 Diagnosis: Principal (8) HTN (hypertension) ICD Code: I10 Diagnosis: Secondary (9) Normocytic anemia ICD Code: D64.9 Diagnosis: Secondary (10) Cord compression ICD Code: G95.20 Diagnosis: Principal (11) Postoperative anemia due to acute blood loss ICD Code: D62 Diagnosis: Principal Procedures sp T3 laminectomy, resection of mass, T1 - T4 posterior fusion. transpedicular rods screws, allograft bone graft. Brief History - From Admission This is a 56-year-old male with a PMH of HTN and h/o A-fib on ASA who presented to the ER w/ complaints of severe back pain x1 month. Was seen at [facility] ([place], [place]) for similar symptoms yesterday. records in chart. CT T-Spine w/o contrast w/ mild bilateral hydronephrosis and proximal hydroureter, very extensive diffuse metastatic disease involving the entire visualized vertebral column, possible paraspinal extraosseous spread of neoplasm at T9. Pt was informed of results and discharged from w/ prescription for Percocet and instructions to follow up w/ PCP for Oncology referral. Today, pt w/ ongoing severe back pain and acute onset of chest pain at which time he presented to [facility]. Also reports difficulty urinating for approx 6 months, seen by PCP Dr. Montero, outpatint U/a normal per patient and started on "medication for prostate", notes some improvement in symptoms. Denies fever, chills, nausea, vomiting or diarrhea. On arrival, BP 195/91, HR 90, O2 sat 99% on RA, Afebrile. WBC normal. Hgb 9.4, previously 13.9 on 12/12/09. Creatinine 3.60, previously 1.35 on 12/12/09. GFR 21. ALP 462. Troponin negative. INR 1.0. D-dimer 4.06. V/ Q pending. UA with hematuria. CXR with no acute findings. CT Abdomen/Pelvis w / bilateral hydronephrosis likely related to neoplasm involving the distal ureters, retroperitoneal adenopathy, widespread bony metastatic disease. CBC/BMP: 04/20/17 0657 04/20/17 0657 Significant Findings Laboratory Tests Test 04/19/17 04/20/17 11:01 06:57 Red Blood Count 3.33 MIL/MM3 2.96 MIL/MM3 (4.50-5.90) (4.50-5.90) Hemoglobin 9.8 GM/DL 8.8 GM/DL (13.0-17.0) (13.0-17.0) Hematocrit 29.1 % 25.7 % (39.0-51.0) (39.0-51.0) Chloride Level 108 MEQ/L 109 MEQ/L (98-107) (98-107) Blood Urea Nitrogen 37 MG/DL (7-18) 38 MG/DL (7-18) Creatinine 1.61 MG/DL 1.51 MG/DL (0.60-1.30) (0.60-1.30) Estimat Glomerular Filtration 54 ML/MIN (>89) 58 ML/MIN (>89) Rate Random Glucose 138 MG/DL 127 MG/DL (74-106) (74-106) Hemoglobin A1c 6.2 % (4.3-6.0) Calcium Level 8.1 MG/DL 8.0 MG/DL (8.5-10.1) (8.5-10.1) Imaging Last Impressions Thoracic Spine X-Ray 04/13/17 0000 Signed Impressions: Service Date/Time: Thursday, April 13, 2017 13:54 - CONCLUSION: Limited images as detailed above. Pilo Garber Jr., MD Neck Magnetic Resonance Angiography 04/13/17 0000 Signed Impressions: Service Date/Time: Thursday, April 13, 2017 07:51 - CONCLUSION: 1. 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 2. Otherwise, unremarkable MRA examination. Specifically, no significant carotid artery stenosis. Stef Patel MD Head Magnetic Resonance Angiography 04/13/17 Signed Impressions: Service Date/Time: Thursday, April 13, 2017 07:51 - CONCLUSION: 1. Mildly hypoplastic left A1 segment, likely congenital. 2. Unremarkable MRA examination without evidence for significant stenosis, occlusion, or aneurysm. Stef Patel MD Head CT 04/13/17 Signed Impressions: Service Date/Time: Thursday, April 13, 2017 05:42 - CONCLUSION: 1. No evidence of acute intracranial pathology. No masses are identified. Dony Ahn MD Chest X-Ray 04/13/17 Signed Impressions: Service Date/Time: Thursday, April 13, 2017 18:19 - CONCLUSION: 1. No pneumothorax following central line placement. 2. Bilateral pulmonary infiltrates and cardiomegaly. This would suggest pulmonary edema. Pilo Garber Jr., MD Brain MRI 04/13/17 Signed Impressions: Service Date/Time: Thursday, April 13, 2017 07:51 - CONCLUSION: 1. There is no restricted diffusion evident. 2. There is no abnormal contrast enhancement to suggest metastatic disease. Charlie Juarez MD FACR Thoracic Spine MRI 04/11/17 Signed Impressions: Service Date/Time: Tuesday, April 11, 2017 09:58 - CONCLUSION: Widespread metastatic disease with extra osseous spread of tumor at the T3 level causing significant cord compression. Charlie Juarez MD FACR Lumbar Spine MRI 04/11/17 Signed Impressions: Service Date/Time: Tuesday, April 11, 2017 09:58 - CONCLUSION: 1. There is no evidence for cord compression. 2. Widespread bony metastatic disease. Charlie Juarez MD FACR Lung Scan-V Nuclear Medicine 04/09/17 0205 Signed Impressions: Service Date/Time: Sunday, April 09, 2017 09:21 - CONCLUSION: Normal examination with no ventilation/perfusion mismatch. Examination is low probability for PE. Agustín Augustin MD Abdomen/Pelvis CT 04/09/17 0145 Signed Impressions: Service Date/Time: Tre, April 09, 2017 02:07 - CONCLUSION: Bilateral hydronephrosis which is felt likely related to neoplasm involving the distal ureters. Retroperitoneal adenopathy. Widespread bony metastatic disease. gAustín Boykin MD PE at Discharge GENERAL: Well-nourished, NAD. SKIN: Warm and dry. HEAD: Normocephalic. EYES: No scleral icterus. No injection or drainage. NECK: Supple, trachea midline. No JVD or lymphadenopathy. CARDIOVASCULAR: Regular rate and rhythm without murmurs, gallops, or rubs. RESPIRATORY: Breath sounds equal bilaterally. No accessory muscle use. GASTROINTESTINAL: Abdomen soft, non-tender, nondistended. MUSCULOSKELETAL: No cyanosis, or edema. BACK: Nontender without obvious deformity. No CVA tenderness. EXTREMITIES: Moves all 4 without a focal deficit NEURO:O X 3, alert, cooperative. Good pain control. Legs 3-4/5 strength. Pt update on day of discharge c/o some aches and pains in the back. Denies cp/sob. afebrile. recommended patient to resume aspirin as soon as he is told by neurosurgery to do so. Hospital Course T3 epidural mass with spinal cord compression - sp Decompressive surgery and treated with dexamethasone 6 hours. -Neurosurgery consulted this problem was managed by them. - BP level per NS Hypertension - On norvasc and clonidine prn. - BP initially elevated - Started on Doxazosyn which was increased from 2mg to 4 mg on 04/19. BP stable Atrial fibrillation - Rate controlled. Continue by mouth amiodarone. Continue to monitor on telemetry. Dyslipidemia - Atorvastatin Hyperglycemia - Insulin sliding scale - 04/20 Blood sugars stable. Hemoglobin A1c is 6.2. Discussed with patient about starting metformin, he will discuss with his primary care physician. Anemia - iron studies show low-normal iron. - B12 WNL - Is sp transfusion of 2 units of packed blood cells for acute postop anemia. Metastatic disease -Patient status post surgical decompression. Metastatic disease involving spine, retroperitoneum, also has bilateral hydronephrosis related to neoplasm involving the distal ureters. PSA elevated in the 900s. Highly suspicious for metastatic prostate cancer. Tissue diagnosis needs to be established. Follow-up pathology MRI of the T/L-spine: Showed West proptosis disease is cord compression at T3. -Pathology report confirmed prostatic adenocarcinoma. The case was discussed with Clary French the oncology PA. Patient Can start XRT next week. JENELLE - Likely postobstructive, patient on to have bilateral hydronephrosis on CT abdomen and pelvis likely related to neoplasm involving the distal ureters. Browning catheter placed and creatinine trending down. BUN/creatinine was monitored during hospital stay. Nephrotoxic medications avoided. DVT GI prophylaxis - Teds SCDs - Pharmacological DVT prophylaxis managed by neurosurgeon. - Omeprazole Pt Condition on Discharge: Stable Discharge Disposition: Discharge Home Discharge Time: > 30 minutes Discharge Instructions DIET: Follow Instructions for: As Tolerated, No Restrictions Activities you can perform: See Additionl Instruction Other Activity Instructions: as per Physical therapy - OOB with assistance TLSO when Out of bed Follow up Referrals: Neurosurgery - 1 Week with Manoj Tovar MD Oncology - 2 Weeks with Tim Le MD Urology - 1 Week New Medications: Amiodarone (Amiodarone) 200 Mg Tab 200 MG PO DAILY Blood Pressure Management #31 TAB Amlodipine (Norvasc) 10 Mg Tab 10 MG PO DAILY Blood Pressure Management #31 TAB Dexamethasone (Dexamethasone) 4 Mg Tab 4 MG PO Q6HR Inflammation #62 TAB Doxazosin (Cardura) 4 Mg Tab 4 MG PO DAILY Blood Pressure Management #31 TAB Pantoprazole (Pantoprazole) 40 Mg Tab 40 MG PO DAILY gi protection #31 TAB Pravastatin (Pravachol) 40 Mg Tab 40 MG PO DAILY Cholesterol Management #31 TAB Continued Medications: Captopril (Captopril) 25 Mg Tab 25 MG PO TIDAC Take 1 hr before meals. #90 Ref 0 TAB Discontinued Medications: Aspirin (Aspirin) 325 Mg Tab 325 MG PO DAILY #30 Ref 0 TAB Antelmo Ocampo MD Apr 21, 2017 11:48
[2017-04-21 12:00] VITALS: BP 148/62; PULSE 93; RESP 18; TEMP 97.6; O2SAT 97
[2017-04-30] MEDS ORDERED: PERC5TAB12 PO (16:16)
== END 2017-04-21 13:40 | disposition home or self-care (01) | DRG 457 ==
LOC: NEPE 22:20 → NEDA 04-09 02:20 → N07A 04-09 03:39 → N03A 04-13 06:06 → N06A 04-18 14:54
PROVIDERS: ADMIT Hospitalist; ATTEND Hospitalist
PROC: 00BX0ZZ Excision of Thoracic Spinal Cord, Open Approach (ICD-10-PCS; 2017-04-13)
PROC: 0RG7071 Fusion of 2 to 7 Thoracic Vertebral Joints with Autologous Tissue Substitute, Posterior Approach, Posterior Column, Open Approach (ICD-10-PCS; principal; 2017-04-13 12:35)
DX: C79.51 Secondary malignant neoplasm of bone (principal); C79.49 Secondary malignant neoplasm of other parts of nervous system; N17.9 Acute kidney failure, unspecified; C78.6 Secondary malignant neoplasm of retroperitoneum and peritoneum; D62 Acute posthemorrhagic anemia; N13.1 Hydronephrosis with ureteral stricture, not elsewhere classified; I48.91 Unspecified atrial fibrillation; G95.29 Other cord compression; C61 Malignant neoplasm of prostate; I10 Essential (primary) hypertension; H91.91 Unspecified hearing loss, right ear; K21.9 Gastro-esophageal reflux disease without esophagitis; R63.4 Abnormal weight loss; E78.5 Hyperlipidemia, unspecified; R73.9 Hyperglycemia, unspecified; R56.9 Unspecified convulsions; W19.XXXA Unspecified fall, initial encounter; Y92.239 Unspecified place in hospital as the place of occurrence of the external cause; Z88.5 Allergy status to narcotic agent
CPT/HCPCS: 36430; 70450; 70544; 70548; 70553; 71010; 72070; 72146; 72148; 74176; 76000; 78582; 80048; 80053; 81001; 82435; 82550; 82552; 82565; 82607; 82728; 82747; 82805; 82947; 83010; 83036; 83540; 83550; 83615; 83690; 83735; 83880; 84100; 84132; 84153; 84295; 84466; 84484; 84520; 85007; 85014; 85018; 85025; 85027; 85379; 85384; 85610; 85730; 86850; 86900; 86901; 86920; 87641; 88307; 88311; 88331; 88341; 88342; 93005; 94150; 95819; 99223; 99285; A9540; A9567; A9577; C1713; C9113; J0131; J0282; J0690; J1100; J1170; J1580; J1644; J1953; J2060; J2250; J2270; J2370; J2405; J3010; J3370; J3480; J7030; J7040; J7050; J7060; J7120; J8540; L0200; L0484; P9016

== ENCOUNTER → 2017-05-11 | Outpatient (CLI) | payer OTHER ==
[~2017-05-11] MED LIST changes: +AMIO200T PO; +AMLO10 PO; -ASPI325T PO; -CAPT25TA2 PO; +CARD4TAB2 PO; +DEXA4TAB PO; -METO50TA PO; +PANT40TA3 PO; +PERC5TAB12 PO; +PRAV40TA PO; -RANI150 PO
--- NOTE | 2017-05-11 12:51 | RADRPT ---
EXAM DATE/TIME: 05/11/2017 11:11 [facility] COMPARISON: MRI THORACIC SPINE W/O CONTRAST, April 11, 2017, 9:58. INDICATIONS : Post Instrumentation. MEDICAL HISTORY : Hypertension. Carcinoma, prostate. Metastatic, bone. SURGICAL HISTORY : Thoracic spine surgery. ENCOUNTER: Initial ACUITY: 1 month PAIN SCORE: 0/10 LOCATION: Thoracic spine. FINDINGS: Transpedicular fixation is seen bridging T3 in anatomic alignment. CONCLUSION: Anatomic alignment.. Charlie Juarez MD FACR on May 11, 2017 at 12:48 Board Certified Radiologist. This report was verified electronically.
== END ==
LOC: HRAD 10:56
PROVIDERS: ATTEND Physician Assistant Medical
DX: M43.24 Fusion of spine, thoracic region (principal)
CPT/HCPCS: 72072

== ENCOUNTER 2017-05-29 14:35 | Inpatient (IN) | payer OTHER ==
[~2017-05-29] VITALS: Ht 180.3 cm; Wt 92.1 kg
[2017-05-29] VITALS (12 sets, daily range): BP systolic 115–166; BP diastolic 62–75; PULSE 93–121; RESP 18–30; TEMP 101.1–103.1; O2SAT 90–95
[2017-05-29] MEDS ORDERED: SODIUM CHLOR 0.9% 1000 ML INJ 1,000 ML IV ONE ×2 (14:50→16:30)
[2017-05-29] MEDS ORDERED: ACETAMINOPHEN 325 MG TAB PO ONE (15:00)
--- NOTE | 2017-05-29 15:06 | PD ---
HPI Chief Complaint: Respiratory Distress Time Seen by Provider: 14:50 Travel History International Travel<30 days: No Contact w/Intl Traveler<30days: No Traveled to known affect area: No History of Present Illness HPI 56 y/o male presents with fever of 102 and shortness of breath being sent from the oncology clinic. He denies other concurrent complaints. He states his oncologist is Dr. harman. He states he feels worse when he moves around. His oxygen saturation on room air was in the 70s. He was transported by ambulance on 4 L of oxygen. He states that he gets radiation and is not sure if he gets chemotherapy for his prostate cancer. He denies other modifying factors. Duration is over the past day or so. PFSH Past Medical History Blood Disorders: No Heart Rhythm Problems: Yes (AFIB) Cancer: Yes (RECENTLY DIAGNOSED prostate and spine) Cardiovascular Problems: Yes High Cholesterol: No Chemotherapy: No Chest Pain: Yes (THIS ADMISSION) Congestive Heart Failure: No Diminished Hearing: Yes (DECREASE RIGHT EAR SINCE THIS AM) Endocrine: No Gastrointestinal Disorders: Yes GERD: Yes (GERD) Genitourinary: Yes Hiatal Hernia: No Hypertension: Yes Immune Disorder: No Implanted Vascular Access Dvce: No Musculoskeletal: Yes Neurologic: No Psychiatric: No Reproductive: No Respiratory: No Radiation Therapy: No Ulcer: No ?: Not Past Surgical History Other Surgery: No Social History Alcohol Use: Yes (one beer occasionally) Tobacco Use: No Substance Use: Yes (MARIJUANA 1985) Allergies-Medications (Allergen,Severity, Reaction): Coded Allergies: No Known Allergies (Unverified , 05/29/17) Reported Meds & Prescriptions Reported Meds & Active Scripts Active Pravachol (Pravastatin) 40 Mg Tab 40 Mg PO DAILY Pantoprazole (Pantoprazole Sodium) 40 Mg Tab 40 Mg PO DAILY Dexamethasone 4 Mg Tab 4 Mg PO Q6HR Norvasc (Amlodipine Besylate) 10 Mg Tab 10 Mg PO DAILY Cardura (Doxazosin Mesylate) 4 Mg Tab 4 Mg PO DAILY Reported Casodex (Bicalutamide) 50 Mg Tab 50 Mg PO DAILY Hazardous agent; use appropriate precautions for handling & disposal. Keppra (Levetiracetam) 500 Mg Tab 500 Mg PO Q12HR Captopril 25 Mg Tab 25 Mg PO DAILY Take 1 hr before meals. Percocet (Oxycodone-Acetaminophen) 5-325 mg Tab 1 Tab PO Q6H PRN Review of Systems Except as stated in HPI: all other systems reviewed are Neg Physical Exam Narrative GENERAL: Ill-appearing, well-developed patient. SKIN: Warm and dry. HEAD: Normocephalic and atraumatic. EYES: No injection or drainage. ENT: No nasal drainage noted. NECK: Supple, trachea midline. CARDIOVASCULAR: Tachycardic rate RESPIRATORY: Breath sounds equal bilaterally at apices. No accessory muscle use. GASTROINTESTINAL: Abdomen soft, nondistended. NEUROLOGICAL: Awake and alert. Moves all extremities. Normal speech. Data Data Last Documented VS Vital Signs Date Time Temp Pulse Resp B/P Pulse Ox O2 Delivery O2 Flow Rate FiO2 05/29/17 15:03 118 18 166/75 94 Nasal Cannula 4 05/29/17 14:49 103.1 Orders Electrocardiogram (05/29/17 14:50) Complete Blood Count With Diff (05/29/17 14:50) Comprehensive Metabolic Panel (05/29/17 14:50) Prothrombin Time / Inr (Pt) (05/29/17 14:50) Act Partial Throm Time (Ptt) (05/29/17 14:50) Lactic Acid Sepsis Protocol (05/29/17 14:50) Magnesium (Mg) (05/29/17 14:50) Phosphorus (Po4) (05/29/17 14:50) Ckmb (Isoenzyme) Profile (05/29/17 14:50) Troponin I (05/29/17 14:50) Urinalysis - C+S If Indicated (05/29/17 14:50) Influenzae A/B Antigen (05/29/17 14:50) Blood Culture (05/29/17 14:50) Chest, Single Ap (05/29/17 14:50) Ecg Monitoring (05/29/17 14:50) Iv Access Insert/Monitor (05/29/17 14:50) Oximetry (05/29/17 14:50) Oxygen Administration (05/29/17 14:50) Acetaminophen (Tylenol) (05/29/17 15:00) Sodium Chlor 0.9% 1000 Ml Inj (Ns 1000 M (05/29/17 14:50) Cefepime Inj (Maxipime Inj) (05/29/17 16:07) Azithromycin Inj (Zithromax Inj) (05/29/17 16:07) B-Type Natriuretic Peptide (05/29/17 16:08) Red Blood Cells (Rbc) (05/29/17 16:09) Blood Product Administration .UPON TRANSFUSION (05/29/17 16:09) Sodium Chlor 0.9% 250 Ml Inj (Ns 250 Ml (05/29/17 16:15) Type And Screen (05/29/17 16:09) Calcium Gluconate Inj (Calcium Gluconate (05/29/17 16:30) Sodium Chlor 0.9% 1000 Ml Inj (Ns 1000 M (05/29/17 16:30) Urine Culture (05/29/17 16:00) Admit Order (Ed Use Only) (05/29/17 16:56) Labs Laboratory Tests Test 05/29/17 05/29/17 14:55 16:00 White Blood Count 6.3 TH/MM3 Red Blood Count 2.55 MIL/MM3 Hemoglobin 7.7 GM/DL Hematocrit 22.8 % Mean Corpuscular Volume 89.4 FL Mean Corpuscular Hemoglobin 30.2 PG Mean Corpuscular Hemoglobin 33.8 % Concent Red Cell Distribution Width 15.7 % Platelet Count 384 TH/MM3 Mean Platelet Volume 7.4 FL Neutrophils (%) (Auto) 84.6 % Lymphocytes (%) (Auto) 9.2 % Monocytes (%) (Auto) 5.3 % Eosinophils (%) (Auto) 0.2 % Basophils (%) (Auto) 0.7 % Neutrophils # (Auto) 5.3 TH/MM3 Lymphocytes # (Auto) 0.6 TH/MM3 Monocytes # (Auto) 0.3 TH/MM3 Eosinophils # (Auto) 0.0 TH/MM3 Basophils # (Auto) 0.0 TH/MM3 CBC Comment DIFF FINAL Differential Comment Prothrombin Time 12.9 SEC Prothromb Time International 1.2 RATIO Ratio Activated Partial 33.5 SEC Thromboplast Time Sodium Level 134 MEQ/L Potassium Level 4.3 MEQ/L Chloride Level 103 MEQ/L Carbon Dioxide Level 20.8 MEQ/L Anion Gap 10 MEQ/L Blood Urea Nitrogen 26 MG/DL Creatinine 1.97 MG/DL Estimat Glomerular Filtration 43 ML/MIN Rate Random Glucose 116 MG/DL Lactic Acid Level 1.7 mmol/L Calcium Level 7.1 MG/DL Protein Corrected Calcium 6.9 MG/DL Phosphorus Level 2.0 MG/DL Magnesium Level 2.1 MG/DL Total Bilirubin 0.5 MG/DL Aspartate Amino Transf 33 U/L (AST/SGOT) Alanine Aminotransferase 40 U/L (ALT/SGPT) Alkaline Phosphatase 545 U/L Total Creatine Kinase 71 U/L Troponin I LESS THAN 0.02 NG/ML Total Protein 7.7 GM/DL Albumin 2.3 GM/DL Urine Color YELLOW Urine Turbidity HAZY Urine pH 5.5 Urine Specific [place] 1.014 Urine Protein 30 mg/dL Urine Glucose (UA) NEG mg/dL Urine Ketones NEG mg/dL Urine Occult Blood SMALL Urine Nitrite NEG Urine Bilirubin NEG Urine Urobilinogen 2.0 MG/DL Urine Leukocyte Esterase LARGE Urine RBC 3 /hpf Urine WBC 60 /hpf Urine Squamous Epithelial <1 /hpf Cells Urine Amorphous Sediment RARE Urine Bacteria MANY /hpf Urine Hyaline Casts 7 /lpf Urine Mucus FEW /lpf Microscopic Urinalysis Comment CATH-CULTURE IND MDM Medical Decision Making Medical Screen Exam Complete: Yes Emergency Medical Condition: Yes Medical Record Reviewed: Yes (past history confirmed) Interpretation(s) CBC & BMP Diagram 05/29/17 14:55 Last 24 hours Impressions Chest X-Ray 05/29/17 1450 Signed Impressions: Service Date/Time: Monday, May 29, 2017 15:12 - CONCLUSION: 1. Bilateral patchy infiltrates. Seb Matthews MD Differential Diagnosis Sepsis, pneumonia, URI, UTI Narrative Course Will check blood work, chest x-ray, urinalysis and dose with Tylenol and IV fluids and reevaluate ED workup shows critical anemia of 7.7. One unit of blood was ordered. Patient 's protein corrected calcium is critically low at 6.9. 1 g of calcium gluconate was ordered to start replacement. Patient has fever and tachycardia but has no significant white count or lactic acidosis. He is requiring 4 L of oxygen to maintain his saturations so he will be given cefepime and azithromycin for antibiotic coverage. Chest x-ray shows bilateral patchy infiltrates and ua with uti. Patient will be admitted to the hospital for further care. Patient updated and family at bedside and agree to care. Confirmed full CODE STATUS Critical Care Narrative Aggregate critical care time was 31 minutes. Time to perform other separately billable procedures was not included in the critical care time. My time did not include minutes spent treating any other patients simultaneously or on activities that did not directly contribute to the patient's treatment. The services I provided to this patient were to treat and/or prevent clinically significant deterioration that could result in: Shock, I provided critical care services requiring my management, as noted below: Chart data review, documentation time, medication orders and management, vital sign assessments/reviewing monitor data, ordering and reviewing lab tests, ordering and interpreting/reviewing x-rays and diagnostic studies, care of the patient and discussion of the patient with the admitting physicians. Sepsis Criteria SIRS Criteria (2 or more): Temp > 100.9 or < 96.8, Heart rate over 90 Sepsis Criteria (SIRS+source): Infect source susp/known Criteria Outcome: Meets sepsis criteria Physician Communication Physician Communication dr grewal requests full admit to oncology floor Diagnosis Primary Impression: Sepsis Qualified Code: A41.9 - Sepsis, due to unspecified organism Additional Impressions: Hypocalcemia Anemia Qualified Code: D64.9 - Anemia, unspecified type Prostate cancer metastatic to bone UTI (urinary tract infection) Qualified Code: N39.0 - Urinary tract infection without hematuria, site unspecified Admitting Information Admitting Physician Requests: Admit Lula Sommer MD May 29, 2017 15:06
[2017-05-29 15:36] LABS: AUTOMATED NEUTROPHIL # 5.3 TH/MM3 (1.8-7.7); BASOPHIL % 0.7 % (0.0-2.0); EOSINOPHIL % 0.2 % (0.0-4.0); HEMATOCRIT 22.8 % (39.0-51.0); HEMO FLAGS DIFF FINAL; LYMPH % 9.2 % (9.0-44.0); LYMPHOCYTE # 0.6 TH/MM3 (1.0-4.8); MEAN CELL VOLUME 89.4 FL (80.0-100.0); MEAN CORPUSCULAR HEMOGLOBIN 30.2 PG (27.0-34.0); MEAN CORPUSCULAR HGB CONC 33.8 % (32.0-36.0); MONO % 5.3 % (0.0-8.0); NEUT % 84.6 % (16.0-70.0); PLATELET COUNT 384 TH/MM3 (150-450); RED BLOOD COUNT 2.55 MIL/MM3 (4.50-5.90); RED CELL DISTRIBUTION WIDTH 15.7 % (11.6-17.2); WHITE BLOOD COUNT 6.3 TH/MM3 (4.0-11.0)
[2017-05-29 15:51] LABS: APTT (PATIENT) 33.5 SEC (24.3-30.1); INTERNATIONAL NORMALIZED RATIO 1.2 RATIO; PROTHROMBIN TIME - PATIENT 12.9 SEC (9.8-11.6)
--- NOTE | 2017-05-29 16:00 | RADRPT ---
EXAM DATE/TIME: 05/29/2017 15:12 [facility] COMPARISON: CHEST SINGLE AP, April 13, 2017, 18:19. INDICATIONS : Short of breath. MEDICAL HISTORY : Hypertension high blood pressure SURGICAL HISTORY : None. ENCOUNTER: Initial ACUITY: 3 days PAIN SCORE: 0/10 LOCATION: Bilateral chest FINDINGS: A single view of the chest demonstrates bilateral patchy densities. Heart normal in size. Previous fu lavell upper thoracic spine. Heart normal in size. Osseous structures are intact. CONCLUSION: 1. Bilateral patchy infiltrates. Seb Matthews MD on May 29, 2017 at 15:58 Board Certified Radiologist. This report was verified electronically.
[2017-05-29 16:07] LABS: BLOOD UREA NITROGEN 26 MG/DL (7-18); GLOMERULAR FILTRATION RATE 43 ML/MIN (>89)
[2017-05-29] MEDS ORDERED: AZITHROMYCIN INJ 500 MG in SODIUM CHLOR 0.9% 250 ML INJ 250 ML IV STA (16:07)
[2017-05-29] MEDS ORDERED: CEFEPIME INJ 2,000 MG in SODIUM CHLORIDE 0.9% INJ 100 ML IV STA (16:07)
[2017-05-29 16:08] LABS: ALKALINE PHOSPHATASE 545 U/L (45-117); ALT (GPT) 40 U/L (12-78); ANION GAP 10 MEQ/L (5-15); AST (GOT) 33 U/L (15-37); BICARBONATE 20.8 MEQ/L (21.0-32.0); CHLORIDE 103 MEQ/L (98-107); MAGNESIUM 2.1 MG/DL (1.5-2.5); POTASSIUM 4.3 MEQ/L (3.5-5.1); SODIUM (NA) 134 MEQ/L (136-145); TOTAL BILIRUBIN ADULT 0.5 MG/DL (0.2-1.0)
[2017-05-29] MEDS ORDERED: CAPT25TA2 PO (16:09)
[2017-05-29] MEDS ORDERED: LEVE500 PO (16:09)
[2017-05-29] MEDS ORDERED: CASO50TA2 PO (16:09)
[2017-05-29 16:13] LABS: CALCIUM-PROTEIN CORRECTED 6.9 MG/DL (8.5-10.1); CREATINE KINASE 71 U/L (39-308)
[2017-05-29] MEDS ORDERED: SODIUM CHLOR 0.9% 250 ML INJ 250 ML IV ONE (16:15)
[2017-05-29 16:22] LABS: BACTERIA, URINE MANY /hpf; BLOOD, URINE SMALL (NEG); COMMENT (UR) CATH-CULTURE IND; CULTURE IF INDICATED CATH CULTURE IND; GLUCOSE,URINE NEG (NEG); HYALINE CAST, URINE 7 /lpf (RARE); KETONE, URINE NEG (NEG); MUCUS URINE FEW /lpf (OCC); NITRITE,URINE NEG (NEG); PH, URINE 5.5 (5.0-8.5); SQUAMOUS EPITHELIAL CELL URINE <1 /hpf (0-5); URINE COLOR YELLOW (YELLW/STRAW)
[2017-05-29] MEDS ORDERED: CALCIUM GLUCONATE 10% 1 GM/10 ML VIAL IV PUSH ONE (16:30)
[2017-05-29] MEDS ORDERED: LACTULOSE SYRUP 20 GM/30 ML CUP PO PRN (18:15)
[2017-05-29] MEDS ORDERED: SENNOSIDES 8.6 MG TAB PO PRN (18:15)
[2017-05-29] MEDS ORDERED: ACETAMINOPHEN 325 MG TAB PO PRN (18:15)
[2017-05-29] MEDS ORDERED: HEPARIN SODIUM - SQ 10,000 UNITS/ML VIAL SQ SCH (18:15)
[2017-05-29] MEDS ORDERED: BISACODYL 10 MG SUPP RECTAL PRN (18:15)
[2017-05-29] MEDS ORDERED: NALOXONE HCL 0.4 MG/ML AMP IV PRN (18:15)
--- NOTE | 2017-05-29 18:37 | HHI.HP ---
[facility] Primary Care Physician Agustín Montero MD Admission Diagnosis sepsis Diagnoses: (1) Sepsis Diagnosis: Principal (2) Pneumonia (3) UTI (urinary tract infection) (4) Anemia (5) Prostate cancer metastatic to bone (6) Hypocalcemia Chief Complaint: Fever, cough, dyspnea Travel History International Travel<30 Days: No Contact w/Intl Traveler <30 Da: No Traveled to Known Affected Are: No Sepsis Criteria SIRS Criteria (2 or more): Temp > 100.9 or < 96.8, Heart rate over 90 Sepsis Criteria (SIRS+source): Infect source susp/known Criteria Outcome: Meets sepsis criteria History of Present Illness The patient is a 56-year-old male with metastatic prostate cancer who was at the oncology clinic for his second round of chemotherapy today. During intake, he was noted to have a fever of 102 and oxygen saturation in the 70s. He was placed on 4 L of oxygen and transported to the ER. He states that he completed radiation therapy on Sunday. He had one round of chemotherapy [address] Le is his oncologist. He reports fever and chills as well as worsening cough and shortness of breath over the past 2-3 days. Denies chest pain. He reports dysuria. He has an indwelling Browning catheter. He last saw urology on 05/21/17 for catheter exchange. Review of Systems Constitutional: COMPLAINS OF: Fever, Chills, Night Sweats Eyes: DENIES: Blurred vision, Vision loss Ears, nose, mouth, throat: DENIES: Hearing loss Respiratory: COMPLAINS OF: Cough, Sputum production, Shortness of breath, DENIES: Wheezing Cardiovascular: DENIES: Chest pain, Palpitations, Dyspnea on Exertion, Lower Extremity Edema Gastrointestinal: DENIES: Abdominal pain, Constipation, Diarrhea, Nausea, Vomiting Genitourinary: COMPLAINS OF: Dysuria, DENIES: Urinary frequency, Urinary incontinence, Urgency, Hematuria, Nocturia Musculoskeletal: DENIES: Joint pain, Muscle aches Integumentary: DENIES: Pruritus, Rash Hematologic/lymphatic: DENIES: Bruising Neurologic: DENIES: Headache Past Family Social History Past Medical History Atrial fibrillation Metastatic prostate cancer GERD Hypertension Past Surgical History T3 decompressive laminectomy Reported Medications Pravachol (Pravastatin) 40 Mg Tab 40 Mg PO DAILY Pantoprazole (Pantoprazole Sodium) 40 Mg Tab 40 Mg PO DAILY Dexamethasone 4 Mg Tab 4 Mg PO Q6HR Norvasc (Amlodipine Besylate) 10 Mg Tab 10 Mg PO DAILY Cardura (Doxazosin Mesylate) 4 Mg Tab 4 Mg PO DAILY Casodex (Bicalutamide) 50 Mg Tab 50 Mg PO DAILY Hazardous agent; use appropriate precautions for handling & disposal. Keppra (Levetiracetam) 500 Mg Tab 500 Mg PO Q12HR Captopril 25 Mg Tab 25 Mg PO DAILY Take 1 hr before meals. Percocet (Oxycodone-Acetaminophen) 5-325 mg Tab 1 Tab PO Q6H PRN Allergies: Coded Allergies: No Known Allergies (Unverified , 05/29/17) Family History The patient denies family history including cancer, diabetes, heart disease. Social History Denies tobacco or illicit drug use. Rarely drinks alcohol. Physical Exam Vital Signs Vital Signs Date Time Temp Pulse Resp B/P Pulse Ox O2 Delivery O2 Flow Rate FiO2 05/29/17 18:01 101.2 93 18 119/62 93 Nasal Cannula 3 05/29/17 15:03 118 18 166/75 94 Nasal Cannula 4 05/29/17 14:54 94 Nasal Cannula 4 05/29/17 14:54 23 94 Nasal Cannula 4 05/29/17 14:50 122 26 94 Nasal Cannula 4 05/29/17 14:49 103.1 121 24 166/75 94 Nasal Cannula 4 Physical Exam GENERAL: Well-developed, well-nourished male with shaking chills. HEENT: Normocephalic, atraumatic. Pupils equal, round and reactive. Extraocular movements intact. No scleral icterus. No injection or drainage. Oropharynx is clear. Mucous membranes are moist. CARDIOVASCULAR: Tachycardic. RESPIRATORY: Scattered rhonchi. Breathing is non-labored. GASTROINTESTINAL: Abdomen soft, non-tender, nondistended. EXTREMITIES: No lower extremity edema. No calf tenderness. PSYCH: Alert and oriented x 3. Laboratory Laboratory Tests Test 05/29/17 05/29/17 05/29/17 05/29/17 14:55 16:00 16:30 17:12 White Blood Count 6.3 Red Blood Count 2.55 Hemoglobin 7.7 Hematocrit 22.8 Mean Corpuscular Volume 89.4 Mean Corpuscular Hemoglobin 30.2 Mean Corpuscular Hemoglobin 33.8 Concent Red Cell Distribution Width 15.7 Platelet Count 384 Mean Platelet Volume 7.4 Neutrophils (%) (Auto) 84.6 Lymphocytes (%) (Auto) 9.2 Monocytes (%) (Auto) 5.3 Eosinophils (%) (Auto) 0.2 Basophils (%) (Auto) 0.7 Neutrophils # (Auto) 5.3 Lymphocytes # (Auto) 0.6 Monocytes # (Auto) 0.3 Eosinophils # (Auto) 0.0 Basophils # (Auto) 0.0 CBC Comment DIFF FINAL Differential Comment Prothrombin Time 12.9 Prothromb Time International 1.2 Ratio Activated Partial 33.5 Thromboplast Time Sodium Level 134 Potassium Level 4.3 Chloride Level 103 Carbon Dioxide Level 20.8 Anion Gap 10 Blood Urea Nitrogen 26 Creatinine 1.97 Estimat Glomerular Filtration 43 Rate Random Glucose 116 Lactic Acid Level 1.7 Calcium Level 7.1 Protein Corrected Calcium 6.9 Phosphorus Level 2.0 Magnesium Level 2.1 Total Bilirubin 0.5 Aspartate Amino Transf 33 (AST/SGOT) Alanine Aminotransferase 40 (ALT/SGPT) Alkaline Phosphatase 545 Total Creatine Kinase 71 Troponin I LESS THAN 0.02 Total Protein 7.7 Albumin 2.3 Urine Color YELLOW Urine Turbidity HAZY Urine pH 5.5 Urine Specific [place] 1.014 Urine Protein 30 Urine Glucose (UA) NEG Urine Ketones NEG Urine Occult Blood SMALL Urine Nitrite NEG Urine Bilirubin NEG Urine Urobilinogen 2.0 Urine Leukocyte Esterase LARGE Urine RBC 3 Urine WBC 60 Urine Squamous Epithelial <1 Cells Urine Amorphous Sediment RARE Urine Bacteria MANY Urine Hyaline Casts 7 Urine Mucus FEW Microscopic Urinalysis Comment CATH-CULTURE IND B-Type Natriuretic Peptide 35 Blood Type O POSITIVE Antibody Screen NEGATIVE Crossmatch Leukocyte-Reduced Red Blood Cells Blood Bank Comment Date/Time Procedure Status Source Growth 05/29/17 16:00 Urine Culture Received Urine Catheterized Urine Pending 05/29/17 14:55 Aerobic Blood Culture Received Blood Peripheral Pending 05/29/17 14:55 Anaerobic Blood Culture Received Blood Peripheral Pending Result Diagram: 05/29/17 1455 05/29/17 1455 Imaging Last Impressions Chest X-Ray 05/29/17 1450 Signed Impressions: Service Date/Time: Monday, May 29, 2017 15:12 - CONCLUSION: 1. Bilateral patchy infiltrates. Seb Matthews MD Assessment and Plan Assessment and Plan 1. Sepsis: Secondary to pneumonia, UTI. Continue antibiotics. Consult infectious disease. Continue IV fluids. Tylenol as needed for fever. 2. Pneumonia: Continue supplemental oxygen, antibiotics. 3. UTI: Patient has indwelling Browning catheter, which was exchanged 05/21/17. Consult urology. 4. Metastatic prostate cancer: Consult patient's oncologist. 5. Anemia: Transfusion of 1 unit PRBCs ordered. Monitor H&H. Appreciate oncology recommendations. 6. DVT prophylaxis: COLLIN Valera. Code Status Full code Problem Qualifiers (1) Sepsis: Qualified Code: A41.9 - Sepsis, due to unspecified organism (2) UTI (urinary tract infection): Qualified Code: N39.0 - Urinary tract infection without hematuria, site unspecified (3) Anemia: Qualified Code: D64.9 - Anemia, unspecified type Forest Tobin MD May 29, 2017 18:37
[2017-05-29] MEDS ORDERED: Vancomycin Consult Pharmacy 1 EA OTHER SCH (19:00)
[2017-05-29] MEDS ORDERED: ONDANSETRON HCL 4 MG/2 ML VIAL IVP PRN (20:00)
[2017-05-29] MEDS ORDERED: MAGNESIUM HYDROXIDE SUSP 30 ML CUP PO PRN (20:00)
[2017-05-29] MEDS ORDERED: VANCOMYCIN 1,500 MG/NS 500 ML IV ONE ×2 (21:00)
[2017-05-29] MEDS: OSELTAMIVIR PHOSPHATE 75 MG CAP PO SCH (22:01)
[2017-05-29] MEDS: SODIUM CHLOR 0.9% 1000 ML INJ 1,000 ML IV SCH (22:04)
[2017-05-30] VITALS (14 sets, daily range): BP systolic 117–165; BP diastolic 55–73; PULSE 85–121; RESP 20–30; TEMP 97.6–100.9; O2SAT 92–98
[2017-05-30] MEDS ORDERED: IBUPROFEN 800 MG TAB PO ONE (01:15)
[2017-05-30] MEDS: CEFEPIME INJ 2,000 MG in SODIUM CHLORIDE 0.9% INJ 100 ML IV SCH ×3 (01:25→17:49)
[2017-05-30] MEDS: SODIUM CHLOR 0.9% 1000 ML INJ 1,000 ML IV SCH ×2 (02:00→06:01)
[2017-05-30] MEDS ORDERED: RESP: IPRATROPIUM 0.5 MG/2.5 ML NEB NEB PRN (03:00)
--- NOTE | 2017-05-30 09:09 | HHI.PR ---
Subjective Remarks Follow-up sepsis. YUSEF called due to hypoxia. Patient states that he has been coughing all night. Her pressure has been elevated. Oxygen saturation found to be in the 70s. He was placed on nonrebreather mask. He was transferred to the intensive care unit. Following these initial treatment, he states that he feels better. Denies chest pain, nausea, vomiting. Feels cold and has been having chills this morning. Objective Vitals Vital Signs Date Time Temp Pulse Resp B/P Pulse Ox O2 Delivery O2 Flow Rate FiO2 05/30/17 04:00 97.6 85 20 120/58 94 05/30/17 03:37 92 Nasal Cannula 5.00 05/30/17 02:42 100.9 05/29/17 23:30 100 05/29/17 23:00 101.1 101 20 115/62 93 05/29/17 23:00 102.3 105 20 142/75 95 05/29/17 22:45 101.1 101 20 115/62 93 Nasal Cannula 3 05/29/17 21:20 103.1 05/29/17 20:00 109 30 145/68 90 Nasal Cannula 4 05/29/17 19:40 103.1 109 18 145/68 91 Nasal Cannula 3 05/29/17 19:30 93 Nasal Cannula 3.00 05/29/17 18:26 93 Nasal Cannula 3.00 05/29/17 18:01 101.2 93 18 119/62 93 Nasal Cannula 3 05/29/17 15:03 118 18 166/75 94 Nasal Cannula 4 05/29/17 14:54 94 Nasal Cannula 4 05/29/17 14:54 23 94 Nasal Cannula 4 05/29/17 14:50 122 26 94 Nasal Cannula 4 05/29/17 14:49 103.1 121 24 166/75 94 Nasal Cannula 4 I/O 05/29/17 05/29/17 05/29/17 05/30/17 05/30/17 05/30/17 07:00 15:00 23:00 07:00 15:00 23:00 Intake Total 984 ml Output Total 500 ml 650 ml Balance -500 ml 334 ml Intake Oral 0 ml IV Total 984 ml Output Urine Total 500 ml 650 ml Result Diagram: 05/29/17 1455 05/29/17 1455 Imaging Last Impressions Chest X-Ray 05/29/17 1450 Signed Impressions: Service Date/Time: Monday, May 29, 2017 15:12 - CONCLUSION: 1. Bilateral patchy infiltrates. Seb Matthews MD Objective Remarks General: No acute distress. On nonrebreather mask. Heart: Regular rate and rhythm. No murmur. Lungs: Scattered rhonchi. Abdomen: Soft, nontender, nondistended. Extremities: No lower extremity edema. Psych: Alert and oriented. Procedures None Urinary Catheter: Yes Assessment to: Continue Browning insert reason: Obstruction/Retention Date of Insertion: May 21, 2017 Vascular Central Line Catheter: No A/P Problem List: (1) Sepsis ICD Code: A41.9 Status: Acute (2) Pneumonia ICD Code: J18.9 Status: Acute (3) UTI (urinary tract infection) ICD Code: N39.0 Status: Acute (4) Anemia ICD Code: D64.9 Status: Acute (5) Prostate cancer metastatic to bone ICD Code: C61 Status: Acute (6) Hypocalcemia ICD Code: E83.51 Status: Acute (7) Influenza B ICD Code: J10.1 Status: Acute Assessment and Plan 1. Sepsis: Secondary to pneumonia, UTI. Continue antibiotics. Infectious disease consult is pending. Continue IV fluids. Tylenol as needed for fever. 2. Pneumonia: Continue supplemental oxygen, antibiotics. Influenza B antigen positive. 3. UTI: Patient has indwelling Browning catheter, which was exchanged 05/21/17. Urology consultation is pending. 4. Metastatic prostate cancer: Oncology consultation is pending. 5. Anemia: Status post transfusion of 1 unit PRBCs. Labs are pending this morning. Monitor H&H. Appreciate oncology recommendations. 6. Influenza B: Continue Tamiflu. 7. DVT prophylaxis: COLLIN Valera. Brief summary: Patient was found to be in respiratory distress this morning with hypoxia (O2 sats in the 70s). He was transferred to the ICU. Currently on nonrebreather mask. Having chills. Continue antibiotics, Tamiflu. Discussed with Dr. Braden, critical care. Critical care time 35 minutes. Problem Qualifiers (1) Sepsis: Qualified Code: A41.9 - Sepsis, due to unspecified organism (2) UTI (urinary tract infection): Qualified Code: N39.0 - Urinary tract infection without hematuria, site unspecified (3) Anemia: Qualified Code: D64.9 - Anemia, unspecified type Forest Tobin MD May 30, 2017 09:09
[2017-05-30] MEDS: DOCUSATE SODIUM 50 MG/SENNA 8.6 MG TAB PO SCH ×2 (09:35→20:58)
[2017-05-30] MEDS: OSELTAMIVIR PHOSPHATE 75 MG CAP PO SCH ×2 (09:42→20:52)
--- NOTE | 2017-05-30 09:50 | EKG ---
Date Performed: 05/29/2017 Time Performed: 14:49:14 PTAGE: 56 years EKG: SINUS TACHYCARDIA WITH SHORT TN INTERVAL NONSPECIFIC T-WAVE ABNORMALITY ABNORMAL RHYTHM ECG PREVIOUS TRACING : 05/29/2017 14.47 DOCTOR: Gideon Fried Interpretating Date/Time 05/30/2017 09:49:50
[2017-05-30 09:58] LABS: AUTOMATED NEUTROPHIL # 5.3 TH/MM3 (1.8-7.7); BASOPHIL % 0.4 % (0.0-2.0); EOSINOPHIL # 0.1 TH/MM3 (0-0.4); EOSINOPHIL % 0.9 % (0.0-4.0); HEMATOCRIT 27.6 % (39.0-51.0); HEMO FLAGS DIFF FINAL; LYMPH % 5.8 % (9.0-44.0); LYMPHOCYTE # 0.3 TH/MM3 (1.0-4.8); MEAN CELL VOLUME 89.7 FL (80.0-100.0); MEAN CORPUSCULAR HEMOGLOBIN 30.6 PG (27.0-34.0); MEAN CORPUSCULAR HGB CONC 34.1 % (32.0-36.0); MONO % 2.6 % (0.0-8.0); NEUT % 90.3 % (16.0-70.0); PLATELET COUNT 331 TH/MM3 (150-450); RED BLOOD COUNT 3.08 MIL/MM3 (4.50-5.90); RED CELL DISTRIBUTION WIDTH 15.8 % (11.6-17.2); WHITE BLOOD COUNT 5.8 TH/MM3 (4.0-11.0)
[2017-05-30 10:16] LABS: BICARBONATE 18.7 MEQ/L (21.0-32.0); POTASSIUM 4.2 MEQ/L (3.5-5.1); TOTAL BILIRUBIN ADULT 0.6 MG/DL (0.2-1.0)
[2017-05-30 10:18] LABS: CALCIUM-PROTEIN CORRECTED 7.3 MG/DL (8.5-10.1)
[2017-05-30] MEDS: PANTOPRAZOLE SOD 40 MG DELAYED RELEASE TAB PO SCH (10:56)
[2017-05-30] MEDS: levETIRAcetam 500 MG TAB PO SCH ×2 (10:56→20:52)
[2017-05-30] MEDS: PRAVASTATIN SOD 40 MG TAB PO SCH (10:56)
[2017-05-30] MEDS: oxyCODONE/ACETAMINOPHEN 5 MG/325 MG TAB PO PRN (10:57)
[2017-05-30] MEDS: CAPTOPRIL 25 MG TAB PO SCH (10:57)
[2017-05-30] MEDS: DEXAMETHASONE 4 MG TAB PO SCH ×2 (10:57→17:49)
[2017-05-30] MEDS: DOXAZOSIN MESYLATE 4 MG TAB PO SCH (10:57)
--- NOTE | 2017-05-30 11:16 | MB ---
cc: LEE ANN SILVERMAN DATE OF CONSULTATION 05/30/2017 REASON FOR CONSULTATION Mr. Alford is a pleasant 56-year-old male with a diagnosis of metastatic prostate cancer. He was initially seen back in March of this year and admitted to [place] due to low back pain. At that time, he underwent a laminectomy by Dr. Tovar with biopsy demonstrating metastatic prostate cancer to the thoracic spine. He also developed urinary retention preoperatively and a Browning catheter has been indwelling. He has been able to ambulate, move his bowels at home, but was readmitted due to not feeling well and signs of sepsis. Chest x-ray on this admission demonstrated bilateral patchy infiltrates and his urinalysis was also positive for UTI. His Browning catheter was last changed on 05/21/2017. In March 2017 at that time he had a CT scan which did show mild to moderate bilateral hydronephrosis and evidence of retroperitoneal adenopathy with widespread bony metastatic disease. His PSA at that time was in the 900 range. He has since been seen by oncology and is presently on Casodex and was also given Lupron as well as Zometa. He was also started on radiation therapy to his spine and has been going much better since then. Overall his medical history is notable for atrial fibrillation, metastatic prostate cancer, gastroesophageal reflux disease and hypertension. PAST SURGICAL HISTORY History of a T9 decompression laminectomy. CURRENT MEDICATIONS Please refer to the chart. ALLERGIES No known drug allergies. FAMILY HISTORY He denies any family history of prostate cancer in the past, diabetes or heart disease. SOCIAL HISTORY Denies smoking or using drugs and only drinks socially on occasion. REVIEW OF SYSTEMS : No hematuria: CV: No chest pain RES: Some SOB A 12-point review of systems was performed and is negative per the HPI. PHYSICAL EXAM His present vital signs today, temperature is 98.8, heart rate is 109, respiratory rate 29 and blood pressure is 165/73, 98% on the nasal cannula at present time. GENERAL: He is a well-developed, well-nourished 56-year-old male in mild distress as shortness of breath is noted and he is currently on four liters of oxygen. HEENT: Normocephalic, atraumatic. Pupils equal, round, and reactive light. Extraocular movements intact. NECK: Supple. HEART: Rate is sinus tachycardia. Breath sounds are diminished bilaterally. ABDOMEN: Soft, nontender and nondistended. : Browning catheter in place with testes descended, normal phallus. EXTREMITIES: Show no evidence cyanosis, clubbing or edema. LABORATORY DATA White count of 6.3, hemoglobin 7.7, hematocrit 22.8, platelet count of 384. Sodium 134, potassium 4.3, chloride 103, CO2 20.8, BUN 26, creatinine 1.97 and glucose is 116. ASSESSMENT This is a 56-year-old male with evidence of metastatic prostate cancer with urinary retention and indwelling Browning catheter which was last changed on 05/21/2017. Would recommend maintaining Browning catheter at this point. Will obtain renal bladder ultrasound to evaluate presence/absence of a former hydronephrosis to make sure this is resolved. Oncology consult. We will need to maintain Browning catheter drainage for now. I would recommend a void trial in the future. Check urine culture results. Would recommend starting Flomax 0.4 mg p.o. q.h.s. The patient is scheduled to follow up with Dr. Garcia on an outpatient basis on July 04, 2017. We will follow with you. Thank you for the consult and allowing me to participate in the care of this the patient. Lee Ann MEHTA /10:47 AM /11:06 AM ABBEY
[2017-05-30] MEDS: RESP: ALBUTEROL 2.5 MG/IPRATROPIUM 0.5 MG NEB (SCH) NEB ×3 (12:00→21:35)
[2017-05-30] MEDS ORDERED: CALCIUM GLUCONATE INJ 1 GM in SODIUM CHLORIDE 0.9% INJ 100 ML IV ONE (12:30)
[2017-05-30] MEDS: TAMSULOSIN HCL 0.4 MG CAP PO SCH (12:35)
--- NOTE | 2017-05-30 13:07 | RADRPT ---
EXAM DATE/TIME: 05/30/2017 11:51 [facility] COMPARISON: CT ABDOMEN & PELVIS W/O CONTRAST, April 09, 2017, 2:07. INDICATIONS : Hydronephrosis. MEDICAL HISTORY : Hypertension. Gastroesophageal reflux disease. A-fib. Dyspnea. Prostate cancer. Dysuria. Enlarged p rostate. Spinal cancer. Chemotherapy. Radiation therapy. Measles. SURGICAL HISTORY : T3 decompressive laminectomy. ENCOUNTER: Initial ACUITY: 1 day PAIN SCORE: 2/10 LOCATION: Bilateral flank MEASUREMENTS: RIGHT KIDNEY: 11.7 x 6.0 x 5.9 cm LEFT KIDNEY: 10.5 x 6.1 x 5.7 cm FINDINGS: RIGHT KIDNEY: Renal cortex is normal in thickness and echotexture. Mild hydronephrosis. No stone, or mass. LEFT KIDNEY: Renal cortex is normal in thickness and echotexture. Moderate hydronephrosis. No stone, or mass. BLADDER: Within normal limits given the degree of distension. CONCLUSION: Bilateral hydronephrosis left greater than right. Quite similar to CT scan in March. Gideon Rivera MD on May 30, 2017 at 13:03 Board Certified Radiologist. This report was verified electronically.
--- NOTE | 2017-05-30 16:56 | PD.ID.CON ---
History of Present Illness Service ID Consult Requested By Dr Dow Reason for Consult sepsis PNA UTI Primary Care Physician Agustín Montero MD Diagnoses: History of Present Illness 56 yo male with metastatic prostatic ca, sp pathological vertebral fx sp surgical repair on chmeo pt has chronic albarran for a month that was changed 1 week ago presented from his onclogist offic of high spiking fever and SOB, hypoxia, dry cough + pulmonary infiltrates, requires non rebreather He has b/l hydro on US Urologixst ff His blood clx are negative Flu test is positive for flu A Did not have flu shot started on broad spectrum abx and tamiflu His UA is abnormal with prominent pyuria and bacteriuria, clx is pending Review of Systems Constitutional: COMPLAINS OF: Fever, Chills Respiratory: COMPLAINS OF: Cough, Shortness of breath Genitourinary: COMPLAINS OF: Urinary incontinence Musculoskeletal: COMPLAINS OF: Back pain Except as stated in HPI: all other systems reviewed are Neg Past Family Social History Allergies: Coded Allergies: No Known Allergies (Unverified , 05/29/17) Past Medical History Atrial fibrillation Metastatic prostate cancer GERD Hypertension Past Surgical History T3 decompressive laminectomy Active Ordered Medications Medications where reviewed in EMR Antibiotics Include: vanco cefepime azithro - stopped tamiflu Family History reviewed non contributory Social History Reported Medications Pravachol (Pravastatin) 40 Mg Tab 40 Mg PO DAILY Pantoprazole (Pantoprazole Sodium) 40 Mg Tab 40 Mg PO DAILY Dexamethasone 4 Mg Tab 4 Mg PO Q6HR Norvasc (Amlodipine Besylate) 10 Mg Tab 10 Mg PO DAILY Cardura (Doxazosin Mesylate) 4 Mg Tab 4 Mg PO DAILY Casodex (Bicalutamide) 50 Mg Tab 50 Mg PO DAILY Hazardous agent; use appropriate precautions for handling & disposal. Keppra (Levetiracetam) 500 Mg Tab 500 Mg PO Q12HR Denies tobacco or illicit drug use. Rarely drinks alcohol. Physical Exam Physical Exam Vital Signs Vital Signs Date Time Temp Pulse Resp B/P Pulse Ox O2 Delivery O2 Flow Rate FiO2 05/30/17 14:37 94 Partial Rebreather 12.00 05/30/17 12:00 116 05/30/17 12:00 100.1 116 22 117/55 98 05/30/17 10:00 109 05/30/17 09:00 92 Non-Rebreather 15.00 05/30/17 08:45 98.8 109 29 165/73 98 05/30/17 08:45 109 05/30/17 08:00 113 05/30/17 04:00 97.6 85 20 120/58 94 05/30/17 03:37 92 Nasal Cannula 5.00 05/30/17 02:42 100.9 05/29/17 23:30 100 05/29/17 23:00 101.1 101 20 115/62 93 05/29/17 23:00 102.3 105 20 142/75 95 05/29/17 22:45 101.1 101 20 115/62 93 Nasal Cannula 3 05/29/17 21:20 103.1 05/29/17 20:00 109 30 145/68 90 Nasal Cannula 4 05/29/17 19:40 103.1 109 18 145/68 91 Nasal Cannula 3 05/29/17 19:30 93 Nasal Cannula 3.00 05/29/17 18:26 93 Nasal Cannula 3.00 05/29/17 18:01 101.2 93 18 119/62 93 Nasal Cannula 3 Physical Exam CONSTITUTIONAL/GENERAL: This is an adequately nourished patient, in no apparent distress. He is on part NRB gets easily hypoxic when takes NRB off TUBES/LINES/DRAINS: SKIN: No jaundice, rashes, or lesions. . Skin temperature appropriate. Not diaphoretic. HEAD: Atraumatic. Normocephalic. EYES: Pupils equal and round and reactive. Extraocular motions intact. No scleral icterus. No injection or drainage. Fundi not examined. ENT: Hearing grossly normal. Nose without bleeding or purulent drainage. Oral mucosae moist without visible erythema, exudates, masses, or lesions. NECK: Trachea midline. Supple, nontender. CARDIOVASCULAR: Regular rate and rhythm without murmurs, gallops, or rubs. No JVD. Peripheral pulses symmetric. RESPIRATORY/CHEST: Symmetric, unlabored respirations. Clear to auscultation. Breath sounds equal bilaterally. No wheezes, rales, or rhonchi. GASTROINTESTINAL: Abdomen soft, non-tender, nondistended. No hepato-splenomegaly , or palpable masses. No guarding. Bowel sounds present. GENITOURINARY: Without palpable bladder distension. Albarran catheter in place with clear yellow urine MUSCULOSKELETAL: Extremities without clubbing, cyanosis, or edema. No joint tenderness or effusion noted. No calf tenderness. No mottling or clubbing. LYMPHATICS: No palpable cervical axillae or supraclavicular adenopathy. NEUROLOGICAL: Awake and alert. Motor and sensory grossly within normal limits. Follows commands. Clear speech. Moves all extremities. PSYCHIATRIC: No obvious anxiety/depression. no apparent hallucinations or other psychotic thought process. Laboratory Laboratory Tests Test 05/29/17 05/29/17 05/30/17 16:30 17:12 09:24 B-Type Natriuretic Peptide 35 Blood Type O POSITIVE Antibody Screen NEGATIVE Crossmatch Leukocyte-Reduced Red Blood Cells Blood Bank Comment White Blood Count 5.8 Red Blood Count 3.08 Hemoglobin 9.4 Hematocrit 27.6 Mean Corpuscular Volume 89.7 Mean Corpuscular Hemoglobin 30.6 Mean Corpuscular Hemoglobin 34.1 Concent Red Cell Distribution Width 15.8 Platelet Count 331 Mean Platelet Volume 7.6 Neutrophils (%) (Auto) 90.3 Lymphocytes (%) (Auto) 5.8 Monocytes (%) (Auto) 2.6 Eosinophils (%) (Auto) 0.9 Basophils (%) (Auto) 0.4 Neutrophils # (Auto) 5.3 Lymphocytes # (Auto) 0.3 Monocytes # (Auto) 0.2 Eosinophils # (Auto) 0.1 Basophils # (Auto) 0.0 CBC Comment DIFF FINAL Differential Comment Sodium Level 141 Potassium Level 4.2 Chloride Level 111 Carbon Dioxide Level 18.7 Anion Gap 11 Blood Urea Nitrogen 20 Creatinine 1.37 Estimat Glomerular Filtration 65 Rate Random Glucose 100 Calcium Level 7.4 Protein Corrected Calcium 7.3 Total Bilirubin 0.6 Aspartate Amino Transf 41 (AST/SGOT) Alanine Aminotransferase 41 (ALT/SGPT) Alkaline Phosphatase 503 Total Protein 7.4 Albumin 2.0 Date/Time Procedure Status Source Growth 05/29/17 19:35 Influenza Types A,B Antigen (DAVID) - Final Complete Nasal Aspirate Positive For Flu B Antigen 05/29/17 16:00 Urine Culture Received Urine Catheterized Urine Pending 05/29/17 14:55 Aerobic Blood Culture - Preliminary Resulted Blood Peripheral NO GROWTH IN 1 DAY 05/29/17 14:55 Anaerobic Blood Culture - Preliminary Resulted Blood Peripheral NO GROWTH IN 1 DAY Result Diagram: 05/30/1792305/30/17 0924 Imaging Last Impressions Renal Ultrasound 05/30/17 0000 Signed Impressions: Service Date/Time: Tuesday, May 30, 2017 11:51 - CONCLUSION: Bilateral hydronephrosis left greater than right. Quite similar to CT scan in March. Gideon Rivera MD Chest X-Ray 05/29/17 1450 Signed Impressions: Service Date/Time: Monday, May 29, 2017 15:12 - CONCLUSION: 1. Bilateral patchy infiltrates. Seb Matthews MD Assessment and Plan Assessment and Plan Influenza A B/l PNA with hypoxia -Bilateral patchy infiltrates. Prostate CA with mets, chronic albarran - hydronephrosis left greater than right. REC's; cont current abx chk sputum clx if feasible (currently does not expectorate) fu urine clx Mira Ware MD May 30, 2017 16:56
[2017-05-30] MEDS ORDERED: AZITHROMYCIN INJ 500 MG in SODIUM CHLOR 0.9% 250 ML INJ 250 ML IV SCH (18:15)
[2017-05-30] MEDS: VANCOMYCIN INJ 1,500 MG in SODIUM CHLORID 0.9% 500 ML INJ 500 ML IV SCH (22:57)
[2017-05-31] VITALS (14 sets, daily range): BP systolic 122–146; BP diastolic 61–78; PULSE 82–100; RESP 26–28; TEMP 97–98.8; O2SAT 90–96
[2017-05-31] MEDS: DEXAMETHASONE 4 MG TAB PO SCH ×5 (00:24→23:40)
[2017-05-31] MEDS: CEFEPIME INJ 2,000 MG in SODIUM CHLORIDE 0.9% INJ 100 ML IV SCH ×4 (00:24→23:40)
[2017-05-31] MEDS: SODIUM CHLOR 0.9% 1000 ML INJ 1,000 ML IV SCH ×2 (02:00→12:56)
[2017-05-31 06:50] LABS: AUTOMATED NEUTROPHIL # 4.8 TH/MM3 (1.8-7.7); BASOPHIL % 0.2 % (0.0-2.0); EOSINOPHIL % 0.1 % (0.0-4.0); LYMPH % 4.9 % (9.0-44.0); LYMPHOCYTE # 0.3 TH/MM3 (1.0-4.8); MEAN CELL VOLUME 87.8 FL (80.0-100.0); MEAN CORPUSCULAR HEMOGLOBIN 31.6 PG (27.0-34.0); MONO % 3.7 % (0.0-8.0); NEUT % 91.1 % (16.0-70.0); PLATELET COUNT 255 TH/MM3 (150-450); RED BLOOD COUNT 2.32 MIL/MM3 (4.50-5.90); RED CELL DISTRIBUTION WIDTH 15.9 % (11.6-17.2); WHITE BLOOD COUNT 5.2 TH/MM3 (4.0-11.0)
[2017-05-31] MEDS: BENZONATATE 100 MG CAP PO PRN ×2 (06:58→18:27)
[2017-05-31 06:59] LABS: HEMO FLAGS AUTO DIFF
[2017-05-31 07:03] LABS: HEMATOCRIT 20.4 % (39.0-51.0)
[2017-05-31 07:12] LABS: BICARBONATE 18.5 MEQ/L (21.0-32.0); POTASSIUM 4.7 MEQ/L (3.5-5.1)
[2017-05-31] MEDS ORDERED: SODIUM CHLOR 0.9% 250 ML INJ 250 ML IV ONE (07:30)
--- NOTE | 2017-05-31 07:40 | MB ---
cc: SULEMAN STANLEY DATE OF CONSULTATION 05/29/2017 DATE OF 1960 REASON FOR CONSULTATION Patient with a history of stage IV prostate adenocarcinoma who was sent to the emergency department after he presented to the oncology clinic with high fever, dyspnea, hypoxia and tachycardia. HISTORY OF PRESENT ILLNESS Mr. Alford is a 56-year-old male who was diagnosed with stage IV prostate adenocarcinoma in April of 2017. He had presented with significant back pain. CT scan of the T-spine without contrast showed bilateral hydronephrosis and right proximal hydroureter and diffuse metastatic disease involving the entire vertebral column. He had retroperitoneal adenopathy and widespread bony metastatic disease. His PSA on presentation was 937. He had anemia with a hemoglobin of 9.4. MRI of the lumbar spine confirmed cord compression at T3 level. He underwent laminectomy and resection of the tumor mass. The patient had a Browning catheter placed due to urinary obstruction. Patient is currently being treated with hormone blockade therapy with Casodex and Lupron injections. He is also receiving a bone modifying agent for his metastatic bony disease. The patient presented to the oncology clinic on May 29, 2017 with tachypnea, dyspnea, hypoxia, fever of 103 and having chills. He was sent to the emergency room. The patient was admitted to the hospital for sepsis and pneumonia. Chest x-ray showed bilateral infiltrates. He was also severely anemic and was given packed red blood cell transfusion. A urinalysis showed a small amount of occult blood, leukocyte esterase large, urine WBC 60 and urine protein 30 consistent with a UTI. Urine cultures are pending. He also had an influenza screen that was positive for influenza B antigen. Urine cultures on preliminary results show gram-negative rods. REVIEW OF SYSTEMS A comprehensive 14-point review of systems was completed which is negative except as described in the HPI. PAST MEDICAL HISTORY 1. Stage IV prostate adenocarcinoma 2. Atrial fibrillation 3. Gastroesophageal reflux disease 4. Hypertension 5. Bony metastatic disease PAST SURGICAL HISTORY T3 decompressive laminectomy FAMILY HISTORY Family history was reviewed and is noncontributory to this admission. SOCIAL HISTORY He works at a car dealership. He is . He denies tobacco abuse. No alcohol abuse. No illicit drug use. MEDICATIONS 1. Vancomycin 1500 mg IV q.24h 2. DuoNebs q.i.d. 3. Dexamethasone 4 mg p.o. q.6 h. 4. Tamsulosin 0.4 mg p.o. daily 5. Amlodipine 10 mg p.o. daily 6. Captopril 25 mg p.o. daily 7. Cardura 4 mg p.o. daily 8. Keppra 500 mg p.o. q.12 h. 9. Pantoprazole 40 mg p.o. daily 10. Pravastatin 40 mg p.o. daily 11. Tessalon 100 mg p.o. t.i.d. 12. Albuterol 2.5 mg q.2 h p.r.n. 13. Cefepime 2 grams IV q.8 h. 14. Tamiflu 75 mg p.o. b.i.d. 15. Senna Docusate one tablet p.o. b.i.d. 16. Zofran 4 mg IV q.6 h p.r.n. 17. Tylenol 650 p.o. q.4 h p.r.n. 18. Senna 17.2 mg p.o. q.12 h 19. Lactulose 30 cc p.o. daily p.r.n. 20. Dulcolax 10 mg suppository p.r.n. ALLERGIES NO KNOWN DRUG ALLERGIES. PHYSICAL EXAMINATION VITAL SIGNS: Blood pressure is 148/65, pulses is in the 100s, temperature is 98.3. There is 94% partial rebreather. GENERAL: Acutely ill patient. HEENT: Pupils are equal, round and react to light. EOMI. No oral thrush. No oral lesions. NECK: Supple. No JVD, no bruits. No lymphadenopathy. CHEST: Bilateral lower lobes scattered rhonchi. CARDIAC: S1-S2, tachycardiac. ABDOMEN: Soft, nontender, nondistended. Bowel sounds are present. EXTREMITIES: Without any edema, erythema or cyanosis. SKIN: Without any petechiae lesion or bruises. NEUROLOGIC: No focal deficits. PSYCHIATRIC: Mood and affect is appropriate. LABORATORY DATA WBC is 5.8, hemoglobin 9.4, platelet count is 331. Serum chemistries show sodium 141, potassium 4.2, chloride 111, CO2 18.7, BUN 11, creatinine 1.37, GFR is 65, lactic acid is 1.7, calcium is 7.4, total bilirubin is 0.6, AST is 41, ALT is 41, alk phos is 503, total protein is 7.4, albumin is 2. Coags show an INR 1.2, PT 12, 0.9, PTT 13.5. IMAGING STUDIES Chest x-ray was reviewed which shows bilateral patchy infiltrates. Renal ultrasound was reviewed which shows bilateral hydronephrosis, left greater than right similar to CT scan in March. ASSESSMENT/PLAN This is a 56-year-old male with a history of stage IV prostate adenocarcinoma with bony metastatic disease and a history of cord compression status post laminectomy and decompression. He presents with fever, anemia, hypoxia and tachycardia and was found to have pneumonia and UTI. 1. Urinary tract infection with sepsis. Preliminary cultures show gram-negative rods. The patient is on broad-spectrum antibiotics. Blood cultures are pending. I agree with above treatment. The patient was also found to have influenza B+ antigen. He is currently on Tamiflu 2. Acute anemia. He received one unit of packed red blood cells. His hemoglobin is 9.4. Obtain stool hemoccult. 3. Acute and chronic kidney failure improving with hydration. He does have hydroureter on ultrasound. The patient is having urinary flow through the Browning catheter. Urology has been consulted. 4. Hypocalcemia. Replace calcium. 5. Mild AST elevation likely due to sepsis and infection. We will continue to monitor. 6. Hypoalbuminemia/malnutrition, albumin is 2, encourage oral intake dietitian consult. Ensure or Boost t.i.d. with meals. 7. Stage IV prostate adenocarcinoma with bone mets currently on hormone blockade therapy with Casodex and Lupron and also receiving bone modifying agent for bony metastatic disease. Further management as per outpatient. Thank you for allowing me to participate in the care of this patient. I will continue to follow this patient along. MD ADAMA Felix/KATHARINA /11:47 PM /7:21 AM
[2017-05-31] MEDS: RESP: ALBUTEROL 2.5 MG/IPRATROPIUM 0.5 MG NEB (SCH) NEB ×4 (08:07→19:14)
[2017-05-31 08:44] LABS: SCAN/DIFF AUTO DIFF CONFIRMED
[2017-05-31] MEDS: DOXAZOSIN MESYLATE 4 MG TAB PO SCH (08:57)
[2017-05-31] MEDS: TAMSULOSIN HCL 0.4 MG CAP PO SCH (08:57)
[2017-05-31] MEDS: PRAVASTATIN SOD 40 MG TAB PO SCH (08:57)
[2017-05-31] MEDS: levETIRAcetam 500 MG TAB PO SCH ×2 (08:57→21:04)
[2017-05-31] MEDS: OSELTAMIVIR PHOSPHATE 75 MG CAP PO SCH ×2 (08:57→21:04)
[2017-05-31] MEDS: CAPTOPRIL 25 MG TAB PO SCH (08:57)
[2017-05-31] MEDS: DOCUSATE SODIUM 50 MG/SENNA 8.6 MG TAB PO SCH ×2 (08:57→21:04)
[2017-05-31] MEDS: PANTOPRAZOLE SOD 40 MG DELAYED RELEASE TAB PO SCH (08:57)
--- NOTE | 2017-05-31 09:44 | HHI.PR ---
Subjective Remarks Follow up sepsis, respiratory failure, UTI. The patient states that he feels better today. Still with dyspnea, but less than yesterday. Still coughing. No chest pain, nausea, vomiting, diarrhea, constipation. Objective Vitals Vital Signs Date Time Temp Pulse Resp B/P Pulse Ox O2 Delivery O2 Flow Rate FiO2 05/31/17 08:09 95 Partial Rebreather 12.00 05/31/17 08:00 98.8 99 28 146/78 96 05/31/17 06:00 83 05/31/17 04:00 82 05/31/17 04:00 98.5 82 27 122/65 96 05/31/17 02:00 86 05/31/17 00:00 98.8 96 26 126/63 96 05/31/17 00:00 96 05/30/17 22:00 111 05/30/17 21:36 98 Partial Rebreather 12.00 05/30/17 20:00 116 05/30/17 20:00 99.2 116 30 123/59 97 05/30/17 18:00 121 05/30/17 16:00 98.3 114 26 148/65 93 05/30/17 16:00 114 05/30/17 14:37 94 Partial Rebreather 12.00 05/30/17 12:00 116 05/30/17 12:00 100.1 116 22 117/55 98 05/30/17 10:00 109 I/O 05/30/17 05/30/17 05/30/17 05/31/17 05/31/17 05/31/17 07:00 15:00 23:00 07:00 15:00 23:00 Intake Total 984 ml 228 ml 618 ml 601 ml Output Total 650 ml 1000 ml 820 ml 800 ml Balance 334 ml -772 ml -202 ml -199 ml Intake Oral 0 ml 240 ml IV Total 984 ml 228 ml 378 ml 601 ml Output Urine Total 650 ml 1000 ml 820 ml 800 ml # Bowel Movements 1 Result Diagram: 05/31/1718 05/31/1718 Imaging Last Impressions Renal Ultrasound 05/30/17 0000 Signed Impressions: Service Date/Time: Tuesday, May 30, 2017 11:51 - CONCLUSION: Bilateral hydronephrosis left greater than right. Quite similar to CT scan in March. Gideon Rivera MD Chest X-Ray 05/29/17 1450 Signed Impressions: Service Date/Time: Monday, May 29, 2017 15:12 - CONCLUSION: 1. Bilateral patchy infiltrates. Seb Matthews MD Objective Remarks General: No acute distress. On nonrebreather mask. Heart: Regular rate and rhythm. No murmur. Lungs: Scattered rhonchi. Abdomen: Soft, nontender, nondistended. Extremities: No lower extremity edema. SCDs. Psych: Alert and oriented. Procedures None Urinary Catheter: Yes Assessment to: Continue Browning insert reason: Obstruction/Retention Date of Insertion: May 21, 2017 Vascular Central Line Catheter: No A/P Problem List: (1) Sepsis ICD Code: A41.9 Status: Acute (2) Pneumonia ICD Code: J18.9 Status: Acute (3) UTI (urinary tract infection) ICD Code: N39.0 Status: Acute (4) Anemia ICD Code: D64.9 Status: Acute (5) Prostate cancer metastatic to bone ICD Code: C61 Status: Acute (6) Hypocalcemia ICD Code: E83.51 Status: Acute (7) Influenza B ICD Code: J10.1 Status: Acute Assessment and Plan 1. Sepsis: Secondary to pneumonia, UTI. Continue antibiotics. Appreciate infectious disease recommendations. Continue IV fluids. Tylenol as needed for fever. 2. Pneumonia: Continue supplemental oxygen, antibiotics. Influenza B antigen positive. 3. UTI associated with indwelling urinary catheter: Patient has indwelling Browning catheter, which was exchanged 05/21/17. Appreciate Urology recommendations. Urine culture growing gram negative rods. Continue antibiotics. 4. Metastatic prostate cancer: Oncology consultation is pending. 5. Anemia: Status post transfusion of 1 unit PRBCs. H&H decreased again this morning. Transfusion ordered. Appreciate oncology recommendations. 6. Influenza B: Continue Tamiflu. 7. Acute respiratory failure: Secondary to Influenza, pneumonia. Continue supplemental oxygen, bronchodilators. Consult pulmonology. 8. DVT prophylaxis: COLLIN Valera. Problem Qualifiers (1) Sepsis: Qualified Code: A41.9 - Sepsis, due to unspecified organism (2) UTI (urinary tract infection): Qualified Code: N39.0 - Urinary tract infection without hematuria, site unspecified (3) Anemia: Qualified Code: D64.9 - Anemia, unspecified type Stoverink,Forest D. MD May 31, 2017 09:44
--- NOTE | 2017-05-31 10:33 | RADRPT ---
EXAM DATE/TIME: 05/31/2017 09:56 [facility] COMPARISON: No previous studies available for comparison. INDICATIONS : Shortness of breath MEDICAL HISTORY : Hypertension. SURGICAL HISTORY : Fusion, thoracic. ENCOUNTER: Subsequent ACUITY: 4 - 6 days PAIN SCORE: 0/10 LOCATION: Chest FINDINGS: A single view of the chest demonstrates there is patchy perihilar infiltrates right greater than left . It is worse than on the 18th. Could be asymmetric failure. Heart and mediastinum are unremarkabl e. There is no pneumothorax. Bones are unremarkable. The patient has had a previous thoracic spine fixation. CONCLUSION: Patchy air-space disease bilaterally right worse than left mostly in the upper perihilar distribution . Gideon Rivera MD on May 31, 2017 at 10:05 Board Certified Radiologist. This report was verified electronically.
[2017-05-31] MEDS: oxyCODONE/ACETAMINOPHEN 5 MG/325 MG TAB PO PRN (10:49)
--- NOTE | 2017-05-31 10:55 | HHI.PR ---
Subjective Patient symptoms today Pt seen and examined. Still with some SOB. Albarran draining clear urine. Creatinine down to 1.24 with Renal US showing mild/moderate bilateral hydronephrosis Objective Vital Signs Vital Signs Date Time Temp Pulse Resp B/P Pulse Ox O2 Delivery O2 Flow Rate FiO2 05/31/17 08:09 95 Partial Rebreather 12.00 05/31/17 08:00 98.8 99 28 146/78 96 05/31/17 06:00 83 05/31/17 04:00 82 05/31/17 04:00 98.5 82 27 122/65 96 05/31/17 02:00 86 05/31/17 00:00 98.8 96 26 126/63 96 05/31/17 00:00 96 05/30/17 22:00 111 05/30/17 21:36 98 Partial Rebreather 12.00 05/30/17 20:00 116 05/30/17 20:00 99.2 116 30 123/59 97 05/30/17 18:00 121 05/30/17 16:00 98.3 114 26 148/65 93 05/30/17 16:00 114 05/30/17 14:37 94 Partial Rebreather 12.00 05/30/17 12:00 116 05/30/17 12:00 100.1 116 22 117/55 98 Intake & Output 05/31/17 05/31/17 07:00 19:00 Intake Total 1219 ml Output Total 1620 ml Balance -401 ml Intake Oral 240 ml IV Total 979 ml Output Urine Total 1620 ml # Bowel Movements 1 Result Diagram: 05/31/17 0618 05/31/17 0618 Imaging Last 24 hours Impressions Chest X-Ray 05/31/17 0000 Signed Impressions: Service Date/Time: May 09:56 - CONCLUSION: Patchy air-space disease bilaterally right worse than left mostly in the upper perihilar distribution. Gideon Rivera MD Objective Remarks Abd:soft,nt,nd Albarran with clear urine Medications and IVs Current Medications Medications (Trade) Dose Ordered Sig/Deepti Route Start Time Stop Time Status Last Admin (NS 1000 ml Inj) 1,000 ml @ 70 mls/hr [id number] IV 05/29/17 20:00 05/30/17 02:00 (Tylenol) 650 mg Q4H PRN PO 05/29/17 18:15 05/29/17 20:13 (Zofran Inj) 4 mg Q6H PRN IVP 05/29/17 20:00 (Narcan Inj) 0.4 mg UNSCH PRN IV 05/29/17 18:15 (Kassidy-Colace) 1 tab BID PO 05/29/17 21:00 05/31/17 08:57 (Milk Of Tonya Liq) 30 ml Q12H PRN PO 05/29/17 20:00 (Senokot) 17.2 mg Q12H PRN PO 05/29/17 18:15 (Dulcolax Supp) 10 mg DAILY PRN RECTAL 05/29/17 18:15 Lactulose 30 ml 30 ml DAILY PRN PO 05/29/17 18:15 Cefepime HCl 2000 mg/Sodium Chloride 100 ml @ 200 mls/hr Q8H IV 05/30/17 00:00 05/31/17 08:56 (Vancomycin Consult Pharmacy) 0 ml @ 0 mls/hr UNSCH OTHER 05/29/17 19:00 (Tamiflu) 75 mg BID PO 05/29/17 22:00 05/31/17 08:57 (Tessalon) 100 mg TID PRN PO 05/30/17 09:15 05/31/17 06:58 (Norvasc) 10 mg DAILY PO 05/30/17 09:30 05/31/17 08:57 (Capoten) 25 mg DAILY PO 05/30/17 09:30 05/31/17 08:57 (Decadron) 4 mg Q6HR PO 05/30/17 12:00 05/31/17 06:30 (Cardura) 4 mg DAILY PO 05/30/17 09:30 05/31/17 08:57 (Keppra) 500 mg Q12HR PO 05/30/17 09:30 05/31/17 08:57 (Percocet 5-325 Mg) 1 tab Q6H PRN PO 05/30/17 09:30 05/31/17 10:49 (Protonix) 40 mg DAILY PO 05/30/17 09:30 05/31/17 08:57 Pravastatin Sodium 40 mg 40 mg DAILY PO 05/30/17 09:30 05/31/17 08:57 (Vancomycin Inj/ NS 500 ml Inj) 515 ml @ 250 mls/hr Q24H IV 05/30/17 22:00 05/30/17 22:57 Miscellaneous Information SPECIFIC LAB TO BE DRAWN:VANCOMYCIN TROUGH DATE TO... ONCE ONCE .XX 05/31/17 21:45 05/31/17 21:46 Tamsulosin HCl 0.4 mg 0.4 mg DAILY PO 05/30/17 11:00 05/31/17 08:57 (NS 250 ml Inj) 250 ml @ 15 mls/hr ONCE ONCE IV 05/31/17 07:30 06/01/17 00:09 Assessment and Plan Assessment and Plan 56 y.o male with metastatic prostate cancer and mild bilateral hydronephrosis Check renal scan to r/o obstruction Maintain albarran catheter Continue Flomax Ashok Daigle DO May 31, 2017 10:54
[2017-05-31] MEDS ORDERED: FUROSEMIDE 40 MG/4 ML VIAL ONE (12:54)
--- NOTE | 2017-05-31 14:41 | RADRPT ---
EXAM DATE/TIME: 05/31/2017 12:46 [facility] COMPARISON: No previous studies available for comparison. INDICATIONS : Bilateral hydronephrosis. Sepsis. DOSE: 20.1 mCi Tc99m DTPA IV MEDICATION: 40 mg Lasix IV MEDICAL HISTORY : Hypertension. Gastroesophageal reflux disease. Carcinoma, prostate. SURGICAL HISTORY : Orthopedic. ENCOUNTER: Initial ACUITY: 1 day PAIN SCALE: 0/10 LOCATION: Bilateral kidney. TECHNIQUE: Dynamic images were performed in the posterior projection for a total of 28 minutes. FINDINGS: FLOW: There is normal flow to the right kidney with slightly decreased flow left kidney. There is homogene ous perfusion to both kidneys. EXCRETION: There is normal renal cortical transit time and normal rate of washout from the parenchyma of the lef t kidney. There is delayed renal cortical transit time and washout of the right kidney. Renal functio n is 59% on the right and 41% left. CONCLUSION: 1. Mild obstruction on the left. 2. Normal right kidney. Seb Matthews MD on May 31, 2017 at 14:37 Board Certified Radiologist. This report was verified electronically.
--- NOTE | 2017-05-31 19:48 | HHI.IDPN ---
Subjective Subjective Remarks pt remains on NRB not expectorating much Renogram showed obstruction on the L fever resolved Antibiotics cefepime vancomycin tamiflu Allergies: Coded Allergies: No Known Allergies (Unverified , 05/29/17) Objective . Vital Signs Date Time Temp Pulse Resp B/P Pulse Ox O2 Delivery O2 Flow Rate FiO2 05/31/17 19:14 95 Partial Rebreather 10.00 05/31/17 16:00 98.4 99 26 130/65 96 05/31/17 15:46 95 05/31/17 12:00 98.7 96 28 123/61 96 05/31/17 08:09 95 Partial Rebreather 12.00 05/31/17 08:00 98.8 99 28 146/78 96 05/31/17 06:00 83 05/31/17 04:00 82 05/31/17 04:00 98.5 82 27 122/65 96 05/31/17 02:00 86 05/31/17 00:00 98.8 96 26 126/63 96 05/31/17 00:00 96 05/30/17 22:00 111 05/30/17 21:36 98 Partial Rebreather 12.00 05/30/17 20:00 116 05/30/17 20:00 99.2 116 30 123/59 97 05/30/17 05/30/17 05/31/17 15:00 23:00 07:00 Intake Total 228 ml 618 ml 601 ml Output Total 1000 ml 820 ml 800 ml Balance -772 ml -202 ml -199 ml Intake Oral 240 ml IV Total 228 ml 378 ml 601 ml Output Urine Total 1000 ml 820 ml 800 ml # Bowel Movements 1 . Laboratory Tests Test 05/30/17 05/31/17 09:24 06:18 White Blood Count 5.8 TH/MM3 5.2 TH/MM3 Red Blood Count 3.08 MIL/MM3 2.32 MIL/MM3 Hemoglobin 9.4 GM/DL 7.4 GM/DL Hematocrit 27.6 % 20.4 % Mean Corpuscular Volume 89.7 FL 87.8 FL Mean Corpuscular Hemoglobin 30.6 PG 31.6 PG Mean Corpuscular Hemoglobin 34.1 % 36.0 % Concent Red Cell Distribution Width 15.8 % 15.9 % Platelet Count 331 TH/MM3 255 TH/MM3 Mean Platelet Volume 7.6 FL 8.2 FL Neutrophils (%) (Auto) 90.3 % 91.1 % Lymphocytes (%) (Auto) 5.8 % 4.9 % Monocytes (%) (Auto) 2.6 % 3.7 % Eosinophils (%) (Auto) 0.9 % 0.1 % Basophils (%) (Auto) 0.4 % 0.2 % Neutrophils # (Auto) 5.3 TH/MM3 4.8 TH/MM3 Lymphocytes # (Auto) 0.3 TH/MM3 0.3 TH/MM3 Monocytes # (Auto) 0.2 TH/MM3 0.2 TH/MM3 Eosinophils # (Auto) 0.1 TH/MM3 0.0 TH/MM3 Basophils # (Auto) 0.0 TH/MM3 0.0 TH/MM3 CBC Comment DIFF FINAL AUTO DIFF Differential Comment AUTO DIFF CONFIRMED Laboratory Tests Test 05/30/17 05/31/17 09:24 06:18 Sodium Level 141 MEQ/L 139 MEQ/L Potassium Level 4.2 MEQ/L 4.7 MEQ/L Chloride Level 111 MEQ/L 111 MEQ/L Carbon Dioxide Level 18.7 MEQ/L 18.5 MEQ/L Anion Gap 11 MEQ/L 10 MEQ/L Blood Urea Nitrogen 20 MG/DL 19 MG/DL Creatinine 1.37 MG/DL 1.24 MG/DL Estimat Glomerular Filtration 65 ML/MIN 73 ML/MIN Rate Random Glucose 100 MG/DL 176 MG/DL Calcium Level 7.4 MG/DL 7.5 MG/DL Protein Corrected Calcium 7.3 MG/DL Total Bilirubin 0.6 MG/DL Aspartate Amino Transf 41 U/L (AST/SGOT) Alanine Aminotransferase 41 U/L (ALT/SGPT) Alkaline Phosphatase 503 U/L Total Protein 7.4 GM/DL Albumin 2.0 GM/DL Microbiology Date/Time Procedure Status Source Growth 05/29/17 14:50 Aerobic Blood Culture - Preliminary Resulted Blood Peripheral NO GROWTH IN 2 DAYS 05/29/17 14:50 Anaerobic Blood Culture - Preliminary Resulted Blood Peripheral NO GROWTH IN 2 DAYS 05/29/17 14:55 Aerobic Blood Culture - Preliminary Resulted Blood Peripheral NO GROWTH IN 2 DAYS 05/29/17 14:55 Anaerobic Blood Culture - Preliminary Resulted Blood Peripheral NO GROWTH IN 2 DAYS 05/29/17 16:00 Urine Culture - Preliminary Resulted Urine Catheterized Urine Enterobacter Cloacae Group D Enterococcus 05/29/17 19:35 Influenza Types A,B Antigen (DAVID) - Final Complete Nasal Aspirate Positive For Flu B Antigen Imaging Last Impressions Renal Scan w/Medication NM 05/31/17 0000 Signed Impressions: Service Date/Time: May 12:46 - CONCLUSION: 1. Mild obstruction on the left. 2. Normal right kidney. Seb Matthews MD Chest X-Ray 05/31/17 0000 Signed Impressions: Service Date/Time: May 09:56 - CONCLUSION: Patchy air-space disease bilaterally right worse than left mostly in the upper perihilar distribution. Gideon Rivera MD Renal Ultrasound 05/30/17 0000 Signed Impressions: Service Date/Time: Tuesday, May 30, 2017 11:51 - CONCLUSION: Bilateral hydronephrosis left greater than right. Quite similar to CT scan in March. Gideon Rivera MD Physical Exam CONSTITUTIONAL/GENERAL: This is an adequately nourished patient, in no apparent distress. He is on part NRB TUBES/LINES/DRAINS: SKIN: No jaundice, rashes, or lesions. . Skin temperature appropriate. Not diaphoretic. EYES: Pupils equal and round and reactive. Extraocular motions intact. No scleral icterus. No injection or drainage. Fundi not examined. ENT: Hearing grossly normal. Nose without bleeding or purulent drainage. Oral mucosae moist without visible erythema, exudates, masses, or lesions. CARDIOVASCULAR: Regular rate and rhythm without murmurs, gallops, or rubs. No JVD. Peripheral pulses symmetric. RESPIRATORY/CHEST: Symmetric, unlabored respirations. Few rhonchi to auscultation. Breath sounds equal bilaterally. No wheezes, rales, or rhonchi. GASTROINTESTINAL: Abdomen soft, non-tender, nondistended. No hepato-splenomegaly , or palpable masses. No guarding. Bowel sounds present. GENITOURINARY: Without palpable bladder distension. Albarran catheter in place with clear yellow urine MUSCULOSKELETAL: Extremities without clubbing, cyanosis, or edema. No joint tenderness or effusion noted. No calf tenderness. No mottling or clubbing. NEUROLOGICAL: Awake and alert. Motor and sensory grossly within normal limits. Follows commands. Clear speech. Moves all extremities. PSYCHIATRIC: No obvious anxiety/depression. no apparent hallucinations or other psychotic thought process. Assessment & Plan Remarks Influenza A B/l PNA with hypoxia, viral vs superimposed bacterial -Bilateral patchy infiltrates. Prostate CA with mets, chronic albarran - hydronephrosis left greater than right. UTI 2/2 Enterobacter (R to cipro), Entrococcus REC's; cont current abx chk sputum clx might need bronch if cont to get worse from resp standpoint and still wont expectorate fu urine clx untill final dw Mira Kaufman MD May 31, 2017 19:48
[2017-05-31 20:29] LABS: BLOOD GAS BASE EXCESS -7.1 mmol/L (-2-2); BLOOD GAS CARBOXYHEMOGLOBIN 1.1 % (0-4); BLOOD GAS HCO3 17 mmol/L (22-26); BLOOD GAS METHEMOGLOBIN 1.6 % (0-2); BLOOD GAS O2 HGB SATURATION 89 % (90-100); BLOOD GAS OXYGEN CONTENT 10.8 Vol % (12.0-20.0); BLOOD GAS PCO2 29 mmHg (38-42); BLOOD GAS PO2 65 mmHg (61-120); BLOOD GAS TOTAL HGB 8.6 G/DL (12.0-16.0); TEMP CORR TO 98.6
[2017-05-31 20:31] LABS: CRITICAL VALUE YES
[2017-05-31 20:32] LABS: DRAW SITE LT RADIAL; LITER FLOW 10 L/M; NUMBER OF ARTERIAL PUNCTURES 1; OXYGEN DEVICE PRB; STAT NO; ULNAR PULSE PRESENT
--- NOTE | 2017-05-31 21:37 | RADRPT ---
EXAM DATE/TIME: 05/31/2017 21:23 [facility] COMPARISON: CHEST SINGLE AP, May 31, 2017, 9:56. INDICATIONS : Shortness of breath. Evaluate for infiltrates. RADIATION DOSE: 7.98 CTDIvol (mGy) MEDICAL HISTORY : Hypertension. Carcinoma, prostate. A-Fib. SURGICAL HISTORY : Thoracic fusion. ENCOUNTER: Subsequent ACUITY: 3 days PAIN SCALE: 0/10 LOCATION: Bilateral chest TECHNIQUE: Volumetric scanning of the chest was performed. Using automated exposure control and adjustment of t he mA and/or kV according to patient size, radiation dose was kept as low as reasonably achievable to obtain optimal diagnostic quality images. DICOM format image data is available electronically for r eview and comparison. Follow-up recommendations for incidentally detected pulmonary nodules are based at a minimum on nodul e size and patient risk factors according to Fleischner Society Guidelines. FINDINGS: There are diffuse bilateral upper lobe groundglass infiltrates identified. There are lower lobe groun dglass infiltrate seen superiorly with small bilateral effusions. Atherosclerotic calcification of th e aorta is noted. There are numerous lytic lesions and patchy sclerotic lesions throughout the spine consistent with metastatic disease. T2-T4 spinal fixation hardware is noted. CONCLUSION: 1. Diffuse metastatic disease to the spine. 2. Bilateral pulmonary infiltrates. Small bilateral effusions. José Manuel Baumann MD on May 31, 2017 at 21:33 Board Certified Radiologist. This report was verified electronically.
[2017-05-31] MEDS: VANCOMYCIN INJ 1,500 MG in SODIUM CHLORID 0.9% 500 ML INJ 500 ML IV SCH (21:45)
[2017-05-31] MEDS ORDERED: PHARMACY ORDERED LAB ONE (21:45)
--- NOTE | 2017-05-31 23:46 | PD.ONC.PN ---
Subjective Subjective Remarks Drop in Hb this am pRBC ordered going for renal scan afebrile o/n no dyspnea d/w rn Objective Data Date Time Temp Pulse Resp B/P Pulse Ox O2 Delivery O2 Flow Rate FiO2 05/31/17 22:19 95 50 05/31/17 21:40 94 50 05/31/17 19:14 95 Partial Rebreather 10.00 05/31/17 16:00 98.4 99 26 130/65 96 05/31/17 15:46 95 05/31/17 12:00 98.7 96 28 123/61 96 05/31/17 08:09 95 Partial Rebreather 12.00 05/31/17 08:00 98.8 99 28 146/78 96 05/31/17 06:00 83 05/31/17 04:00 82 05/31/17 04:00 98.5 82 27 122/65 96 05/31/17 02:00 86 05/31/17 00:00 98.8 96 26 126/63 96 05/31/17 00:00 96 05/31/17 05/31/17 05/31/17 07:00 15:00 23:00 Intake Total 601 ml 610 ml Output Total 800 ml 400 ml Balance -199 ml 210 ml Result Diagram: 05/31/1718 05/31/17617 Laboratory Results Laboratory Tests Test 05/31/17 05/31/17 05/31/17 06:18 07:23 20:10 White Blood Count 5.2 TH/MM3 Red Blood Count 2.32 MIL/MM3 Hemoglobin 7.4 GM/DL Hematocrit 20.4 % Mean Corpuscular Volume 87.8 FL Mean Corpuscular Hemoglobin 31.6 PG Mean Corpuscular Hemoglobin 36.0 % Concent Red Cell Distribution Width 15.9 % Platelet Count 255 TH/MM3 Mean Platelet Volume 8.2 FL Neutrophils (%) (Auto) 91.1 % Lymphocytes (%) (Auto) 4.9 % Monocytes (%) (Auto) 3.7 % Eosinophils (%) (Auto) 0.1 % Basophils (%) (Auto) 0.2 % Neutrophils # (Auto) 4.8 TH/MM3 Lymphocytes # (Auto) 0.3 TH/MM3 Monocytes # (Auto) 0.2 TH/MM3 Eosinophils # (Auto) 0.0 TH/MM3 Basophils # (Auto) 0.0 TH/MM3 CBC Comment AUTO DIFF Differential Comment AUTO DIFF CONFIRMED Sodium Level 139 MEQ/L Potassium Level 4.7 MEQ/L Chloride Level 111 MEQ/L Carbon Dioxide Level 18.5 MEQ/L Anion Gap 10 MEQ/L Blood Urea Nitrogen 19 MG/DL Creatinine 1.24 MG/DL Estimat Glomerular Filtration 73 ML/MIN Rate Random Glucose 176 MG/DL Calcium Level 7.5 MG/DL Blood Type O POSITIVE Crossmatch Leukocyte-Reduced Red Blood Cells Blood Bank Comment Blood Gas Puncture Site LT RADIAL Blood Gas Patient Temperature 98.6 Blood Gas HCO3 17 mmol/L Blood Gas Base Excess -7.1 mmol/L Blood Gas Oxygen Saturation 89 % Arterial Blood pH 7.39 Arterial Blood Partial 29 mmHg Pressure CO2 Arterial Blood Partial 65 mmHg Pressure O2 Arterial Blood Oxygen Content 10.8 Vol % Arterial Blood 1.1 % Carboxyhemoglobin Arterial Blood Methemoglobin 1.6 % Blood Gas Hemoglobin 8.6 G/DL Oxygen Delivery Device PRB Blood Gas Liter Flow 10 L/M Culture Results Microbiology Date/Time Procedure Status Source Growth 05/29/17 14:50 Aerobic Blood Culture - Preliminary Resulted Blood Peripheral NO GROWTH IN 2 DAYS 05/29/17 14:50 Anaerobic Blood Culture - Preliminary Resulted Blood Peripheral NO GROWTH IN 2 DAYS 05/29/17 14:55 Aerobic Blood Culture - Preliminary Resulted Blood Peripheral NO GROWTH IN 2 DAYS 05/29/17 14:55 Anaerobic Blood Culture - Preliminary Resulted Blood Peripheral NO GROWTH IN 2 DAYS 05/29/17 16:00 Urine Culture - Preliminary Resulted Urine Catheterized Urine Enterobacter Cloacae Group D Enterococcus 05/29/17 19:35 Influenza Types A,B Antigen (DAVID) - Final Complete Nasal Aspirate Positive For Flu B Antigen 05/31/17 19:30 Gram Stain Received Sputum Expectorated Sputum Pending 05/31/17 19:30 Sputum Culture Received Sputum Expectorated Sputum Pending Imaging Studies Last [address] 05/31/17 1853 Signed Impressions: Service Date/Time: May 21:23 - CONCLUSION: 1. Diffuse metastatic disease to the spine. 2. Bilateral pulmonary infiltrates. Small bilateral effusions. José Manuel Baumann MD Renal Scan w/Medication NM 05/31/17 0000 Signed Impressions: Service Date/Time: May 12:46 - CONCLUSION: 1. Mild obstruction on the left. 2. Normal right kidney. Seb Matthews MD Chest X-Ray 05/31/17 0000 Signed Impressions: Service Date/Time: May 09:56 - CONCLUSION: Patchy air-space disease bilaterally right worse than left mostly in the upper perihilar distribution. Gideon Rivera MD Administered Medications Medications (Trade) Dose Ordered Sig/Deepti Route PRN Reason Start Time Stop Time Status Last Admin Dose Admin Sodium Chloride (NS 1000 ml Inj) 1,000 ml @ 70 mls/hr [id number] IV 05/29/17 20:00 05/30/17 02:00 Acetaminophen (Tylenol) 650 mg Q4H PRN PO TEMP > 100.4 05/29/17 18:15 05/29/17 20:13 Senna/Docusate Sodium 1 tab 1 tab BID PO 05/29/17 21:00 05/31/17 21:04 Cefepime HCl/ Sodium Chloride (Maxipime Inj/NS Inj) 100 ml @ 200 mls/hr Q8H IV 05/30/17 00:00 05/31/17 23:40 Oseltamivir Phosphate (Tamiflu) 75 mg BID PO 05/29/17 22:00 05/31/17 21:04 Benzonatate (Tessalon) 100 mg TID PRN PO COUGH 05/30/17 09:15 05/31/17 18:27 Amlodipine Besylate (Norvasc) 10 mg DAILY PO 05/30/17 09:30 05/31/17 08:57 Captopril (Capoten) 25 mg DAILY PO 05/30/17 09:30 05/31/17 08:57 Dexamethasone (Decadron) 4 mg Q6HR PO 05/30/17 12:00 05/31/17 23:40 Doxazosin Mesylate (Cardura) 4 mg DAILY PO 05/30/17 09:30 05/31/17 08:57 Levetriacetam (Keppra) 500 mg Q12HR PO 05/30/17 09:30 05/31/17 21:04 Oxycodone/ Acetaminophen (Percocet 5-325 Mg) 1 tab Q6H PRN PO PAIN 1-10 05/30/17 09:30 05/31/17 10:49 Pantoprazole Sodium (Protonix) 40 mg DAILY PO 05/30/17 09:30 05/31/17 08:57 Pravastatin Sodium 40 mg 40 mg DAILY PO 05/30/17 09:30 05/31/17 08:57 Vancomycin HCl/ Sodium Chloride (Vancomycin Inj/ NS 500 ml Inj) 515 ml @ 250 mls/hr Q24H IV 05/30/17 22:00 05/31/17 21:45 Tamsulosin HCl (Flomax) 0.4 mg DAILY PO 05/30/17 11:00 05/31/17 08:57 Objective Remarks GENERAL: nad NECK: Supple, trachea midline. No JVD or lymphadenopathy. LYMPHATIC: No adenopathy. CARDIOVASCULAR: Regular rate and rhythm without murmurs. RESPIRATORY: Breath sounds equal bilaterally. No accessory muscle use. GASTROINTESTINAL: Abdomen soft, non-tender, nondistended. EXTREMITIES: No cyanosis, or edema. Assessment/Plan Problem List: (1) Metastatic disease Status: Acute (2) Normocytic anemia Status: Chronic (3) Cord compression Status: Resolved (4) Hydronephrosis Status: Acute (5) JENELLE (acute kidney injury) Status: Resolved (6) Pneumonia Status: Acute (7) Prostate cancer metastatic to bone Status: Acute (8) Influenza B Status: Acute Assessment 56-year-old male with a history of stage IV prostate adenocarcinoma with bony metastatic disease and a history of cord compression status post laminectomy and decompression. He presents with fever, anemia, hypoxia and tachycardia and was found to have pneumonia and UTI. 1. Urinary tract infection with sepsis. Preliminary cultures show gram-negative rods--Enterobacter cloacae . The patient is on broad- spectrum antibiotics. Speciatition pending, Blood cultures are pending. 2. Influenza B pneumonia The patient was also found to have influenza B+ antigen. He is currently on Tamiflu 3. Acute anemia. prbc today. Obtain stool hemoccult. Check haptoglobin/LDH/BETINA 4. Acute and chronic kidney failure improving with hydration. He does have hydroureter on ultrasound. Renal scan today 6. Hypoalbuminemia/malnutrition, albumin is 2, encourage oral intake dietitian consult. Ensure or Boost t.i.d. with meals. 7. Stage IV prostate adenocarcinoma with bone mets currently on hormone blockade therapy with Casodex and Lupron and also receiving bone modifying agent for bony metastatic disease. Further management as per outpatient. Tim Le MD May 31, 2017 23:46
[2017-06-01] VITALS (15 sets, daily range): BP systolic 126–134; BP diastolic 61–88; PULSE 74–104; RESP 22–28; TEMP 97.6–98.2; O2SAT 93–98
[2017-06-01] MEDS: SODIUM CHLOR 0.9% 1000 ML INJ 1,000 ML IV SCH ×2 (03:14→16:42)
--- NOTE | 2017-06-01 06:04 | MB ---
cc: ANTONIETA REDDING DATE OF CONSULTATION 05/31/2017 REASON FOR CONSULTATION Pulmonary infiltrates and hypoxia. HISTORY OF PRESENT ILLNESS This is a 56-year-old man with a history of Stage IV adenocarcinoma of the prostate with bony metastasis who was apparently seen at the oncology clinic with high fever, hypoxia and dyspnea. The patient was admitted to the hospital with low O2 sats and was placed on a non-rebreather mask and a chest x-ray that was done upon admission showed bilateral upper lobe pulmonary infiltrates. The patient's flu test was positive for influenza A and he has been started on therapy by the ID service. The patient does have a persistent cough, does not bring up much sputum. Denies hemoptysis. He does have some tightness in his chest and back and he has had no nausea, vomiting or aspiration. PAST MEDICAL HISTORY The past history includes - 1. History of metastatic prostate cancer with bony metastasis involving the entire vertebral column. He has had retroperitoneal lymphadenopathy and also had cord compression at the T3 level and underwent laminectomy and resection of the tumor. 2. He has indwelling Browning due to chronic urinary obstruction. 3. Hydronephrosis. 4. The patient has been receiving Paxil transfusions for anemia. Also was on Lupron injection. 5. Has been treated for UTIs in the past. OTHER PAST HISTORY 1. Atrial fibrillation. 2. Hypertension. 3. History of laminectomy at T3. HABITS The patient smoked 1/2-pack per day for about 15 years and quit several years ago. No significant alcohol use. Works for a car [employer]. FAMILY HISTORY Noncontributory. MED LIST 1. Keppra 500 mg b.i.d. 2. Cardura 4 mg a day. 3. Captopril 25 mg daily. 4. Amlodipine 10 mg a day 5. Dexamethasone 4 mg q. 6. 6. Tessalon 100 mg t.i.d. 7. Tamiflu 75 mg b.i.d. 8. Zofran 4 mg q. 6 p.r.n. 9. Albuterol nebs p.r.n. 10. Now on cefepime, 2 grams b.i.d. ALLERGIES None listed. SYSTEM REVIEW The patient has fever, chills, cough, wheezing, shortness of breath, back pain, neck pain. He has mild leg swelling. He has an indwelling catheter and urinary burning. He has had no skin lesions. Denies anxiety or depression. PHYSICAL EXAMINATION GENERAL: This is a middle-aged -[place] Citizen male who is alert, pale and mildly dyspneic at rest. VITAL SIGNS: Blood pressure 138/70, pulse 96, respirations 20, temperature 98.6. HEENT: Head normocephalic. Pupils are reactive and equal. Tongue is moist. Throat was clear. Nasal mucosa injected. NECK: No bruits or thyroid enlargement or lymphadenopathy. CHEST: Increased AP diameter. Percussion note resonant throughout with occasional wheezes bilaterally. A few crackles in the right chest. HEART SOUNDS: Regular S1 and S2. No murmur. ABDOMEN: Soft, benign. No tenderness. No organomegaly. EXTREMITIES: Decreased pulses. Reflexes are 1+. There are no gross motor deficits. There is minimal peripheral edema. NEUROLOGICALLY: No focal deficits identified. IMPRESSION 1. Bilateral pulmonary infiltrates with atypical pneumonia. 2. Metastatic carcinoma of the prostate. 3. Sepsis with UTI. 4. Influenza. 5. Acute kidney injury, resolving. PLAN 1. The patient has been placed on antibiotic coverage which we will continue including vancomycin and cefepime. 2. Continue with O2 at 60% non-rebreather. 3. We will also place him on BiPap in case his saturation drops below 92%. 4. Nebulized DuoNeb solution added q.4 hours. 5. Sputum will be sent for Gram's stain and culture. 6. Blood gas studies to be repeated and a CT scan of the chest without contrast to evaluate the infiltrates. 7. As he is unable to produce any sputum and if the infiltrates worsen, consideration will be given to doing a bronchoscopy and lavage. Thank you Dr. Campo for this consultation. MD GAEL Orlando/JANY /7:05 PM /5:57 AM
[2017-06-01] MEDS: DEXAMETHASONE 4 MG TAB PO SCH ×3 (06:27→16:42)
[2017-06-01] MEDS: CEFEPIME INJ 2,000 MG in SODIUM CHLORIDE 0.9% INJ 100 ML IV SCH ×2 (08:59→16:42)
[2017-06-01] MEDS: CAPTOPRIL 25 MG TAB PO SCH (08:59)
[2017-06-01] MEDS: PANTOPRAZOLE SOD 40 MG DELAYED RELEASE TAB PO SCH (09:00)
[2017-06-01] MEDS: DOCUSATE SODIUM 50 MG/SENNA 8.6 MG TAB PO SCH ×2 (09:00→21:04)
[2017-06-01] MEDS: DOXAZOSIN MESYLATE 4 MG TAB PO SCH (09:00)
[2017-06-01] MEDS: TAMSULOSIN HCL 0.4 MG CAP PO SCH (09:00)
[2017-06-01] MEDS: levETIRAcetam 500 MG TAB PO SCH ×2 (09:00→21:04)
[2017-06-01] MEDS: PRAVASTATIN SOD 40 MG TAB PO SCH (09:00)
[2017-06-01] MEDS: RESP: ALBUTEROL 2.5 MG/IPRATROPIUM 0.5 MG NEB (SCH) NEB ×4 (09:06→20:35)
[2017-06-01] MEDS: OSELTAMIVIR PHOSPHATE 75 MG CAP PO SCH ×2 (10:19→21:04)
--- NOTE | 2017-06-01 11:29 | PD.ONC.PN ---
Subjective Subjective Remarks Afebrile overnight. Having blood drawn. "I feel better today." States he is breathing better today. Denies pain. Objective Data Date Time Temp Pulse Resp B/P Pulse Ox O2 Delivery O2 Flow Rate FiO2 06/01/17 09:03 96 Partial Rebreather 15.00 06/01/17 06:00 77 06/01/17 04:13 96 50 06/01/17 04:00 74 06/01/17 04:00 97.8 74 28 127/64 96 06/01/17 02:00 96 06/01/17 01:02 98 50 06/01/17 00:00 98.0 104 28 126/66 95 06/01/17 00:00 104 05/31/17 22:19 95 50 05/31/17 22:00 100 05/31/17 21:40 94 50 05/31/17 20:00 100 05/31/17 20:00 97.0 100 28 139/63 90 05/31/17 19:14 95 Partial Rebreather 10.00 05/31/17 16:00 98.4 99 26 130/65 96 05/31/17 15:46 95 05/31/17 12:00 98.7 96 28 123/61 96 06/01/17 06/01/17 06/01/17 07:00 15:00 23:00 Intake Total 1009 ml Output Total 800 ml Balance 209 ml Result Diagram: 05/31/17 0618 05/31/17 0618 Laboratory Results Laboratory Tests Test 05/31/17 20:10 Blood Gas Puncture Site LT RADIAL Blood Gas Patient Temperature 98.6 Blood Gas HCO3 17 mmol/L Blood Gas Base Excess -7.1 mmol/L Blood Gas Oxygen Saturation 89 % Arterial Blood pH 7.39 Arterial Blood Partial 29 mmHg Pressure CO2 Arterial Blood Partial 65 mmHg Pressure O2 Arterial Blood Oxygen Content 10.8 Vol % Arterial Blood 1.1 % Carboxyhemoglobin Arterial Blood Methemoglobin 1.6 % Blood Gas Hemoglobin 8.6 G/DL Oxygen Delivery Device PRB Blood Gas Liter Flow 10 L/M Culture Results Microbiology Date/Time Procedure Status Source Growth 05/29/17 14:50 Aerobic Blood Culture - Preliminary Resulted Blood Peripheral NO GROWTH IN 3 DAYS 05/29/17 14:50 Anaerobic Blood Culture - Preliminary Resulted Blood Peripheral NO GROWTH IN 3 DAYS 05/29/17 14:55 Aerobic Blood Culture - Preliminary Resulted Blood Peripheral NO GROWTH IN 3 DAYS 05/29/17 14:55 Anaerobic Blood Culture - Preliminary Resulted Blood Peripheral NO GROWTH IN 3 DAYS 05/29/17 16:00 Urine Culture - Preliminary Resulted Urine Catheterized Urine Enterobacter Cloacae Group D Enterococcus 05/29/17 19:35 Influenza Types A,B Antigen (DAVID) - Final Complete Nasal Aspirate Positive For Flu B Antigen 05/31/17 19:30 Cancelled Sputum Expectorated Sputum Imaging Studies Last [address] 05/31/17 3424 Signed Impressions: Service Date/Time: May 21:23 - CONCLUSION: 1. Diffuse metastatic disease to the spine. 2. Bilateral pulmonary infiltrates. Small bilateral effusions. José Manuel Baumann MD Administered Medications Medications (Trade) Dose Ordered Sig/Deepti Route PRN Reason Start Time Stop Time Status Last Admin Dose Admin Sodium Chloride (NS 1000 ml Inj) 1,000 ml @ 70 mls/hr [id number] IV 05/29/17 20:00 05/31/17 02:00 Acetaminophen (Tylenol) 650 mg Q4H PRN PO TEMP > 100.4 05/29/17 18:15 05/29/17 20:13 Senna/Docusate Sodium 1 tab 1 tab BID PO 05/29/17 21:00 06/01/17 09:00 Cefepime HCl/ Sodium Chloride (Maxipime Inj/NS Inj) 100 ml @ 200 mls/hr Q8H IV 05/30/17 00:00 06/01/17 08:59 Oseltamivir Phosphate (Tamiflu) 75 mg BID PO 05/29/17 22:00 06/01/17 10:19 Benzonatate (Tessalon) 100 mg TID PRN PO COUGH 05/30/17 09:15 05/31/17 18:27 Amlodipine Besylate (Norvasc) 10 mg DAILY PO 05/30/17 09:30 06/01/17 09:00 Captopril (Capoten) 25 mg DAILY PO 05/30/17 09:30 06/01/17 08:59 Dexamethasone (Decadron) 4 mg Q6HR PO 05/30/17 12:00 06/01/17 06:27 Doxazosin Mesylate (Cardura) 4 mg DAILY PO 05/30/17 09:30 06/01/17 09:00 Levetriacetam (Keppra) 500 mg Q12HR PO 05/30/17 09:30 06/01/17 09:00 Oxycodone/ Acetaminophen (Percocet 5-325 Mg) 1 tab Q6H PRN PO PAIN 1-10 05/30/17 09:30 05/31/17 10:49 Pantoprazole Sodium (Protonix) 40 mg DAILY PO 05/30/17 09:30 06/01/17 09:00 Pravastatin Sodium 40 mg 40 mg DAILY PO 05/30/17 09:30 06/01/17 09:00 Vancomycin HCl/ Sodium Chloride (Vancomycin Inj/ NS 500 ml Inj) 515 ml @ 250 mls/hr Q24H IV 05/30/17 22:00 05/31/17 21:45 Tamsulosin HCl (Flomax) 0.4 mg DAILY PO 05/30/17 11:00 06/01/17 09:00 Objective Remarks GENERAL: chronically ill appearing middle aged male upright in bed on NRB mask SKIN: Warm and dry. HEAD: Normocephalic. EYES: No injection or drainage. NECK: Supple, trachea midline. CARDIOVASCULAR: +S1/S2 RESPIRATORY: anterior torres with occasional rhonchi. on NRB mask GASTROINTESTINAL: Abdomen soft, non-tender, nondistended. EXTREMITIES: No cyanosis NEUROLOGICAL: awake and alert, normal speech. moving all extremities. Assessment/Plan Problem List: (1) Metastatic disease Status: Acute (2) Normocytic anemia Status: Chronic (3) Cord compression Status: Resolved (4) Hydronephrosis Status: Acute (5) JENELLE (acute kidney injury) Status: Resolved (6) Pneumonia Status: Acute (7) Prostate cancer metastatic to bone Status: Acute (8) Influenza B Status: Acute Assessment 56-year-old male with a history of stage IV prostate adenocarcinoma with bony metastatic disease and a history of cord compression status post laminectomy and decompression. He presents with fever, anemia, hypoxia and tachycardia and was found to have pneumonia and UTI. 1. Urinary tract infection with sepsis. Urine culture: ++gram-negative rods--Enterobacter cloacae . On Vanco + Cefepime Blood cultures no growth 2. Influenza B pneumonia The patient was also found to have influenza B+ antigen. He is currently on Tamiflu 3. Acute anemia. s/p pRBC. hgb stable 4. Acute and chronic kidney failure improving with hydration. He does have hydroureter on ultrasound. Renal scan showed mild obstruction on the left. 6. Hypoalbuminemia/malnutrition, albumin is 2, encourage oral intake. Ensure or Boost t.i.d. with meals. 7. Stage IV prostate adenocarcinoma with bone mets currently on hormone blockade therapy with Casodex and Lupron and also receiving bone modifying agent for bony metastatic disease. Further management as per outpatient. Attending Statement The exam, history, and the medical decision-making described in the above note were completed with the assistance of the mid-level provider. I reviewed and agree with the findings presented. I attest that I had a [id number] encounter with the patient on the same day, and personally performed and documented my assessment and findings in the medical record. Liliam French Jun 01, 2017 11:29 Tim Le MD Jun 01, 2017 21:44
[2017-06-01 11:49] LABS: AUTOMATED NEUTROPHIL # 5.3 TH/MM3 (1.8-7.7); BASOPHIL % 0.6 % (0.0-2.0); EOSINOPHIL % 0.1 % (0.0-4.0); HEMATOCRIT 25.7 % (39.0-51.0); LYMPH % 4.3 % (9.0-44.0); LYMPHOCYTE # 0.3 TH/MM3 (1.0-4.8); MEAN CELL VOLUME 87.6 FL (80.0-100.0); MEAN CORPUSCULAR HEMOGLOBIN 30.8 PG (27.0-34.0); MEAN CORPUSCULAR HGB CONC 35.1 % (32.0-36.0); MONO % 5.5 % (0.0-8.0); NEUT % 89.5 % (16.0-70.0); PLATELET COUNT 239 TH/MM3 (150-450); RED BLOOD COUNT 2.94 MIL/MM3 (4.50-5.90); RED CELL DISTRIBUTION WIDTH 16.6 % (11.6-17.2); WHITE BLOOD COUNT 5.9 TH/MM3 (4.0-11.0)
[2017-06-01 11:50] LABS: HEMO FLAGS AUTO DIFF
[2017-06-01 12:06] LABS: BICARBONATE 17.3 MEQ/L (21.0-32.0); POTASSIUM 4.1 MEQ/L (3.5-5.1)
[2017-06-01 13:36] LABS: BANDS 9 % (0-6); BURR CELLS 1+ (NORMAL); CORRECTED NUCLEATED RBC 2 /100 WBC (0-0); METAMYELOCYTES 2 % (0-1); MYELOCYTES 1 % (0-0); NEUTROPHIL # MANUAL DIFF 5.4 TH/MM3 (1.8-7.7); PLATELET ESTIMATE SMEAR NORMAL (NORMAL); PLATELET MORPHOLOGY NORMAL (NORMAL); POLYS (SEG NEUTROPHILS) 79 % (16-70); PROMYELOCYTES 1 % (0-0); SCAN/DIFF FINAL DIFF MANUAL; WBC DIFF SAMPLE 100
--- NOTE | 2017-06-01 15:34 | HHI.PR ---
Subjective Remarks Follow-up respiratory failure, sepsis, influenza. Patient states that he feels better today. Denies chest pain or dyspnea. Still on nonrebreather mask. Cough is productive. Objective Vitals Vital Signs Date Time Temp Pulse Resp B/P Pulse Ox O2 Delivery O2 Flow Rate FiO2 06/01/17 12:00 85 06/01/17 12:00 98.2 85 22 130/88 95 06/01/17 10:00 86 06/01/17 09:03 96 Partial Rebreather 15.00 06/01/17 08:00 97.6 88 24 130/70 96 06/01/17 08:00 88 06/01/17 06:00 77 06/01/17 04:13 96 50 06/01/17 04:00 74 06/01/17 04:00 97.8 74 28 127/64 96 06/01/17 02:00 96 06/01/17 01:02 98 50 06/01/17 00:00 98.0 104 28 126/66 95 06/01/17 00:00 104 05/31/17 22:19 95 50 05/31/17 22:00 100 05/31/17 21:40 94 50 05/31/17 20:00 100 05/31/17 20:00 97.0 100 28 139/63 90 05/31/17 19:14 95 Partial Rebreather 10.00 05/31/17 16:00 98.4 99 26 130/65 96 05/31/17 15:46 95 I/O 05/31/17 05/31/17 05/31/17 06/01/17 06/01/17 06/01/17 07:00 15:00 23:00 07:00 15:00 23:00 Intake Total 601 ml 610 ml 640 ml 1009 ml Output Total 800 ml 400 ml 1750 ml 800 ml Balance -199 ml 210 ml -1110 ml 209 ml Intake Oral 100 ml IV Total 601 ml 360 ml 540 ml 1009 ml Packed Cells 250 ml Output Urine Total 800 ml 400 ml 1750 ml 800 ml # Bowel Movements 0 Result Diagram: 06/01/17 1106 06/01/17 1106 Imaging Last Impressions Chest CT 05/31/17 2783 Signed Impressions: Service Date/Time: May 21:23 - CONCLUSION: 1. Diffuse metastatic disease to the spine. 2. Bilateral pulmonary infiltrates. Small bilateral effusions. José Manuel Baumann MD Renal Scan w/Medication NM 05/31/17 0000 Signed Impressions: Service Date/Time: May 12:46 - CONCLUSION: 1. Mild obstruction on the left. 2. Normal right kidney. Seb Matthews MD Chest X-Ray 05/31/17 0000 Signed Impressions: Service Date/Time: May 09:56 - CONCLUSION: Patchy air-space disease bilaterally right worse than left mostly in the upper perihilar distribution. Gideon Rivera MD Renal Ultrasound 05/30/17 0000 Signed Impressions: Service Date/Time: Tuesday, May 30, 2017 11:51 - CONCLUSION: Bilateral hydronephrosis left greater than right. Quite similar to CT scan in March. Gideon Rivera MD Objective Remarks General: No acute distress. On nonrebreather mask. Heart: Regular rate and rhythm. No murmur. Lungs: Scattered rhonchi. Abdomen: Soft, nontender, nondistended. Extremities: No lower extremity edema. SCDs. Psych: Alert and oriented. Procedures None Urinary Catheter: Yes Assessment to: Continue Browning insert reason: Obstruction/Retention Date of Insertion: May 21, 2017 Vascular Central Line Catheter: No A/P Problem List: (1) Sepsis ICD Code: A41.9 Status: Acute (2) Pneumonia ICD Code: J18.9 Status: Acute (3) UTI (urinary tract infection) ICD Code: N39.0 Status: Acute (4) Anemia ICD Code: D64.9 Status: Acute (5) Prostate cancer metastatic to bone ICD Code: C61 Status: Acute (6) Hypocalcemia ICD Code: E83.51 Status: Acute (7) Influenza B ICD Code: J10.1 Status: Acute Assessment and Plan 1. Sepsis: Secondary to pneumonia, UTI. Continue antibiotics. Appreciate infectious disease recommendations. Continue IV fluids. Tylenol as needed for fever. 2. Pneumonia: Continue supplemental oxygen, antibiotics. Influenza B antigen positive. 3. UTI associated with indwelling urinary catheter: Patient has indwelling Browning catheter, which was exchanged 05/21/17. Appreciate Urology recommendations. Urine culture growing Enterobacter and enterococcus. Continue antibiotics. 4. Metastatic prostate cancer: Appreciate oncology recommendations. 5. Anemia: Status post transfusion of 2 units PRBCs during this hospitalization. H&H improved following transfusion. Appreciate oncology recommendations. 6. Influenza B: Continue Tamiflu. 7. Acute respiratory failure: Secondary to Influenza, pneumonia. Continue supplemental oxygen, bronchodilators. Appreciate pulmonology recommendations. 8. DVT prophylaxis: SCDs, COLLIN zhang. Problem Qualifiers (1) Sepsis: Qualified Code: A41.9 - Sepsis, due to unspecified organism (2) UTI (urinary tract infection): Qualified Code: N39.0 - Urinary tract infection without hematuria, site unspecified (3) Anemia: Qualified Code: D64.9 - Anemia, unspecified type Forest Tobin MD Jun 01, 2017 15:34
--- NOTE | 2017-06-01 15:35 | HHI.PR ---
Subjective Patient symptoms today Pt seen and examined. States he is feeing better but still with mask on. Renal scan showed partial obstruction of left kidney which is mild. Objective Vital Signs Vital Signs Date Time Temp Pulse Resp B/P Pulse Ox O2 Delivery O2 Flow Rate FiO2 06/01/17 12:00 85 06/01/17 12:00 98.2 85 22 130/88 95 06/01/17 10:00 86 06/01/17 09:03 96 Partial Rebreather 15.00 06/01/17 08:00 97.6 88 24 130/70 96 06/01/17 08:00 88 06/01/17 06:00 77 06/01/17 04:13 96 50 06/01/17 04:00 74 06/01/17 04:00 97.8 74 28 127/64 96 06/01/17 02:00 96 06/01/17 01:02 98 50 06/01/17 00:00 98.0 104 28 126/66 95 06/01/17 00:00 104 05/31/17 22:19 95 50 05/31/17 22:00 100 05/31/17 21:40 94 50 05/31/17 20:00 100 05/31/17 20:00 97.0 100 28 139/63 90 05/31/17 19:14 95 Partial Rebreather 10.00 05/31/17 16:00 98.4 99 26 130/65 96 05/31/17 15:46 95 Intake & Output 06/01/17 06/01/17 07:00 19:00 Intake Total 1649 ml Output Total 2550 ml Balance -901 ml Intake Oral 100 ml IV Total 1549 ml Output Urine Total 2550 ml # Bowel Movements 0 Result Diagram: 06/01/17 1106 06/01/17 1106 Imaging Last [address] 05/31/17 [id number] Signed Impressions: Service Date/Time: May 21:23 - CONCLUSION: 1. Diffuse metastatic disease to the spine. 2. Bilateral pulmonary infiltrates. Small bilateral effusions. José Manuel Baumann MD Objective Remarks Abd:soft,nt,nd Albarran with clear urine 06/01 Abd:soft,nt,nd Neg: CVAT Albarran: urine clear Medications and IVs Current Medications Medications (Trade) Dose Ordered Sig/Deepti Route Start Time Stop Time Status Last Admin (NS 1000 ml Inj) 1,000 ml @ 70 mls/hr [id number] IV 05/29/17 20:00 05/31/17 02:00 (Tylenol) 650 mg Q4H PRN PO 05/29/17 18:15 05/29/17 20:13 (Zofran Inj) 4 mg Q6H PRN IVP 05/29/17 20:00 (Narcan Inj) 0.4 mg UNSCH PRN IV 05/29/17 18:15 (Kassidy-Colace) 1 tab BID PO 05/29/17 21:00 06/01/17 09:00 (Milk Of Magncarlitos Liq) 30 ml Q12H PRN PO 05/29/17 20:00 (Senokot) 17.2 mg Q12H PRN PO 05/29/17 18:15 (Dulcolax Supp) 10 mg DAILY PRN RECTAL 05/29/17 18:15 Lactulose 30 ml 30 ml DAILY PRN PO 05/29/17 18:15 Cefepime HCl 2000 mg/Sodium Chloride 100 ml @ 200 mls/hr Q8H IV 05/30/17 00:00 06/01/17 08:59 (Vancomycin Consult Pharmacy) 0 ml @ 0 mls/hr UNSCH OTHER 05/29/17 19:00 (Tamiflu) 75 mg BID PO 05/29/17 22:00 06/01/17 10:19 (Tessalon) 100 mg TID PRN PO 05/30/17 09:15 05/31/17 18:27 (Norvasc) 10 mg DAILY PO 05/30/17 09:30 06/01/17 09:00 (Capoten) 25 mg DAILY PO 05/30/17 09:30 06/01/17 08:59 (Decadron) 4 mg Q6HR PO 05/30/17 12:00 06/01/17 13:14 (Cardura) 4 mg DAILY PO 05/30/17 09:30 06/01/17 09:00 (Keppra) 500 mg Q12HR PO 05/30/17 09:30 06/01/17 09:00 (Percocet 5-325 Mg) 1 tab Q6H PRN PO 05/30/17 09:30 05/31/17 10:49 (Protonix) 40 mg DAILY PO 05/30/17 09:30 06/01/17 09:00 Pravastatin Sodium 40 mg 40 mg DAILY PO 05/30/17 09:30 06/01/17 09:00 (Vancomycin Inj/ NS 500 ml Inj) 515 ml @ 250 mls/hr Q24H IV 05/30/17 22:00 05/31/17 21:45 (Flomax) 0.4 mg DAILY PO 05/30/17 11:00 06/01/17 09:00 Miscellaneous Information SPECIFIC LAB TO BE MARTIN... ONCE ONCE .XX 06/01/17 21:45 06/01/17 21:46 Assessment and Plan Assessment and Plan 56 y.o male with metastatic prostate cancer and mild bilateral hydronephrosis Check renal scan to r/o obstruction Maintain albarran catheter Continue Flomax 06/01 56 y.o male with metastatic prostate cancer and mild bilateral hydronephrosis Check renal scan show mild left partial obstruction. Do not recommend intervention at this time. Maintain albarran catheter for now and void trial in future when ambulating; if fails could start CIC. Continue Flomax Ashok Daigle DO Jun 01, 2017 15:35
--- NOTE | 2017-06-01 18:29 | HHI.PR ---
Subjective Remarks He is feeling better . Still on a NRB mask. has some fever. C/o cough and some wheezing. CT chest shows Bilat pulmonary infiltrates Objective Vital Signs Date Time Temp Pulse Resp B/P Pulse Ox O2 Delivery O2 Flow Rate FiO2 06/01/17 18:00 104 06/01/17 16:00 94 06/01/17 16:00 97.6 94 24 126/66 97 06/01/17 16:00 96 06/01/17 12:00 85 06/01/17 12:00 98.2 85 22 130/88 95 06/01/17 10:00 86 06/01/17 09:03 96 Partial Rebreather 15.00 06/01/17 08:00 97.6 88 24 130/70 96 06/01/17 08:00 88 06/01/17 06:00 77 06/01/17 04:13 96 50 06/01/17 04:00 74 06/01/17 04:00 97.8 74 28 127/64 96 06/01/17 02:00 96 06/01/17 01:02 98 50 06/01/17 00:00 98.0 104 28 126/66 95 06/01/17 00:00 104 05/31/17 22:19 95 50 05/31/17 22:00 100 05/31/17 21:40 94 50 05/31/17 20:00 100 05/31/17 20:00 97.0 100 28 139/63 90 05/31/17 19:14 95 Partial Rebreather 10.00 I/O 05/31/17 05/31/17 05/31/17 06/01/17 06/01/17 06/01/17 07:00 15:00 23:00 07:00 15:00 23:00 Intake Total 601 ml 610 ml 640 ml 1009 ml 1425 ml Output Total 800 ml 400 ml 1750 ml 800 ml 500 ml Balance -199 ml 210 ml -1110 ml 209 ml 925 ml Intake Oral 100 ml 840 ml IV Total 601 ml 360 ml 540 ml 1009 ml 585 ml Packed Cells 250 ml Output Urine Total 800 ml 400 ml 1750 ml 800 ml 500 ml # Bowel Movements 0 0 Result Diagram: 06/01/17 1106 06/01/17 1106 Objective Remarks PHYSICAL EXAMINATION GENERAL: This is a middle-aged -Nepalese male who is alert, pale and mildly dyspneic at rest. HEENT: Head normocephalic. Pupils are reactive and equal. Tongue is moist. Throat was clear. Nasal mucosa injected. NECK: No bruits or thyroid enlargement or lymphadenopathy. CHEST: Increased AP diameter. Percussion note resonant throughout with occasional wheezes bilaterally. A few crackles in the upper chest. HEART SOUNDS: Regular S1 and S2. No murmur. ABDOMEN: Soft, benign. No tenderness. No organomegaly. EXTREMITIES: Decreased pulses. Reflexes are 1+. There are no gross motor deficits. There is minimal peripheral edema. NEUROLOGICALLY: No focal deficits identified. Assessment and Plan Assessment and Plan IMPRESSION 1. Bilateral pulmonary infiltrates with atypical pneumonia. 2. Metastatic carcinoma of the prostate. 3. Sepsis with UTI. 4. Influenza. 5. Acute kidney injury, resolving. Plan : 1. Continue antibiotics per ID. 2. Wean O2 to ventimask 50 %. 3. Bipap at HS if sat <92. 4. Cont nebs qid , duoneb 5. decadron 4 mg qid. 6. Chest Xray and CBC,BMP 7. Po diet as tolerated Moreno Lentz MD Jun 01, 2017 18:29
[2017-06-01] MEDS: VANCOMYCIN INJ 1,500 MG in SODIUM CHLORID 0.9% 500 ML INJ 500 ML IV SCH (21:04)
[2017-06-01] MEDS ORDERED: PHARMACY ORDERED LAB ONE (21:45)
[2017-06-02] VITALS (15 sets, daily range): BP systolic 123–175; BP diastolic 61–83; PULSE 69–101; RESP 18–27; TEMP 97.3–98.1; O2SAT 92–99
[2017-06-02] MEDS: CEFEPIME INJ 2,000 MG in SODIUM CHLORIDE 0.9% INJ 100 ML IV SCH ×2 (00:31→08:47)
[2017-06-02] MEDS: DEXAMETHASONE 4 MG TAB PO SCH ×4 (00:32→16:52)
[2017-06-02] MEDS: SODIUM CHLOR 0.9% 1000 ML INJ 1,000 ML IV SCH ×2 (07:50→23:32)
[2017-06-02] MEDS: RESP: ALBUTEROL 2.5 MG/IPRATROPIUM 0.5 MG NEB (SCH) NEB ×4 (08:16→20:32)
[2017-06-02] MEDS: levETIRAcetam 500 MG TAB PO SCH ×2 (08:47→22:42)
[2017-06-02] MEDS: CAPTOPRIL 25 MG TAB PO SCH (08:47)
[2017-06-02] MEDS: PRAVASTATIN SOD 40 MG TAB PO SCH (08:47)
[2017-06-02] MEDS: PANTOPRAZOLE SOD 40 MG DELAYED RELEASE TAB PO SCH (08:47)
[2017-06-02] MEDS: OSELTAMIVIR PHOSPHATE 75 MG CAP PO SCH ×2 (08:48→22:42)
[2017-06-02] MEDS: DOXAZOSIN MESYLATE 4 MG TAB PO SCH (08:48)
[2017-06-02] MEDS: DOCUSATE SODIUM 50 MG/SENNA 8.6 MG TAB PO SCH ×2 (08:48→22:42)
[2017-06-02] MEDS: TAMSULOSIN HCL 0.4 MG CAP PO SCH (08:48)
--- NOTE | 2017-06-02 11:43 | HHI.PR ---
Addendum to Inpatient Note Additional Information seen and examined fullnote to follow Mira Ware MD Jun 02, 2017 11:43
[2017-06-02] MEDS: oxyCODONE/ACETAMINOPHEN 5 MG/325 MG TAB PO PRN (14:33)
--- NOTE | 2017-06-02 15:16 | HHI.IDPN ---
Subjective Subjective Remarks pt remains on NRB not expectorating much Renogram showed obstruction on the L fever resolved Antibiotics cefepime vancomycin tamiflu Allergies: Coded Allergies: No Known Allergies (Unverified , 05/29/17) Objective . Vital Signs Date Time Temp Pulse Resp B/P Pulse Ox O2 Delivery O2 Flow Rate FiO2 06/02/17 14:00 92 06/02/17 12:00 98.0 83 26 143/83 99 06/02/17 12:00 83 06/02/17 10:00 86 06/02/17 08:18 93 06/02/17 08:18 93 Aerosol Mask 7.00 06/02/17 08:00 89 06/02/17 08:00 97.8 89 26 141/71 98 06/02/17 06:00 69 06/02/17 04:02 98 50 06/02/17 04:00 95 06/02/17 04:00 98.1 84 20 136/67 96 06/02/17 02:00 95 06/02/17 01:40 92 50 06/02/17 00:00 97.9 95 26 123/61 95 06/02/17 00:00 95 06/01/17 22:00 90 06/01/17 20:45 93 50 06/01/17 20:00 98.0 98 25 134/61 93 06/01/17 20:00 95 06/01/17 18:00 104 06/01/17 16:00 94 06/01/17 16:00 97.6 94 24 126/66 97 06/01/17 16:00 96 06/01/17 06/01/17 06/02/17 14:59 22:59 06:59 Intake Total 1425 ml 831 ml 1176 ml Output Total 500 ml 600 ml 800 ml Balance 925 ml 231 ml 376 ml Intake Oral 840 ml 240 ml 120 ml IV Total 585 ml 591 ml 1056 ml Output Urine Total 500 ml 600 ml 800 ml # Bowel Movements 0 0 . Laboratory Tests Test 06/01/17 11:06 White Blood Count 5.9 TH/MM3 Red Blood Count 2.94 MIL/MM3 Hemoglobin 9.0 GM/DL Hematocrit 25.7 % Mean Corpuscular Volume 87.6 FL Mean Corpuscular Hemoglobin 30.8 PG Mean Corpuscular Hemoglobin 35.1 % Concent Red Cell Distribution Width 16.6 % Platelet Count 239 TH/MM3 Mean Platelet Volume 8.3 FL Neutrophils (%) (Auto) 89.5 % Lymphocytes (%) (Auto) 4.3 % Monocytes (%) (Auto) 5.5 % Eosinophils (%) (Auto) 0.1 % Basophils (%) (Auto) 0.6 % Neutrophils # (Auto) 5.3 TH/MM3 Lymphocytes # (Auto) 0.3 TH/MM3 Monocytes # (Auto) 0.3 TH/MM3 Eosinophils # (Auto) 0.0 TH/MM3 Basophils # (Auto) 0.0 TH/MM3 CBC Comment AUTO DIFF Differential Total Cells 100 Counted Neutrophils % (Manual) 79 % Band Neutrophils % 9 % Lymphocytes % 4 % Monocytes % 4 % Neutrophils # (Manual) 5.4 TH/MM3 Metamyelocytes 2 % Myelocytes 1 % Promyelocytes 1 % Nucleated Red Blood Cells 2 /100 WBC Differential Comment FINAL DIFF MANUAL Platelet Estimate NORMAL Platelet Morphology Comment NORMAL Miranda Cells 1+ Haptoglobin 676 MG/DL Laboratory Tests Test 06/01/17 11:06 Sodium Level 141 MEQ/L Potassium Level 4.1 MEQ/L Chloride Level 112 MEQ/L Carbon Dioxide Level 17.3 MEQ/L Anion Gap 12 MEQ/L Blood Urea Nitrogen 21 MG/DL Creatinine 1.18 MG/DL Estimat Glomerular Filtration 77 ML/MIN Rate Random Glucose 226 MG/DL Calcium Level 7.9 MG/DL Lactate Dehydrogenase 578 U/L Microbiology Date/Time Procedure Status Source Growth 05/31/17 19:30 Cancelled Sputum Expectorated Sputum Imaging Last Impressions Chest CT 05/31/17 1853 Signed Impressions: Service Date/Time: May 21:23 - CONCLUSION: 1. Diffuse metastatic disease to the spine. 2. Bilateral pulmonary infiltrates. Small bilateral effusions. José Manuel Baumann MD Renal Scan w/Medication NM 05/31/17 0000 Signed Impressions: Service Date/Time: May 12:46 - CONCLUSION: 1. Mild obstruction on the left. 2. Normal right kidney. Seb Matthews MD Chest X-Ray 05/31/17 0000 Signed Impressions: Service Date/Time: May 09:56 - CONCLUSION: Patchy air-space disease bilaterally right worse than left mostly in the upper perihilar distribution. Gideon Rivera MD Renal Ultrasound 05/30/17 0000 Signed Impressions: Service Date/Time: Tuesday, May 30, 2017 11:51 - CONCLUSION: Bilateral hydronephrosis left greater than right. Quite similar to CT scan in March. Gideon Rivera MD Physical Exam CONSTITUTIONAL/GENERAL: This is an adequately nourished patient, in no apparent distress. He is on part NRB TUBES/LINES/DRAINS: SKIN: No jaundice, rashes, or lesions. . Skin temperature appropriate. Not diaphoretic. EYES: Pupils equal and round and reactive. Extraocular motions intact. No scleral icterus. No injection or drainage. Fundi not examined. ENT: Hearing grossly normal. Nose without bleeding or purulent drainage. Oral mucosae moist without visible erythema, exudates, masses, or lesions. CARDIOVASCULAR: Regular rate and rhythm without murmurs, gallops, or rubs. No JVD. Peripheral pulses symmetric. RESPIRATORY/CHEST: Symmetric, unlabored respirations. B/l rhonchi to auscultation. Breath sounds equal bilaterally. GASTROINTESTINAL: Abdomen soft, non-tender, nondistended. No hepato-splenomegaly , or palpable masses. No guarding. Bowel sounds present. GENITOURINARY: Without palpable bladder distension. Albarran catheter in place with clear yellow urine MUSCULOSKELETAL: Extremities without clubbing, cyanosis, or edema. NEUROLOGICAL: Awake and alert. Non focal PSYCHIATRIC: No obvious anxiety/depression. no apparent hallucinations or other psychotic thought process. Assessment & Plan Remarks Influenza A B/l PNA with hypoxia, viral vs superimposed bacterial -Bilateral patchy infiltrates. Prostate CA with mets, chronic albarran - hydronephrosis left greater than right. Renal scan showed partial obstruction of left kidney which is mild; urologist recommends medical mngmnt, no intervention needed UTI 2/2 Enterobacter (R to cipro), Entrococcus REC's; dc cefepime start zosyn chk sputum clx might need bronch if cont to get worse from resp standpoint and still wont expectorate Mira Ware MD Jun 02, 2017 15:16
[2017-06-02] MEDS: PIPERACIL-TAZO 4.5 GM PREMIX 100 ML IV SCH ×2 (16:52→23:32)
--- NOTE | 2017-06-02 16:57 | HHI.PR ---
Subjective Remarks feeling better good sats now at NC- 4-5 L cough better- sputum looser no pain complains tolerating po well Objective Vitals Vital Signs Date Time Temp Pulse Resp B/P Pulse Ox O2 Delivery O2 Flow Rate FiO2 06/02/17 16:00 88 06/02/17 16:00 98.0 88 27 144/77 99 06/02/17 14:00 92 06/02/17 12:00 98.0 83 26 143/83 99 06/02/17 12:00 83 06/02/17 10:00 86 06/02/17 08:18 93 06/02/17 08:18 93 Aerosol Mask 7.00 06/02/17 08:00 89 06/02/17 08:00 97.8 89 26 141/71 98 06/02/17 06:00 69 06/02/17 04:02 98 50 06/02/17 04:00 95 06/02/17 04:00 98.1 84 20 136/67 96 06/02/17 02:00 95 06/02/17 01:40 92 50 06/02/17 00:00 97.9 95 26 123/61 95 06/02/17 00:00 95 06/01/17 22:00 90 06/01/17 20:45 93 50 06/01/17 20:00 98.0 98 25 134/61 93 06/01/17 20:00 95 06/01/17 18:00 104 I/O 06/01/17 06/01/17 06/01/17 06/02/17 06/02/17 06/02/17 07:00 15:00 23:00 07:00 15:00 23:00 Intake Total 1009 ml 1425 ml 831 ml 1176 ml 1423 ml Output Total 800 ml 500 ml 600 ml 800 ml 700 ml Balance 209 ml 925 ml 231 ml 376 ml 723 ml Intake Oral 840 ml 240 ml 120 ml 960 ml IV Total 1009 ml 585 ml 591 ml 1056 ml 463 ml Output Urine Total 800 ml 500 ml 600 ml 800 ml 700 ml # Bowel Movements 0 0 0 0 Result Diagram: 06/01/17 1106 06/01/17 1106 Imaging Last Impressions Chest CT 05/31/17 7391 Signed Impressions: Service Date/Time: May 21:23 - CONCLUSION: 1. Diffuse metastatic disease to the spine. 2. Bilateral pulmonary infiltrates. Small bilateral effusions. José Manuel Baumann MD Renal Scan w/Medication NM 05/31/17 0000 Signed Impressions: Service Date/Time: , May 31, 2017 12:46 - CONCLUSION: 1. Mild obstruction on the left. 2. Normal right kidney. Seb Matthews MD Chest X-Ray 05/31/17 0000 Signed Impressions: Service Date/Time: May 09:56 - CONCLUSION: Patchy air-space disease bilaterally right worse than left mostly in the upper perihilar distribution. Gideon Rivera MD Renal Ultrasound 05/30/17 0000 Signed Impressions: Service Date/Time: Tuesday, May 30, 2017 11:51 - CONCLUSION: Bilateral hydronephrosis left greater than right. Quite similar to CT scan in March. Gideon Rivera MD Objective Remarks awake and alert, oriented x 3 anicteric lungs- no rales or wheezes regular rhythm abdmen soft, nontender albarran in place extremities no edema neuro exam- non focal Procedures None Urinary Catheter: Yes Albarran insert reason: Obstruction/Retention Date of Insertion: May 21, 2017 A/P Problem List: (1) Sepsis ICD Code: A41.9 Status: Acute (2) Pneumonia ICD Code: J18.9 Status: Acute (3) UTI (urinary tract infection) ICD Code: N39.0 Status: Acute (4) Anemia ICD Code: D64.9 Status: Acute (5) Prostate cancer metastatic to bone ICD Code: C61 Status: Acute (6) Hypocalcemia ICD Code: E83.51 Status: Acute (7) Influenza B ICD Code: J10.1 Status: Acute Assessment and Plan 56 years sold male with prostate cancer with mets Sepsis: Secondary to pneumonia, UTI. Continue antibiotics- Zosyn and Vancomycin. Appreciate infectious disease recommendations- on Zosyn and Vancomycin. Continue IV fluids. Tylenol as needed for fever. Pneumonia: Continue supplemental oxygen, antibiotics. Influenza B antigen positive. On Tamiflu. UTI associated with indwelling urinary catheter: Patient has indwelling Albarran catheter, which was exchanged 05/21/17. Appreciate Urology recommendations. Urine culture growing Enterobacter and enterococcus. Continue antibiotics. Acute respiratory failure: on 50% NRB-now on NC-. Secondary to Influenza, pneumonia. Continue supplemental oxygen, bronchodilators. Appreciate pulmonology recommendations- Dr. Milton calvo. Metastatic prostate cancer: Appreciate oncology recommendations. Anemia: Status post transfusion of 2 units PRBCs during this hospitalization. H& H improved following transfusion. Appreciate oncology recommendations. Influenza B: Continue Tamiflu. DVT prophylaxis: SCDs, COLLIN hose. Problem Qualifiers (1) Sepsis: Qualified Code: A41.9 - Sepsis, due to unspecified organism (2) UTI (urinary tract infection): Qualified Code: N39.0 - Urinary tract infection without hematuria, site unspecified (3) Anemia: Qualified Code: D64.9 - Anemia, unspecified type Kenya Rod MD Jun 02, 2017 16:57
[2017-06-02] MEDS: VANCOMYCIN INJ 1,500 MG in SODIUM CHLORID 0.9% 500 ML INJ 500 ML IV SCH (23:32)
[2017-06-03] VITALS (11 sets, daily range): BP systolic 139–159; BP diastolic 70–91; PULSE 81–109; RESP 18–36; TEMP 97.3–98; O2SAT 90–95
[2017-06-03] MEDS: DEXAMETHASONE 4 MG TAB PO SCH ×5 (02:03→23:31)
[2017-06-03] MEDS: PIPERACIL-TAZO 4.5 GM PREMIX 100 ML IV SCH ×4 (04:52→21:08)
[2017-06-03] MEDS: TAMSULOSIN HCL 0.4 MG CAP PO SCH (09:09)
[2017-06-03] MEDS: PRAVASTATIN SOD 40 MG TAB PO SCH (09:09)
[2017-06-03] MEDS: DOXAZOSIN MESYLATE 4 MG TAB PO SCH (09:09)
[2017-06-03] MEDS: PANTOPRAZOLE SOD 40 MG DELAYED RELEASE TAB PO SCH (09:09)
[2017-06-03] MEDS: levETIRAcetam 500 MG TAB PO SCH ×2 (09:09→21:02)
[2017-06-03] MEDS: DOCUSATE SODIUM 50 MG/SENNA 8.6 MG TAB PO SCH ×2 (09:10→21:02)
[2017-06-03] MEDS: RESP: ALBUTEROL 2.5 MG/IPRATROPIUM 0.5 MG NEB (SCH) NEB ×4 (09:16→19:29)
[2017-06-03] MEDS: OSELTAMIVIR PHOSPHATE 75 MG CAP PO SCH ×2 (10:03→21:02)
[2017-06-03] MEDS: CAPTOPRIL 25 MG TAB PO SCH (10:03)
--- NOTE | 2017-06-03 14:25 | HHI.PR ---
Subjective Remarks no complains "no problem" no diarrhea Objective Vitals Vital Signs Date Time Temp Pulse Resp B/P Pulse Ox O2 Delivery O2 Flow Rate FiO2 06/03/17 12:50 81 06/03/17 12:49 94 Nasal Cannula 6.00 06/03/17 12:22 97.3 83 18 147/76 93 06/03/17 09:17 92 Nasal Cannula 6.00 06/03/17 08:11 97.5 89 20 159/88 92 06/03/17 04:00 97.4 83 36 153/72 92 06/03/17 01:32 94 Nasal Cannula 6.00 06/03/17 00:00 98.0 87 36 148/70 94 06/02/17 21:00 93 5.00 06/02/17 20:32 96 Nasal Cannula 4.00 06/02/17 20:00 101 06/02/17 20:00 97.3 90 18 175/73 93 06/02/17 18:00 88 06/02/17 16:00 88 06/02/17 16:00 98.0 88 27 144/77 99 I/O 06/02/17 06/02/17 06/02/17 06/03/17 06/03/17 06/03/17 07:00 15:00 23:00 07:00 15:00 23:00 Intake Total 1176 ml 1423 ml 2395 ml Output Total 800 ml 700 ml 1350 ml Balance 376 ml 723 ml 1045 ml Intake Oral 120 ml 960 ml IV Total 1056 ml 463 ml 2395 ml Output Urine Total 800 ml 700 ml 1350 ml # Bowel Movements 0 0 Result Diagram: 06/01/17 1106 06/01/17 1106 Imaging Last Impressions Chest CT 05/31/17 1853 Signed Impressions: Service Date/Time: May 21:23 - CONCLUSION: 1. Diffuse metastatic disease to the spine. 2. Bilateral pulmonary infiltrates. Small bilateral effusions. José Manuel Baumann MD Renal Scan w/Medication NM 05/31/17 0000 Signed Impressions: Service Date/Time: May 12:46 - CONCLUSION: 1. Mild obstruction on the left. 2. Normal right kidney. Seb Matthews MD Chest X-Ray 05/31/17 0000 Signed Impressions: Service Date/Time: May 09:56 - CONCLUSION: Patchy air-space disease bilaterally right worse than left mostly in the upper perihilar distribution. Gideon Rivera MD Renal Ultrasound 05/30/17 0000 Signed Impressions: Service Date/Time: Tuesday, May 30, 2017 11:51 - CONCLUSION: Bilateral hydronephrosis left greater than right. Quite similar to CT scan in March. Gideon Rivera MD Objective Remarks awake and alert, oriented x 3 anicteric lungs- no rales or wheezes regular rhythm abdomen soft, nontender albarran in place extremities no edema neuro exam- non focal Procedures None Date of Insertion: May 21, 2017 A/P Problem List: (1) Sepsis ICD Code: A41.9 Status: Acute (2) Pneumonia ICD Code: J18.9 Status: Acute (3) UTI (urinary tract infection) ICD Code: N39.0 Status: Acute (4) Anemia ICD Code: D64.9 Status: Acute (5) Prostate cancer metastatic to bone ICD Code: C61 Status: Acute (6) Hypocalcemia ICD Code: E83.51 Status: Acute (7) Influenza B ICD Code: J10.1 Status: Acute Assessment and Plan 56 years sold male with prostate cancer with mets Sepsis: Secondary to pneumonia, UTI. Continue antibiotics- Zosyn and Vancomycin. Appreciate infectious disease recommendations- on Zosyn and Vancomycin. Pulmonary ff Tylenol as needed for fever. Pneumonia: Continue supplemental oxygen, antibiotics. Influenza B antigen positive. On Tamiflu.. ID ff UTI associated with indwelling urinary catheter: Patient has indwelling Albarran catheter, which was exchanged 05/21/17. Appreciate Urology recommendations. Urine culture growing Enterobacter and enterococcus. Continue antibiotics. Acute respiratory failure: on 50% NRB-now on NC-. Secondary to Influenza, pneumonia. Continue supplemental oxygen, bronchodilators. Appreciate pulmonology recommendations- Dr. Rose ff. Metastatic prostate cancer: Appreciate oncology recommendations. Anemia: Status post transfusion of 2 units PRBCs during this hospitalization. H& H improved following transfusion. Appreciate oncology recommendations. Influenza B: Continue Tamiflu. DVT prophylaxis: SCDs, COLLIN hose. Problem Qualifiers (1) Sepsis: Qualified Code: A41.9 - Sepsis, due to unspecified organism (2) UTI (urinary tract infection): Qualified Code: N39.0 - Urinary tract infection without hematuria, site unspecified (3) Anemia: Qualified Code: D64.9 - Anemia, unspecified type Kenya Rod MD Jun 03, 2017 14:25
[2017-06-03] MEDS: SODIUM CHLOR 0.9% 1000 ML INJ 1,000 ML IV SCH (15:06)
[2017-06-03] MEDS: oxyCODONE/ACETAMINOPHEN 5 MG/325 MG TAB PO PRN (21:02)
[2017-06-03] MEDS: VANCOMYCIN INJ 1,500 MG in SODIUM CHLORID 0.9% 500 ML INJ 500 ML IV SCH (21:08)
[2017-06-04] VITALS (9 sets, daily range): BP systolic 125–168; BP diastolic 74–86; PULSE 89–118; RESP 17–24; TEMP 97.3–97.7; O2SAT 90–95
[2017-06-04] MEDS: SODIUM CHLOR 0.9% 1000 ML INJ 1,000 ML IV SCH ×2 (01:22→21:19)
[2017-06-04] MEDS: PIPERACIL-TAZO 4.5 GM PREMIX 100 ML IV SCH ×4 (03:31→21:19)
[2017-06-04] MEDS: DEXAMETHASONE 4 MG TAB PO SCH ×3 (05:25→21:19)
--- NOTE | 2017-06-04 08:24 | RADRPT ---
EXAM DATE/TIME: 06/04/2017 07:47 [facility] COMPARISON: CHEST SINGLE AP, May 31, 2017, 9:56. CT THORAX W/O CONTRAST, May 31, 2017, 21:23. INDICATIONS : Short of breath, cough, evaluate pneumonia MEDICAL HISTORY : Carcinoma, prostatic. Hypertension A-fib SURGICAL HISTORY : thoracic spice fusion ENCOUNTER: Subsequent ACUITY: 1 week PAIN SCORE: 0/10 LOCATION: Bilateral chest FINDINGS: Bilateral symmetric upper lobe infiltrates persist with little change from prior. Cardiac contours ar e stable. No significant effusion. Upper thoracic hardware fusion again noted. CONCLUSION: Stable chest Agustín Boykin MD on June 04, 2017 at 8:21 Board Certified Radiologist. This report was verified electronically.
[2017-06-04] MEDS: RESP: ALBUTEROL 2.5 MG/IPRATROPIUM 0.5 MG NEB (SCH) NEB ×4 (08:27→19:24)
[2017-06-04] MEDS: DOXAZOSIN MESYLATE 4 MG TAB PO SCH (09:00)
[2017-06-04] MEDS: CAPTOPRIL 25 MG TAB PO SCH (10:08)
[2017-06-04] MEDS: PRAVASTATIN SOD 40 MG TAB PO SCH (10:08)
[2017-06-04] MEDS: PANTOPRAZOLE SOD 40 MG DELAYED RELEASE TAB PO SCH (10:08)
[2017-06-04] MEDS: OSELTAMIVIR PHOSPHATE 75 MG CAP PO SCH (10:08)
[2017-06-04] MEDS: TAMSULOSIN HCL 0.4 MG CAP PO SCH (10:08)
[2017-06-04] MEDS: DOCUSATE SODIUM 50 MG/SENNA 8.6 MG TAB PO SCH ×2 (10:08→21:19)
[2017-06-04] MEDS: levETIRAcetam 500 MG TAB PO SCH ×2 (10:09→21:19)
--- NOTE | 2017-06-04 10:58 | HHI.PR ---
Subjective Remarks feeling better no sputum, cough less gets up and ambulate - gets short of breath- "slight" on 6LNC Objective Vitals Vital Signs Date Time Temp Pulse Resp B/P Pulse Ox O2 Delivery O2 Flow Rate FiO2 06/04/17 08:28 94 Nasal Cannula 6.00 06/04/17 08:00 97.3 93 22 168/86 95 06/04/17 04:00 97.5 89 22 141/79 93 06/04/17 00:00 90 Nasal Cannula 6.00 06/04/17 00:00 97.6 104 22 154/83 90 06/03/17 20:40 109 06/03/17 20:00 95 Nasal Cannula 6.00 06/03/17 20:00 97.9 98 22 158/91 95 06/03/17 19:34 95 Nasal Cannula 5.00 06/03/17 16:11 97.5 103 18 139/72 90 06/03/17 16:03 92 Nasal Cannula 6.00 06/03/17 12:50 81 06/03/17 12:49 94 Nasal Cannula 6.00 06/03/17 12:22 97.3 83 18 147/76 93 I/O 06/03/17 06/03/17 06/03/17 06/04/17 06/04/17 06/04/17 06:59 14:59 22:59 06:59 14:59 22:59 Intake Total 2395 ml 720 ml 1139 ml 760 ml Output Total 1350 ml 1400 ml 500 ml 300 ml Balance 1045 ml -680 ml 639 ml 460 ml Intake Oral 720 ml 280 ml 200 ml IV Total 2395 ml 859 ml 560 ml Output Urine Total 1350 ml 1400 ml 500 ml 300 ml # Bowel Movements 1 0 0 Result Diagram: 06/01/17 1106 06/04/17 0700 Imaging Last Impressions Chest X-Ray 06/04/17 0800 Signed Impressions: Service Date/Time: Sunday, June 04, 2017 07:47 - CONCLUSION: Stable chest Agustín Boykin MD Chest CT 05/31/17 2216 Signed Impressions: Service Date/Time: May 21:23 - CONCLUSION: 1. Diffuse metastatic disease to the spine. 2. Bilateral pulmonary infiltrates. Small bilateral effusions. José Manuel Baumann MD Renal Scan w/Medication NM 05/31/17 0000 Signed Impressions: Service Date/Time: , May 31, 2017 12:46 - CONCLUSION: 1. Mild obstruction on the left. 2. Normal right kidney. Seb Matthews MD Renal Ultrasound 05/30/17 0000 Signed Impressions: Service Date/Time: Tuesday, May 30, 2017 11:51 - CONCLUSION: Bilateral hydronephrosis left greater than right. Quite similar to CT scan in March. Gideon Rivera MD Objective Remarks awake and alert, oriented x 3 anicteric lungs- no rales or wheezes regular rhythm abdomen soft, nontender extremities no edema albarran in place neuro exam- non focal Procedures None Date of Insertion: May 21, 2017 A/P Problem List: (1) Sepsis ICD Code: A41.9 Status: Acute (2) Pneumonia ICD Code: J18.9 Status: Acute (3) UTI (urinary tract infection) ICD Code: N39.0 Status: Acute (4) Anemia ICD Code: D64.9 Status: Acute (5) Prostate cancer metastatic to bone ICD Code: C61 Status: Acute (6) Hypocalcemia ICD Code: E83.51 Status: Acute (7) Influenza B ICD Code: J10.1 Status: Acute Assessment and Plan 56 years sold male with prostate cancer with mets Sepsis: Secondary to pneumonia, UTI. Continue antibiotics- Zosyn and Vancomycin. Appreciate infectious disease recommendations- on Zosyn and Vancomycin. Pulmonary ff Tylenol as needed for fever. Pneumonia: Continue supplemental oxygen, antibiotics. Influenza B antigen positive. On Tamiflu.. ID ff UTI associated with indwelling urinary catheter: Patient has indwelling Albarran catheter, which was exchanged 05/21/17. Appreciate Urology recommendations. Urine culture growing Enterobacter and enterococcus. Continue antibiotics. Acute respiratory failure: -now on NC-. Secondary to Influenza, pneumonia. Continue supplemental oxygen, bronchodilators. Appreciate pulmonology recommendations- Dr. Rose ff. Metastatic prostate cancer: Appreciate oncology recommendations. voiding trail when patient up and ambulating. On Flomax and doxazosin Anemia: Status post transfusion of 2 units PRBCs during this hospitalization. H& H improved following transfusion. Appreciate oncology recommendations. Influenza B: on Tamiflu. DC. DVT prophylaxis: SCDs, COLLIN hose. Problem Qualifiers (1) Sepsis: Qualified Code: A41.9 - Sepsis, due to unspecified organism (2) UTI (urinary tract infection): Qualified Code: N39.0 - Urinary tract infection without hematuria, site unspecified (3) Anemia: Qualified Code: D64.9 - Anemia, unspecified type Kenya Rod MD Jun 04, 2017 10:58
--- NOTE | 2017-06-04 11:02 | PD.ONC.PN ---
Subjective Subjective Remarks Afebrile overnight. Patient resting in bed in nad. States he feels well today. Had some fruit for breakfast this morning. Objective Data Date Time Temp Pulse Resp B/P Pulse Ox O2 Delivery O2 Flow Rate FiO2 06/04/17 08:28 94 Nasal Cannula 6.00 06/04/17 08:00 97.3 93 22 168/86 95 06/04/17 04:00 97.5 89 22 141/79 93 06/04/17 00:00 90 Nasal Cannula 6.00 06/04/17 00:00 97.6 104 22 154/83 90 06/03/17 20:40 109 06/03/17 20:00 95 Nasal Cannula 6.00 06/03/17 20:00 97.9 98 22 158/91 95 06/03/17 19:34 95 Nasal Cannula 5.00 06/03/17 16:11 97.5 103 18 139/72 90 06/03/17 16:03 92 Nasal Cannula 6.00 06/03/17 12:50 81 06/03/17 12:49 94 Nasal Cannula 6.00 06/03/17 12:22 97.3 83 18 147/76 93 06/04/17 06/04/17 06/04/17 06:59 14:59 22:59 Intake Total 760 ml Output Total 300 ml Balance 460 ml Result Diagram: 06/01/17 1106 06/04/17 0700 Laboratory Results Laboratory Tests Test 06/04/17 07:00 Creatinine 1.37 MG/DL Estimat Glomerular Filtration 65 ML/MIN Rate Culture Results Microbiology Date/Time Procedure Status Source Growth 06/02/17 18:45 Gram Stain - Final Resulted Sputum Expectorated Sputum 06/02/17 18:45 Sputum Culture - Preliminary Resulted Sputum Expectorated Sputum HEAVY GROWTH NORMAL RESPIRATORY AL... 06/03/17 17:35 Cancelled Sputum Expectorated Sputum Imaging Studies Last 24 hours Impressions Chest X-Ray 06/04/17 0800 Signed Impressions: Service Date/Time: Sunday, June 04, 2017 07:47 - CONCLUSION: Stable chest Agustín Boykin MD Administered Medications Medications (Trade) Dose Ordered Sig/Deepti Route PRN Reason Start Time Stop Time Status Last Admin Dose Admin Sodium Chloride (NS 1000 ml Inj) 1,000 ml @ 70 mls/hr [id number] IV 05/29/17 20:00 06/03/17 15:06 Acetaminophen (Tylenol) 650 mg Q4H PRN PO TEMP > 100.4 05/29/17 18:15 05/29/17 20:13 Senna/Docusate Sodium (Kassidy-Colace) 1 tab BID PO 05/29/17 21:00 06/04/17 10:08 Oseltamivir Phosphate (Tamiflu) 75 mg BID PO 05/29/17 22:00 06/04/17 10:08 Benzonatate (Tessalon) 100 mg TID PRN PO COUGH 05/30/17 09:15 05/31/17 18:27 Amlodipine Besylate (Norvasc) 10 mg DAILY PO 05/30/17 09:30 06/04/17 10:09 Captopril (Capoten) 25 mg DAILY PO 05/30/17 09:30 06/04/17 10:08 Dexamethasone (Decadron) 4 mg Q6HR PO 05/30/17 12:00 06/04/17 05:25 Doxazosin Mesylate (Cardura) 4 mg DAILY PO 05/30/17 09:30 06/04/17 09:00 Levetriacetam (Keppra) 500 mg Q12HR PO 05/30/17 09:30 06/04/17 10:09 Oxycodone/ Acetaminophen (Percocet 5-325 Mg) 1 tab Q6H PRN PO PAIN 1-10 05/30/17 09:30 06/03/17 21:02 Pantoprazole Sodium (Protonix) 40 mg DAILY PO 05/30/17 09:30 06/04/17 10:08 Pravastatin Sodium 40 mg 40 mg DAILY PO 05/30/17 09:30 06/04/17 10:08 Vancomycin HCl/ Sodium Chloride (Vancomycin Inj/ NS 500 ml Inj) 515 ml @ 250 mls/hr Q24H IV 05/30/17 22:00 06/03/17 21:08 Tamsulosin HCl 0.4 mg 0.4 mg DAILY PO 05/30/17 11:00 06/04/17 10:08 Piperacillin Sod/ Tazobactam Sod (Zosyn 4.5 Gm Premix) 100 ml @ 200 mls/hr Q6H IV 06/02/17 16:00 06/04/17 10:07 Objective Remarks GENERAL: pleasant male upright in bed in nad, on 6L O2 via NC SKIN: Warm and dry. HEAD: Normocephalic. EYES: No injection or drainage. NECK: Supple, trachea midline. CARDIOVASCULAR: +S1/S2 RESPIRATORY: anterior torres clear. diminished at bases. on 6L O2 via NC GASTROINTESTINAL: Abdomen soft, non-tender, nondistended. EXTREMITIES: No cyanosis NEUROLOGICAL: awake and alert, normal speech. moving all extremities. Assessment/Plan Problem List: (1) Metastatic disease Status: Acute (2) Normocytic anemia Status: Chronic (3) Cord compression Status: Resolved (4) Hydronephrosis Status: Acute (5) JENELLE (acute kidney injury) Status: Resolved (6) Pneumonia Status: Acute (7) Prostate cancer metastatic to bone Status: Acute (8) Influenza B Status: Acute Assessment 56-year-old male with a history of stage IV prostate adenocarcinoma with bony metastatic disease and a history of cord compression status post laminectomy and decompression. He presents with fever, anemia, hypoxia and tachycardia and was found to have pneumonia and UTI. 1. Urinary tract infection with sepsis. Urine culture: ++gram-negative rods--Enterobacter cloacae . On Vanco + Zosyn Blood cultures no growth 2. Influenza B pneumonia + influenza B+ antigen. currently on Tamiflu 3. Acute anemia. s/p pRBC. await CBC today 4. Acute and chronic kidney failure improving with hydration. +hydroureter on ultrasound. Renal scan showed mild obstruction on the left. 6. Hypoalbuminemia/malnutrition, albumin is 2, encourage oral intake. Ensure or Boost t.i.d. with meals. 7. Stage IV prostate adenocarcinoma with bone mets currently on hormone blockade therapy with Casodex and Lupron and also receiving bone modifying agent for bony metastatic disease. Further management as per outpatient. Attending Statement The exam, history, and the medical decision-making described in the above note were completed with the assistance of the mid-level provider. I reviewed and agree with the findings presented. I attest that I had a [id number] encounter with the patient on the same day, and personally performed and documented my assessment and findings in the medical record. Liliam French Jun 04, 2017 11:02 Tim Le MD Jun 05, 2017 00:11
[2017-06-04 19:51] LABS: AUTOMATED NEUTROPHIL # 8.5 TH/MM3 (1.8-7.7); BASOPHIL % 0.2 % (0.0-2.0); EOSINOPHIL % 0.2 % (0.0-4.0); HEMATOCRIT 26.8 % (39.0-51.0); LYMPH % 4.1 % (9.0-44.0); LYMPHOCYTE # 0.4 TH/MM3 (1.0-4.8); MEAN CELL VOLUME 88.7 FL (80.0-100.0); MEAN CORPUSCULAR HEMOGLOBIN 30.1 PG (27.0-34.0); MEAN CORPUSCULAR HGB CONC 33.9 % (32.0-36.0); MONO % 7.3 % (0.0-8.0); NEUT % 88.2 % (16.0-70.0); PLATELET COUNT 136 TH/MM3 (150-450); RED BLOOD COUNT 3.02 MIL/MM3 (4.50-5.90); RED CELL DISTRIBUTION WIDTH 17.1 % (11.6-17.2); WHITE BLOOD COUNT 9.6 TH/MM3 (4.0-11.0)
[2017-06-04 19:53] LABS: HEMO FLAGS AUTO DIFF
[2017-06-04 20:06] LABS: BICARBONATE 22.1 MEQ/L (21.0-32.0); POTASSIUM 4.2 MEQ/L (3.5-5.1)
--- NOTE | 2017-06-04 20:07 | HHI.PR ---
Subjective Remarks Improved further.. Now on O2 N/C 5 L.No fever. C/o cough and some wheezing. CT chest shows Bilat pulmonary infiltrates. CXR is stable. Objective Vital Signs Date Time Temp Pulse Resp B/P Pulse Ox O2 Delivery O2 Flow Rate FiO2 06/04/17 16:45 95 Nasal Cannula 5.00 06/04/17 16:00 97.7 102 24 154/74 92 06/04/17 12:00 97.3 103 24 155/79 94 06/04/17 08:28 94 Nasal Cannula 6.00 06/04/17 08:00 97.3 93 22 168/86 95 06/04/17 08:00 118 06/04/17 08:00 Nasal Cannula 6.00 06/04/17 04:00 97.5 89 22 141/79 93 06/04/17 00:00 90 Nasal Cannula 6.00 06/04/17 00:00 97.6 104 22 154/83 90 06/03/17 20:40 109 I/O 06/03/17 06/03/17 06/03/17 06/04/17 06/04/17 06/04/17 07:00 15:00 23:00 07:00 15:00 23:00 Intake Total 2395 ml 720 ml 1139 ml 760 ml 1518 ml Output Total 1350 ml 1400 ml 500 ml 300 ml Balance 1045 ml -680 ml 639 ml 460 ml 1518 ml Intake Oral 720 ml 280 ml 200 ml 720 ml IV Total 2395 ml 859 ml 560 ml 798 ml Output Urine Total 1350 ml 1400 ml 500 ml 300 ml # Voids 1 # Bowel Movements 1 0 0 1 Result Diagram: 06/04/17 1900 06/04/17 0700 Objective Remarks PHYSICAL EXAMINATION GENERAL: This is a middle-aged -[place] male who is alert, pale and Not dyspneic at rest. HEENT: Head normocephalic. Pupils are reactive and equal. Tongue is moist. Throat was clear. Nasal mucosa injected. NECK: No bruits or thyroid enlargement or lymphadenopathy. CHEST: Increased AP diameter. occasional wheezes bilaterally. A few crackles in the upper chest. HEART SOUNDS: Regular S1 and S2. No murmur. ABDOMEN: Soft, benign. No tenderness. No organomegaly. EXTREMITIES: Decreased pulses. Reflexes are 1+. There are no gross motor deficits. There is minimal peripheral edema. NEUROLOGICALLY: No focal deficits identified. Assessment and Plan Assessment and Plan IMPRESSION 1. Bilateral pulmonary infiltrates with atypical pneumonia. 2. Metastatic carcinoma of the prostate. 3. Sepsis with UTI. 4. Influenza. 5. Acute kidney injury, resolving. Plan : 1. Continue antibiotics per ID. 2. Wean O2 to 4 L N/C 3. Bipap at HS if sat <92. 4. Cont nebs qid , duoneb 5. decadron 4 mg qid. 6. Chest Xray and CBC,BMP in am 7. PFT when stable. Moreno Lentz MD Jun 04, 2017 20:07
[2017-06-04 20:19] LABS: CALCIUM-PROTEIN CORRECTED 8.1 MG/DL (8.5-10.1)
[2017-06-04 20:37] LABS: BANDS 4 % (0-6); CORRECTED NUCLEATED RBC 1 /100 WBC (0-0); METAMYELOCYTES 11 % (0-1); MYELOCYTES 5 % (0-0); NEUTROPHIL # MANUAL DIFF 8.2 TH/MM3 (1.8-7.7); POLYS (SEG NEUTROPHILS) 64 % (16-70); PROMYELOCYTES 1 % (0-0); WBC DIFF SAMPLE 100
[2017-06-04 20:38] LABS: PLATELET ESTIMATE SMEAR LOW (NORMAL); PLATELET MORPHOLOGY NORMAL (NORMAL); SCAN/DIFF FINAL DIFF MANUAL
[2017-06-04 20:39] LABS: KERATOCYTES OCC (NORMAL)
[2017-06-04] MEDS: VANCOMYCIN INJ 1,500 MG in SODIUM CHLORID 0.9% 500 ML INJ 500 ML IV SCH (21:19)
--- NOTE | 2017-06-04 21:59 | HHI.IDPN ---
Subjective Subjective Remarks Now expectorating orr sputum Better, on NC O2 , but get SOB when talks easily Renogram showed obstruction on the L fever resolved Antibiotics zoyn vancomycin tamiflu - comppeted Allergies: Coded Allergies: No Known Allergies (Unverified , 05/29/17) Objective . Vital Signs Date Time Temp Pulse Resp B/P Pulse Ox O2 Delivery O2 Flow Rate FiO2 06/04/17 16:45 95 Nasal Cannula 5.00 06/04/17 16:00 97.7 102 24 154/74 92 06/04/17 12:00 97.3 103 24 155/79 94 06/04/17 08:28 94 Nasal Cannula 6.00 06/04/17 08:00 97.3 93 22 168/86 95 06/04/17 08:00 118 06/04/17 08:00 Nasal Cannula 6.00 06/04/17 04:00 97.5 89 22 141/79 93 06/04/17 00:00 90 Nasal Cannula 6.00 06/04/17 00:00 97.6 104 22 154/83 90 06/03/17 06/03/17 06/04/17 15:00 23:00 07:00 Intake Total 720 ml 1139 ml 760 ml Output Total 1400 ml 500 ml 300 ml Balance -680 ml 639 ml 460 ml Intake Oral 720 ml 280 ml 200 ml IV Total 859 ml 560 ml Output Urine Total 1400 ml 500 ml 300 ml # Bowel Movements 1 0 0 . Laboratory Tests Test 06/04/17 19:00 White Blood Count 9.6 TH/MM3 Red Blood Count 3.02 MIL/MM3 Hemoglobin 9.1 GM/DL Hematocrit 26.8 % Mean Corpuscular Volume 88.7 FL Mean Corpuscular Hemoglobin 30.1 PG Mean Corpuscular Hemoglobin 33.9 % Concent Red Cell Distribution Width 17.1 % Platelet Count 136 TH/MM3 Mean Platelet Volume 8.6 FL Neutrophils (%) (Auto) 88.2 % Lymphocytes (%) (Auto) 4.1 % Monocytes (%) (Auto) 7.3 % Eosinophils (%) (Auto) 0.2 % Basophils (%) (Auto) 0.2 % Neutrophils # (Auto) 8.5 TH/MM3 Lymphocytes # (Auto) 0.4 TH/MM3 Monocytes # (Auto) 0.7 TH/MM3 Eosinophils # (Auto) 0.0 TH/MM3 Basophils # (Auto) 0.0 TH/MM3 CBC Comment AUTO DIFF Differential Total Cells 100 Counted Neutrophils % (Manual) 64 % Band Neutrophils % 4 % Lymphocytes % 13 % Monocytes % 2 % Neutrophils # (Manual) 8.2 TH/MM3 Metamyelocytes 11 % Myelocytes 5 % Promyelocytes 1 % Nucleated Red Blood Cells 1 /100 WBC Differential Comment FINAL DIFF MANUAL Platelet Estimate LOW Platelet Morphology Comment NORMAL Keratocytes OCC Laboratory Tests Test 06/04/17 06/04/17 07:00 19:00 Creatinine 1.37 MG/DL 1.29 MG/DL Estimat Glomerular Filtration 65 ML/MIN 70 ML/MIN Rate Sodium Level 143 MEQ/L Potassium Level 4.2 MEQ/L Chloride Level 116 MEQ/L Carbon Dioxide Level 22.1 MEQ/L Anion Gap 5 MEQ/L Blood Urea Nitrogen 21 MG/DL Random Glucose 181 MG/DL Calcium Level 7.4 MG/DL Protein Corrected Calcium 8.1 MG/DL Total Protein 5.9 GM/DL Microbiology Date/Time Procedure Status Source Growth 06/02/17 18:45 Gram Stain - Final Complete Sputum Expectorated Sputum 06/02/17 18:45 Sputum Culture - Final Complete Sputum Expectorated Sputum HEAVY GROWTH NORMAL RESPIRATORY CARLINE 06/03/17 17:35 Cancelled Sputum Expectorated Sputum Imaging Last Impressions Chest X-Ray 06/04/17 0800 Signed Impressions: Service Date/Time: Sunday, June 04, 2017 07:47 - CONCLUSION: Stable chest Agustín Boykin MD Chest CT 05/31/17 1853 Signed Impressions: Service Date/Time: May 21:23 - CONCLUSION: 1. Diffuse metastatic disease to the spine. 2. Bilateral pulmonary infiltrates. Small bilateral effusions. José Manuel Baumann MD Renal Scan w/Medication NM 05/31/17 0000 Signed Impressions: Service Date/Time: May 12:46 - CONCLUSION: 1. Mild obstruction on the left. 2. Normal right kidney. Seb Matthews MD Renal Ultrasound 05/30/17 0000 Signed Impressions: Service Date/Time: Tuesday, May 30, 2017 11:51 - CONCLUSION: Bilateral hydronephrosis left greater than right. Quite similar to CT scan in March. Gideon Rivera MD Physical Exam CONSTITUTIONAL/GENERAL: This is an adequately nourished patient, in no apparent distress. He is on NC O2 SKIN: No jaundice, rashes, or lesions. . Skin temperature appropriate. Not diaphoretic. EYES: Pupils equal and round and reactive. Extraocular motions intact. No scleral icterus. No injection or drainage. Fundi not examined. ENT: Hearing grossly normal. Nose without bleeding or purulent drainage. Oral mucosae moist without visible erythema, exudates, masses, or lesions. CARDIOVASCULAR: Regular rate and rhythm without murmurs, gallops, or rubs. No JVD. Peripheral pulses symmetric. RESPIRATORY/CHEST: Symmetric, unlabored respirations. Clear to auscultation. Breath sounds equal bilaterally. GASTROINTESTINAL: Abdomen soft, non-tender, nondistended. No hepato-splenomegaly , or palpable masses. No guarding. Bowel sounds present. GENITOURINARY: Without palpable bladder distension. Albarran catheter in place with clear yellow urine MUSCULOSKELETAL: Extremities without clubbing, cyanosis, or edema. NEUROLOGICAL: Awake and alert. Non focal PSYCHIATRIC: No obvious anxiety/depression. no apparent hallucinations or other psychotic thought process. Assessment & Plan Remarks Influenza A B/l PNA with hypoxia, viral vs superimposed bacterial -Bilateral patchy infiltrates. - nl resp carline Prostate CA with mets, chronic albarran - hydronephrosis left greater than right. Renal scan showed partial obstruction of left kidney which is mild; urologist recommends medical mngmnt, no intervention needed UTI 2/2 Enterobacter (R to cipro), Entrococcus REC's; cont zosyn dc vanco once ready for dc allyson switch to oral bactrim + cipro to cover both urinary isolates Mira Ware MD Jun 04, 2017 21:59
[2017-06-05] VITALS (9 sets, daily range): BP systolic 141–172; BP diastolic 73–98; PULSE 91–116; RESP 18–24; TEMP 97.2–98.5; O2SAT 90–98
[2017-06-05] MEDS: PIPERACIL-TAZO 4.5 GM PREMIX 100 ML IV SCH ×3 (03:19→20:58)
[2017-06-05] MEDS: DEXAMETHASONE 4 MG TAB PO SCH ×3 (06:00→20:55)
[2017-06-05 08:26] LABS: AUTOMATED NEUTROPHIL # 8.7 TH/MM3 (1.8-7.7); BASOPHIL % 0.3 % (0.0-2.0); EOSINOPHIL % 0.2 % (0.0-4.0); HEMATOCRIT 27.3 % (39.0-51.0); LYMPHOCYTE # 0.4 TH/MM3 (1.0-4.8); MEAN CELL VOLUME 89.4 FL (80.0-100.0); MEAN CORPUSCULAR HEMOGLOBIN 29.7 PG (27.0-34.0); MEAN CORPUSCULAR HGB CONC 33.3 % (32.0-36.0); MONO % 6.1 % (0.0-8.0); NEUT % 89.4 % (16.0-70.0); PLATELET COUNT 128 TH/MM3 (150-450); RED BLOOD COUNT 3.05 MIL/MM3 (4.50-5.90); WHITE BLOOD COUNT 9.7 TH/MM3 (4.0-11.0)
[2017-06-05 08:27] LABS: HEMO FLAGS AUTO DIFF
[2017-06-05] MEDS: RESP: ALBUTEROL 2.5 MG/IPRATROPIUM 0.5 MG NEB (SCH) NEB ×4 (08:36→21:09)
[2017-06-05] MEDS: DOCUSATE SODIUM 50 MG/SENNA 8.6 MG TAB PO SCH ×2 (09:00→20:58)
[2017-06-05] MEDS: DOXAZOSIN MESYLATE 4 MG TAB PO SCH (09:00)
[2017-06-05 09:34] LABS: BANDS 9 % (0-6); CORRECTED NUCLEATED RBC 1 /100 WBC (0-0); METAMYELOCYTES 6 % (0-1); MYELOCYTES 8 % (0-0); NEUTROPHIL # MANUAL DIFF 8.3 TH/MM3 (1.8-7.7); POLYS (SEG NEUTROPHILS) 63 % (16-70); WBC DIFF SAMPLE 100
[2017-06-05 09:40] LABS: PLATELET ESTIMATE SMEAR LOW (NORMAL); PLATELET MORPHOLOGY NORMAL (NORMAL); SCAN/DIFF FINAL DIFF MANUAL
[2017-06-05 09:41] LABS: TEARDROP RBCS 1+ (NORMAL)
[2017-06-05] MEDS: levETIRAcetam 500 MG TAB PO SCH ×2 (09:58→20:54)
[2017-06-05] MEDS: CAPTOPRIL 25 MG TAB PO SCH (09:59)
[2017-06-05] MEDS: TAMSULOSIN HCL 0.4 MG CAP PO SCH (09:59)
[2017-06-05] MEDS: PRAVASTATIN SOD 40 MG TAB PO SCH (09:59)
[2017-06-05] MEDS: PANTOPRAZOLE SOD 40 MG DELAYED RELEASE TAB PO SCH (09:59)
--- NOTE | 2017-06-05 14:32 | HHI.PR ---
Subjective Remarks feeling better minimal sputum- clear Objective Vitals Vital Signs Date Time Temp Pulse Resp B/P Pulse Ox O2 Delivery O2 Flow Rate FiO2 06/05/17 12:00 97.5 96 22 153/73 98 06/05/17 08:37 92 Nasal Cannula 5.00 06/05/17 08:00 97.2 91 22 172/98 92 06/05/17 04:00 98.3 92 20 161/89 96 06/05/17 04:00 Nasal Cannula 6.00 Humidified 06/05/17 00:34 Nasal Cannula 6.00 Humidified 06/05/17 00:00 98.5 97 18 157/84 94 06/04/17 20:15 95 06/04/17 20:00 Nasal Cannula 6.00 Humidified 06/04/17 20:00 97.3 100 17 125/80 93 06/04/17 16:45 95 Nasal Cannula 5.00 06/04/17 16:00 97.7 102 24 154/74 92 I/O 06/04/17 06/04/17 06/04/17 06/05/17 06/05/17 06/05/17 06:59 14:59 22:59 06:59 14:59 22:59 Intake Total 760 ml 1518 ml 945 ml 1388 ml Output Total 300 ml 800 ml 1200 ml Balance 460 ml 1518 ml 145 ml 188 ml Intake Oral 200 ml 720 ml 380 ml 480 ml IV Total 560 ml 798 ml 565 ml 908 ml Output Urine Total 300 ml 800 ml 1200 ml # Voids 1 # Bowel Movements 0 1 0 0 Result Diagram: 06/05/17 0726 06/04/17 1900 Imaging Last Impressions Chest X-Ray 06/04/17 0800 Signed Impressions: Service Date/Time: Sunday, June 04, 2017 07:47 - CONCLUSION: Stable chest Agustín Boykin MD Chest CT 05/31/17 1853 Signed Impressions: Service Date/Time: May 21:23 - CONCLUSION: 1. Diffuse metastatic disease to the spine. 2. Bilateral pulmonary infiltrates. Small bilateral effusions. José Manuel Baumann MD Renal Scan w/Medication NM 05/31/17 0000 Signed Impressions: Service Date/Time: May 12:46 - CONCLUSION: 1. Mild obstruction on the left. 2. Normal right kidney. Seb F. Tocci, MD Renal Ultrasound 05/30/17 0000 Signed Impressions: Service Date/Time: Tuesday, May 30, 2017 11:51 - CONCLUSION: Bilateral hydronephrosis left greater than right. Quite similar to CT scan in March. Gideon Rivera MD Objective Remarks awake and alert, oriented x 3 anicteric lungs- no rales or wheezes regular rhythm abdomen soft, nontender extremities no edema albarran in place neuro exam- non focal Procedures None Date of Insertion: May 21, 2017 A/P Problem List: (1) Sepsis ICD Code: A41.9 Status: Acute (2) Pneumonia ICD Code: J18.9 Status: Acute (3) UTI (urinary tract infection) ICD Code: N39.0 Status: Acute (4) Anemia ICD Code: D64.9 Status: Acute (5) Prostate cancer metastatic to bone ICD Code: C61 Status: Acute (6) Hypocalcemia ICD Code: E83.51 Status: Acute (7) Influenza B ICD Code: J10.1 Status: Acute Assessment and Plan 56 years sold male with prostate cancer with mets Sepsis: Secondary to pneumonia, UTI. Continue antibiotics- Zosyn and Vancomycin. Appreciate infectious disease recommendations- on Zosyn and Vancomycin. Pulmonary ff Tylenol as needed for fever. Pneumonia: Continue supplemental oxygen, antibiotics. Influenza B antigen positive. S/P course of Tamiflu.. ID ff UTI associated with indwelling urinary catheter: Patient has indwelling Albarran catheter, which was exchanged 05/21/17. Appreciate Urology recommendations. Urine culture growing Enterobacter and enterococcus. Continue antibiotics. Acute respiratory failure: -now on NC-. Secondary to Influenza, pneumonia. Continue supplemental oxygen, bronchodilators. Appreciate pulmonology recommendations- Dr. Rose ff. Metastatic prostate cancer: Appreciate oncology recommendations. On Flomax and doxazosin Anemia: Status post transfusion of 2 units PRBCs during this hospitalization. H& H improved following transfusion. Appreciate oncology recommendations. Influenza B: on Tamiflu. DC. DVT prophylaxis: SCDs, COLLIN hose. Problem Qualifiers (1) Sepsis: Qualified Code: A41.9 - Sepsis, due to unspecified organism (2) UTI (urinary tract infection): Qualified Code: N39.0 - Urinary tract infection without hematuria, site unspecified (3) Anemia: Qualified Code: D64.9 - Anemia, unspecified type Kenya Rod MD Jun 05, 2017 14:32
--- NOTE | 2017-06-05 17:37 | PD.ONC.PN ---
Subjective Subjective Remarks breathing better afebrile on ABX for UTI/sepsis/Enterobacter bacteremia supportive care plan for outpatient treatment for prostate cancer Objective Data Date Time Temp Pulse Resp B/P Pulse Ox O2 Delivery O2 Flow Rate FiO2 06/05/17 12:00 97.5 96 22 153/73 98 06/05/17 08:37 92 Nasal Cannula 5.00 06/05/17 08:00 97.2 91 22 172/98 92 06/05/17 04:00 98.3 92 20 161/89 96 06/05/17 04:00 Nasal Cannula 6.00 Humidified 06/05/17 00:34 Nasal Cannula 6.00 Humidified 06/05/17 00:00 98.5 97 18 157/84 94 06/04/17 20:15 95 06/04/17 20:00 Nasal Cannula 6.00 Humidified 06/04/17 20:00 97.3 100 17 125/80 93 06/05/17 06/05/17 06/05/17 07:00 15:00 23:00 Intake Total 1388 ml Output Total 1200 ml Balance 188 ml Result Diagram: 06/05/17 0726 06/04/17 1900 Laboratory Results Laboratory Tests Test 06/04/17 06/05/17 19:00 07:26 White Blood Count 9.6 TH/MM3 9.7 TH/MM3 Red Blood Count 3.02 MIL/MM3 3.05 MIL/MM3 Hemoglobin 9.1 GM/DL 9.1 GM/DL Hematocrit 26.8 % 27.3 % Mean Corpuscular Volume 88.7 FL 89.4 FL Mean Corpuscular Hemoglobin 30.1 PG 29.7 PG Mean Corpuscular Hemoglobin 33.9 % 33.3 % Concent Red Cell Distribution Width 17.1 % 17.0 % Platelet Count 136 TH/MM3 128 TH/MM3 Mean Platelet Volume 8.6 FL 8.3 FL Neutrophils (%) (Auto) 88.2 % 89.4 % Lymphocytes (%) (Auto) 4.1 % 4.0 % Monocytes (%) (Auto) 7.3 % 6.1 % Eosinophils (%) (Auto) 0.2 % 0.2 % Basophils (%) (Auto) 0.2 % 0.3 % Neutrophils # (Auto) 8.5 TH/MM3 8.7 TH/MM3 Lymphocytes # (Auto) 0.4 TH/MM3 0.4 TH/MM3 Monocytes # (Auto) 0.7 TH/MM3 0.6 TH/MM3 Eosinophils # (Auto) 0.0 TH/MM3 0.0 TH/MM3 Basophils # (Auto) 0.0 TH/MM3 0.0 TH/MM3 CBC Comment AUTO DIFF AUTO DIFF Differential Total Cells 100 100 Counted Neutrophils % (Manual) 64 % 63 % Band Neutrophils % 4 % 9 % Lymphocytes % 13 % 4 % Monocytes % 2 % 10 % Neutrophils # (Manual) 8.2 TH/MM3 8.3 TH/MM3 Metamyelocytes 11 % 6 % Myelocytes 5 % 8 % Promyelocytes 1 % Nucleated Red Blood Cells 1 /100 WBC 1 /100 WBC Differential Comment FINAL DIFF FINAL DIFF MANUAL MANUAL Platelet Estimate LOW LOW Platelet Morphology Comment NORMAL NORMAL Keratocytes OCC Sodium Level 143 MEQ/L Potassium Level 4.2 MEQ/L Chloride Level 116 MEQ/L Carbon Dioxide Level 22.1 MEQ/L Anion Gap 5 MEQ/L Blood Urea Nitrogen 21 MG/DL Creatinine 1.29 MG/DL Estimat Glomerular Filtration 70 ML/MIN Rate Random Glucose 181 MG/DL Calcium Level 7.4 MG/DL Protein Corrected Calcium 8.1 MG/DL Total Protein 5.9 GM/DL Tear Drop Cells 1+ Culture Results Microbiology Date/Time Procedure Status Source Growth 06/02/17 18:45 Gram Stain - Final Complete Sputum Expectorated Sputum 06/02/17 18:45 Sputum Culture - Final Complete Sputum Expectorated Sputum HEAVY GROWTH NORMAL RESPIRATORY AL 06/03/17 17:35 Cancelled Sputum Expectorated Sputum Administered Medications Medications (Trade) Dose Ordered Sig/Deepti Route PRN Reason Start Time Stop Time Status Last Admin Dose Admin Sodium Chloride (NS 1000 ml Inj) 1,000 ml @ 70 mls/hr [id number] IV 05/29/17 20:00 06/04/17 21:19 Acetaminophen (Tylenol) 650 mg Q4H PRN PO TEMP > 100.4 05/29/17 18:15 05/29/17 20:13 Senna/Docusate Sodium (Kassidy-Colace) 1 tab BID PO 05/29/17 21:00 06/04/17 21:19 Benzonatate (Tessalon) 100 mg TID PRN PO COUGH 05/30/17 09:15 05/31/17 18:27 Amlodipine Besylate (Norvasc) 10 mg DAILY PO 05/30/17 09:30 06/05/17 09:58 Captopril (Capoten) 25 mg DAILY PO 05/30/17 09:30 06/05/17 09:59 Doxazosin Mesylate (Cardura) 4 mg DAILY PO 05/30/17 09:30 06/05/17 09:00 Levetriacetam (Keppra) 500 mg Q12HR PO 05/30/17 09:30 06/05/17 09:58 Oxycodone/ Acetaminophen (Percocet 5-325 Mg) 1 tab Q6H PRN PO PAIN 1-10 05/30/17 09:30 06/03/17 21:02 Pantoprazole Sodium (Protonix) 40 mg DAILY PO 05/30/17 09:30 06/05/17 09:59 Pravastatin Sodium (Pravachol) 40 mg DAILY PO 05/30/17 09:30 06/05/17 09:59 Tamsulosin HCl 0.4 mg 0.4 mg DAILY PO 05/30/17 11:00 06/05/17 09:59 Piperacillin Sod/ Tazobactam Sod (Zosyn 4.5 Gm Premix) 100 ml @ 200 mls/hr Q6H IV 06/02/17 16:00 06/05/17 10:00 Dexamethasone (Decadron) 4 mg Q8HR PO 06/04/17 14:00 06/05/17 15:54 Objective Remarks GENERAL: nad. SKIN: Warm and dry. HEAD: Normocephalic. EYES: No scleral icterus. No injection or drainage. NECK: Supple, trachea midline. No JVD or lymphadenopathy. LYMPHATIC: No adenopathy. CARDIOVASCULAR: Regular rate and rhythm without murmurs. RESPIRATORY: Breath sounds equal bilaterally. No accessory muscle use. GASTROINTESTINAL: Abdomen soft, non-tender, nondistended. EXTREMITIES: No cyanosis, or edema. MUSCULOSKELETAL: Adequate muscle tone. NEUROLOGICAL: No obvious focal deficit. Awake, alert, and oriented x3. PSYCHIATRIC: Appropriate mood and affect; insight and judgment normal. Assessment/Plan Problem List: (1) Metastatic disease Status: Acute (2) Normocytic anemia Status: Chronic (3) Cord compression Status: Resolved (4) Hydronephrosis Status: Acute (5) JENELLE (acute kidney injury) Status: Resolved (6) Pneumonia Status: Acute (7) Prostate cancer metastatic to bone Status: Acute (8) Influenza B Status: Acute Assessment 56-year-old male with a history of stage IV prostate adenocarcinoma with bony metastatic disease and a history of cord compression status post laminectomy and decompression. He presents with fever, anemia, hypoxia and tachycardia and was found to have pneumonia and UTI. 1. Urinary tract infection with sepsis. Urine culture: ++gram-negative rods--Enterobacter cloacae . On Vanco + Zosyn Blood cultures no growth 2. Influenza B pneumonia + influenza B+ antigen. currently on Tamiflu 3. Acute anemia. s/p pRBC. await CBC today 4. Acute and chronic kidney failure improving with hydration. +hydroureter on ultrasound. Renal scan showed mild obstruction on the left. 6. Hypoalbuminemia/malnutrition, albumin is 2, encourage oral intake. Ensure or Boost t.i.d. with meals. 7. Stage IV prostate adenocarcinoma with bone mets currently on hormone blockade therapy with Casodex and Lupron and also receiving bone modifying agent for bony metastatic disease. Further management as per outpatient. Tim Le MD Jun 05, 2017 17:37
--- NOTE | 2017-06-05 19:27 | HHI.PR ---
Subjective Remarks Improved further.. Now on O2 N/C 2 L.. C/o some wheezing. CXR is stable. Good output . Objective Vital Signs Date Time Temp Pulse Resp B/P Pulse Ox O2 Delivery O2 Flow Rate FiO2 06/05/17 16:00 97.5 95 24 153/76 93 06/05/17 12:00 97.5 96 22 153/73 98 06/05/17 08:37 92 Nasal Cannula 5.00 06/05/17 08:00 95 06/05/17 08:00 97.2 91 22 172/98 92 06/05/17 04:00 98.3 92 20 161/89 96 06/05/17 04:00 Nasal Cannula 6.00 Humidified 06/05/17 00:34 Nasal Cannula 6.00 Humidified 06/05/17 00:00 98.5 97 18 157/84 94 06/04/17 20:15 95 06/04/17 20:00 Nasal Cannula 6.00 Humidified 06/04/17 20:00 97.3 100 17 125/80 93 I/O 06/04/17 06/04/17 06/04/17 06/05/17 06/05/17 06/05/17 06:59 14:59 22:59 06:59 14:59 22:59 Intake Total 760 ml 1518 ml 945 ml 1388 ml 240 ml Output Total 300 ml 800 ml 1200 ml 1250 ml Balance 460 ml 1518 ml 145 ml 188 ml -1010 ml Intake Oral 200 ml 720 ml 380 ml 480 ml 240 ml IV Total 560 ml 798 ml 565 ml 908 ml Output Urine Total 300 ml 800 ml 1200 ml 1250 ml # Voids 1 # Bowel Movements 0 1 0 0 1 Result Diagram: 06/05/17 0726 06/04/17 1900 Objective Remarks PHYSICAL EXAMINATION GENERAL: This is a middle-aged -[place] Citizen male who is alert, pale and Not dyspneic at rest. HEENT: Head normocephalic. Pupils are reactive and equal. Tongue is moist. Throat was clear. Nasal mucosa clear NECK: No bruits or thyroid enlargement or lymphadenopathy. CHEST: Increased AP diameter. occasional wheezes bilaterally. HEART SOUNDS: Regular S1 and S2. No murmur. ABDOMEN: Soft, benign. No tenderness. No organomegaly. EXTREMITIES: Decreased pulses. Reflexes are 1+. There are no gross motor deficits. There is minimal peripheral edema. NEUROLOGICALLY: No focal deficits identified. Assessment and Plan Assessment and Plan IMPRESSION 1. Bilateral pulmonary infiltrates with atypical pneumonia. 2. Metastatic carcinoma of the prostate. 3. Sepsis with UTI. 4. Influenza. 5. Acute kidney injury, resolving. Plan : 1. Continue antibiotics per ID. 2. Wean O2 to 2 L N/C 3. D/C Bipap . 4. Cont nebs qid , duoneb 5. decadron 4 mg qid. 6. CBC,BMP in am 7. PFT when stable. Moreno Lentz MD Jun 05, 2017 19:27
[2017-06-05] MEDS: oxyCODONE/ACETAMINOPHEN 5 MG/325 MG TAB PO PRN (20:56)
[2017-06-06] VITALS (10 sets, daily range): BP systolic 129–163; BP diastolic 70–87; PULSE 84–102; RESP 18–24; TEMP 97.5–98.3; O2SAT 91–100
[2017-06-06] MEDS: PIPERACIL-TAZO 4.5 GM PREMIX 100 ML IV SCH ×3 (04:55→13:34)
[2017-06-06] MEDS: DEXAMETHASONE 4 MG TAB PO SCH ×3 (06:52→21:26)
[2017-06-06] MEDS: SODIUM CHLOR 0.9% 1000 ML INJ 1,000 ML IV SCH (06:53)
[2017-06-06] MEDS: RESP: ALBUTEROL 2.5 MG/IPRATROPIUM 0.5 MG NEB (SCH) NEB ×2 (08:20→13:11)
[2017-06-06] MEDS: DOCUSATE SODIUM 50 MG/SENNA 8.6 MG TAB PO SCH ×2 (09:00→21:26)
[2017-06-06] MEDS: DOXAZOSIN MESYLATE 4 MG TAB PO SCH (09:00)
[2017-06-06] MEDS: PANTOPRAZOLE SOD 40 MG DELAYED RELEASE TAB PO SCH (09:46)
[2017-06-06] MEDS: PRAVASTATIN SOD 40 MG TAB PO SCH (09:46)
[2017-06-06] MEDS: levETIRAcetam 500 MG TAB PO SCH ×2 (09:46→21:26)
[2017-06-06] MEDS: TAMSULOSIN HCL 0.4 MG CAP PO SCH (09:46)
[2017-06-06] MEDS: CAPTOPRIL 25 MG TAB PO SCH (09:47)
[2017-06-06 10:15] LABS: AUTOMATED NEUTROPHIL # 8.6 TH/MM3 (1.8-7.7); BASOPHIL % 0.5 % (0.0-2.0); EOSINOPHIL % 0.1 % (0.0-4.0); HEMATOCRIT 30.2 % (39.0-51.0); LYMPH % 4.3 % (9.0-44.0); LYMPHOCYTE # 0.4 TH/MM3 (1.0-4.8); MEAN CORPUSCULAR HEMOGLOBIN 29.4 PG (27.0-34.0); MEAN CORPUSCULAR HGB CONC 33.1 % (32.0-36.0); MONO % 3.4 % (0.0-8.0); NEUT % 91.7 % (16.0-70.0); PLATELET COUNT 112 TH/MM3 (150-450); RED BLOOD COUNT 3.39 MIL/MM3 (4.50-5.90); WHITE BLOOD COUNT 9.4 TH/MM3 (4.0-11.0)
[2017-06-06 10:22] LABS: HEMO FLAGS AUTO DIFF
[2017-06-06 11:02] LABS: BANDS 12 % (0-6); METAMYELOCYTES 10 % (0-1); MYELOCYTES 3 % (0-0); NEUTROPHIL # MANUAL DIFF 9.1 TH/MM3 (1.8-7.7); POLYS (SEG NEUTROPHILS) 71 % (16-70); PROMYELOCYTES 1 % (0-0); WBC DIFF SAMPLE 100
[2017-06-06 11:05] LABS: KERATOCYTES 1+ (NORMAL); TEARDROP RBCS 1+ (NORMAL)
[2017-06-06 11:06] LABS: PLATELET ESTIMATE SMEAR LOW (NORMAL); PLATELET MORPHOLOGY NORMAL (NORMAL); SCAN/DIFF FINAL DIFF MANUAL
--- NOTE | 2017-06-06 13:12 | HHI.PR ---
Subjective Remarks Better today. Now on O2 N/C 3 L.. No cough. CXR is stable. Good output . Objective Vital Signs Date Time Temp Pulse Resp B/P Pulse Ox O2 Delivery O2 Flow Rate FiO2 06/06/17 12:00 97.9 100 18 152/72 94 06/06/17 08:22 95 Nasal Cannula 4.00 06/06/17 08:00 99 Nasal Cannula 2.00 06/06/17 08:00 97.5 93 18 163/86 100 06/06/17 04:00 97.5 89 24 161/87 94 06/06/17 00:00 98.3 84 24 141/78 94 06/05/17 21:14 90 Nasal Cannula 3.00 06/05/17 20:30 104 06/05/17 20:00 Nasal Cannula 3.00 Humidified 06/05/17 20:00 98.2 116 24 141/76 93 06/05/17 16:00 97.5 95 24 153/76 93 I/O 06/05/17 06/05/17 06/05/17 06/06/17 06/06/17 06/06/17 07:00 15:00 23:00 07:00 15:00 23:00 Intake Total 1388 ml 240 ml 1167 ml Output Total 1200 ml 1250 ml 1100 ml 800 ml Balance 188 ml -1010 ml 67 ml -800 ml Intake Oral 480 ml 240 ml IV Total 908 ml 1167 ml Output Urine Total 1200 ml 1250 ml 1100 ml 800 ml # Bowel Movements 0 1 1 Result Diagram: 06/06/17 0830 06/06/17 0830 Objective Remarks PHYSICAL EXAMINATION GENERAL: This is a middle-aged -[place] male who is alert, pale and Not dyspneic at rest. HEENT: Head normocephalic. Pupils are reactive and equal. Tongue is moist. Throat was clear. Nasal mucosa clear NECK: No bruits or thyroid enlargement or lymphadenopathy. CHEST: Increased AP diameter. Occ Crackles at bases. occasional wheezes bilaterally. HEART SOUNDS: Regular S1 and S2. No murmur. ABDOMEN: Soft, benign. No tenderness. No organomegaly. EXTREMITIES: Decreased pulses. Reflexes are 1+. There are no gross motor deficits. There is minimal peripheral edema. NEUROLOGICALLY: No focal deficits identified. Assessment and Plan Assessment and Plan IMPRESSION 1. Bilateral pulmonary infiltrates with atypical pneumonia. 2. Metastatic carcinoma of the prostate. 3. Sepsis with UTI. 4. Influenza. 5. Acute kidney injury, resolving. Plan : 1. Continue antibiotics per ID. 2. Wean O2 to 2 L N/C and to RA. 3. IS at bedside q3h 4. Cont nebs qid , duoneb 5. decadron 4 mg tid. 6. Rehab soon. 7. PFT today. Moreno Lentz MD Jun 06, 2017 13:12
--- NOTE | 2017-06-06 14:25 | HHI.IDPN ---
Subjective Subjective Remarks doing well afebrile wants to go home Antibiotics zoyn vancomycin tamiflu - comppeted Allergies: Coded Allergies: No Known Allergies (Unverified , 05/29/17) Objective . Vital Signs Date Time Temp Pulse Resp B/P Pulse Ox O2 Delivery O2 Flow Rate FiO2 06/06/17 12:00 97.9 100 18 152/72 94 06/06/17 08:22 95 Nasal Cannula 4.00 06/06/17 08:00 99 Nasal Cannula 2.00 06/06/17 08:00 97.5 93 18 163/86 100 06/06/17 04:00 97.5 89 24 161/87 94 06/06/17 00:00 98.3 84 24 141/78 94 06/05/17 21:14 90 Nasal Cannula 3.00 06/05/17 20:30 104 06/05/17 20:00 Nasal Cannula 3.00 Humidified 06/05/17 20:00 98.2 116 24 141/76 93 06/05/17 16:00 97.5 95 24 153/76 93 06/05/17 06/05/17 06/06/17 14:59 22:59 06:59 Intake Total 240 ml 1167 ml Output Total 1250 ml 1100 ml 800 ml Balance -1010 ml 67 ml -800 ml Intake Oral 240 ml IV Total 1167 ml Output Urine Total 1250 ml 1100 ml 800 ml # Bowel Movements 1 1 . Laboratory Tests Test 06/04/17 06/05/17 06/06/17 19:00 07:26 08:30 White Blood Count 9.6 TH/MM3 9.7 TH/MM3 9.4 TH/MM3 Red Blood Count 3.02 MIL/MM3 3.05 MIL/MM3 3.39 MIL/MM3 Hemoglobin 9.1 GM/DL 9.1 GM/DL 10.0 GM/DL Hematocrit 26.8 % 27.3 % 30.2 % Mean Corpuscular Volume 88.7 FL 89.4 FL 89.0 FL Mean Corpuscular Hemoglobin 30.1 PG 29.7 PG 29.4 PG Mean Corpuscular Hemoglobin 33.9 % 33.3 % 33.1 % Concent Red Cell Distribution Width 17.1 % 17.0 % 17.0 % Platelet Count 136 TH/MM3 128 TH/MM3 112 TH/MM3 Mean Platelet Volume 8.6 FL 8.3 FL 8.7 FL Neutrophils (%) (Auto) 88.2 % 89.4 % 91.7 % Lymphocytes (%) (Auto) 4.1 % 4.0 % 4.3 % Monocytes (%) (Auto) 7.3 % 6.1 % 3.4 % Eosinophils (%) (Auto) 0.2 % 0.2 % 0.1 % Basophils (%) (Auto) 0.2 % 0.3 % 0.5 % Neutrophils # (Auto) 8.5 TH/MM3 8.7 TH/MM3 8.6 TH/MM3 Lymphocytes # (Auto) 0.4 TH/MM3 0.4 TH/MM3 0.4 TH/MM3 Monocytes # (Auto) 0.7 TH/MM3 0.6 TH/MM3 0.3 TH/MM3 Eosinophils # (Auto) 0.0 TH/MM3 0.0 TH/MM3 0.0 TH/MM3 Basophils # (Auto) 0.0 TH/MM3 0.0 TH/MM3 0.0 TH/MM3 CBC Comment AUTO DIFF AUTO DIFF AUTO DIFF Differential Total Cells 100 100 100 Counted Neutrophils % (Manual) 64 % 63 % 71 % Band Neutrophils % 4 % 9 % 12 % Lymphocytes % 13 % 4 % 1 % Monocytes % 2 % 10 % 2 % Neutrophils # (Manual) 8.2 TH/MM3 8.3 TH/MM3 9.1 TH/MM3 Metamyelocytes 11 % 6 % 10 % Myelocytes 5 % 8 % 3 % Promyelocytes 1 % 1 % Nucleated Red Blood Cells 1 /100 WBC 1 /100 WBC Differential Comment FINAL DIFF FINAL DIFF FINAL DIFF MANUAL MANUAL MANUAL Platelet Estimate LOW LOW LOW Platelet Morphology Comment NORMAL NORMAL NORMAL Keratocytes OCC 1+ Tear Drop Cells 1+ 1+ Laboratory Tests Test 06/04/17 06/06/17 19:00 08:30 Sodium Level 143 MEQ/L Potassium Level 4.2 MEQ/L Chloride Level 116 MEQ/L Carbon Dioxide Level 22.1 MEQ/L Anion Gap 5 MEQ/L Blood Urea Nitrogen 21 MG/DL Creatinine 1.29 MG/DL 1.01 MG/DL Estimat Glomerular Filtration 70 ML/MIN 93 ML/MIN Rate Random Glucose 181 MG/DL Calcium Level 7.4 MG/DL Protein Corrected Calcium 8.1 MG/DL Total Protein 5.9 GM/DL Microbiology Date/Time Procedure Status Source Growth 06/03/17 17:35 Cancelled Sputum Expectorated Sputum Imaging Last Impressions Chest X-Ray 06/04/17 0800 Signed Impressions: Service Date/Time: Sunday, June 04, 2017 07:47 - CONCLUSION: Stable chest Agustín Boykin MD Chest CT 05/31/17 1853 Signed Impressions: Service Date/Time: , May 31, 2017 21:23 - CONCLUSION: 1. Diffuse metastatic disease to the spine. 2. Bilateral pulmonary infiltrates. Small bilateral effusions. José Manuel Baumann MD Renal Scan w/Medication NM 05/31/17 0000 Signed Impressions: Service Date/Time: , May 31, 2017 12:46 - CONCLUSION: 1. Mild obstruction on the left. 2. Normal right kidney. Seb Matthews MD Renal Ultrasound 05/30/17 0000 Signed Impressions: Service Date/Time: Tuesday, May 30, 2017 11:51 - CONCLUSION: Bilateral hydronephrosis left greater than right. Quite similar to CT scan in March. Gideon Rivera MD Physical Exam CONSTITUTIONAL/GENERAL: This is an adequately nourished patient, in no apparent distress. He is on NC O2 SKIN: No jaundice, rashes, or lesions. . Skin temperature appropriate. Not diaphoretic. EYES: Pupils equal and round and reactive. ENT: Oral mucosae moist without visible erythema, exudates, masses, or lesions. CARDIOVASCULAR: Regular rate and rhythm without murmurs, gallops, or rubs. No JVD. Peripheral pulses symmetric. RESPIRATORY/CHEST: Symmetric, unlabored respirations. Clear to auscultation. Breath sounds equal bilaterally. GASTROINTESTINAL: Abdomen soft, non-tender, nondistended. No guarding. Bowel sounds present. GENITOURINARY: Without palpable bladder distension. Albarran catheter in place with clear yellow urine MUSCULOSKELETAL: Extremities without clubbing, cyanosis, or edema. NEUROLOGICAL: Awake and alert. Non focal PSYCHIATRIC: No obvious anxiety/depression. no apparent hallucinations or other psychotic thought process. Assessment & Plan Remarks Influenza A sp tamiflu B/l PNA with hypoxia, viral vs superimposed bacterial -Bilateral patchy infiltrates. - nl resp carline Prostate CA with mets, chronic albarran - hydronephrosis left greater than right. Renal scan showed partial obstruction of left kidney which is mild; urologist recommends medical mngmnt, no intervention needed UTI 2/2 Enterobacter (R to cipro), Entrococcus REC's; dc zosyn switch to oral bactrim + cipro x 1 more week to cover both urinary isolates Scripts filled out and printed pt will need BMP to be monitored OK to dc pt home from [facility] RN dw case mngr Mira Ware MD Jun 06, 2017 14:25
[2017-06-06] MEDS ORDERED: CIPR-9 PO (14:30)
[2017-06-06] MEDS ORDERED: BACT800T5 PO (14:30)
[2017-06-06] MEDS: oxyCODONE/ACETAMINOPHEN 5 MG/325 MG TAB PO PRN (15:18)
[2017-06-06] MEDS: SULFAMETHOXAZOLE-TRIMETHOPRIM DS 800-160 MG TAB PO SCH ×2 (15:18→21:26)
[2017-06-06] MEDS: CIPROFLOXACIN 500 MG TAB PO SCH ×2 (15:18→21:26)
--- NOTE | 2017-06-06 16:03 | HHI.PR ---
Subjective Remarks feeling better optimistic in going home soon Objective Vitals Vital Signs Date Time Temp Pulse Resp B/P Pulse Ox O2 Delivery O2 Flow Rate FiO2 06/06/17 12:00 97.9 100 18 152/72 94 06/06/17 09:00 86 06/06/17 08:22 95 Nasal Cannula 4.00 06/06/17 08:00 99 Nasal Cannula 2.00 06/06/17 08:00 97.5 93 18 163/86 100 06/06/17 04:00 97.5 89 24 161/87 94 06/06/17 00:00 98.3 84 24 141/78 94 06/05/17 21:14 90 Nasal Cannula 3.00 06/05/17 20:30 104 06/05/17 20:00 Nasal Cannula 3.00 Humidified 06/05/17 20:00 98.2 116 24 141/76 93 06/05/17 16:00 97.5 95 24 153/76 93 I/O 06/05/17 06/05/17 06/05/17 06/06/17 06/06/17 06/06/17 06:59 14:59 22:59 06:59 14:59 22:59 Intake Total 1388 ml 240 ml 1167 ml Output Total 1200 ml 1250 ml 1100 ml 800 ml Balance 188 ml -1010 ml 67 ml -800 ml Intake Oral 480 ml 240 ml IV Total 908 ml 1167 ml Output Urine Total 1200 ml 1250 ml 1100 ml 800 ml # Bowel Movements 0 1 1 Result Diagram: 06/06/17 0830 06/06/17 0830 Imaging Last Impressions Chest X-Ray 06/04/17 0800 Signed Impressions: Service Date/Time: Sunday, June 04, 2017 07:47 - CONCLUSION: Stable chest Agustín Boykin MD Chest CT 05/31/17 1853 Signed Impressions: Service Date/Time: May 21:23 - CONCLUSION: 1. Diffuse metastatic disease to the spine. 2. Bilateral pulmonary infiltrates. Small bilateral effusions. José Manuel Baumann MD Renal Scan w/Medication NM 05/31/17 0000 Signed Impressions: Service Date/Time: May 12:46 - CONCLUSION: 1. Mild obstruction on the left. 2. Normal right kidney. Seb Matthews MD Renal Ultrasound 05/30/17 0000 Signed Impressions: Service Date/Time: Tuesday, May 30, 2017 11:51 - CONCLUSION: Bilateral hydronephrosis left greater than right. Quite similar to CT scan in March. Gideon Rivera MD Objective Remarks awake and alert, oriented x 3 anicteric lungs- no rales or wheezes regular rhythm abdomen soft, nontender extremities no edema albarran in place- clear urine neuro exam- non focal Procedures None Albarran insert reason: Obstruction/Retention Date of Insertion: May 21, 2017 A/P Problem List: (1) Sepsis ICD Code: A41.9 Status: Acute (2) Pneumonia ICD Code: J18.9 Status: Acute (3) UTI (urinary tract infection) ICD Code: N39.0 Status: Acute (4) Anemia ICD Code: D64.9 Status: Acute (5) Prostate cancer metastatic to bone ICD Code: C61 Status: Acute (6) Hypocalcemia ICD Code: E83.51 Status: Acute (7) Influenza B ICD Code: J10.1 Status: Acute Assessment and Plan 56 years sold male with prostate cancer with mets Sepsis: Secondary to pneumonia, UTI. Continue antibiotics- Zosyn and Vancomycin. Appreciate infectious disease recommendations- if DC - change to po antibitics per - on DC Pulmonary ff Tylenol as needed for fever. Influenza B antigen positive. S/P course of Tamiflu.. ID ff- UTI associated with indwelling urinary catheter: Patient has indwelling Albarran catheter, which was exchanged 05/21/17. Appreciate Urology recommendations. Metastatic prostate cancer: Appreciate oncology recommendations. On Flomax and doxazosin. Indwelling albarran. ON Dexamethasone 4 mg po q 8 Acute respiratory failure: -now on NC-. Secondary to Influenza, pneumonia. Continue supplemental oxygen, bronchodilators. Appreciate pulmonology recommendations- Dr. Viveros ff. wean down to room air. get a walk test to see in patient qualifies for home 02 Anemia: Status post transfusion of 2 units PRBCs during this hospitalization. H& H improved following transfusion. Appreciate oncology recommendations. Hypertension- controlled on CCB, Capoten, CArdura. HYperlipidemia. on statins Influenza B: S/P Tamiflu course DVT prophylaxis: SCDs, COLLIN hose. DC planning- if cleared with Dr. Viveros and Dr. Le will do a walk test 02- order if qualifies for home 02 CM consult- for DC planning Problem Qualifiers (1) Sepsis: Qualified Code: A41.9 - Sepsis, due to unspecified organism (2) UTI (urinary tract infection): Qualified Code: N39.0 - Urinary tract infection without hematuria, site unspecified (3) Anemia: Qualified Code: D64.9 - Anemia, unspecified type Kenya Rod MD Jun 06, 2017 16:03
[2017-06-06] MEDS: RESP: ALBUTEROL 2.5 MG/3 ML NEB (PRN) NEB ×2 (16:23→21:00)
--- NOTE | 2017-06-06 23:52 | PD.ONC.PN ---
Subjective Subjective Remarks feeling much better no fevers/denies any dyspnea wants to go home soon Objective Data Date Time Temp Pulse Resp B/P Pulse Ox O2 Delivery O2 Flow Rate FiO2 06/06/17 21:01 97 Nasal Cannula 4.00 06/06/17 20:00 98.2 102 20 129/77 92 06/06/17 16:00 97.8 93 18 137/70 91 06/06/17 12:00 97.9 100 18 152/72 94 06/06/17 09:00 86 06/06/17 08:22 95 Nasal Cannula 4.00 06/06/17 08:00 99 Nasal Cannula 2.00 06/06/17 08:00 97.5 93 18 163/86 100 06/06/17 04:00 97.5 89 24 161/87 94 06/06/17 00:00 98.3 84 24 141/78 94 06/06/17 06/06/17 06/06/17 07:00 15:00 23:00 Intake Total 720 ml Output Total 800 ml 950 ml Balance -800 ml -230 ml Result Diagram: 06/06/17 0830 06/06/17 0830 Laboratory Results Laboratory Tests Test 06/06/17 08:30 White Blood Count 9.4 TH/MM3 Red Blood Count 3.39 MIL/MM3 Hemoglobin 10.0 GM/DL Hematocrit 30.2 % Mean Corpuscular Volume 89.0 FL Mean Corpuscular Hemoglobin 29.4 PG Mean Corpuscular Hemoglobin 33.1 % Concent Red Cell Distribution Width 17.0 % Platelet Count 112 TH/MM3 Mean Platelet Volume 8.7 FL Neutrophils (%) (Auto) 91.7 % Lymphocytes (%) (Auto) 4.3 % Monocytes (%) (Auto) 3.4 % Eosinophils (%) (Auto) 0.1 % Basophils (%) (Auto) 0.5 % Neutrophils # (Auto) 8.6 TH/MM3 Lymphocytes # (Auto) 0.4 TH/MM3 Monocytes # (Auto) 0.3 TH/MM3 Eosinophils # (Auto) 0.0 TH/MM3 Basophils # (Auto) 0.0 TH/MM3 CBC Comment AUTO DIFF Differential Total Cells 100 Counted Neutrophils % (Manual) 71 % Band Neutrophils % 12 % Lymphocytes % 1 % Monocytes % 2 % Neutrophils # (Manual) 9.1 TH/MM3 Metamyelocytes 10 % Myelocytes 3 % Promyelocytes 1 % Differential Comment FINAL DIFF MANUAL Platelet Estimate LOW Platelet Morphology Comment NORMAL Tear Drop Cells 1+ Keratocytes 1+ Creatinine 1.01 MG/DL Estimat Glomerular Filtration 93 ML/MIN Rate Administered Medications Medications (Trade) Dose Ordered Sig/Deepti Route PRN Reason Start Time Stop Time Status Last Admin Dose Admin Acetaminophen (Tylenol) 650 mg Q4H PRN PO TEMP > 100.4 05/29/17 18:15 05/29/17 20:13 Senna/Docusate Sodium (Kassidy-Colace) 1 tab BID PO 05/29/17 21:00 06/06/17 21:26 Benzonatate (Tessalon) 100 mg TID PRN PO COUGH 05/30/17 09:15 05/31/17 18:27 Amlodipine Besylate (Norvasc) 10 mg DAILY PO 05/30/17 09:30 06/06/17 09:46 Captopril (Capoten) 25 mg DAILY PO 05/30/17 09:30 06/06/17 09:47 Doxazosin Mesylate (Cardura) 4 mg DAILY PO 05/30/17 09:30 06/06/17 09:00 Levetriacetam (Keppra) 500 mg Q12HR PO 05/30/17 09:30 06/06/17 21:26 Oxycodone/ Acetaminophen (Percocet 5-325 Mg) 1 tab Q6H PRN PO PAIN 1-10 05/30/17 09:30 06/06/17 15:18 Pantoprazole Sodium (Protonix) 40 mg DAILY PO 05/30/17 09:30 06/06/17 09:46 Pravastatin Sodium (Pravachol) 40 mg DAILY PO 05/30/17 09:30 06/06/17 09:46 Tamsulosin HCl (Flomax) 0.4 mg DAILY PO 05/30/17 11:00 06/06/17 09:46 Dexamethasone (Decadron) 4 mg Q8HR PO 06/04/17 14:00 06/06/17 21:26 Trimethoprim/ Sulfamethoxazole (Bactrim Ds 800-160 Mg) 1 tab Q12HR PO 06/06/17 15:00 06/13/17 14:59 06/06/17 21:26 Ciprofloxacin (Cipro) 500 mg Q12HR PO 06/06/17 15:00 06/13/17 14:59 06/06/17 21:26 Objective Remarks GENERAL: nad SKIN: Warm and dry. HEAD: Normocephalic. EYES: No scleral icterus. No injection or drainage. NECK: Supple, trachea midline. No JVD or lymphadenopathy. LYMPHATIC: No adenopathy. CARDIOVASCULAR: Regular rate and rhythm without murmurs. RESPIRATORY: Breath sounds equal bilaterally. No accessory muscle use. GASTROINTESTINAL: Abdomen soft, non-tender, nondistended. EXTREMITIES: No cyanosis, or edema. Assessment/Plan Problem List: (1) Metastatic disease Status: Acute (2) Normocytic anemia Status: Chronic (3) Cord compression Status: Resolved (4) Hydronephrosis Status: Acute (5) JENELLE (acute kidney injury) Status: Resolved (6) Pneumonia Status: Acute (7) Prostate cancer metastatic to bone Status: Acute (8) Influenza B Status: Acute Assessment 56-year-old male with a history of stage IV prostate adenocarcinoma with bony metastatic disease and a history of cord compression status post laminectomy and decompression. He presents with fever, anemia, hypoxia and tachycardia and was found to have pneumonia and UTI. 1. Urinary tract infection with sepsis. Urine culture: ++gram-negative rods--Enterobacter cloacae . On Vanco + Zosyn Blood cultures no growth 2. Influenza B pneumonia + influenza B+ antigen. currently on Tamiflu 3. Acute anemia. s/p pRBC. await CBC today 4. Acute and chronic kidney failure improving with hydration. +hydroureter on ultrasound. Renal scan showed mild obstruction on the left. 6. Hypoalbuminemia/malnutrition, albumin is 2, encourage oral intake. Ensure or Boost t.i.d. with meals. 7. Stage IV prostate adenocarcinoma with bone mets currently on hormone blockade therapy with Casodex and Lupron and also receiving bone modifying agent for bony metastatic disease. Further management as per outpatient. OK To D/C from Oncology Standpoint O/P f/u with me in oncology clinic in 1 week Tim Le MD Jun 06, 2017 23:52
[2017-06-07] VITALS (9 sets, daily range): BP systolic 132–152; BP diastolic 61–77; PULSE 87–102; RESP 18; TEMP 97.6–98.5; O2SAT 91–96
[2017-06-07] MEDS: DEXAMETHASONE 4 MG TAB PO SCH ×3 (05:03→20:47)
[2017-06-07 07:40] LABS: AUTOMATED NEUTROPHIL # 7.6 TH/MM3 (1.8-7.7); BASOPHIL % 0.1 % (0.0-2.0); EOSINOPHIL % 0.1 % (0.0-4.0); HEMATOCRIT 25.1 % (39.0-51.0); LYMPH % 3.4 % (9.0-44.0); LYMPHOCYTE # 0.3 TH/MM3 (1.0-4.8); MEAN CELL VOLUME 88.7 FL (80.0-100.0); MEAN CORPUSCULAR HEMOGLOBIN 30.4 PG (27.0-34.0); MEAN CORPUSCULAR HGB CONC 34.2 % (32.0-36.0); MONO % 5.5 % (0.0-8.0); NEUT % 90.9 % (16.0-70.0); PLATELET COUNT 85 TH/MM3 (150-450); RED BLOOD COUNT 2.83 MIL/MM3 (4.50-5.90); RED CELL DISTRIBUTION WIDTH 17.3 % (11.6-17.2); WHITE BLOOD COUNT 8.4 TH/MM3 (4.0-11.0)
[2017-06-07 08:03] LABS: HEMO FLAGS AUTO DIFF
[2017-06-07] MEDS: SULFAMETHOXAZOLE-TRIMETHOPRIM DS 800-160 MG TAB PO SCH ×2 (08:14→20:46)
[2017-06-07] MEDS: CAPTOPRIL 25 MG TAB PO SCH (08:14)
[2017-06-07] MEDS: PANTOPRAZOLE SOD 40 MG DELAYED RELEASE TAB PO SCH (08:14)
[2017-06-07] MEDS: TAMSULOSIN HCL 0.4 MG CAP PO SCH (08:14)
[2017-06-07] MEDS: PRAVASTATIN SOD 40 MG TAB PO SCH (08:14)
[2017-06-07] MEDS: CIPROFLOXACIN 500 MG TAB PO SCH ×2 (08:14→20:47)
[2017-06-07] MEDS: levETIRAcetam 500 MG TAB PO SCH ×2 (08:14→20:47)
[2017-06-07] MEDS: oxyCODONE/ACETAMINOPHEN 5 MG/325 MG TAB PO PRN ×2 (08:15→19:13)
[2017-06-07] MEDS: DOXAZOSIN MESYLATE 4 MG TAB PO SCH (08:15)
[2017-06-07] MEDS: DOCUSATE SODIUM 50 MG/SENNA 8.6 MG TAB PO SCH ×3 (08:16→20:49)
[2017-06-07 10:22] LABS: BANDS 15 % (0-6); CORRECTED NUCLEATED RBC 1 /100 WBC (0-0); EOSINOPHILS 1 % (0-4); METAMYELOCYTES 3 % (0-1); MYELOCYTES 3 % (0-0); NEUTROPHIL # MANUAL DIFF 7.6 TH/MM3 (1.8-7.7); POLYS (SEG NEUTROPHILS) 69 % (16-70); WBC DIFF SAMPLE 100
[2017-06-07 10:23] LABS: PLATELET ESTIMATE SMEAR LOW (NORMAL); PLATELET MORPHOLOGY NORMAL (NORMAL); SCAN/DIFF FINAL DIFF MANUAL
[2017-06-07] MEDS ORDERED: OXYGENDME NAS.CANULA (11:27)
--- NOTE | 2017-06-07 11:31 | HHI.PR ---
Subjective Remarks Follow-up sepsis due to bilateral pneumonia and UTI/influenza A/prostate cancer with metastases 06/07/17-patient seen and examined, denies any chest pain or shortness of breath. Currently on 3 L nasal cannula. No acute event overnight. Afebrile. Good appetite. Objective Vitals Vital Signs Date Time Temp Pulse Resp B/P Pulse Ox O2 Delivery O2 Flow Rate FiO2 06/07/17 10:58 91 06/07/17 10:34 3.00 06/07/17 09:15 91 Nasal Cannula 3.00 06/07/17 08:23 Nasal Cannula 4.00 06/07/17 08:00 98.5 87 18 152/75 91 06/07/17 04:00 Nasal Cannula 3.00 06/07/17 04:00 97.6 89 18 147/77 93 06/07/17 00:00 98.1 99 18 143/61 94 06/07/17 00:00 Nasal Cannula 3.00 06/06/17 21:01 97 Nasal Cannula 4.00 06/06/17 20:17 86 06/06/17 20:00 98.2 102 20 129/77 92 06/06/17 20:00 Nasal Cannula 4.00 06/06/17 16:00 97.8 93 18 137/70 91 06/06/17 12:00 97.9 100 18 152/72 94 I/O 06/06/17 06/06/17 06/06/17 06/07/17 06/07/17 06/07/17 06:59 14:59 22:59 06:59 14:59 22:59 Intake Total 720 ml 360 ml 240 ml Output Total 800 ml 950 ml 650 ml 1200 ml Balance -800 ml -230 ml -290 ml -960 ml Intake Oral 720 ml 360 ml 240 ml Output Urine Total 800 ml 950 ml 650 ml 1200 ml # Bowel Movements 1 1 0 Result Diagram: 06/07/17 0617 06/06/17 0830 Imaging Last Impressions Chest X-Ray 06/04/17 0800 Signed Impressions: Service Date/Time: Sunday, June 04, 2017 07:47 - CONCLUSION: Stable chest Agustín Boykin MD Chest CT 05/31/17 2943 Signed Impressions: Service Date/Time: May 21:23 - CONCLUSION: 1. Diffuse metastatic disease to the spine. 2. Bilateral pulmonary infiltrates. Small bilateral effusions. José Manuel Baumann MD Renal Scan w/Medication NM 05/31/17 0000 Signed Impressions: Service Date/Time: May 12:46 - CONCLUSION: 1. Mild obstruction on the left. 2. Normal right kidney. Seb Matthews MD Renal Ultrasound 05/30/17 0000 Signed Impressions: Service Date/Time: Tuesday, May 30, 2017 11:51 - CONCLUSION: Bilateral hydronephrosis left greater than right. Quite similar to CT scan in March. Gideon Rivera MD Objective Remarks GENERAL: NAD SKIN: Warm and dry. HEAD: Normocephalic. EYES: No scleral icterus. No injection or drainage. NECK: Supple, trachea midline. No JVD or lymphadenopathy. CARDIOVASCULAR: Regular rate and rhythm without murmurs, gallops, or rubs. RESPIRATORY: Breath sounds equal bilaterally. No accessory muscle use. GASTROINTESTINAL: Abdomen soft, non-tender, nondistended. MUSCULOSKELETAL: No cyanosis, or edema. BACK: Nontender without obvious deformity. No CVA tenderness. Procedures None Date of Insertion: May 21, 2017 A/P Problem List: (1) Sepsis ICD Code: A41.9 Status: Resolved (2) Pneumonia ICD Code: J18.9 Status: Acute (3) UTI (urinary tract infection) ICD Code: N39.0 Status: Acute (4) Anemia ICD Code: D64.9 Status: Acute (5) Prostate cancer metastatic to bone ICD Code: C61 Status: Chronic (6) Hypocalcemia ICD Code: E83.51 Status: Acute (7) Influenza B ICD Code: J10.1 Status: Resolved Assessment and Plan 56-year-old man with Sepsis: 2/2 pneumonia, UTI. Continue antibiotics- Zosyn and Vancomycin. Appreciate infectious disease recommendations- Discharged home on Cipro and Bactrim 1 week Pulmonary ff Tylenol as needed for fever. Influenza B antigen positive. S/P course of Tamiflu.. ID ff- UTI associated with indwelling urinary catheter: Patient has indwelling Albarran catheter, which was exchanged 05/21/17. Appreciate Urology recommendations. Metastatic prostate cancer: Appreciate oncology recommendations. On Flomax and doxazosin. Indwelling albarran. ON Dexamethasone 4 mg po q 8. Outpatient follow- up with oncology Acute respiratory failure: -now on NC-. Secondary to Influenza, pneumonia. Continue supplemental oxygen, bronchodilators. Appreciate pulmonology recommendations- Perform walk test today 06/07/17 Anemia: Status post transfusion of 2 units PRBCs during this hospitalization. H& H improved following transfusion. Appreciate oncology recommendations. Hypertension- controlled on CCB, Capoten, CArdura. Hyperlipidemia. on statin DVT prophylaxis: SCDs, COLLIN zhang. Problem Qualifiers (1) Sepsis: Qualified Code: A41.9 - Sepsis, due to unspecified organism (2) UTI (urinary tract infection): Qualified Code: N39.0 - Urinary tract infection without hematuria, site unspecified (3) Anemia: Qualified Code: D64.9 - Anemia, unspecified type Seb Franklin MD Jun 07, 2017 11:30
--- NOTE | 2017-06-07 11:35 | HHI.DS ---
Discharge Summary Admission Date May 29, 2017 at 16:57 Discharge Date: Jun 08, 2017 Admitting Diagnosis sepsis (1) Sepsis ICD Code: A41.9 (2) Pneumonia ICD Code: J18.9 (3) UTI (urinary tract infection) ICD Code: N39.0 (4) Anemia ICD Code: D64.9 (5) Prostate cancer metastatic to bone ICD Code: C61 (6) Hypocalcemia ICD Code: E83.51 (7) Influenza B ICD Code: J10.1 Procedures None Brief History - From Admission The patient is a 56-year-old male with metastatic prostate cancer who was at the oncology clinic for his second round of chemotherapy today. During intake, he was noted to have a fever of 102 and oxygen saturation in the 70s. He was placed on 4 L of oxygen and transported to the ER. He states that he completed radiation therapy on Sunday. He had one round of chemotherapy [address] Le is his oncologist. He reports fever and chills as well as worsening cough and shortness of breath over the past 2-3 days. Denies chest pain. He reports dysuria. He has an indwelling Browning catheter. He last saw urology on 05/21/17 for catheter exchange. CBC/BMP: 06/07/17 0617 06/06/17 0830 Significant Findings Laboratory Tests Test 06/04/17 06/05/17 06/06/17 06/07/17 19:00 07:26 08:30 06:17 Red Blood Count 3.02 MIL/MM3 3.05 MIL/MM3 3.39 MIL/MM3 2.83 MIL/MM3 (4.50-5.90) (4.50-5.90) (4.50-5.90) (4.50-5.90) Hemoglobin 9.1 GM/DL 9.1 GM/DL 10.0 GM/DL 8.6 GM/DL (13.0-17.0) (13.0-17.0) (13.0-17.0) (13.0-17.0) Hematocrit 26.8 % 27.3 % 30.2 % 25.1 % (39.0-51.0) (39.0-51.0) (39.0-51.0) (39.0-51.0) Platelet Count 136 TH/MM3 128 TH/MM3 112 TH/MM3 85 TH/MM3 (150-450) (150-450) (150-450) (150-450) Neutrophils (%) (Auto) 88.2 % 89.4 % 91.7 % 90.9 % (16.0-70.0) (16.0-70.0) (16.0-70.0) (16.0-70.0) Lymphocytes (%) (Auto) 4.1 % 4.0 % 4.3 % 3.4 % (9.0-44.0) (9.0-44.0) (9.0-44.0) (9.0-44.0) Neutrophils # (Auto) 8.5 TH/MM3 8.7 TH/MM3 8.6 TH/MM3 (1.8-7.7) (1.8-7.7) (1.8-7.7) Lymphocytes # (Auto) 0.4 TH/MM3 0.4 TH/MM3 0.4 TH/MM3 0.3 TH/MM3 (1.0-4.8) (1.0-4.8) (1.0-4.8) (1.0-4.8) Neutrophils # (Manual) 8.2 TH/MM3 8.3 TH/MM3 9.1 TH/MM3 (1.8-7.7) (1.8-7.7) (1.8-7.7) Metamyelocytes 11 % (0-1) 6 % (0-1) 10 % (0-1) 3 % (0-1) Myelocytes 5 % (0-0) 8 % (0-0) 3 % (0-0) 3 % (0-0) Promyelocytes 1 % (0-0) 1 % (0-0) Nucleated Red Blood Cells 1 /100 WBC 1 /100 WBC 1 /100 WBC (0-0) (0-0) (0-0) Platelet Estimate LOW (NORMAL) LOW (NORMAL) LOW (NORMAL) LOW (NORMAL) Chloride Level 116 MEQ/L (98-107) Blood Urea Nitrogen 21 MG/DL (7-18) Estimat Glomerular Filtration 70 ML/MIN (>89) Rate Random Glucose 181 MG/DL (74-106) Calcium Level 7.4 MG/DL (8.5-10.1) Protein Corrected Calcium 8.1 MG/DL (8.5-10.1) Total Protein 5.9 GM/DL (6.4-8.2) Band Neutrophils % 9 % (0-6) 12 % (0-6) 15 % (0-6) Lymphocytes % 4 % (9-44) 1 % (9-44) 6 % (9-44) Monocytes % 10 % (0-8) Tear Drop Cells 1+ (NORMAL) 1+ (NORMAL) Neutrophils % (Manual) 71 % (16-70) Keratocytes 1+ (NORMAL) Red Cell Distribution Width 17.3 % (11.6-17.2) Imaging Last Impressions Chest X-Ray 06/04/17 0800 Signed Impressions: Service Date/Time: Sunday, June 04, 2017 07:47 - CONCLUSION: Stable chest Agustín Boykin MD Chest CT 05/31/17 1853 Signed Impressions: Service Date/Time: May 21:23 - CONCLUSION: 1. Diffuse metastatic disease to the spine. 2. Bilateral pulmonary infiltrates. Small bilateral effusions. José Manuel Baumann MD Renal Scan w/Medication NM 05/31/17 0000 Signed Impressions: Service Date/Time: May 12:46 - CONCLUSION: 1. Mild obstruction on the left. 2. Normal right kidney. Seb Matthews MD Renal Ultrasound 05/30/17 0000 Signed Impressions: Service Date/Time: Tuesday, May 30, 2017 11:51 - CONCLUSION: Bilateral hydronephrosis left greater than right. Quite similar to CT scan in March. Gideon Rivera MD PE at Discharge GENERAL: NAD SKIN: Warm and dry. HEAD: Normocephalic. EYES: No scleral icterus. No injection or drainage. NECK: Supple, trachea midline. No JVD or lymphadenopathy. CARDIOVASCULAR: Regular rate and rhythm without murmurs, gallops, or rubs. RESPIRATORY: Breath sounds equal bilaterally. No accessory muscle use. GASTROINTESTINAL: Abdomen soft, non-tender, nondistended. MUSCULOSKELETAL: No cyanosis, or edema. BACK: Nontender without obvious deformity. No CVA tenderness. Hospital Course Patient admitted for sepsis due to bilateral pneumonia and UTI associated with indwelling urinary catheter for which he was started on IV antibiotics with consultation to infectious disease specialist. He was switched prior to discharge to by mouth antibiotics including Cipro and Bactrim DS 1 week. He was also treated for influenza and completely a 5 day course of Tamiflu. Oncology was consulted secondary to patient history of prostate cancer with metastases. During his hospitalization stay, patient received 2 units of packed red blood cell. Secondary to respiratory failure with very medicine was consulted and patient was treated with bronchodilators and prior to discharge a walk test was performed however patient failed that and will require home oxygen. He was continued on his treatment for hyperlipidemia and hypertension. DVT and GI prophylaxis were provided. Vitals remained stable and patient's condition at the time of discharge improved .patient will follow with urology upon discharge therefore will continue with Browning Pt Condition on Discharge: Stable Discharge Disposition: Discharge Home Discharge Time: > 30 minutes Discharge Instructions Follow up Referrals: Oncology - 1 Week PCP Follow-up - 1 Week New Orders: BASIC METABOLIC PROF New Medications: Ciprofloxacin (Cipro) 500 Mg Tab 500 MG PO BID Infection Days 7 Ref 0 TAB Oxygen (O2) (Oxygen (O2)) Device 2 LITER SAM.CANULA CONTINUOUS Oxygen Concentrator Portable Gaseous 2 L/min via Nasal Canula Continuous For 99 months Prevent Hypoxemia #2 CYLINDER Sulfamethoxazole-Trimethoprim (Bactrim DS) 800-160 Mg Tab 1 TAB PO BID Infection Days 7 Ref 0 TAB Tamsulosin (Flomax) 0.4 Mg Cap 0.4 MG PO DAILY Manage Prostate Problems #30 CAP Continued Medications: Amlodipine (Norvasc) 10 Mg Tab 10 MG PO DAILY Blood Pressure Management #31 TAB Bicalutamide (Casodex) 50 Mg Tab 50 MG PO DAILY Hazardous agent; use appropriate precautions for handling & disposal. Chemotherapy Management Ref 0 TAB Captopril (Captopril) 25 Mg Tab 25 MG PO DAILY Take 1 hr before meals. #60 Ref 0 TAB Dexamethasone (Dexamethasone) 4 Mg Tab 4 MG PO Q6HR Inflammation #62 TAB Doxazosin (Cardura) 4 Mg Tab 4 MG PO DAILY Blood Pressure Management #31 TAB Levetiracetam (Keppra) 500 Mg Tab 500 MG PO Q12HR Control Seizures #60 Ref 0 TAB Oxycodone-Acetaminophen (Percocet) 5-325 mg Tab 1 TAB PO Q6H PRN PAIN Ref 0 TAB Pantoprazole (Pantoprazole) 40 Mg Tab 40 MG PO DAILY gi protection #31 TAB Pravastatin (Pravachol) 40 Mg Tab 40 MG PO DAILY Cholesterol Management #31 TAB Seb Franklin MD Jun 07, 2017 11:35
[2017-06-07] MEDS ORDERED: TAMS5CAP PO (11:37)
--- NOTE | 2017-06-07 19:25 | HHI.PR ---
Subjective Remarks Feels OK. Now on O2 N/C 4 L.. No cough.or wheezing. CXR is stable. Objective Vital Signs Date Time Temp Pulse Resp B/P Pulse Ox O2 Delivery O2 Flow Rate FiO2 06/07/17 16:04 98.5 94 18 132/62 96 06/07/17 16:04 98.5 94 18 132/62 96 06/07/17 12:00 98.4 95 18 135/63 94 06/07/17 10:58 91 06/07/17 10:34 3.00 06/07/17 09:15 91 Nasal Cannula 3.00 06/07/17 08:23 Nasal Cannula 4.00 06/07/17 08:00 98.5 87 18 152/75 91 06/07/17 04:00 Nasal Cannula 3.00 06/07/17 04:00 97.6 89 18 147/77 93 06/07/17 00:00 98.1 99 18 143/61 94 06/07/17 00:00 Nasal Cannula 3.00 06/06/17 21:01 97 Nasal Cannula 4.00 06/06/17 20:17 86 06/06/17 20:00 98.2 102 20 129/77 92 06/06/17 20:00 Nasal Cannula 4.00 I/O 06/06/17 06/06/17 06/06/17 06/07/17 06/07/17 06/07/17 06:59 14:59 22:59 06:59 14:59 22:59 Intake Total 720 ml 360 ml 240 ml 720 ml Output Total 800 ml 950 ml 650 ml 1200 ml 1000 ml Balance -800 ml -230 ml -290 ml -960 ml -280 ml Intake Oral 720 ml 360 ml 240 ml 720 ml Output Urine Total 800 ml 950 ml 650 ml 1200 ml 1000 ml # Bowel Movements 1 1 0 Result Diagram: 06/07/17 0617 06/06/17 0830 Objective Remarks PHYSICAL EXAMINATION GENERAL: This is a middle-aged -[place] male who is alert, pale and Not dyspneic at rest. HEENT: Head normocephalic. Pupils are reactive and equal. Tongue is moist. Throat was clear. Nasal mucosa clear NECK: No bruits or thyroid enlargement or lymphadenopathy. CHEST: Increased AP diameter. Occ Crackles at bases. HEART SOUNDS: Regular S1 and S2. No murmur. ABDOMEN: Soft, benign. No tenderness. No organomegaly. EXTREMITIES: Decreased pulses. Reflexes are 1+. There are no gross motor deficits. There is minimal peripheral edema. NEUROLOGICALLY: No focal deficits identified. Assessment and Plan Assessment and Plan IMPRESSION 1. Bilateral pulmonary infiltrates with atypical pneumonia. 2. Metastatic carcinoma of the prostate. 3. Sepsis with UTI. 4. Influenza. 5. Acute kidney injury, resolving. Plan : 1. Continue antibiotics per ID. 2. Wean O2 to 3 L N/C and to RA. 3. IS at bedside q3h 4. Cont nebs qid , duoneb 5. decadron 4 mg tid. 6. Rehab soon. 7. Rpt Chest Xray Moreno Lentz MD Jun 07, 2017 19:25
--- NOTE | 2017-06-07 23:46 | PD.ONC.PN ---
Subjective Subjective Remarks Patient seen earlier in the day being weaned off nasal canula appears comfortable no dyspnea/cough no fevers Objective Data Date Time Temp Pulse Resp B/P Pulse Ox O2 Delivery O2 Flow Rate FiO2 06/07/17 20:10 97.8 102 18 135/70 94 06/07/17 20:00 Nasal Cannula 3.00 Humidified 06/07/17 16:04 98.5 94 18 132/62 96 06/07/17 16:04 98.5 94 18 132/62 96 06/07/17 12:00 98.4 95 18 135/63 94 06/07/17 10:58 91 06/07/17 10:34 3.00 06/07/17 09:15 91 Nasal Cannula 3.00 06/07/17 08:23 Nasal Cannula 4.00 06/07/17 08:00 98.5 87 18 152/75 91 06/07/17 04:00 Nasal Cannula 3.00 06/07/17 04:00 97.6 89 18 147/77 93 06/07/17 00:00 98.1 99 18 143/61 94 06/07/17 00:00 Nasal Cannula 3.00 06/07/17 06/07/17 06/07/17 07:00 15:00 23:00 Intake Total 240 ml 720 ml 380 ml Output Total 1200 ml 1000 ml 800 ml Balance -960 ml -280 ml -420 ml Result Diagram: 06/07/17 0617 06/06/17 0830 Laboratory Results Laboratory Tests Test 06/07/17 06:17 White Blood Count 8.4 TH/MM3 Red Blood Count 2.83 MIL/MM3 Hemoglobin 8.6 GM/DL Hematocrit 25.1 % Mean Corpuscular Volume 88.7 FL Mean Corpuscular Hemoglobin 30.4 PG Mean Corpuscular Hemoglobin 34.2 % Concent Red Cell Distribution Width 17.3 % Platelet Count 85 TH/MM3 Mean Platelet Volume 9.1 FL Neutrophils (%) (Auto) 90.9 % Lymphocytes (%) (Auto) 3.4 % Monocytes (%) (Auto) 5.5 % Eosinophils (%) (Auto) 0.1 % Basophils (%) (Auto) 0.1 % Neutrophils # (Auto) 7.6 TH/MM3 Lymphocytes # (Auto) 0.3 TH/MM3 Monocytes # (Auto) 0.5 TH/MM3 Eosinophils # (Auto) 0.0 TH/MM3 Basophils # (Auto) 0.0 TH/MM3 CBC Comment AUTO DIFF Differential Total Cells 100 Counted Neutrophils % (Manual) 69 % Band Neutrophils % 15 % Lymphocytes % 6 % Monocytes % 3 % Eosinophils % 1 % Neutrophils # (Manual) 7.6 TH/MM3 Metamyelocytes 3 % Myelocytes 3 % Nucleated Red Blood Cells 1 /100 WBC Differential Comment FINAL DIFF MANUAL Platelet Estimate LOW Platelet Morphology Comment NORMAL Administered Medications Medications (Trade) Dose Ordered Sig/Deepti Route PRN Reason Start Time Stop Time Status Last Admin Dose Admin Acetaminophen (Tylenol) 650 mg Q4H PRN PO TEMP > 100.4 05/29/17 18:15 05/29/17 20:13 Senna/Docusate Sodium (Kassidy-Colace) 1 tab BID PO 05/29/17 21:00 06/06/17 21:26 Benzonatate (Tessalon) 100 mg TID PRN PO COUGH 05/30/17 09:15 05/31/17 18:27 Amlodipine Besylate (Norvasc) 10 mg DAILY PO 05/30/17 09:30 06/07/17 08:14 Captopril (Capoten) 25 mg DAILY PO 05/30/17 09:30 06/07/17 08:14 Doxazosin Mesylate (Cardura) 4 mg DAILY PO 05/30/17 09:30 06/07/17 08:15 Levetriacetam (Keppra) 500 mg Q12HR PO 05/30/17 09:30 06/07/17 20:47 Oxycodone/ Acetaminophen (Percocet 5-325 Mg) 1 tab Q6H PRN PO PAIN 1-10 05/30/17 09:30 06/07/17 19:13 Pantoprazole Sodium (Protonix) 40 mg DAILY PO 05/30/17 09:30 06/07/17 08:14 Pravastatin Sodium (Pravachol) 40 mg DAILY PO 05/30/17 09:30 06/07/17 08:14 Tamsulosin HCl (Flomax) 0.4 mg DAILY PO 05/30/17 11:00 06/07/17 08:14 Dexamethasone (Decadron) 4 mg Q8HR PO 06/04/17 14:00 06/07/17 20:47 Trimethoprim/ Sulfamethoxazole (Bactrim Ds 800-160 Mg) 1 tab Q12HR PO 06/06/17 15:00 06/13/17 14:59 06/07/17 20:46 Ciprofloxacin (Cipro) 500 mg Q12HR PO 06/06/17 15:00 06/13/17 14:59 06/07/17 20:47 Objective Remarks GENERAL: nad SKIN: Warm and dry. NECK: Supple, trachea midline. No JVD or lymphadenopathy. LYMPHATIC: No adenopathy. CARDIOVASCULAR: Regular rate and rhythm without murmurs. RESPIRATORY: Breath sounds equal bilaterally. No accessory muscle use. GASTROINTESTINAL: Abdomen soft, non-tender, nondistended. EXTREMITIES: No cyanosis, or edema. Assessment/Plan Problem List: (1) Metastatic disease Status: Acute (2) Normocytic anemia Status: Chronic (3) Cord compression Status: Resolved (4) Hydronephrosis Status: Acute (5) JENELLE (acute kidney injury) Status: Resolved (6) Pneumonia Status: Acute (7) Prostate cancer metastatic to bone Status: Chronic (8) Influenza B Status: Resolved Assessment 56-year-old male with a history of stage IV prostate adenocarcinoma with bony metastatic disease and a history of cord compression status post laminectomy and decompression. He presents with fever, anemia, hypoxia and tachycardia and was found to have pneumonia and UTI. 1. Urinary tract infection with sepsis. Urine culture: ++gram-negative rods--Enterobacter cloacae . on Bactrim and CIpro Blood cultures no growth 2. Influenza B pneumonia + influenza B+ antigen. s/p Tamiflu 3. Anemia. stable 4. Acute and chronic kidney failure improving with hydration. +hydroureter on ultrasound. Renal scan showed mild obstruction on the left. 6. Hypoalbuminemia/malnutrition, albumin is 2, encourage oral intake. Ensure or Boost t.i.d. with meals. 7. Stage IV prostate adenocarcinoma with bone mets currently on hormone blockade therapy with Casodex and Lupron and also receiving bone modifying agent for bony metastatic disease. Further management as per outpatient. Possibly home tomorrow o/p f/u in clinic Tim Le MD Jun 07, 2017 23:45
[2017-06-08] VITALS: BP 143/71; PULSE 90; RESP 22; TEMP 98.3; O2SAT 94
[2017-06-08 04:00] VITALS: BP 144/73; PULSE 90; RESP 22; TEMP 98.2; O2SAT 94
[2017-06-08] MEDS: DEXAMETHASONE 4 MG TAB PO SCH (05:56)
--- NOTE | 2017-06-08 06:26 | RADRPT ---
EXAM DATE/TIME: 06/08/2017 06:15 [facility] COMPARISON: CHEST SINGLE AP, June 04, 2017, 7:47. INDICATIONS : Short of breath, evaluate pneumonia MEDICAL HISTORY : Hypertension. carcinoma prostate, A-fib SURGICAL HISTORY : thoracic spine fusion ENCOUNTER: Subsequent ACUITY: 1 week PAIN SCORE: 0/10 LOCATION: Bilateral chest FINDINGS: Single AP view of the chest. Upper thoracic spine hardware again seen. Bilateral upper lung zone opac ity unchanged. Cardiomediastinal silhouette unchanged. No evidence of pleural effusion or pneumothora x. CONCLUSION: No significant interval change in persistent bilateral upper lung zone pulmonary parenchymal opacity. Tristian Raymundo MD on June 08, 2017 at 6:24 Board Certified Radiologist. This report was verified electronically.
[2017-06-08 08:00] VITALS: BP 166/83; PULSE 85; RESP 20; TEMP 98.1; O2SAT 93
[2017-06-08 08:06] VITALS: PULSE 77
[2017-06-08] MEDS: levETIRAcetam 500 MG TAB PO SCH (09:28)
[2017-06-08] MEDS: DOCUSATE SODIUM 50 MG/SENNA 8.6 MG TAB PO SCH (09:28)
[2017-06-08] MEDS: PRAVASTATIN SOD 40 MG TAB PO SCH (09:28)
[2017-06-08] MEDS: TAMSULOSIN HCL 0.4 MG CAP PO SCH (09:28)
[2017-06-08] MEDS: PANTOPRAZOLE SOD 40 MG DELAYED RELEASE TAB PO SCH (09:28)
[2017-06-08] MEDS: DOXAZOSIN MESYLATE 4 MG TAB PO SCH (09:28)
[2017-06-08] MEDS: CAPTOPRIL 25 MG TAB PO SCH (09:28)
[2017-06-08] MEDS: SULFAMETHOXAZOLE-TRIMETHOPRIM DS 800-160 MG TAB PO SCH (09:28)
[2017-06-08] MEDS: CIPROFLOXACIN 500 MG TAB PO SCH (09:29)
[2017-06-08 09:54] VITALS: O2SAT 96
--- NOTE | 2017-06-08 11:10 | HHI.PR ---
Subjective Patient symptoms today Pt seen and examined. Desires to go home. Urine clear. Objective Vital Signs Vital Signs Date Time Temp Pulse Resp B/P Pulse Ox O2 Delivery O2 Flow Rate FiO2 06/08/17 08:00 98.1 85 20 166/83 93 06/08/17 04:00 98.2 90 22 144/73 94 06/08/17 00:00 98.3 90 22 143/71 94 06/07/17 20:10 97.8 102 18 135/70 94 06/07/17 20:00 Nasal Cannula 3.00 Humidified 06/07/17 19:56 99 06/07/17 16:04 98.5 94 18 132/62 96 06/07/17 16:04 98.5 94 18 132/62 96 06/07/17 12:00 98.4 95 18 135/63 94 Intake & Output 06/08/17 06/08/17 06:59 18:59 Intake Total 500 ml Output Total 1600 ml Balance -1100 ml Intake Oral 500 ml Output Urine Total 1600 ml # Bowel Movements 0 Result Diagram: 06/07/17 0617 06/06/17 0830 Imaging Last 24 hours Impressions Chest X-Ray 06/08/17 0600 Signed Impressions: Service Date/Time: Thursday, June 08, 2017 06:15 - CONCLUSION: No significant interval change in persistent bilateral upper lung zone pulmonary parenchymal opacity. Tristian Raymundo MD Objective Remarks Abd:soft,nt,nd Albarran with clear urine 06/01 Abd:soft,nt,nd Neg: CVAT Albarran: urine clear 06/08 Abd:soft,nt,nd Neg: CVAT Albarran: urine clear Medications and IVs Current Medications Medications (Trade) Dose Ordered Sig/Deepti Route Start Time Stop Time Status Last Admin (Tylenol) 650 mg Q4H PRN PO 05/29/17 18:15 05/29/17 20:13 (Zofran Inj) 4 mg Q6H PRN IVP 05/29/17 20:00 (Narcan Inj) 0.4 mg UNSCH PRN IV 05/29/17 18:15 (Kassidy-Colace) 1 tab BID PO 05/29/17 21:00 06/08/17 09:28 (Milk Of Magnesia Liq) 30 ml Q12H PRN PO 05/29/17 20:00 (Senokot) 17.2 mg Q12H PRN PO 05/29/17 18:15 (Dulcolax Supp) 10 mg DAILY PRN RECTAL 05/29/17 18:15 (Lactulose Liq) 30 ml DAILY PRN PO 05/29/17 18:15 (Tessalon) 100 mg TID PRN PO 05/30/17 09:15 05/31/17 18:27 (Norvasc) 10 mg DAILY PO 05/30/17 09:30 06/08/17 09:28 (Capoten) 25 mg DAILY PO 05/30/17 09:30 06/08/17 09:28 (Cardura) 4 mg DAILY PO 05/30/17 09:30 06/08/17 09:28 (Keppra) 500 mg Q12HR PO 05/30/17 09:30 06/08/17 09:28 (Percocet 5-325 Mg) 1 tab Q6H PRN PO 05/30/17 09:30 06/07/17 19:13 (Protonix) 40 mg DAILY PO 05/30/17 09:30 06/08/17 09:28 (Pravachol) 40 mg DAILY PO 05/30/17 09:30 06/08/17 09:28 (Flomax) 0.4 mg DAILY PO 05/30/17 11:00 06/08/17 09:28 (Decadron) 4 mg Q8HR PO 06/04/17 14:00 06/08/17 05:56 (Bactrim Ds 800-160 Mg) 1 tab Q12HR PO 06/06/17 15:00 06/13/17 14:59 06/08/17 09:28 (Cipro) 500 mg Q12HR PO 06/06/17 15:00 06/13/17 14:59 06/08/17 09:29 Assessment and Plan Assessment and Plan 56 y.o male with metastatic prostate cancer and mild bilateral hydronephrosis Check renal scan to r/o obstruction Maintain albarran catheter Continue Flomax 06/01 56 y.o male with metastatic prostate cancer and mild bilateral hydronephrosis Check renal scan show mild left partial obstruction. Do not recommend intervention at this time. Maintain albarran catheter for now and void trial in future when ambulating; if fails could start CIC. Continue Flomax 06/08 56 y.o male with metastatic prostate cancer and mild bilateral hydronephrosis Renal scan show mild left partial obstruction. Maintain albarran catheter for now and void trial in office with Dr. Garcia. Continue Flomax as outpt. Ashok Daigle DO Jun 08, 2017 11:10
--- NOTE | 2017-06-08 11:27 | HHI.PR ---
Subjective Remarks Follow-up sepsis due to bilateral pneumonia and UTI/influenza A/prostate cancer with metastases 06/07/17-patient seen and examined, denies any chest pain or shortness of breath. Currently on 3 L nasal cannula. No acute event overnight. Afebrile. Good appetite. 06/08/17-patient seen and examined, stable and no chest pain or shortness of breath. Failed walk test yesterday. Objective Vitals Vital Signs Date Time Temp Pulse Resp B/P Pulse Ox O2 Delivery O2 Flow Rate FiO2 06/08/17 08:00 98.1 85 20 166/83 93 06/08/17 04:00 98.2 90 22 144/73 94 06/08/17 00:00 98.3 90 22 143/71 94 06/07/17 20:10 97.8 102 18 135/70 94 06/07/17 20:00 Nasal Cannula 3.00 Humidified 06/07/17 19:56 99 06/07/17 16:04 98.5 94 18 132/62 96 06/07/17 16:04 98.5 94 18 132/62 96 06/07/17 12:00 98.4 95 18 135/63 94 I/O 06/07/17 06/07/17 06/07/17 06/08/17 06/08/17 06/08/17 07:00 15:00 23:00 07:00 15:00 23:00 Intake Total 240 ml 720 ml 380 ml 120 ml Output Total 1200 ml 1000 ml 800 ml 800 ml Balance -960 ml -280 ml -420 ml -680 ml Intake Oral 240 ml 720 ml 380 ml 120 ml Output Urine Total 1200 ml 1000 ml 800 ml 800 ml # Bowel Movements 0 0 0 Result Diagram: 06/07/17 0617 06/06/17 0830 Imaging Last Impressions Chest X-Ray 06/08/17 0600 Signed Impressions: Service Date/Time: Thursday, June 08, 2017 06:15 - CONCLUSION: No significant interval change in persistent bilateral upper lung zone pulmonary parenchymal opacity. Tristian Raymundo MD Chest CT 05/31/17 3027 Signed Impressions: Service Date/Time: May 21:23 - CONCLUSION: 1. Diffuse metastatic disease to the spine. 2. Bilateral pulmonary infiltrates. Small bilateral effusions. José Manuel Baumann MD Renal Scan w/Medication NM 05/31/17 0000 Signed Impressions: Service Date/Time: , May 31, 2017 12:46 - CONCLUSION: 1. Mild obstruction on the left. 2. Normal right kidney. Seb Mathtews MD Renal Ultrasound 05/30/17 0000 Signed Impressions: Service Date/Time: Tuesday, May 30, 2017 11:51 - CONCLUSION: Bilateral hydronephrosis left greater than right. Quite similar to CT scan in March. Gideon Rivera MD Objective Remarks GENERAL: NAD SKIN: Warm and dry. HEAD: Normocephalic. EYES: No scleral icterus. No injection or drainage. NECK: Supple, trachea midline. No JVD or lymphadenopathy. CARDIOVASCULAR: Regular rate and rhythm without murmurs, gallops, or rubs. RESPIRATORY: Breath sounds equal bilaterally. No accessory muscle use. GASTROINTESTINAL: Abdomen soft, non-tender, nondistended. MUSCULOSKELETAL: No cyanosis, or edema. BACK: Nontender without obvious deformity. No CVA tenderness. Procedures None Date of Insertion: May 21, 2017 A/P Problem List: (1) Sepsis ICD Code: A41.9 Status: Resolved (2) Pneumonia ICD Code: J18.9 Status: Acute (3) UTI (urinary tract infection) ICD Code: N39.0 Status: Acute (4) Anemia ICD Code: D64.9 Status: Acute (5) Prostate cancer metastatic to bone ICD Code: C61 Status: Chronic (6) Hypocalcemia ICD Code: E83.51 Status: Acute (7) Influenza B ICD Code: J10.1 Status: Resolved Assessment and Plan 56-year-old man with Sepsis: 2/2 pneumonia, UTI. Continue antibiotics- Zosyn and Vancomycin. Appreciate infectious disease recommendations- Discharged home on Cipro and Bactrim 1 week Pulmonary ff Tylenol as needed for fever. Influenza B antigen positive. S/P course of Tamiflu.. ID ff- UTI associated with indwelling urinary catheter: Patient has indwelling Albarran catheter, which was exchanged 05/21/17. Appreciate Urology recommendations. Metastatic prostate cancer: Appreciate oncology recommendations. On Flomax and doxazosin. Indwelling albarran. ON Dexamethasone 4 mg po q 8. Outpatient follow- up with oncology Acute respiratory failure: -now on NC-. Secondary to Influenza, pneumonia. Continue supplemental oxygen, bronchodilators. Appreciate pulmonology recommendations- Failed walk test 06/07/17 Acute hypoxia: Patient with require home oxygen on discharge as other alternative measures were tried and were ineffective as patient failed respiratory walk test 06/07/17 Anemia: Status post transfusion of 2 units PRBCs during this hospitalization. H& H improved following transfusion. Appreciate oncology recommendations. Hypertension- controlled on CCB, Capoten, Cardura. Hyperlipidemia. on statin DVT prophylaxis: Soto, COLLIN zhang. Problem Qualifiers (1) Sepsis: Qualified Code: A41.9 - Sepsis, due to unspecified organism (2) UTI (urinary tract infection): Qualified Code: N39.0 - Urinary tract infection without hematuria, site unspecified (3) Anemia: Qualified Code: D64.9 - Anemia, unspecified type Seb Franklin MD Jun 08, 2017 11:27
[2017-06-08 12:00] VITALS: BP 120/75; PULSE 97; RESP 20; TEMP 98; O2SAT 97
--- NOTE | 2017-06-11 12:21 | RSPPFT ---
DATE OF PROCEDURE: 06/05/17 COMMENTS: Spirometry demonstrates an FEV1 of 1.3 at 42% of predicted, FVC of 1.6 at 39%, FEF 25-75 at 55%. Post-bronchodilator study demonstrated no significant change. Flow volume loops are atypical and may suggest a restrictive pattern. IMPRESSION: 1. Moderate restrictive disease. 2. Additional mild obstructive disease. 3. No significant change following use of bronchodilator.
== END 2017-06-08 12:52 | disposition home or self-care (01) | DRG 871 ==
LOC: NEPC 14:35 → NEDA 16:57 → N04A 22:59 → N03A 05-30 08:33 → N04A 06-02 19:00
PROVIDERS: ADMIT Hospitalist; ATTEND Hospitalist
PROC: 30233N1 Transfusion of Nonautologous Red Blood Cells into Peripheral Vein, Percutaneous Approach (ICD-10-PCS; principal; 2017-05-29)
PROC: 5A09457 Assistance with Respiratory Ventilation, 24-96 Consecutive Hours, Continuous Positive Airway Pressure (ICD-10-PCS; 2017-05-29)
DX: A41.9 Sepsis, unspecified organism (principal); J96.01 Acute respiratory failure with hypoxia; N17.9 Acute kidney failure, unspecified; C79.51 Secondary malignant neoplasm of bone; E46 Unspecified protein-calorie malnutrition; C61 Malignant neoplasm of prostate; E88.09 Other disorders of plasma-protein metabolism, not elsewhere classified; N13.30 Unspecified hydronephrosis; E83.51 Hypocalcemia; I48.91 Unspecified atrial fibrillation; J10.01 Influenza due to other identified influenza virus with the same other identified influenza virus pneumonia; N39.0 Urinary tract infection, site not specified; T83.511A Infection and inflammatory reaction due to indwelling urethral catheter, initial encounter; B95.2 Enterococcus as the cause of diseases classified elsewhere; B96.89 Other specified bacterial agents as the cause of diseases classified elsewhere; Z16.39 Resistance to other specified antimicrobial drug; D64.9 Anemia, unspecified; I12.9 Hypertensive chronic kidney disease with stage 1 through stage 4 chronic kidney disease, or unspecified chronic kidney disease; N18.9 Chronic kidney disease, unspecified; E78.5 Hyperlipidemia, unspecified; Z92.3 Personal history of irradiation; Z92.21 Personal history of antineoplastic chemotherapy; Z68.28 Body mass index [BMI] 28.0-28.9, adult; K21.9 Gastro-esophageal reflux disease without esophagitis; Z87.891 Personal history of nicotine dependence
CPT/HCPCS: 36430; 36600; 71010; 71250; 76775; 78708; 80048; 80053; 80202; 81001; 82550; 82565; 82805; 83010; 83605; 83615; 83735; 83880; 84100; 84155; 84484; 85007; 85025; 85027; 85610; 85730; 86850; 86880; 86900; 86901; 86920; 87040; 87070; 87077; 87086; 87186; 87205; 87804; 93005; 94003; 94060; 94620; 94640; 94664; 99291; A9539; J0456; J0610; J0692; J1940; J2543; J3370; J7030; J7040; J7050; J7613; J7644; J8540; P9016

== ENCOUNTER 2017-12-10 08:20 | Day surgery (SDC) | payer OTHER ==
[~2017-12-10] VITALS: Ht 180.3 cm; Wt 102.3 kg
[~2017-12-10 08:20] MED LIST changes: -AMIO200T PO; +CAPT25TA2 PO; +CASO50TA2 PO; +OXYGENDME NAS.CANULA; +TAMS5CAP PO
[2017-12-10 08:35] VITALS: BP 143/78; PULSE 83; RESP 20; TEMP 98.4; O2SAT 97
[2017-12-10] MEDS ORDERED: VANCOMYCIN 1000 MG/NS 250 ML ON-CALL IV SCH ×2 (08:45)
[2017-12-10] MEDS ORDERED: SODIUM CHLOR 0.9% 1000 ML INJ 1,000 ML IV SCH (08:45)
[2017-12-10] MEDS ORDERED: METF500T PO (08:54)
[2017-12-10] MEDS ORDERED: FURO40TA PO (08:54)
[2017-12-10] MEDS ORDERED: POVIDONE IODINE 5% (ANTISEPSIS KIT) 4 APPLICATIONS EACH NARE SCH (09:00)
[2017-12-10] MEDS ORDERED: CHLORHEXIDINE GLUCONATE 2 % 1 PACK (2 CLOTHS) OTHER SCH (09:00)
[2017-12-10] MEDS: ceFAZolin 2 GM PREMIX 50 ML IV SCH ×2 (09:09→09:10)
[2017-12-10 09:38] LABS: PROTHROMBIN TIME - PATIENT 9.9 SEC (9.8-11.6)
[2017-12-10] MEDS ORDERED: MIDAZOLAM HCL 2 MG/2 ML VIAL ONE ×2 (10:17)
--- NOTE | 2017-12-10 11:06 | PD.RAD ---
Post Procedure Progress Note Pre Procedure Diagnosis: (1) Prostate cancer metastatic to bone Post Procedure Diagnosis: (1) Prostate cancer metastatic to bone Procedure Date: Dec 10, 2017 Supervising Radiologist: Stef Patel Proceduralist/Assist: Hunter Wang, RT(R), Mallika Vee RT(R) Anesthesia: Conscious Sedation Plan of Activity Patient to Unit: ROPU Patient Condition: Good See PACS Report for procedural detail/treatment Stef Patel MD Dec 10, 2017 11:06
[2017-12-10 11:10] VITALS: BP 140/76; PULSE 71; RESP 18; TEMP 97.9; O2SAT 99
[2017-12-10 11:25] VITALS: BP 130/85; PULSE 75; RESP 18; O2SAT 96
--- NOTE | 2017-12-10 11:29 | RADRPT ---
EXAM DATE/TIME: 12/10/2017 10:06 [facility] COMPARISON: No previous studies available for comparison. INDICATIONS : Patient presents with prostate cancer and bone mets, in need of port placement. MEDICAL HISTORY : Bone Mets BPH GERD HTN Anemia Irregular heart beat SURGICAL HISTORY : Lami and tumor resection ENCOUNTER: Initial ACUITY: 4-6 months PAIN SCORE: 0/10 FLUORO TIME: 0.1 minutes IMAGE SERIES: 2 SEDATION TIME: 30 minutes ACCESS: Right internal jugular vein SEDATION: 1.) 3 mg midazolam (Versed) IV 2.) 150 mcg fentanyl (Sublimaze) IV Prophylactic antibiotics were administered with appropriate pre-procedure timing. Vancomycin within 2 hours of procedure, Ancef (or alternative) within 1 hour of procedure. DEVICE: 1. 8 Brazilian single lumen cm Bard Power Port PROCEDURE : 1. Continuous pulse oximetry and EKG monitoring. 2. Intravenous conscious sedation. 3. Ultrasound guidance for venous access. 4. Fluoroscopic guided implantable central venous port placement. The patient was placed supine. The neck was prepped in sterile fashion. Full sterile technique was u sed, including cap, mask, sterile gloves and gown, and a large sterile sheet. Hand hygiene and 2% ch lorhexidine Betadine was utilized per protocol for cutaneous antisepsis with appropriate dry time for site. Sterile gel and sterile probe cover were utilized for ultrasound guidance. The skin and sub cutaneous tissues were infiltrated with local anesthetic solution. Under direct ultrasound guidance, central venous access was accomplished in the targeted vessel. The ultrasound images depicting access guidance were stored and saved to PACS for permanent record. A s ubcutaneous pocket was created using blunt dissection. The port was introduced to the pocket. The c atheter tubing was fed through a subcutaneous tunnel to the venotomy site. The catheter tubing was c ut to a suitable length and then was introduced through a valved Peel-Away sheath and positioned with catheter tubing tip at the cavo-atrial junction level. The pocket incision was closed with subcutic ular Vicryl suture. Steri-Strips were applied. The port was flushed and locked with heparin solutio n per protocol. Sterile dressing was applied to the site. The patient tolerated the procedure well. Conscious sedation was performed with the prescribed dosages and duration as above in the presence of an independent trained radiology nurse to assist in the monitoring of the patient. EKG and oximetry remained stable throughout the procedure. The patient tolerated the procedure well and there were no complications. The patient was sent to post anesthesia recovery in stable condition. CONCLUSION: Uncomplicated ultrasound and fluoroscopic guided implanted central venous port catheter placement as described in detail above. An 8 Brazilian Power port was placed. Stef Patel MD on December 10, 2017 at 11:26 Board Certified Radiologist. This report was verified electronically.
[2017-12-10 11:40] VITALS: BP 136/72; PULSE 77; RESP 18; O2SAT 95
[2017-12-10 12:10] VITALS: BP 132/59; PULSE 78; RESP 18; O2SAT 96
== END 2017-12-10 12:51 | disposition home or self-care (01) ==
LOC: HROP 08:20 → HRIP 08:24 → HROP 12:51
PROVIDERS: ATTEND Internal Medicine
DX: Z45.2 Encounter for adjustment and management of vascular access device (principal); C61 Malignant neoplasm of prostate; C79.51 Secondary malignant neoplasm of bone; I10 Essential (primary) hypertension; K21.9 Gastro-esophageal reflux disease without esophagitis; N40.0 Benign prostatic hyperplasia without lower urinary tract symptoms; I48.91 Unspecified atrial fibrillation; E11.9 Type 2 diabetes mellitus without complications; Z79.84 Long term (current) use of oral hypoglycemic drugs
CPT/HCPCS: 36561; 76937; 77001; 85610; 85730; 99152; 99153; C1788; J0690; J1642; J2250; J3010; J3370; J7030; J7050

== ENCOUNTER 2018-01-09 22:55 | Inpatient (IN) | payer OTHER ==
[~2018-01-09] VITALS: Ht 180.3 cm; Wt 108.0 kg
[~2018-01-09 22:55] MED LIST changes: -DEXA4TAB PO; +FURO40TA PO; +METF500T PO; -PANT40TA3 PO; -TAMS5CAP PO
[2018-01-09 23:01] VITALS: PULSE 109; RESP 18; O2SAT 98
--- NOTE | 2018-01-09 23:08 | PD ---
HPI Chief Complaint: Seizure Time Seen by Provider: 23:02 Travel History International Travel<30 days: No Contact w/Intl Traveler<30days: No Traveled to known affect area: No History of Present Illness HPI Patient tonight in bed apparently was unresponsive lying to the side mouth drooling unresponsive and mild tonic-clonic activity as per his niece who came into the room. In the ER he is mildly confused post ictal confusion. The patient is unsure if he is on Keppra or antiseizure meds. He is able to relate the history of having had Hx of prosate CA diagnosed in Mar 28 2017 and cervical surgery fine surgery to remove metastases [id number]. He thinks it could have been related to prostate and mets . pt denies injury any long bone or head or abdomen injury from from seizure . Apparently it occurred while he was in bed and he did not fall or have any trauma. No long bone no head pain no lac. PFSH Past Medical History Arthritis: No Asthma: No Blood Disorders: No Heart Rhythm Problems: Yes (AFIB) Cancer: Yes (RECENTLY DIAGNOSED prostate and spine) Cardiovascular Problems: Yes High Cholesterol: No Chemotherapy: Yes Chest Pain: No Congestive Heart Failure: No COPD: No Diabetes: Yes Diminished Hearing: Yes (DECREASE RIGHT EAR SINCE THIS AM) Endocrine: No Gastrointestinal Disorders: Yes GERD: Yes (GERD) Genitourinary: Yes Hiatal Hernia: No Hypertension: Yes Immune Disorder: No Implanted Vascular Access Dvce: No Musculoskeletal: Yes Neurologic: No Psychiatric: No Reproductive: No Respiratory: Yes Radiation Therapy: Yes Sleep Apnea: No Ulcer: No Past Surgical History Abdominal Surgery: No AICD: No Arteriovenous Shunt: No Body Medical Devices: screws in back Cardiac Surgery: No Ear Surgery: No Endocrine Surgery: No Eye Surgery: No Genitourinary Surgery: No Gynecologic Surgery: No Insulin Pump: No Joint Replacement: No Oral Surgery: No Pacemaker: No Thoracic Surgery: No Other Surgery: No Social History Alcohol Use: Yes (one beer occasionally) Tobacco Use: No Substance Use: Yes (MARIJUANA 1985) Allergies-Medications (Allergen,Severity, Reaction): Coded Allergies: No Known Allergies (Unverified Allergy, Unknown, 12/10/17) Reported Meds & Prescriptions Reported Meds & Active Scripts Active Oxygen (O2) Device 2 Liter SAM.CANULA CONTINUOUS Oxygen Concentrator Portable Gaseous 2 L/min via Nasal Canula Continuous For 99 months Pravachol (Pravastatin) 40 Mg Tab 40 Mg PO DAILY Norvasc (Amlodipine Besylate) 10 Mg Tab 10 Mg PO DAILY Cardura (Doxazosin Mesylate) 4 Mg Tab 4 Mg PO DAILY Reported Metformin (Metformin HCl) 500 Mg Tab 500 Mg PO BIDPC Furosemide 40 Mg Tab 40 Mg PO DAILY Captopril 25 Mg Tab 25 Mg PO DAILY Take 1 hr before meals. Percocet (Oxycodone-Acetaminophen) 5-325 mg Tab 1 Tab PO Q6H PRN Review of Systems Except as stated in HPI: all other systems reviewed are Neg Physical Exam Narrative GENERAL: mild confusion post ictal SKIN: Warm and dry. HEAD: Atraumatic. Normocephalic. no head injury EYES: Pupils equal and round. No scleral icterus. No injection or drainage. ENT: No nasal bleeding or discharge. Mucous membranes pink and moist. NECK: Trachea midline. No JVD. cervical spine healed scar CARDIOVASCULAR: Regular rate and rhythm. RESPIRATORY: No accessory muscle use. Clear to auscultation. Breath sounds equal bilaterally. GASTROINTESTINAL: Abdomen soft, non-tender, nondistended. Hepatic and splenic margins not palpable. MUSCULOSKELETAL: Extremities without clubbing, cyanosis, or edema. No obvious deformities. NEUROLOGICAL: Awake and alert. No obvious cranial nerve deficits. Motor grossly within normal limits. Five out of 5 muscle strength in the arms and legs. Normal speech. PSYCHIATRIC: Appropriate mood and affect; insight and judgment normal. Data Data Last Documented VS Vital Signs Date Time Temp Pulse Resp B/P (MAP) Pulse Ox O2 Delivery O2 Flow Rate FiO2 01/10/18 02:38 81 16 140/63 (88) 98 Nasal Cannula 5.00 Orders Orders Complete Blood Count With Diff (01/09/18 23:08) Comprehensive Metabolic Panel (01/09/18 23:08) Troponin I (01/09/18 23:08) Magnesium (Mg) (01/09/18 23:08) Phosphorus (Po4) (01/09/18 23:08) Ct Brain W/O Iv Contrast(Rout) (01/09/18 ) Levetiracetam Inj (Keppra Inj) (01/10/18 01:15) Consult Neurology (01/10/18 ) (Hub Use Only)Inp Phy Cons/Ref (01/10/18 ) Admit Order (Ed Use Only) (01/10/18 03:07) Labs Laboratory Tests Test 01/09/18 23:33 White Blood Count 3.0 TH/MM3 Red Blood Count 3.28 MIL/MM3 Hemoglobin 9.5 GM/DL Hematocrit 27.6 % Mean Corpuscular Volume 84.0 FL Mean Corpuscular Hemoglobin 29.0 PG Mean Corpuscular Hemoglobin Concent 34.5 % Red Cell Distribution Width 15.5 % Platelet Count 216 TH/MM3 Mean Platelet Volume 6.7 FL Neutrophils (%) (Auto) 38.4 % Lymphocytes (%) (Auto) 46.5 % Monocytes (%) (Auto) 13.5 % Eosinophils (%) (Auto) 0.8 % Basophils (%) (Auto) 0.8 % Neutrophils # (Auto) 1.1 TH/MM3 Lymphocytes # (Auto) 1.4 TH/MM3 Monocytes # (Auto) 0.4 TH/MM3 Eosinophils # (Auto) 0.0 TH/MM3 Basophils # (Auto) 0.0 TH/MM3 CBC Comment DIFF FINAL Differential Comment Blood Urea Nitrogen 14 MG/DL Creatinine 1.37 MG/DL Random Glucose 130 MG/DL Total Protein 6.6 GM/DL Albumin 3.6 GM/DL Calcium Level 8.7 MG/DL Phosphorus Level 3.3 MG/DL Magnesium Level 2.0 MG/DL Alkaline Phosphatase 68 U/L Aspartate Amino Transf (AST/SGOT) 19 U/L Alanine Aminotransferase (ALT/SGPT) 33 U/L Total Bilirubin 0.3 MG/DL Sodium Level 143 MEQ/L Potassium Level 3.8 MEQ/L Chloride Level 109 MEQ/L Carbon Dioxide Level 24.7 MEQ/L Anion Gap 9 MEQ/L Estimat Glomerular Filtration Rate 65 ML/MIN Troponin I LESS THAN 0.02 NG/ML MDM Medical Decision Making Medical Screen Exam Complete: Yes Emergency Medical Condition: Yes Differential Diagnosis electrolyte imbalance vs mets to cerebrum from Prostate, vs recent discontinue of Keppra for unknown reason. Narrative Course CT no acu8te findings electrolytes normal , but pt had another seizure like episode in the ER will load 500 mg IV keppra adn admit for observation Diagnosis Primary Impression: Seizure Additional Impression: Prostate cancer metastatic to bone Admitting Information Admitting Physician Requests: Observation Sigifredo Yousif MD Jan 09, 2018 23:08
[2018-01-09 23:44] LABS: AUTOMATED NEUTROPHIL # 1.1 TH/MM3 (1.8-7.7); BASOPHIL % 0.8 % (0.0-2.0); EOSINOPHIL % 0.8 % (0.0-4.0); HEMATOCRIT 27.6 % (39.0-51.0); HEMOGLOBIN 9.5 GM/DL (13.0-17.0); LYMPH % 46.5 % (9.0-44.0); LYMPHOCYTE # 1.4 TH/MM3 (1.0-4.8); MEAN CORPUSCULAR HGB CONC 34.5 % (32.0-36.0); MEAN PLATELET VOLUME 6.7 FL (7.0-11.0); MONO % 13.5 % (0.0-8.0); MONOCYTE # 0.4 TH/MM3 (0-0.9); NEUT % 38.4 % (16.0-70.0); PLATELET COUNT 216 TH/MM3 (150-450); RED BLOOD COUNT 3.28 MIL/MM3 (4.50-5.90); RED CELL DISTRIBUTION WIDTH 15.5 % (11.6-17.2)
[2018-01-09 23:57] LABS: ALBUMIN 3.6 GM/DL (3.4-5.0); ALT (GPT) 33 U/L (12-78); AST (GOT) 19 U/L (15-37); BICARBONATE 24.7 MEQ/L (21.0-32.0); BLOOD UREA NITROGEN 14 MG/DL (7-18); CALCIUM 8.7 MG/DL (8.5-10.1); CHLORIDE 109 MEQ/L (98-107); CREATININE 1.37 MG/DL (0.60-1.30); GLOMERULAR FILTRATION RATE 65 ML/MIN (>89); GLUCOSE,RANDOM 130 MG/DL (74-106); PHOSPHORUS 3.3 MG/DL (2.5-4.9); SODIUM (NA) 143 MEQ/L (136-145)
[2018-01-10] VITALS (7 sets, daily range): BP systolic 128–159; BP diastolic 63–72; PULSE 70–81; RESP 15–20; TEMP 97.5–98; O2SAT 96–100
[2018-01-10 00:01] LABS: ALKALINE PHOSPHATASE 68 U/L (45-117); TOTAL BILIRUBIN ADULT 0.3 MG/DL (0.2-1.0); TOTAL PROTEIN 6.6 GM/DL (6.4-8.2); TROPONIN I LESS THAN 0.02 NG/ML (0.02-0.05)
--- NOTE | 2018-01-10 00:59 | RADRPT ---
EXAM DATE/TIME: 01/10/2018 00:42 [facility] COMPARISON: CT BRAIN W/O CONTRAST, April 13, 2017, 5:42. INDICATIONS : Seizure. RADIATION DOSE: 56.35 CTDIvol (mGy) MEDICAL HISTORY : Carcinoma, prostate. Hypertension. SURGICAL HISTORY : None. ENCOUNTER: Initial ACUITY: 1 day PAIN SCALE: 0/10 LOCATION: cranial TECHNIQUE: Multiple contiguous axial images were obtained of the head. Using automated exposure control and adj ustment of the mA and/or kV according to patient size, radiation dose was kept as low as reasonably a chievable to obtain optimal diagnostic quality images. DICOM format image data is available electro nically for review and comparison. FINDINGS: CEREBRUM: Mild diffuse cerebral atrophy. The ventricles are normal for age. No evidence of midline shift, mass lesion, hemorrhage or acute infarction. No extra-axial fluid collections are seen. POSTERIOR FOSSA: The cerebellum and brainstem are intact. The 4th ventricle is midline. The cerebellopontine angle i s unremarkable. EXTRACRANIAL: The visualized portion of the orbits is intact. SKULL: The calvaria is intact. No evidence of skull fracture. CONCLUSION: 1. No acute intracranial abnormality. Stef Patel MD on January 10, 2018 at 0:57 Board Certified Radiologist. This report was verified electronically.
[2018-01-10] MEDS ORDERED: levETIRAcetam INJ 500 MG in SODIUM CHLORIDE 0.9% INJ 100 ML IV ONE (01:15)
--- NOTE | 2018-01-10 03:23 | HHI.HP ---
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 Patient does not remember the event. Family in the room reports they found him in his bedroom foaming in the mouth with legs shaking uncontrollably. Family reports he had one seizure in the past when he was first diagnosed with prostate cancer. He has been on Keppra but this was discontinued at some point. The patient and family is not able to tell when the medication was discontinued or why. They do not know the name of his neurologist. While the patient was in the ER, he had another seizure and was loaded with Keppra. On my evaluation he is over the postictal state. He is awake and has no focal deficits. Review of Systems Constitutional: DENIES: Fever, Chills Musculoskeletal: COMPLAINS OF: Joint pain (chronic back pain) Neurologic: COMPLAINS OF: Seizures Except as stated in HPI: all other systems reviewed are Neg Past Family Social History Past Medical History Metastatic prostate cancer ongoing chemotherapy GERD Hypertension Past Surgical History T3 decompressive laminectomy Reported Medications Reported Meds & Active Scripts Active Oxygen (O2) Device 2 Liter SAM.CANULA CONTINUOUS Oxygen Concentrator Portable Gaseous 2 L/min via Nasal Canula Continuous For 99 months Pravachol (Pravastatin) 40 Mg Tab 40 Mg PO DAILY Norvasc (Amlodipine Besylate) 10 Mg Tab 10 Mg PO DAILY Cardura (Doxazosin Mesylate) 4 Mg Tab 4 Mg PO DAILY Reported Metformin (Metformin HCl) 500 Mg Tab 500 Mg PO BIDPC Furosemide 40 Mg Tab 40 Mg PO DAILY Captopril 25 Mg Tab 25 Mg PO DAILY Take 1 hr before meals. Percocet (Oxycodone-Acetaminophen) 5-325 mg Tab 1 Tab PO Q6H PRN Allergies: Coded Allergies: No Known Allergies (Unverified Allergy, Unknown, 12/10/17) Family History Reviewed and is noncontributory. Social History Admits to occasional beer and marijuana. No tobacco use. Physical Exam Vital Signs Vital Signs Date Time Temp Pulse Resp B/P (MAP) Pulse Ox O2 Delivery O2 Flow Rate FiO2 01/10/18 02:38 81 16 140/63 (88) 98 Nasal Cannula 5.00 01/09/18 23:07 110 98 Nasal Cannula 2.00 01/09/18 23:01 109 18 98 Physical Exam GENERAL: This is a well-nourished, well-developed patient, in no apparent distress. SKIN: No rashes, ecchymoses or lesions. Cool and dry. HEAD: Atraumatic. Normocephalic. No temporal or scalp tenderness. EYES: Pupils equal round and reactive. Extraocular motions intact. No scleral icterus. No injection or drainage. ENT: Nose without bleeding, purulent drainage or septal hematoma. Throat without erythema, tonsillar hypertrophy or exudate. Uvula midline. Airway patent. NECK: Trachea midline. No JVD or lymphadenopathy. Supple, nontender, no meningeal signs. CARDIOVASCULAR: Regular rate and rhythm without murmurs, gallops, or rubs. RESPIRATORY: Clear to auscultation. Breath sounds equal bilaterally. No wheezes , rales, or rhonchi. GASTROINTESTINAL: Abdomen soft, non-tender, nondistended. No hepato-splenomegaly , or palpable masses. No guarding. MUSCULOSKELETAL: Extremities without clubbing, cyanosis, or edema. No joint tenderness, effusion, or edema noted. No calf tenderness. Negative Homans sign bilaterally. NEUROLOGICAL: Awake and alert. Cranial nerves II through XII intact. Motor and sensory grossly within normal limits. Five out of 5 muscle strength in all muscle groups. Normal speech. Laboratory Laboratory Tests Test 01/09/18 23:33 White Blood Count 3.0 Red Blood Count 3.28 Hemoglobin 9.5 Hematocrit 27.6 Mean Corpuscular Volume 84.0 Mean Corpuscular Hemoglobin 29.0 Mean Corpuscular Hemoglobin Concent 34.5 Red Cell Distribution Width 15.5 Platelet Count 216 Mean Platelet Volume 6.7 Neutrophils (%) (Auto) 38.4 Lymphocytes (%) (Auto) 46.5 Monocytes (%) (Auto) 13.5 Eosinophils (%) (Auto) 0.8 Basophils (%) (Auto) 0.8 Neutrophils # (Auto) 1.1 Lymphocytes # (Auto) 1.4 Monocytes # (Auto) 0.4 Eosinophils # (Auto) 0.0 Basophils # (Auto) 0.0 CBC Comment DIFF FINAL Differential Comment Blood Urea Nitrogen 14 Creatinine 1.37 Random Glucose 130 Total Protein 6.6 Albumin 3.6 Calcium Level 8.7 Phosphorus Level 3.3 Magnesium Level 2.0 Alkaline Phosphatase 68 Aspartate Amino Transf (AST/SGOT) 19 Alanine Aminotransferase (ALT/SGPT) 33 Total Bilirubin 0.3 Sodium Level 143 Potassium Level 3.8 Chloride Level 109 Carbon Dioxide Level 24.7 Anion Gap 9 Estimat Glomerular Filtration Rate 65 Troponin I LESS THAN 0.02 Result Diagram: 01/09/18 2333 01/09/18 2333 Imaging Last Impressions Head CT 01/09/18 0000 Signed Impressions: Service Date/Time: January 00:42 - CONCLUSION: 1. No acute intracranial abnormality. MD Eyal Fitch VTE Risk Assessment Caprini VTE Risk Assessment: Mod/High Risk (score >= 2) Caprini Risk Assessment Model Point Value = 1 Point Value = 2 Point Value = 3 Point Value = 5 Age 41-60 Minor surgery BMI > 25 kg/m2 Swollen legs Varicose veins or History of unexplained or recurrent spontaneous Oral contraceptives or hormone replacement Sepsis (< 1 month) Serious lung disease, including pneumonia (< 1 month) Abnormal pulmonary function Acute myocardial infarction Congestive heart failure (< 1 month) History of inflammatory bowel disease Medical patient at bed rest Age 61-74 Arthroscopic surgery Major open surgery (> 45 min) Laparoscopic surgery (> 45 min) Malignancy Confined to bed (> 72 hours) Immobilizing plaster cast Central venous access Age >= 75 History of VTE Family history of VTE Factor V Leiden Prothrombin [id number] Lupus anticoagulant Anticardiolipin antibodies Elevated serum homocysteine Heparin-induced thrombocytopenia Other congenital or acquired thrombophilia Stroke (< 1 month) Elective arthroplasty Hip, pelvis, or leg fracture Acute spinal cord injury (< 1 month) Prophylaxis Regimen Total Risk Factor Score Risk Level Prophylaxis Regimen 0-1 Low Early ambulation 2 Moderate Order ONE of the following: *Sequential Compression Device (SCD) *Heparin 5000 units SQ BID 3-4 Higher Order ONE of the following medications: *Heparin 5000 units SQ TID *Enoxaparin/Lovenox 40 mg SQ daily (WT < 150 kg, CrCl > 30 mL/min) *Enoxaparin/Lovenox 30 mg SQ daily (WT < 150 kg, CrCl > 10-29 mL/min) *Enoxaparin/Lovenox 30 mg SQ BID (WT < 150 kg, CrCl > 30 mL/min) AND/OR *Sequential Compression Device (SCD) 5 or more Highest Order ONE of the following medications: *Heparin 5000 units SQ TID (Preferred with Epidurals) *Enoxaparin/Lovenox 40 mg SQ daily (WT < 150 kg, CrCl > 30 mL/min) *Enoxaparin/Lovenox 30 mg SQ daily (WT < 150 kg, CrCl > 10-29 mL/min) *Enoxaparin/Lovenox 30 mg SQ BID (WT < 150 kg, CrCl > 30 mL/min) AND *Sequential Compression Device (SCD) Assessment and Plan Problem List: (1) Seizure ICD Code: R56.9 - Unspecified convulsions Status: Acute Plan: Patient had 2 seizures today. One witnessed in the ED.. Apparently the patient was on anti-seizure medications which was discontinued a few months ago. Resume Keppra 500 mg by mouth twice a day. EEG ordered Consult neurology for assistance Given history of metastatic prostate cancer, obtain MRI. (2) Prostate cancer metastatic to bone ICD Code: C61 - Malignant neoplasm of prostate; C79.51 - Secondary malignant neoplasm of bone Status: Chronic Plan: Patient currently undergoing chemotherapy with Dr. Kaur. Continue pain control with home dose Percocet. (3) Renal insufficiency ICD Code: N28.9 - Disorder of kidney and ureter, unspecified Plan: Patient is close to his baseline. He does have history of hydronephrosis but his creatinine has been trending down. He follows up outpatient with urology. Continue to monitor. Encourage oral hydration. Discussed Condition With Natalie Sanchez MD Jan 10, 2018 03:23
[2018-01-10] MEDS ORDERED: ONDANSETRON HCL 4 MG/2 ML VIAL IV PUSH PRN (03:30)
[2018-01-10] MEDS ORDERED: SODIUM CHLORIDE 0.9% FLUSH 10 ML FLUSH IV FLUSH PRN (03:30)
[2018-01-10] MEDS ORDERED: LORazepam 2 MG/ML VIAL IV PUSH PRN (03:30)
[2018-01-10] MEDS: HEPARIN SODIUM - SQ 10,000 UNITS/ML VIAL SQ SCH ×2 (07:20→19:50)
[2018-01-10] MEDS ORDERED: levETIRAcetam 500 MG TAB PO SCH (09:00)
[2018-01-10] MEDS ORDERED: GADODIAMIDE PF 287 MG/ML 20 ML VIAL (for RAD MRI) IVCONTRAST ONE (09:30)
--- NOTE | 2018-01-10 10:11 | RADRPT ---
EXAM DATE/TIME: 01/10/2018 09:10 [place] COMPARISON: CT BRAIN W/O CONTRAST, January 10, 2018, 0:42. INDICATIONS : Seizures. CONTRAST: 20 cc Omniscan (gadodiamide) IV MEDICAL HISTORY : Hypertension. Gastroesophageal reflux disease. Carcinoma, prostate. Diabetes. SURGICAL HISTORY : Spine and port. ENCOUNTER: Initial ACUITY: 1 week PAIN SCORE: 0/10 LOCATION: Head. TECHNIQUE: Multiplanar, multisequence MRI of the brain was performed both prior to and following the administrat ion of paramagnetic contrast. FINDINGS: CEREBRUM: The ventricles are normal for age. No evidence of midline shift, mass lesion, hemorrhage or acute in farction. No extraaxial fluid collections are seen. The pituitary gland and suprasellar cistern are normal in configuration. WHITE MATTER: No significant signal abnormalities are seen in the white matter. POSTERIOR FOSSA: The cerebellum and brainstem are intact. The 4th ventricle is midline. The cerebellopontine angle is unremarkable. The cerebellar tonsils are normal in position. DIFFUSION IMAGING: No focal areas of restricted diffusion are seen. No evidence of acute infarction. EXTRACRANIAL: The visualized portions of the orbits and paranasal sinuses are unremarkable. POST-CONTRAST: No abnormal areas of parenchymal or dural enhancement. No evidence of blood-brain barrier breakdown. CONCLUSION: Normal examination. Agustín Boykin MD on January 10, 2018 at 10:03 Board Certified Radiologist. This report was verified electronically.
--- NOTE | 2018-01-10 10:15 | HHI.PR ---
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 Patient does not remember the event. Family in the room reports they found him in his bedroom foaming in the mouth with legs shaking uncontrollably. Family reports he had one seizure in the past when he was first diagnosed with prostate cancer. He has been on Keppra but this was discontinued at some point. The patient and family is not able to tell when the medication was discontinued or why. They do not know the name of his neurologist. While the patient was in the ER, he had another seizure and was loaded with Keppra. On my evaluation he is over the postictal state. He is awake and has no focal deficits. 3-1 HAD MRI OF BRAIN- RESULTS ARE NEGATIVE WITH NORMAL MRI HAD EEG RESULTS PENDING SEEN BY DR YANES OF NEUROLOGY DW RN AND PT AND FAMILY CONTINUE KEPPRA AT THIS TIME SEEN BY DR YANES- CONTINUED ON KEPPRA HE FELT HAD SEIZURE Objective Vitals Vital Signs Date Time Temp Pulse Resp B/P (MAP) Pulse Ox O2 Delivery O2 Flow Rate FiO2 01/10/18 08:51 97.7 70 20 138/68 (91) 99 01/10/18 04:28 97.8 81 16 129/65 (86) 99 01/10/18 02:38 81 16 140/63 (88) 98 Nasal Cannula 5.00 01/09/18 23:07 110 98 Nasal Cannula 2.00 01/09/18 23:01 109 18 98 Result Diagram: 01/09/18 2333 01/09/18 2333 Other Results Laboratory Tests Test 01/09/18 23:33 White Blood Count 3.0 TH/MM3 Red Blood Count 3.28 MIL/MM3 Hemoglobin 9.5 GM/DL Hematocrit 27.6 % Mean Corpuscular Volume 84.0 FL Mean Corpuscular Hemoglobin 29.0 PG Mean Corpuscular Hemoglobin Concent 34.5 % Red Cell Distribution Width 15.5 % Platelet Count 216 TH/MM3 Mean Platelet Volume 6.7 FL Neutrophils (%) (Auto) 38.4 % Lymphocytes (%) (Auto) 46.5 % Monocytes (%) (Auto) 13.5 % Eosinophils (%) (Auto) 0.8 % Basophils (%) (Auto) 0.8 % Neutrophils # (Auto) 1.1 TH/MM3 Lymphocytes # (Auto) 1.4 TH/MM3 Monocytes # (Auto) 0.4 TH/MM3 Eosinophils # (Auto) 0.0 TH/MM3 Basophils # (Auto) 0.0 TH/MM3 CBC Comment DIFF FINAL Differential Comment Blood Urea Nitrogen 14 MG/DL Creatinine 1.37 MG/DL Random Glucose 130 MG/DL Total Protein 6.6 GM/DL Albumin 3.6 GM/DL Calcium Level 8.7 MG/DL Phosphorus Level 3.3 MG/DL Magnesium Level 2.0 MG/DL Alkaline Phosphatase 68 U/L Aspartate Amino Transf (AST/SGOT) 19 U/L Alanine Aminotransferase (ALT/SGPT) 33 U/L Total Bilirubin 0.3 MG/DL Sodium Level 143 MEQ/L Potassium Level 3.8 MEQ/L Chloride Level 109 MEQ/L Carbon Dioxide Level 24.7 MEQ/L Anion Gap 9 MEQ/L Estimat Glomerular Filtration Rate 65 ML/MIN Troponin I LESS THAN 0.02 NG/ML Imaging Last Impressions Brain MRI 01/10/18 0000 Signed Impressions: Service Date/Time: January 09:10 - CONCLUSION: Normal examination. Agustín Boykin MD Head CT 01/09/18 0000 Signed Impressions: Service Date/Time: January 00:42 - CONCLUSION: 1. No acute intracranial abnormality. Stef Patel MD Objective Remarks GENERAL: Awake alert and oriented 3 talkative and cooperative in no acute distress SKIN: Warm and dry. HEAD: Atraumatic. Normocephalic. EYES: Pupils equal and round. No scleral icterus. No injection or drainage. Extraocular muscles intact ENT: No nasal bleeding or discharge. Mucous membranes pink and moist. Tongue is midline NECK: Trachea midline. No JVD. Supple CARDIOVASCULAR: Regular rate and rhythm. S1-S2 no S3 or S4 no heave or thrill or rub or gallop RESPIRATORY: No accessory muscle use. Clear to auscultation. Breath sounds equal bilaterally. GASTROINTESTINAL: Abdomen soft, non-tender, nondistended. Hepatic and splenic margins not palpable. MUSCULOSKELETAL: Extremities without clubbing, cyanosis, or edema. No obvious deformities. NEUROLOGICAL: Awake and alert. No obvious cranial nerve deficits. Motor grossly within normal limits. Five out of 5 muscle strength in the arms and legs. Normal speech. PSYCHIATRIC: Appropriate mood and affect; insight and judgment normal. Medications and IVs Current Medications Levetriacetam 500 mg/Sodium Chloride 105 ml @ 420 mls/hr BOLUS ONCE IV Last administered on 01/10/18at 02:03; Start 01/10/18 at 01:15; Stop 01/10/18 at 01:29; Status DC Amlodipine Besylate (Norvasc) 10 mg DAILY PO ; Start 01/10/18 at 09:00 Captopril (Capoten) 25 mg DAILY PO ; Start 01/10/18 at 09:00 Doxazosin Mesylate (Cardura) 4 mg DAILY PO ; Start 01/10/18 at 09:00 Pravastatin Sodium (Pravachol) 40 mg DAILY PO ; Start 01/10/18 at 09:00 Sodium Chloride (NS Flush) 2 ml UNSCH PRN IV FLUSH FLUSH AFTER USING IV ACCESS ; Start 01/10/18 at 03:30 Sodium Chloride (NS Flush) 2 ml BID IV FLUSH ; Start 01/10/18 at 09:00 Lorazepam (Ativan Inj) 2 mg UNSCH PRN IV PUSH SEE LABEL COMMENTS; Start at 03:30 Ondansetron HCl (Zofran Inj) 4 mg Q6H PRN IV PUSH NAUSEA OR VOMITING; Start 01/10/18 at 03:30 Levetriacetam (Keppra) 500 mg Q12HR PO ; Start 01/10/18 at 09:00; Stop 01/10/18 at 09:00; Status DC Oxycodone/ Acetaminophen (Percocet 5-325 Mg) 1 tab Q6H PRN PO PAIN; Start 01/10 at 06:30 Heparin Sodium (Porcine) (Heparin Inj) 5,000 units Q12H SQ Last administered on 01/10/18at 07:20; Start 01/10/18 at 06:30 Levetriacetam (Keppra) 1,000 mg Q12HR PO ; Start 01/10/18 at 09:00 Gadodiamide (Omniscan Pf Inj) 20 ml STK-MED ONCE IVCONTRAST Last administered on 01/10/18at 09:30; Start 01/10/18 at 09:30; Stop 01/10/18 at 09:31; Status DC A/P Problem List: (1) Seizure ICD Code: R56.9 - Unspecified convulsions Status: Acute Plan: Patient had 2 seizures today. One witnessed in the ED.. Apparently the patient was on anti-seizure medications which was discontinued a few months ago. Resume Keppra 500 mg by mouth twice a day. EEG ordered Consult neurology for assistance Given history of metastatic prostate cancer, obtain MRI. MRI brain IS NEGATIVE (2) Prostate cancer metastatic to bone ICD Code: C61 - Malignant neoplasm of prostate; C79.51 - Secondary malignant neoplasm of bone Status: Chronic Plan: Patient currently undergoing chemotherapy with Dr. Kaur. Continue pain control with home dose Percocet. (3) Renal insufficiency ICD Code: N28.9 - Disorder of kidney and ureter, unspecified Plan: Patient is close to his baseline. He does have history of hydronephrosis but his creatinine has been trending down. He follows up outpatient with urology. Continue to monitor. Encourage oral hydration. (4) HTN (hypertension) ICD Code: I10 - Essential (primary) hypertension Status: Chronic Plan: Continue home medications (5) Metastatic disease ICD Code: C79.9 - Secondary malignant neoplasm of unspecified site Status: Acute Plan: Await MRI for further input (6) Normocytic anemia ICD Code: D64.9 - Anemia, unspecified Status: Chronic Plan: Chronic monitor (7) Diabetes ICD Code: E11.9 - Type 2 diabetes mellitus without complications Plan: TYPE 2 CONTINUE ON ACCUCHECKS AND SLIDING SCALE WITH LOW DOSE INSULIN Assessment and Plan (1) Seizure ICD Code: R56.9 - Unspecified convulsions Status: Acute Plan: Patient had 2 seizures today. One witnessed in the ED.. Apparently the patient was on anti-seizure medications which was discontinued a few months ago. Resume Keppra 500 mg by mouth twice a day. EEG ordered Consult neurology for assistance Given history of metastatic prostate cancer, obtain MRI.- MRI WAS NEGATIVE (2) Prostate cancer metastatic to bone ICD Code: C61 - Malignant neoplasm of prostate; C79.51 - Secondary malignant neoplasm of bone Status: Chronic Plan: Patient currently undergoing chemotherapy with Dr. Kaur. Continue pain control with home dose Percocet. (3) Renal insufficiency ICD Code: N28.9 - Disorder of kidney and ureter, unspecified Plan: Patient is close to his baseline. He does have history of hydronephrosis but his creatinine has been trending down. He follows up outpatient with urology. Continue to monitor. Encourage oral hydration. Hypertension resume home medications Metastatic disease await MRI of brain- MRI OF BRAIN IS NEGATIVE Normocytic anemia chronic monitor GI prophylaxis Discharge Planning Continue on Keppra MRI WAS STABLE AWAIT neurological clearance Charlie Peterson DO Jan 10, 2018 10:15
[2018-01-10] MEDS: CAPTOPRIL 25 MG TAB PO SCH (10:21)
[2018-01-10] MEDS: SODIUM CHLORIDE 0.9% FLUSH 10 ML FLUSH IV FLUSH SCH ×2 (10:21→19:50)
[2018-01-10] MEDS: levETIRAcetam 500 MG TAB PO SCH ×2 (10:22→19:48)
[2018-01-10] MEDS: DOXAZOSIN MESYLATE 4 MG TAB PO SCH (10:22)
[2018-01-10] MEDS: oxyCODONE/ACETAMINOPHEN 5 MG/325 MG TAB PO PRN ×2 (10:23→19:59)
[2018-01-10] MEDS: PRAVASTATIN SOD 40 MG TAB PO SCH (10:23)
[2018-01-10] MEDS ORDERED: GLUCAGON 1 MG/ML VIAL OTHER PRN (10:30)
[2018-01-10] MEDS ORDERED: DEXTROSE 50% IN WATER 50 ML VIAL(D50) IV PUSH PRN (10:30)
--- NOTE | 2018-01-10 10:30 | MB ---
cc: Stuart Hoffmann MD, PhD Stuart Hoffmann MD, PhD DATE OF CONSULT: 01/10/2018 REASON FOR CONSULTATION: Recurrent seizure. HISTORY OF PRESENT ILLNESS: Mr. Alford is a very pleasant 57 year old man who has a history of seizures in the past, also has history of metastatic prostate cancer. He had a recurrent generalized tonic/colic seizure yesterday with loss of consciousness, he was frothing at the mouth, had generalized jerking activity. Brought to the ER, had a second seizure in the ER. In the past he was on Keppra but came off this some time ago. He was loaded with Keppra in the ER last night. He has had no recurrent seizures. He feels back to his baseline state this morning. PAST MEDICAL HISTORY: History of metastatic prostate cancer. He has a history of recent thoracic spine surgery for metastatic prostate cancer. He states that he had leg weakness because of the metastatic cancer and this has been improving; this is at the T-3 level. History of GERD. MEDICATIONS AT HOME: 1. Pravachol. 2. Norvasc. 3. Cardura. 4. Metformin. 5. Lasix. 6. Captopril. 7. Percocet. ALLERGIES: None known. SOCIAL HISTORY: Denies alcohol use, no history of drug abuse. NEUROLOGICAL EXAMINATION: VITAL SIGNS: Blood pressure 129/65, Pulse 81, Respiratory rate of 16, temperature 97.8 degrees. NEUROLOGIC EXAMINATION: Higher cortical functions are normal. Cranial nerves are intact. Motor examination: Normal strength and tone of all muscle groups of both upper and lower extremities. The reflexes are symmetric. RADIOLOGIC: CT scan of the brain, no acute changes present. LABORATORY DATA: White count 3000. Hemoglobin 9.5, hematocrit 27.6%, platelet count 216,000. Sodium 143, potassium 3.8, chloride 109, CO2 24.7, BUN 14, Creatinine 1.37, GFR 65. AST 19, ALT 33. Magnesium 2.0, calcium 8.7. IMPRESSION: Recurrent generalized seizure times two. RECOMMENDATION: I agree with continuing Keppra; would recommend increasing the dose, however, to 1000 mg b.i.d. We will also obtain a EEG as well as a MRI of the brain. The patient should not drive for at least six months. We will also place him under seizure precaution. If he were to have the recurrent seizures, he could use p.r.n. IV Ativan. Thank you for asking me to see this nice man. Stuart Hoffmann MD, PhD JULIA/ROSALINA/ , 08:46 AM , 09:26 AM
[2018-01-10 10:53] LABS: FREE T4 0.88 NG/DL (0.76-1.46)
[2018-01-10] MEDS: INSULIN ASPART SUPPLEMENTAL SCALE SQ SCH ×3 (12:00→21:00)
--- NOTE | 2018-01-10 15:26 | MG ---
cc: Angélica Lomeli MD ELECTROENCEPHALOGRAPHY NUMBER: [id number] REFERRING PHYSICIAN: Natalie Burt MD ROOM: [id number] With photic done, awake, drowsy, asleep. CT negative. The patient apparently was lying in bed drooling, had a tonic clonic event. Has a history of afib and other medical issues per chart, possible polysubstance use. Currently on Keppra. DESCRIPTION OF RECORD: Overall attenuation in the background. Quite a bit of artifact noted, background is about 5 Hz. There is no epileptic activity. There is a lot of snoring noted. Muscle artifact, mild driving response with photic stimulation. IMPRESSION: Mild swelling due to what looks like an encephalopathic process without any epileptiform features in this one recording. Clinical correlation. Angélica Lomeli MD DF/DL/rh , 02:52 PM , 03:07 PM
[2018-01-11 04:16] VITALS: BP 125/73; PULSE 77; RESP 16; TEMP 98; O2SAT 100
[2018-01-11] MEDS: HEPARIN SODIUM - SQ 10,000 UNITS/ML VIAL SQ SCH (06:39)
[2018-01-11 07:45] LABS: AUTOMATED NEUTROPHIL # 1.4 TH/MM3 (1.8-7.7); BASOPHIL % 0.6 % (0.0-2.0); EOSINOPHIL % 0.8 % (0.0-4.0); HEMATOCRIT 27.1 % (39.0-51.0); HEMOGLOBIN 9.3 GM/DL (13.0-17.0); LYMPH % 33.3 % (9.0-44.0); LYMPHOCYTE # 0.9 TH/MM3 (1.0-4.8); MEAN CELL VOLUME 84.2 FL (80.0-100.0); MEAN CORPUSCULAR HEMOGLOBIN 28.9 PG (27.0-34.0); MEAN CORPUSCULAR HGB CONC 34.3 % (32.0-36.0); MEAN PLATELET VOLUME 7.3 FL (7.0-11.0); MONOCYTE # 0.3 TH/MM3 (0-0.9); NEUT % 52.3 % (16.0-70.0); PLATELET COUNT 195 TH/MM3 (150-450); RED BLOOD COUNT 3.22 MIL/MM3 (4.50-5.90); RED CELL DISTRIBUTION WIDTH 15.6 % (11.6-17.2); WHITE BLOOD COUNT 2.6 TH/MM3 (4.0-11.0)
[2018-01-11 08:00] VITALS: BP 134/68; PULSE 70; RESP 18; TEMP 98.1; O2SAT 100
[2018-01-11] MEDS: INSULIN ASPART SUPPLEMENTAL SCALE SQ SCH (08:00)
[2018-01-11 08:13] LABS: ALBUMIN 3.4 GM/DL (3.4-5.0); ALKALINE PHOSPHATASE 62 U/L (45-117); ALT (GPT) 30 U/L (12-78); AST (GOT) 15 U/L (15-37); BICARBONATE 24.9 MEQ/L (21.0-32.0); BLOOD UREA NITROGEN 13 MG/DL (7-18); CALCIUM 9.1 MG/DL (8.5-10.1); CHLORIDE 107 MEQ/L (98-107); CREATININE 1.01 MG/DL (0.60-1.30); GLOMERULAR FILTRATION RATE 92 ML/MIN (>89); GLUCOSE,RANDOM 87 MG/DL (74-106); MAGNESIUM 2.1 MG/DL (1.5-2.5); SODIUM (NA) 141 MEQ/L (136-145); TOTAL BILIRUBIN ADULT 0.3 MG/DL (0.2-1.0); TOTAL PROTEIN 6.3 GM/DL (6.4-8.2)
[2018-01-11] MEDS: DOXAZOSIN MESYLATE 4 MG TAB PO SCH (08:43)
[2018-01-11] MEDS: oxyCODONE/ACETAMINOPHEN 5 MG/325 MG TAB PO PRN (08:43)
[2018-01-11] MEDS: levETIRAcetam 500 MG TAB PO SCH (08:43)
[2018-01-11] MEDS: CAPTOPRIL 25 MG TAB PO SCH (08:44)
[2018-01-11] MEDS: SODIUM CHLORIDE 0.9% FLUSH 10 ML FLUSH IV FLUSH SCH (08:44)
[2018-01-11] MEDS: PRAVASTATIN SOD 40 MG TAB PO SCH (08:44)
--- NOTE | 2018-01-11 08:59 | EKG ---
Date Performed: 01/09/2018 Time Performed: 23:05:21 PTAGE: 57 years EKG: SINUS TACHYCARDIA NONSPECIFIC ST & T-WAVE ABNORMALITY ABNORMAL RHYTHM ECG PREVIOUS TRACING : 05/29/2017 14.49 Since the prior tracing, there has been no significant landeros DOCTOR: Clarissa Thurman Interpretating Date/Time 01/11/2018 08:58:46
--- NOTE | 2018-01-11 10:50 | HHI.PR ---
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 Patient does not remember the event. Family in the room reports they found him in his bedroom foaming in the mouth with legs shaking uncontrollably. Family reports he had one seizure in the past when he was first diagnosed with prostate cancer. He has been on Keppra but this was discontinued at some point. The patient and family is not able to tell when the medication was discontinued or why. They do not know the name of his neurologist. While the patient was in the ER, he had another seizure and was loaded with Keppra. On my evaluation he is over the postictal state. He is awake and has no focal deficits. 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 DC TO HOME AMBULATING WELL [facility] RN AND PT Objective Vitals Vital Signs Date Time Temp Pulse Resp B/P (MAP) Pulse Ox O2 Delivery O2 Flow Rate FiO2 01/11/18 08:00 98.1 70 18 134/68 (90) 100 01/11/18 04:16 98.0 77 16 125/73 (90) 100 01/10/18 23:54 98.0 79 15 128/66 (86) 100 01/10/18 20:12 97.5 71 17 131/65 (87) 97 01/10/18 16:25 98.0 74 18 132/68 (89) 99 01/10/18 10:55 97.8 73 18 159/72 (101) 96 I/O 01/10/18 01/10/18 01/10/18 01/11/18 01/11/18 01/11/18 07:00 15:00 23:00 07:00 15:00 23:00 Intake Total 970 ml Output Total 400 ml Balance 570 ml Intake Oral 970 ml Output Urine Total 400 ml # Voids 3 # Bowel Movements 1 Result Diagram: 01/11/18 0600 01/11/18 0600 Other Results Laboratory Tests Test 01/09/18 23:33 01/10/18 10:07 01/11/18 06:00 White Blood Count 3.0 TH/MM3 2.6 TH/MM3 Red Blood Count 3.28 MIL/MM3 3.22 MIL/MM3 Hemoglobin 9.5 GM/DL 9.3 GM/DL Hematocrit 27.6 % 27.1 % Mean Corpuscular Volume 84.0 FL 84.2 FL Mean Corpuscular Hemoglobin 29.0 PG 28.9 PG Mean Corpuscular Hemoglobin Concent 34.5 % 34.3 % Red Cell Distribution Width 15.5 % 15.6 % Platelet Count 216 TH/MM3 195 TH/MM3 Mean Platelet Volume 6.7 FL 7.3 FL Neutrophils (%) (Auto) 38.4 % 52.3 % Lymphocytes (%) (Auto) 46.5 % 33.3 % Monocytes (%) (Auto) 13.5 % 13.0 % Eosinophils (%) (Auto) 0.8 % 0.8 % Basophils (%) (Auto) 0.8 % 0.6 % Neutrophils # (Auto) 1.1 TH/MM3 1.4 TH/MM3 Lymphocytes # (Auto) 1.4 TH/MM3 0.9 TH/MM3 Monocytes # (Auto) 0.4 TH/MM3 0.3 TH/MM3 Eosinophils # (Auto) 0.0 TH/MM3 0.0 TH/MM3 Basophils # (Auto) 0.0 TH/MM3 0.0 TH/MM3 CBC Comment DIFF FINAL DIFF FINAL Differential Comment Blood Urea Nitrogen 14 MG/DL 13 MG/DL Creatinine 1.37 MG/DL 1.01 MG/DL Random Glucose 130 MG/DL 87 MG/DL Total Protein 6.6 GM/DL 6.3 GM/DL Albumin 3.6 GM/DL 3.4 GM/DL Calcium Level 8.7 MG/DL 9.1 MG/DL Phosphorus Level 3.3 MG/DL 5.0 MG/DL Magnesium Level 2.0 MG/DL 2.1 MG/DL Alkaline Phosphatase 68 U/L 62 U/L Aspartate Amino Transf (AST/SGOT) 19 U/L 15 U/L Alanine Aminotransferase (ALT/SGPT) 33 U/L 30 U/L Total Bilirubin 0.3 MG/DL 0.3 MG/DL Sodium Level 143 MEQ/L 141 MEQ/L Potassium Level 3.8 MEQ/L 4.0 MEQ/L Chloride Level 109 MEQ/L 107 MEQ/L Carbon Dioxide Level 24.7 MEQ/L 24.9 MEQ/L Anion Gap 9 MEQ/L 9 MEQ/L Estimat Glomerular Filtration Rate 65 ML/MIN 92 ML/MIN Troponin I LESS THAN 0.02 NG/ML Hemoglobin A1c 6.0 % Free Thyroxine 0.88 NG/DL Thyroid Stimulating Hormone 3rd Gen 1.360 uIU/ML Imaging Last Impressions Brain MRI 01/10/18 0000 Signed Impressions: Service Date/Time: January 09:10 - CONCLUSION: Normal examination. Agustín Boykin MD Head CT 01/09/18 0000 Signed Impressions: Service Date/Time: January 00:42 - CONCLUSION: 1. No acute intracranial abnormality. Stef Patel MD Objective Remarks GENERAL: Awake alert and oriented 3 talkative and cooperative in no acute distress SKIN: Warm and dry. HEAD: Atraumatic. Normocephalic. EYES: Pupils equal and round. No scleral icterus. No injection or drainage. Extraocular muscles intact ENT: No nasal bleeding or discharge. Mucous membranes pink and moist. Tongue is midline NECK: Trachea midline. No JVD. Supple CARDIOVASCULAR: Regular rate and rhythm. S1-S2 no S3 or S4 no heave or thrill or rub or gallop RESPIRATORY: No accessory muscle use. Clear to auscultation. Breath sounds equal bilaterally. GASTROINTESTINAL: Abdomen soft, non-tender, nondistended. Hepatic and splenic margins not palpable. MUSCULOSKELETAL: Extremities without clubbing, cyanosis, or edema. No obvious deformities. NEUROLOGICAL: Awake and alert. No obvious cranial nerve deficits. Motor grossly within normal limits. Five out of 5 muscle strength in the arms and legs. Normal speech. PSYCHIATRIC: Appropriate mood and affect; insight and judgment normal. Procedures EEG SHOWS SLOWING Medications and IVs Current Medications Levetriacetam 500 mg/Sodium Chloride 105 ml @ 420 mls/hr BOLUS ONCE IV Last administered on 01/10/18at 02:03; Start 01/10/18 at 01:15; Stop 01/10/18 at 01:29; Status DC Amlodipine Besylate (Norvasc) 10 mg DAILY PO Last administered on 01/11/18at 08: 44; Start 01/10/18 at 09:00 Captopril (Capoten) 25 mg DAILY PO Last administered on 01/11/18 08:44; Start 01/10/18 at 09:00 Doxazosin Mesylate (Cardura) 4 mg DAILY PO Last administered on 01/11/18 08:43 ; Start 01/10/18 at 09:00 Pravastatin Sodium (Pravachol) 40 mg DAILY PO Last administered on 01/11/18 08: 44; Start 01/10/18 at 09:00 Sodium Chloride (NS Flush) 2 ml UNSCH PRN IV FLUSH FLUSH AFTER USING IV ACCESS ; Start 01/10/18 at 03:30 Sodium Chloride (NS Flush) 2 ml BID IV FLUSH Last administered on 01/11/18 08: 44; Start 01/10/18 at 09:00 Lorazepam (Ativan Inj) 2 mg UNSCH PRN IV PUSH SEE LABEL COMMENTS; Start at 03:30 Ondansetron HCl (Zofran Inj) 4 mg Q6H PRN IV PUSH NAUSEA OR VOMITING; Start 01/10/18 at 03:30 Levetriacetam (Keppra) 500 mg Q12HR PO ; Start 01/10/18 at 09:00; Stop 01/10/18 at 09:00; Status DC Oxycodone/ Acetaminophen (Percocet 5-325 Mg) 1 tab Q6H PRN PO PAIN Last administered on 01/11/18 08:43; Start 01/10/18 at 06:30 Heparin Sodium (Porcine) (Heparin Inj) 5,000 units Q12H SQ Last administered on 01/11/18at 06:39; Start 01/10/18 at 06:30 Levetriacetam (Keppra) 1,000 mg Q12HR PO Last administered on 01/11/18 08:43; Start 01/10/18 at 09:00 Gadodiamide (Omniscan Pf Inj) 20 ml STK-MED ONCE IVCONTRAST Last administered on 01/10/18at 09:30; Start 01/10/18 at 09:30; Stop 01/10/18 at 09:31; Status DC Dextrose (D50w (Vial) Inj) 50 ml UNSCH PRN IV PUSH HYPOGLYCEMIA-SEE COMMENTS; Start 01/10/18 at 10:30 Glucagon (Glucagon Inj) 1 mg UNSCH PRN OTHER HYPOGLYCEMIA-SEE COMMENTS; Start 01/10/18 at 10:30 Insulin Aspart (NovoLOG SUPPLEMENTAL SCALE) 1 ACHS SLIDING SCALE SQ ; Start 01/10/18 at 12:00 A/P Problem List: (1) Seizure ICD Code: R56.9 - Unspecified convulsions Status: Acute Plan: Patient had 2 seizures today. One witnessed in the ED.. Apparently the patient was on anti-seizure medications which was discontinued a few months ago. Resume Keppra 500 mg by mouth twice a day. EEG ordered Consult neurology for assistance Given history of metastatic prostate cancer, obtain MRI. MRI brain IS NEGATIVE (2) Prostate cancer metastatic to bone ICD Code: C61 - Malignant neoplasm of prostate; C79.51 - Secondary malignant neoplasm of bone Status: Chronic Plan: Patient currently undergoing chemotherapy with Dr. Kaur. Continue pain control with home dose Percocet. (3) Renal insufficiency ICD Code: N28.9 - Disorder of kidney and ureter, unspecified Plan: Patient is close to his baseline. He does have history of hydronephrosis but his creatinine has been trending down. He follows up outpatient with urology. Continue to monitor. Encourage oral hydration. (4) HTN (hypertension) ICD Code: I10 - Essential (primary) hypertension Status: Chronic Plan: Continue home medications (5) Metastatic disease ICD Code: C79.9 - Secondary malignant neoplasm of unspecified site Status: Acute Plan: Await MRI for further input--MRI OF BRAIN NEGATIVE (6) Normocytic anemia ICD Code: D64.9 - Anemia, unspecified Status: Chronic Plan: Chronic monitor (7) Diabetes ICD Code: E11.9 - Type 2 diabetes mellitus without complications Plan: TYPE 2 CONTINUE ON ACCUCHECKS AND SLIDING SCALE WITH LOW DOSE INSULIN Assessment and Plan (1) Seizure ICD Code: R56.9 - Unspecified convulsions Status: Acute Plan: Patient had 2 seizures today. One witnessed in the ED.. Apparently the patient was on anti-seizure medications which was discontinued a few months ago. Resume Keppra 500 mg by mouth twice a day. EEG ordered Consult neurology for assistance Given history of metastatic prostate cancer, obtain MRI.- MRI WAS NEGATIVE (2) Prostate cancer metastatic to bone ICD Code: C61 - Malignant neoplasm of prostate; C79.51 - Secondary malignant neoplasm of bone Status: Chronic Plan: Patient currently undergoing chemotherapy with Dr. Kaur. Continue pain control with home dose Percocet. (3) Renal insufficiency ICD Code: N28.9 - Disorder of kidney and ureter, unspecified Plan: Patient is close to his baseline. He does have history of hydronephrosis but his creatinine has been trending down. He follows up outpatient with urology. Continue to monitor. Encourage oral hydration. Hypertension resume home medications Metastatic disease await MRI of brain- MRI OF BRAIN IS NEGATIVE Normocytic anemia chronic monitor GI prophylaxis CLEARED BY NEUROLOGY DC TO HOME NO DRIVING FOR 6 MONTHS KEPPRA 1000MG PO BID Discharge Planning Continue on Keppra MRI WAS STABLE HAS neurological clearance Charlie Peterson DO Jan 11, 2018 10:50
[2018-01-11] MEDS ORDERED: LEVE500 PO (10:54)
--- NOTE | 2018-01-11 10:55 | HHI.DS ---
Discharge Summary Admission Date Jan 10, 2018 at 11:44 Discharge Date: Jan 11, 2018 Admitting Diagnosis seizure recurrent in ED (1) Seizure ICD Code: R56.9 - Unspecified convulsions Diagnosis: Principal Status: Acute (2) Prostate cancer metastatic to bone ICD Code: C61 - Malignant neoplasm of prostate; C79.51 - Secondary malignant neoplasm of bone Diagnosis: Principal Status: Chronic (3) Renal insufficiency ICD Code: N28.9 - Disorder of kidney and ureter, unspecified Diagnosis: Secondary (4) HTN (hypertension) ICD Code: I10 - Essential (primary) hypertension Diagnosis: Secondary Status: Chronic (5) Metastatic disease ICD Code: C79.9 - Secondary malignant neoplasm of unspecified site Diagnosis: Secondary Status: Acute (6) Normocytic anemia ICD Code: D64.9 - Anemia, unspecified Diagnosis: Secondary Status: Chronic (7) Diabetes ICD Code: E11.9 - Type 2 diabetes mellitus without complications Diagnosis: Secondary Procedures EEG SHOWS SLOWING Brief History - From Admission 57-year-old male with a medical history significant for 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 Patient does not remember the event. Family in the room reports they found him in his bedroom foaming in the mouth with legs shaking uncontrollably. Family reports he had one seizure in the past when he was first diagnosed with prostate cancer. He has been on Keppra but this was discontinued at some point. The patient and family is not able to tell when the medication was discontinued or why. They do not know the name of his neurologist. While the patient was in the ER, he had another seizure and was loaded with Keppra. On my evaluation he is over the postictal state. He is awake and has no focal deficits. CBC/BMP: 01/11/18 0600 01/11/18 0600 Significant Findings Laboratory Tests Test 01/09/18 23:33 01/10/18 10:07 01/11/18 06:00 White Blood Count 3.0 TH/MM3 (4.0-11.0) 2.6 TH/MM3 (4.0-11.0) Red Blood Count 3.28 MIL/MM3 (4.50-5.90) 3.22 MIL/MM3 (4.50-5.90) Hemoglobin 9.5 GM/DL (13.0-17.0) 9.3 GM/DL (13.0-17.0) Hematocrit 27.6 % (39.0-51.0) 27.1 % (39.0-51.0) Mean Platelet Volume 6.7 FL (7.0-11.0) Lymphocytes (%) (Auto) 46.5 % (9.0-44.0) Monocytes (%) (Auto) 13.5 % (0.0-8.0) 13.0 % (0.0-8.0) Neutrophils # (Auto) 1.1 TH/MM3 (1.8-7.7) 1.4 TH/MM3 (1.8-7.7) Creatinine 1.37 MG/DL (0.60-1.30) Random Glucose 130 MG/DL (74-106) Chloride Level 109 MEQ/L (98-107) Estimat Glomerular Filtration Rate 65 ML/MIN (>89) Troponin I LESS THAN 0.02 NG/ML Lymphocytes # (Auto) 0.9 TH/MM3 (1.0-4.8) Total Protein 6.3 GM/DL (6.4-8.2) Phosphorus Level 5.0 MG/DL (2.5-4.9) Imaging Last Impressions Brain MRI 01/10/18 0000 Signed Impressions: Service Date/Time: January 09:10 - CONCLUSION: Normal examination. Agustín Boykin MD Head CT 01/09/18 0000 Signed Impressions: Service Date/Time: January 00:42 - CONCLUSION: 1. No acute intracranial abnormality. Stef Patel MD PE at Discharge GENERAL: Awake alert and oriented 3 talkative and cooperative in no acute distress SKIN: Warm and dry. HEAD: Atraumatic. Normocephalic. EYES: Pupils equal and round. No scleral icterus. No injection or drainage. Extraocular muscles intact ENT: No nasal bleeding or discharge. Mucous membranes pink and moist. Tongue is midline NECK: Trachea midline. No JVD. Supple CARDIOVASCULAR: Regular rate and rhythm. S1-S2 no S3 or S4 no heave or thrill or rub or gallop RESPIRATORY: No accessory muscle use. Clear to auscultation. Breath sounds equal bilaterally. GASTROINTESTINAL: Abdomen soft, non-tender, nondistended. Hepatic and splenic margins not palpable. MUSCULOSKELETAL: Extremities without clubbing, cyanosis, or edema. No obvious deformities. NEUROLOGICAL: Awake and alert. No obvious cranial nerve deficits. Motor grossly within normal limits. Five out of 5 muscle strength in the arms and legs. Normal speech. PSYCHIATRIC: Appropriate mood and affect; insight and judgment normal. 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 Patient does not remember the event. Family in the room reports they found him in his bedroom foaming in the mouth with legs shaking uncontrollably. Family reports he had one seizure in the past when he was first diagnosed with prostate cancer. He has been on Keppra but this was discontinued at some point. The patient and family is not able to tell when the medication was discontinued or why. They do not know the name of his neurologist. While the patient was in the ER, he had another seizure and was loaded with Keppra. On my evaluation he is over the postictal state. He is awake and has no focal deficits. 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 DC TO HOME AMBULATING WELL [facility] RN AND PT Pt Condition on Discharge: Good Discharge Disposition: Discharge Home Discharge Time: <= 30 minutes Discharge Instructions DIET: Follow Instructions for: Heart Healthy Diet, Diabetic Diet Speech Therapy-Diet Recommends: Regular Activities you can perform: Weight Bearing as Kierra Other Activity Instructions: NO DRIVING A WIRE BORDER ASSEMBLER FOR 6 MONTHS-MAY BE PASSENGER IN THE CAR Follow up Referrals: Neurology - 2 Weeks with Stuart Hoffmann MD PhD PCP Follow-up - 1 Week New Medications: Levetiracetam (Keppra) 500 Mg Tab 1000 MG PO Q12HR for Seizure Control, #120 TAB Continued Medications: Amlodipine (Norvasc) 10 Mg Tab 10 MG PO DAILY for Blood Pressure Management, #31 TAB Captopril (Captopril) 25 Mg Tab 25 MG PO DAILY, #60 TAB 0 Refills Take 1 hr before meals. Doxazosin (Cardura) 4 Mg Tab 4 MG PO DAILY for Blood Pressure Management, #31 TAB Furosemide (Furosemide) 40 Mg Tab 40 MG PO DAILY, #30 TAB 0 Refills Metformin (Metformin) 500 Mg Tab 500 MG PO BIDPC for Blood Sugar Management, #60 TAB 0 Refills Oxycodone-Acetaminophen (Percocet) 5-325 mg Tab 1 TAB PO Q6H PRN for PAIN, TAB 0 Refills Oxygen (O2) (Oxygen (O2)) Device 2 LITER SAM.CANULA CONTINUOUS for Prevent Hypoxemia, #2 CYLINDER Oxygen Concentrator Portable Gaseous 2 L/min via Nasal Canula Continuous For 99 months Pravastatin (Pravachol) 40 Mg Tab 40 MG PO DAILY for Cholesterol Management, #31 TAB Charlie Peterson DO Jan 11, 2018 10:55
== END 2018-01-11 12:01 | disposition home or self-care (01) | DRG 101 ==
LOC: NEPE 22:55 → NEDA 01-10 03:09 → NEPFCDU 01-10 04:08 → OBSVTOIN 01-10 11:44
PROVIDERS: ADMIT Hospitalist; ATTEND Hospitalist
DX: G40.409 Other generalized epilepsy and epileptic syndromes, not intractable, without status epilepticus (principal); C79.51 Secondary malignant neoplasm of bone; Z99.81 Dependence on supplemental oxygen; C61 Malignant neoplasm of prostate; I48.91 Unspecified atrial fibrillation; I10 Essential (primary) hypertension; D63.0 Anemia in neoplastic disease; E11.9 Type 2 diabetes mellitus without complications; K21.9 Gastro-esophageal reflux disease without esophagitis; N28.9 Disorder of kidney and ureter, unspecified; Z79.84 Long term (current) use of oral hypoglycemic drugs
CPT/HCPCS: 70450; 70553; 80053; 82948; 83036; 83735; 84100; 84439; 84443; 84484; 85025; 93005; 95819; 96365; A9579; G8987-GO; G8988-GO; G8989-GO; J1642; J1644; J1953